=== PATIENT | male | born 1980 | race Caucasian/White ===

== ENCOUNTER 2018-10-01 20:41 | Emergency (ER) | payer MEDICAID, SELFPAY ==
[2018-10-01 20:42] VITALS: BP 143/98; PULSE 95; RESP 16; TEMP 36.1; O2SAT 99; BMI 32.1
--- NOTE | 2018-10-01 21:15 | RAD_ITS ---
STUDY: X-RAY - LEFT HAND REASON FOR EXAM: Male, 38 years old. Injured third and fourth digit findings CABG object. TECHNIQUE: 3 view(s) of the hand. COMPARISON: None. FINDINGS: Normal radiocarpal articulation. Normal distal radioulnar joint. Normal visualized carpal bones. Normal carpal articulations Normal carpometacarpal articulation of the thumb. Normal second through fifth carpometacarpal joints. Normal metacarpi. Normal metacarpophalangeal joint of the thumb. Normal interphalangeal joint of the thumb. Normal proximal and distal phalanges of the thumb. Normal metacarpophalangeal joints of the second through fifth fingers. Normal proximal and distal interphalangeal joints of the second through fifth fingers. Normal phalanges of the second through fifth fingers. The soft tissue structures are unremarkable. RAD/Hand Min 3 Views IMPRESSION: No acute osseous injury. Electronically Signed: Perla Alfaro MD at 21:37 EDT Tel , Service support ,
--- NOTE | 2018-10-01 21:41 | ED.DCSUM_ITS ---
- ER Visit Summary Date of Service: 10/01/18 Chief Complaint: left finger injuries History of Present Illness: The patient is a 38 M who presents for injuries to the left third and fourth fingers. Patient yesterday tried to catch an object that was shifting and jammed his fingers at the distal tips into the objects. Since then he has had swelling and discomfort of the fingers. He is fully able to extend and flex them. He has not taken anything for pain. He has tried ice. No other injuries. Physical Examination: Well-nourished and well-developed in no distress. Examination of the left hand shows a 2+ radial pulse. Third finger has mild edema but full flexion and extension is intact. No laxity to varus or valgus stress. No deformity. Mild contusion noted. Similar examination of the fourth finger with much less swelling. Remainder of exam unremarkable. Test Results: Clinical Impression(s) from Imaging Studies Hand X-Ray 10/01/18 21:15 IMPRESSION: No acute osseous injury. Electronically Signed: Perla Alfaro MD at 21:37 EDT Tel , Service support , Emergency Department Course and Treatment: Patient had no findings on physical exam concerning for tendon or ligament injury. X-ray showed no fractures or dislocations. Patient has good sensation and motor function of all fingers. He will use ice and joqg-ile-xujxmoy pain medication as needed. Discharged home. Treatment Plan: [] Disposition: Discharge home Impression: Left third and fourth finger sprains and contusions This note was generated with [employer] dictation software. It may contain incorrect words, spelling, and punctuation that were not noted in review of the chart prior to signing ED Disposition - Plan for ED Patient: Disposition: Home or Assisted Living Instructions: Sprain Finger Referrals: Care Physician,No Primary [Primary Care Provider] - Doctor,Your [STAFF PHYSICIAN] - Additional Instructions: You did not break your fingers. They are just bruised and sprained. Please continue using ice for swelling and jkma-cvb-gvqqelu pain medication as needed for pain. If you have any worsening of your condition or any new concerning symptoms, please return immediately to the emergency department for another evaluation.
== END 2018-10-01 21:58 | disposition home or self-care (01) ==
PROVIDERS: Emergency Provider Emergency Medicine
DX: S60.042A Contusion of left ring finger without damage to nail, initial encounter (principal); S60.052A Contusion of left little finger without damage to nail, initial encounter; S63.617A Unspecified sprain of left little finger, initial encounter; S63.615A Unspecified sprain of left ring finger, initial encounter; W20.8XXA Other cause of strike by thrown, projected or falling object, initial encounter; Y93.9 Activity, unspecified; Y92.89 Other specified places as the place of occurrence of the external cause; Y99.9 Unspecified external cause status
CPT/HCPCS: 73130; 99282

== ENCOUNTER 2019-05-05 19:16 | Emergency (ER) | payer MEDICAID, SELFPAY ==
[2019-05-05 14:34] VITALS: BMI 32.1
[2019-05-05 19:17] VITALS: BP 170/104; PULSE 90; RESP 16; TEMP 36.7; O2SAT 98; BMI 26.5
--- NOTE | 2019-05-05 19:38 | ED.DCSUM_ITS ---
- ER Visit Summary Date of Service: 05/05/19 Chief Complaint: [Dental pain] History of Present Illness: The patient is a 39 M [presents the emergency department complaint of dental pain that started 3 days ago. Patient states he has had chronic dental issues for 6 or 7 years. Patient was seen at the [facility] earlier today and started on Keflex. Patient has allergy to clindamycin. Patient complains of severe pain to his right upper teeth. He denies any fevers. He denies any trauma to his teeth. Patient states he is trying to save money to get into see a dentist.] Physical Examination: [HEENT-PERRLA, EOMI. Cranial nerves II through XII grossly intact. TMs clear. Mucous membranes moist. No adenopathy. Patient- patient has several broken and carried right upper premolars that are tender to palpation. There is some faint gingival erythema. No abscess noted. No facial cellulitis. Cardiovascular-regular rate and rhythm without murmur or ectopy Lungs-clear to auscultation, chest wall stable without crepitus or subcu emphysema Abdomen-normoactive bowel sounds, soft, nontender, no rebound or rigidity, no peritoneal signs. Extremities-intact ?4, normal range of motion, normal pulses, atraumatic] Test Results: [None indicated] Emergency Department Course and Treatment: [I did perform an oars report and he has had no narcotics in the last year. She was given 1 Percocet in the emergency department] Treatment Plan: [To continue with his antibiotic and will be given a prescription for Percocet for his pain. Patient also will be given a list of dentists in the area.] Disposition: [Discharged home in stable condition] Impression: [Dental pain secondary to dental caries] This note was generated with [employer] dictation software. It may contain incorrect words, spelling, and punctuation that were not noted in review of the chart prior to signing ED Disposition - Plan for ED Patient: Referrals: Care Physician,No Primary [Primary Care Provider] -
--- NOTE | 2019-05-05 19:40 | ED.DEP ---
ED Disposition - Plan for ED Patient: Instructions: Dental Pain Prescriptions: Oxycodone HCl/Acetaminophen [Percocet 5/325] 1 tablet PO Q6H PRN PRN 3 Days #12 tablet PRN Reason: Pain Transmission Status: Sent to [email or web address][id number] Referrals: Care Physician,No Primary [Primary Care Provider] - Additional Instructions: see a dentist
[2019-05-05] MEDS: oxyCODONE 5 MG Tablet PO (19:43)
== END 2019-05-05 19:53 | disposition home or self-care (01) ==
LOC: ED 19:48
PROVIDERS: Emergency Provider Emergency Medicine
DX: K02.9 Dental caries, unspecified (principal); Z72.0 Tobacco use
CPT/HCPCS: 99283

== ENCOUNTER 2019-09-02 16:28 | Emergency (ER) | payer MEDICAID, SELFPAY ==
[2019-08-03 13:16] VITALS: BMI 26.5
[2019-09-02 16:30] VITALS: BP 158/87; PULSE 114; RESP 16; TEMP 36.4; O2SAT 97; BMI 32.8
--- NOTE | 2019-09-02 17:06 | ED.VISSUMM ---
- ER Visit Summary Date of Service: 09/02/19 Chief Complaint: [Back pain History of present illness: The patient is a 39-year-old male who presents to the emergency department chief complaint of back pain that started 1 week ago. Patient woke up with pain one morning and has had it for about a week and a half. Initially the pain radiated down his left leg but that seems to have improved and now is rating down his right leg. Patient states that about a year ago he had x-rays that show degenerative disc disease. Patient denies any loss of bowel or bladder function. He denies weakness in extremities. He denies saddle anesthesia.] Patient denies any trauma to his back. He said no fever. Patient also states that he had a sore throat since April. He has been on antibiotics to treat thrush such as fluconazole and has not had much in the way of relief. Patient had been on antibiotics prior to the sore throat starting and he states he had a pill that kind got stuck in his throat that he thought irritated the throat at that time. Physical Examination: [HEENT-PERRLA, EOMI. Cranial nerves II through XII grossly intact. TMs clear. Mucous membranes moist. No adenopathy. Thinks nonerythematous. No exudates. No abnormalities noted. Cardiovascular-regular rate and rhythm without murmur or ectopy Lungs-clear to auscultation, chest wall stable without crepitus or subcu emphysema Abdomen-normoactive bowel sounds, soft, nontender, no rebound or rigidity, no peritoneal signs Back exam-patient has mild diffuse tenderness over the thoracic and lumbar paraspinal musculature bilaterally. No bony step-offs noted. No erythema or warmth noted. Negative straight leg raises. Deep tendon reflexes are plus 2 out of 4 bilaterally at the patella and Achilles. Patient has normal 5 extension.. Extremities-intact ?4, normal range of motion, normal pulses, atraumatic] Test Results: [None indicated] Emergency Department Course and Treatment: [Patient was given a prescription for Flexeril, Percocet, and Naprosyn. Patient also will be given a Medrol Dosepak.] Treatment Plan: [She will be given referral to primary care physician configuration management consultant for no doc as well as orthopedics for follow-up patient also will be given referral to ENT if his sore throat continues.] Disposition: [Discharged home in stable condition] Impression: [Atraumatic back pain Lumbar radiculopathy Pharyngitis] This note was generated with [employer] dictation software. It may contain incorrect words, spelling, and punctuation that were not noted in review of the chart prior to signing ED Disposition - Plan for ED Patient: Referrals: NOT,DEFINED [Primary Care Provider] -
--- NOTE | 2019-09-02 17:09 | ED.DEP ---
ED Disposition - Plan for ED Patient: Instructions: ED Back Pain Acute or Chronic, ED LUMBAR RADICULOPATHY Prescriptions: cycloBENZAPRine HCl [Flexeril] 10 mg PO TID PRN #20 tab PRN Reason: Muscle Spasm Prescription Printed MethylPREDNISolone DosePak [Medrol DosePak] 4 mg PO UD #1 box Prescription Printed Naproxen [Naprosyn] 500 mg PO BID PRN #20 tab Prescription Printed Oxycodone HCl/Acetaminophen [Percocet 5/325] 1 tab PO Q6H PRN PRN 3 Days #12 tab PRN Reason: Pain Prescription Printed Referrals: NOT,DEFINED [Primary Care Provider] - Everardo Son MD [STAFF PHYSICIAN] - Jose Angel Ibarra DO [STAFF PHYSICIAN] - 3-5 Days Jonatan Sagastume MD [STAFF PHYSICIAN] - 3-5 Days
== END 2019-09-02 17:20 | disposition home or self-care (01) ==
LOC: ED 17:16
PROVIDERS: Emergency Provider Emergency Medicine
DX: M54.9 Dorsalgia, unspecified (principal); M54.16 Radiculopathy, lumbar region; J02.9 Acute pharyngitis, unspecified; Z72.0 Tobacco use
CPT/HCPCS: 99282

== ENCOUNTER → 2019-09-08 14:41 | Outpatient (CLI) | payer MEDICAID, SELFPAY ==
[2019-09-02 16:30] VITALS: BMI 32.8
== END ==
PROVIDERS: Referring Provider Otolaryngology; Visit Provider Otolaryngology
DX: J02.9 Acute pharyngitis, unspecified (principal)
CPT/HCPCS: 87070

== ENCOUNTER → 2019-09-23 11:12 | Outpatient (CLI) | payer MEDICAID, SELFPAY ==
[2019-09-23 11:08] VITALS: BMI 30.2
--- NOTE | 2019-09-23 11:13 | RAD_ITS ---
STUDY: X-RAY - LUMBAR SPINE REASON FOR EXAM: Male, 39 years old. CHRONIC PAIN, RADIATES DOWN BILAT LEGS- WORSE ON THE RIGHT TECHNIQUE: 5 view(s) of the lumbar spine were obtained including oblique views. COMPARISON: None FINDINGS: Normal lumbar lordosis. There is no substantial scoliosis. There is a normal alignment of the vertebrae. There is multilevel endplate spondylosis of the lumbar vertebrae. Mild degree of disc space narrowing at the L4-L5 and L5-S1 levels. 20% loss of height of the superior endplate of the L1 vertebrae. The soft tissue structures are unremarkable. RAD/L/S Spine Min 4 Views IMPRESSION: Degenerative changes of the spine, as detailed above. 20% loss of height of the superior endplate of the L1 vertebrae. Electronically Signed: Manjinder Costa, at 15:09 EDT , Service support ,
--- NOTE | 2019-09-23 11:15 | RAD_ITS ---
STUDY: X-RAY - THORACIC SPINE REASON FOR EXAM: Male, 39 years old. CHRONIC PAIN TECHNIQUE: 3 view(s) of the thoracic spine were obtained. COMPARISON: None. FINDINGS: There is an increase in the normal thoracic kyphosis. There is no substantial scoliosis. There is multilevel endplate spondylosis of the thoracic vertebrae. There is multilevel disc space narrowing of the thoracic spine. The soft tissue structures are unremarkable. RAD/Thoracic Spine 3 Views IMPRESSION: Multilevel spondylosis with disc space narrowing and increased kyphosis. Electronically Signed: Manjinder Costa, at 15:12 EDT , Service support ,
== END ==
PROVIDERS: Referring Provider Orthopaedic Surgery; Visit Provider Orthopaedic Surgery
DX: M54.6 Pain in thoracic spine (principal); M54.5 Low back pain
CPT/HCPCS: 72072; 72110

== ENCOUNTER 2020-04-09 17:59 | Emergency (ER) | payer MEDICAID, SELFPAY ==
[2020-04-09 18:01] VITALS: BP 160/112; PULSE 98; RESP 17; TEMP 36.8; O2SAT 97; BMI 32.1
--- NOTE | 2020-04-09 18:18 | ED.VIS.GEN ---
History of Present Illness Chief Complaint: Dental Informant: Patient Narrative: 39-year-old male tells me that he has swelling of the roof of his mouth. He tells me that he knows he needs to see a dentist but that all the dentist that he was seen in the past have been a joke. He tells me they have done more damage to him than good. He tells me he did a online appointment and was prescribed clindamycin today but he allergic to it. States they did not give him anything for pain. Tells me he is to see primary care at [facility] but does not go there anymore because one time he had the swelling on the roof of his mouth and they wanted to put their finger in and feel it and he told them that if they would damage anything that he would be very upset. I tried to redirect him and tell him there is nothing I can do about those prior visits but that he keeps bringing up other things from the past such as one time when he took [address] [place] and do anything for him and he really just needs Percocet and a prescription for an antibiotic. No fevers. Past Medical History - Allergies and Home Meds Allergies/Adverse Reactions: Allergies clindamycin Allergy (Verified 04/09/20 18:00) Unknown poison max extract Allergy (Verified 04/09/20 18:00) Rash poison oak extract Allergy (Verified 04/09/20 18:00) Rash poison sumac extract Allergy (Verified 04/09/20 18:00) Rash red dye Allergy (Verified 04/09/20 18:00) Rash Primary Care Physician: Care Physician,No Primary [Primary Care Provider] - Past Medical History: - - Chronic back issues Surgical History: - - [place] tooth extraction multiple dental procedures Smoking Status: Current every day smoker Drugs: None Review of Systems General: Denies: Chills, Fever, Sweats Eyes: Denies: Visual changes - bilaterally, Diplopia ENT: Reports: - - Swelling right roof of mouth. Denies: Rhinorrhea, Sore throat Cardiovascular: Denies: Chest pain, Palpitations Respiratory: Denies: Dyspnea, Cough, Dyspnea on exertion Gastrointestinal: Denies: Abdominal pain, Nausea, Vomiting, Diarrhea, Melena, Hematochezia Genitourinary: Denies: Dysuria, Hematuria, Frequency Musculoskeletal: Denies: Back pain, Extremity Pain Skin: Denies: Rash, Wounds Neurological: Denies: Headache, Weakness, Numbness Physical Exam Vital Signs/Narrative: Vital Signs Temp Pulse Resp BP Pulse Ox 04/09/20 18:01 98.2 F 98 17 160/112 H 97 Inital Vital Signs reviewed: Yes General: Well nourished, Well developed, No Acute Distress Head: Normocephalic, Atraumatic Eyes: Perrl, EOMI ENT: Moist mucous membranes, No rhinorrhea, - - There is a dental abscess located just on the medial aspect of the premolars. As I am not allowed to put my fingers and I cannot tell if it is fluctuant or able to be drained. Neck: Supple, Nontender Cardiovascular: Regular rate, Regular rhythm, No murmurs Respiratory: No distress, CTA bilaterally, Chest nontender Abdomen: Soft, Nontender, Nondistended, Normal bowel sounds Back: Nontender, Normal Inspection Extremities: Nontender, No edema Skin: Normal color, No rash Neurological: Alert, Oriented x3, Cranial nerves II-XII grossly intact, Normal Strength, Normal Sensation Psychological: Normal affect, Normal Mood Diagnostic/Tx/Re-eval - Medical Decision Making Patient does not want I&D. I am happy to write an antibiotic that is not on his allergy list. Patient knows he should see dentistry. ED Disposition - Plan for ED Patient: Disposition: Home or Assisted Living Diagnosis: Dental abscess Instructions: Dental Abscess Prescriptions: Penicillin V Potassium 500 mg PO 4X/DAY #40 tab Prescription Printed Oxycodone HCl/Acetaminophen [Percocet 5/325] 1 tab PO Q6H PRN PRN 2 Days #8 tab PRN Reason: Pain Prescription Printed Additional Instructions: Follow-up with dentistry when able
== END 2020-04-09 18:34 | disposition home or self-care (01) ==
PROVIDERS: Emergency Provider Emergency Medicine
DX: K04.7 Periapical abscess without sinus (principal); F17.200 Nicotine dependence, unspecified, uncomplicated
CPT/HCPCS: 99282

== ENCOUNTER 2020-08-08 16:55 | Emergency (ER) | payer MEDICAID, SELFPAY ==
[2020-08-08 16:56] VITALS: BP 153/103; PULSE 109; RESP 16; TEMP 35.8; O2SAT 95; BMI 25.7
--- NOTE | 2020-08-08 17:16 | EDS_ITS ---
HPI History of Present Illness Chief Complaint: Other, Pain/Inj Informant: patient Onset/Context/Timing Onset: Days (Reoccurred Thursday afternoon) Mechanism/Context: Blunt Injury Location of pain/injuries: - (Nose) Quality of Pain: Dull and Aching Current Severity: Mild Maximum Severity: Moderate Worsened by: Palpation Relieved by: Nothing Associated Symptoms Associated Symptoms: Negative for Parasthesias, Weakness, Loss of function, Inability to ambulate and Loss of consciousness Narrative Narrative: Patient is a 40-year-old male who presents because of nasal pain and swelling. He contacted his insurance company. They recommend he come to the emergency department. He states he was walking with blocks. He thought the door was open. He ran into the door which then struck his nose. He had bleeding initially. There is been no bleeding since the incident. He denies difficulty breathing out of the right or left side. He denies trouble with his vision. He denies numbness of his upper teeth. He denies prior injury. He denies ringing in his ears or decreased hearing. He denies blurred vision, change in vision or double vision. Tetanus Immunization: 5-10 years Prior similar symptoms: No Recent Illness/Hospitalization: No PFSH PFSH Medical History (Updated 08/08/20 @ 17:[address] Aubrey Robert MD) Facet arthritis of lumbar region neck surgery Thoracic degenerative disc disease Home Medications miscellaneous medical supply 1 ea MISCELLANEOUS .PRN #1 ea 09/23/19 [Rx Last Taken Unknown] penicillin V potassium 500 mg PO 4X/DAY #40 tab 04/09/20 [Rx Last Taken Unknown] Allergy/AdvReac Type Severity Reaction Status Date / Time clindamycin Allergy Unknown Verified 08/08/20 16:58 poison max extract Allergy Rash Verified 08/08/20 16:58 poison oak extract Allergy Rash Verified 08/08/20 16:58 poison sumac extract Allergy Rash Verified 08/08/20 16:58 red dye Allergy Rash Verified 08/08/20 16:58 Family History Mother Diabetes Grandmother Diabetes Hypertension Cancer Surgical History (Updated 08/08/20 @ 17:25 by Marge Duval) H/O hand surgery [place] teeth extracted Social History (Updated 10/19/20 @ 11:[address] Jose Angel Ibarra, DO) Smoking Status: Current every day smoker alcohol intake: current substance use type: former substance user and marijuana what type of physical activity do you participate in: none ROS ROS ED Constitutional Constitutional ED: Denies chills or fever(s) Eyes Eyes: Denies blurry vision or change in vision ENT ENT ED: Denies ear pain, rhinorrhea or sore throat Cardiovascular Cardiovascular: Denies chest pain or palpitations Respiratory/Chest Respiratory/Chest: Denies cough, dyspnea or dyspnea on exertion Gastrointestinal Gastrointestinal: Denies abdominal pain, nausea or vomiting Allergic/Immunologic Allergic/Immunologic ED: Denies mouth swelling, tongue swelling or urticaria EXAM Physical Exam Const Vital Signs: 08/08/20 16:56 Temperature 96.4 F L Temperature Source Temporal Pulse Rate 109 H Respiratory Rate 16 Blood Pressure 153/103 H Blood Pressure Mean 119 Pulse Ox 95 Oxygen Delivery Method Room Air Positive well nourished, well developed and obese General Appearance ED: well developed and NAD Nutritional Appearance: obese HEENT Reports TM's clear trauma and tenderness Nose: Negative for septum abnormal Tympanic Membrane ED: Yes TM's clear Throat: other Other Details: There is no septal deviation or hematoma. There is swelling of the nose. Eyes PERRL and EOMs intact bilaterally General Eye ED: Yes other Other Details: There is no hyperesthesia of the right or left intraorbital nerve. There is no step-off with palpation. There is no evidence of entrapment and patient denies diplopia with upward gaze. Neck full ROM General: Negative for tenderness Resp normal respiratory effort Cardio regular rhythm Rate: regular rate Neuro oriented x3 and CN's II-XII intact bilaterally Barry Coma Scale: document GCS findings Spontaneous Obeys Commands Oriented 15 Sensorium / Orientation: alert Psych mental status grossly normal and thought process normal Skin no rashes or lesions noted, skin turgor normal and no jaundice MDM MDM MDM Narrative Medical decision making narrative: X-ray of the nose was obtained to evaluate for fracture versus contusion. Radiography Chest X-Ray - ED: Read by ED Physician and - (There is no evidence of fracture to the nose or nasal spine. There appears to be injury to the cartilage. There is no septal deviation noted. A total of 3 views were obtained.) Discharge Plan Triage Chief Complaint: Other, Pain/Inj ED Provider: JakobAubrey Dx/Rx/DC Orders Clinical Impression: Contusion of nose, initial encounter Instructions: ED Nasal Contusion Prescriptions: No Action miscellaneous medical supply Misc 1 ea miscellaneous .PRN Qty: 1 RF: 0 penicillin V potassium 500 MG tablet 500 mg PO 4X/DAY Qty: 40 RF: 0 Primary Care Provider: Care Physician,No Primary Referrals: Darrius Colbert MD [NON-STAFF] - As Needed Care Physician,No Primary [Primary Care Provider] - Disposition Disposition: Home, self care
--- NOTE | 2020-08-08 17:30 | RAD_ITS ---
STUDY: X-RAY - NASAL BONES REASON FOR EXAM: Male, 40 years old. Swelling, deformity, TECHNIQUE: 3 view(s) of the nasal bones. COMPARISON: None. FINDINGS: Normal nasal bones. Normal anterior nasal spine. There is no demonstrated soft tissue swelling. The remaining visualized osseous structures are normal. There is no demonstrated acute fracture of the otherwise visualized osseous structures. Normal visualized paranasal sinuses. RAD/Nasal Bones min 3 Views IMPRESSION: Normal x-ray examination of the nasal bones. Electronically Signed: Los Gray MD at 17:59 EDT , Service support ,
== END 2020-08-08 18:44 | disposition home or self-care (01) ==
LOC: ED 17:48
PROVIDERS: Emergency Provider Emergency Medicine
DX: S00.33XA Contusion of nose, initial encounter (principal); W22.09XA Striking against other stationary object, initial encounter; Y93.01 Activity, walking, marching and hiking; F17.200 Nicotine dependence, unspecified, uncomplicated
CPT/HCPCS: 70160; 99282

== ENCOUNTER 2020-09-09 14:01 | Emergency (ER) | payer MEDICAID, SELFPAY ==
[2020-09-09 14:02] VITALS: BP 140/78; PULSE 105; RESP 20; TEMP 36.1; BMI 38.5
--- NOTE | 2020-09-09 15:15 | EDS_ITS ---
HPI History of Present Illness Chief Complaint: Dental Informant: patient Onset/Context/Timing Onset: Days (2) Context: Gradual Onset Timing: Continuous and Waxes and wanes Quality: Sharp Location: Right upper molars Worsened by: Nothing Relieved by: - (Nothing) Associated Symptoms Assocated Symptom - Dental: jaw swelling, cold sensitivity and hot sensitivity; Negative for fever or face swelling Narrative Narrative: Patient presents with right upper dental pain that has been getting worse over the past 2 days. Patient states it has been waxing and waning. Patient states he has a history of dental infections and multiple dental caries. Patient states that he normally needs antibiotics for this. Patient also states he has been prescribed Percocet in the past for this. Patient denies any difficulty breathing or difficulty swallowing. Patient admits to some mild swelling around the teeth. Patient admits to hot and cold sensitivity. PFSH PFSH Medical History Facet arthritis of lumbar region Failing root canal neck surgery Thoracic degenerative disc disease Home Medications oxycodone-acetaminophen 1 tab PO Q6H PRN PRN 2 Days #6 tablet 09/09/20 [Rx Last Taken Unknown] penicillin V potassium 500 mg PO 4X/DAY #40 tab 09/09/20 [Rx Last Taken Unknown] Allergy/AdvReac Type Severity Reaction Status Date / Time clindamycin Allergy Unknown Verified 09/09/20 14:11 poison max extract Allergy Rash Verified 09/09/20 14:11 poison oak extract Allergy Rash Verified 09/09/20 14:11 poison sumac extract Allergy Rash Verified 09/09/20 14:11 red dye Allergy Rash Verified 09/09/20 14:11 Family History Mother Diabetes Grandmother Diabetes Hypertension Cancer Surgical History H/O hand surgery [place] teeth extracted Social History Smoking Status: Current every day smoker tobacco type: cigarettes alcohol intake: current substance use type: former substance user and marijuana what type of physical activity do you participate in: none ROS ROS ED Constitutional Constitutional ED: Denies chills or fever(s) Eyes Eyes: Reports blurry vision right; Denies change in vision ENT ENT ED: Denies ear pain or rhinorrhea Cardiovascular Cardiovascular: Denies chest pain or palpitations Respiratory/Chest Respiratory/Chest: Denies cough or dyspnea Gastrointestinal Gastrointestinal: Denies nausea or vomiting Genitourinary Genitourinary ED: Denies dysuria or hematuria Musculoskeletal Musculoskeletal: Reports back pain and neck pain Integumentary Denies abscess or rash Neurologic Neurologic: Denies headache(s) or weakness Allergic/Immunologic Allergic/Immunologic ED: Denies mouth swelling or urticaria EXAM Physical Exam Const Vital Signs: 09/09/20 14:02 Temperature 97.0 F L Temperature Source Temporal Pulse Rate 105 H Respiratory Rate 20 H Blood Pressure 140/78 H Blood Pressure Mean 98 Positive well nourished, well developed and obese General Appearance ED: well developed Nutritional Appearance: obese HEENT Mouth ED: Yes oral and palatal mucosa normal Mouth: oral and palatal mucosa normal Teeth and Gingiva: abnormal tooth and associated gingiva Positive for tenderness, associated gingival edema, enamel fractured and dentin fractured; Negative for associated gingival fluctuance, caries and poor dentition Neck supple and no JVD Lymph Lymphatic: no lymphadenopathy noted Neuro oriented x3, CN's II-XII intact bilaterally, moves all extremities, no focal motor deficits and no sensory deficits noted Sensorium / Orientation: alert Psych mental status grossly normal MDM MDM MDM Narrative Medical decision making narrative: Patient was given a dose of Pen-Vee K and Percocet here. Patient was given a prescription for Pen-Vee K and a short course of Percocet. Patient was instructed to follow-up with his dentist in 3 to 5 days. Patient understood and was agreeable with the plan. All questions were answered. Discharge Plan Triage Chief Complaint: Dental ED Provider: Javi Bridges Dx/Rx/DC Orders Clinical Impression: Infected dental caries Instructions: ED Dental Pain, ED Dental Cavity Prescriptions: New penicillin V potassium 500 MG tablet 500 mg PO 4X/DAY Qty: 40 RF: 0 oxycodone-acetaminophen [oxycodone-acetaminophen] 1 TABLET tablet 1 tab PO Q6H PRN PRN (Reason: Pain) 2 Days Qty: 6 RF: 0 Primary Care Provider: Care Physician,No Primary Referrals: Care Physician,No Primary [Primary Care Provider] - Dentist,Your [STAFF PHYSICIAN] - 3-5 Days Disposition Disposition: Home, self care
[2020-09-09 15:36] VITALS: BP 138/93; PULSE 71; RESP 16; O2SAT 95
[2020-09-09] MEDS: Penicillin Vk 250 MG Tablet 500 MG PO (15:39)
[2020-09-09] MEDS: oxyCODONE 5 MG Tablet PO (15:40)
== END 2020-09-09 15:42 | disposition home or self-care (01) ==
PROVIDERS: Emergency Provider Emergency Medicine
DX: K02.9 Dental caries, unspecified (principal); K04.7 Periapical abscess without sinus; E66.9 Obesity, unspecified; F17.210 Nicotine dependence, cigarettes, uncomplicated
CPT/HCPCS: 99283

== ENCOUNTER 2020-10-06 22:17 | Emergency (ER) | payer MEDICAID, SELFPAY ==
[2020-10-06 12:09] VITALS: BMI 40.6
[2020-10-06 22:18] VITALS: BP 162/80; PULSE 127; RESP 20; TEMP 36.3; O2SAT 97; BMI 32.2
--- NOTE | 2020-10-06 22:39 | EDS_ITS ---
HPI History of Present Illness Chief Complaint: Dental Informant: patient Onset/Context/Timing Onset: Month(s) Context: Gradual Onset Timing: Continuous Quality: Aching Current Severity: Moderate Maximum Severity: Severe Narrative Narrative: Patient has been having chronic dental pain and problems for over a year. He recurrently gets abscesses that oftentimes he drains himself but this time he was not able. Seen here recently for dental pain and prescribed oxycodone, the next time he was prescribed Naprosyn he states that does not help. This is all been in the past 4 weeks, this is his third visit. [facility] Medical History Facet arthritis of lumbar region Failing root canal neck surgery Thoracic degenerative disc disease Home Medications oxycodone-acetaminophen 1 tab PO Q6H PRN PRN 2 Days #6 tablet 09/09/20 [Rx Last Taken Unknown] penicillin V potassium 500 mg PO 4X/DAY #40 tab 09/09/20 [Rx Last Taken Unknown] naproxen 500 mg PO BID #14 tab 10/06/20 [Rx Last Taken Unknown] penicillin V potassium 500 mg PO 4X/DAY #40 tab 10/06/20 [Rx Last Taken Unknown] prednisone 10 mg PO DAILY #63 tab 10/06/20 [Rx Last Taken Unknown] Allergy/AdvReac Type Severity Reaction Status Date / Time clindamycin Allergy Unknown Verified 10/06/20 12:09 poison max extract Allergy Rash Verified 10/06/20 12:09 poison oak extract Allergy Rash Verified 10/06/20 12:09 poison sumac extract Allergy Rash Verified 10/06/20 12:09 red dye Allergy Rash Verified 10/06/20 12:09 Family History Mother Diabetes Grandmother Diabetes Hypertension Cancer Surgical History H/O hand surgery [place] teeth extracted Social History Smoking Status: Current every day smoker tobacco type: cigarettes alcohol intake: current substance use type: former substance user and marijuana what type of physical activity do you participate in: none ROS ROS ED Constitutional Constitutional ED: Denies chills or fever(s) Eyes Eyes: Denies change in vision or double vision ENT ENT ED: Reports dental pain; Denies sinus pain or throat swelling Cardiovascular Cardiovascular: Denies chest pain or palpitations Respiratory/Chest Respiratory/Chest: Denies cough or dyspnea Integumentary Denies abscess or rash Neurologic Neurologic: Denies headache(s), paresthesias or weakness EXAM Physical Exam Const Vital Signs: 10/06/20 22:18 Temperature 97.3 F L Temperature Source Temporal Pulse Rate 127 H Respiratory Rate 20 H Blood Pressure 162/80 H Blood Pressure Mean 107 Pulse Ox 97 Oxygen Delivery Method Room Air Positive well nourished and well developed General Appearance ED: well developed and NAD HEENT HEENT Narrative: Patient well-appearing in no distress. No trismus. Normal voice. There is a dental abscess on the hard palate anteriorly associated with approximately tooth #6-7. There is also swollen tender gingiva externally along the right maxillary row. There is multifocal poor dentition. No purulent discharge spontaneously or bleeding. No evidence of necrosis anywhere. Face and Sinus: sinuses nontender Throat: posterior oropharynx normal Eyes PERRL and EOMs intact bilaterally Neck no lymphadenopathy and supple Resp normal respiratory effort Neuro oriented x3 and CN's II-XII intact bilaterally Sensorium / Orientation: alert Gait (Neuro): normal gait Psych mental status grossly normal and thought process normal Skin no rashes or lesions noted and no wounds MDM MDM Radiography Diagnostic Testing: Patient was amenable to draining his abscess which we did successfully see the procedure note. He has a filled bottle of the penicillin he was just prescribed, that he has not started yet because he was taking leftover medication before. Advised to take the entire prescription until gone and follow-up with a dentist he was given did resource list. Procedures Other Procedures Procedure(s): Dental abscess aspiration --after topical treatment with Cetacaine spray, I used a number 18-gauge needle close to the tooth into the abscess on the hard palate, aspirated about 1-1.5 cc of bloody pus, deflating the abscess. Patient tolerated well no complications, rinsed with ice water. Discharge Plan Triage Chief Complaint: Dental ED Provider: Simone oTro Dx/Rx/DC Orders Clinical Impression: Dental abscess, Infected dental caries Instructions: ED Dental Abscess Prescriptions: No Action penicillin V potassium 500 MG tablet 500 mg PO 4X/DAY Qty: 40 RF: 0 oxycodone-acetaminophen [oxycodone-acetaminophen] 1 TABLET tablet 1 tab PO Q6H PRN PRN (Reason: Pain) 2 Days Qty: 6 RF: 0 naproxen 500 mg tablet 500 mg PO BID Qty: 14 RF: 0 penicillin V potassium 500 mg tablet 500 mg PO 4X/DAY Qty: 40 RF: 0 prednisone 10 mg tablet 10 mg PO DAILY Qty: 63 RF: 0 Primary Care Provider: Care Physician,No Primary Referrals: Care Physician,No Primary [Primary Care Provider] - Dentist,Your [STAFF PHYSICIAN] - As soon as possible (See attached resource list) Activity Restrictions/Additional Instructions: Take your penicillin prescription as prescribed until completely gone Disposition Disposition: Home, Self Care
[2020-10-06] MEDS: oxyCODONE 5 MG Tablet 10 MG PO (23:00)
[2020-10-06] MEDS: Tetracaine/Benzocaine/Butamben 1 APPLIC TOPICAL (23:01)
[2020-10-06 23:37] VITALS: RESP 16
== END 2020-10-06 23:37 | disposition home or self-care (01) ==
PROVIDERS: Emergency Provider Emergency Medicine
DX: K02.9 Dental caries, unspecified (principal); K04.7 Periapical abscess without sinus; F17.210 Nicotine dependence, cigarettes, uncomplicated
CPT/HCPCS: 41800; 64999; 99282; 99283

== ENCOUNTER 2020-11-28 21:00 | Emergency (ER) | payer MEDICAID, SELFPAY ==
[2020-11-28 21:21] VITALS: BP 84/14; PULSE 140
[2020-11-28 21:23] VITALS: BP 153/114; PULSE 110; PULSE 138; RESP 16; RESP 18; RESP 32; O2SAT 90; O2SAT 94
--- NOTE | 2020-11-28 21:27 | EKG12_ITS ---
Test Reason : STEMI Blood Pressure : / mmHG Vent. Rate : 101 BPM Atrial Rate : 066 BPM P-R Int : 000 ms QRS Dur : 104 ms QT Int : 300 ms P-R-T Axes : 000 022 007 degrees QTc Int : 389 ms Undetermined rhythm : Consider Atrial Fibrillation ST elevation consider lateral injury or acute infarct ACUTE [place] / STEMI Abnormal ECG Confirmed by YOGESH VEGA, NATANAEL ([id number]), fan mail editor VIOLETTE PLAZA ([id number]) on 12/05/2020 8:57:50 AM Referred By: VENUS Confirmed By:NATANAEL ZUÑIGA MD
--- NOTE | 2020-11-28 21:30 | RAD_ITS ---
STUDY: X-RAY CHEST REASON FOR EXAM: Male, 40 years old. ETT #1 TECHNIQUE: Portable, December, AP chest radiograph COMPARISON: Less than 1 minute later FINDINGS: The lungs are clear and expanded. There is no demonstrated pleural abnormality. Normal size heart. Normal mediastinum and srinath. Normal visualized pulmonary arteries. Normal visualized aortic arch and descending thoracic aorta. Normal visualized thoracic spine. Normal visualized ribs, clavicles, and shoulders. There is no demonstrated abnormality of the visualized soft tissue structures of the upper abdomen. RAD/CXR for Line Placement IMPRESSION: Endotracheal tube terminates 9.5 cm above the tello, and above the level of clavicles. This is corrected on subsequent chest radiograph. Enteric tube terminates in the gastric fundus with sidehole above the diaphragm. This is corrected on subsequent chest radiograph. No acute abnormal cardiopulmonary findings. Electronically Signed: Everardo Barber MD at 22:12 EDT Tel , Service support ,
--- NOTE | 2020-11-28 21:32 | EKG12_ITS ---
Test Reason : STEMI Blood Pressure : / mmHG Vent. Rate : 118 BPM Atrial Rate : 127 BPM P-R Int : 000 ms QRS Dur : 114 ms QT Int : 440 ms P-R-T Axes : 000 -06 015 degrees QTc Int : 616 ms Atrial fibrillation Incomplete left bundle branch block ST elevation consider anterolateral injury or acute infarct Abnormal ECG Confirmed by ERIK VEGA, ABRIL ([id number]), television news video editor VIOLETTE PLAZA ([id number]) on 12/03/2020 9:09:55 AM Referred By: BB Confirmed By:ABRIL VALENCIA MD
--- NOTE | 2020-11-28 21:32 | RAD_ITS ---
STUDY: X-RAY CHEST REASON FOR EXAM: Male, 40 years old. Chest pain- ETT PLACEMENT #2 TECHNIQUE: Portable, similar AP chest radiograph COMPARISON: Less than 1 minute earlier FINDINGS: The lungs are clear and expanded. There is no demonstrated pleural abnormality. Normal size heart. Normal mediastinum and srinath. Normal visualized pulmonary arteries. Normal visualized aortic arch and descending thoracic aorta. Normal visualized thoracic spine. Normal visualized ribs, clavicles, and shoulders. There is no demonstrated abnormality of the visualized soft tissue structures of the upper abdomen. RAD/CXR for Line Placement IMPRESSION: Endotracheal tube terminates 4.6 cm above the tello. Enteric tube terminates within the gastric fundus with sidehole diaphragm. No acute abnormal cardiopulmonary findings. Electronically Signed: Everardo Barber MD at 22:11 EDT Tel , Service support ,
--- NOTE | 2020-11-28 21:35 | EX.ED.CRITCA ---
HPI History of Present Illness Chief Complaint: CPR Informant: family and EMS Narrative Narrative: Patient has been having chest pain off and on with some arm discomfort for a week or so. Tonight he was experiencing upper back discomfort along with bilateral arm and bilateral leg discomfort, and called EMS. He was feeling worse as they were unloading him here in the emergency department, they were conversing with him in the ambulance bay outside, and as the EMS personnel brought him into room #4, the patient became apneic, diaphoretic, and ashen in color. [facility] Medical History Facet arthritis of lumbar region Failing root canal neck surgery Thoracic degenerative disc disease Home Medications oxycodone-acetaminophen 1 tab PO Q6H PRN PRN 2 Days #6 tablet 09/09/20 [Rx Last Taken Unknown] penicillin V potassium 500 mg PO 4X/DAY #40 tab 09/09/20 [Rx Last Taken Unknown] naproxen 500 mg PO BID #14 tab 10/06/20 [Rx Last Taken Unknown] penicillin V potassium 500 mg PO 4X/DAY #40 tab 10/06/20 [Rx Last Taken Unknown] prednisone 10 mg PO DAILY #63 tab 10/06/20 [Rx Last Taken Unknown] Allergy/AdvReac Type Severity Reaction Status Date / Time clindamycin Allergy Unknown Verified 10/06/20 12:09 poison max extract Allergy Rash Verified 10/06/20 12:09 poison oak extract Allergy Rash Verified 10/06/20 12:09 poison sumac extract Allergy Rash Verified 10/06/20 12:09 red dye Allergy Rash Verified 10/06/20 12:09 Family History Mother Diabetes Grandmother Diabetes Hypertension Cancer Surgical History H/O hand surgery [place] teeth extracted Social History Smoking Status: Current every day smoker tobacco type: cigarettes alcohol intake: current substance use type: former substance user and marijuana what type of physical activity do you participate in: none ROS ROS ED Review of Systems ROS Unobtainable: other Details: Obtunded EXAM Physical Exam Const Vital Signs: 11/28/20 21:01 Oxygen Delivery Method Room Air Positive obese Constitutional Narrative: obtunded, GCS 3; ashen Nutritional Appearance: obese HEENT normocephalic and atraumatic Eyes PERRL Eyes Narrative: pupils 3mm, sluggishly responsive Neck supple Resp Resp Narrative: Patient initially with agonal breathing, then apneic Cardio Cardio Narrative: absent HSs. No central pulse. GI non-tender and non-distended Palpation: soft Back/Spine Back/Spine Narrative: atraumatic Neuro Neuro Narrative: obtunded, cyanotic Skin Skin Narrative: ashen, pale, cyanotic MDM MDM MDM Narrative Medical decision making narrative: EMS sent to prehospital EKGs. The initial 1 had a lot of artifact and was difficult to interpret, so they did another 1. It was suspicious for possible posterior STEMI but was complicated by artifact, however I was interpreting the EKG, handed to me just after it was transmitted, as EMS was putting the patient in a room and nurses were asking for a physician which I responded to immediately. I watched the patient become apneic, as nurses were gathering equipment since the patient was placed in the psychiatric room which was the only available room for EMS to go to at the time. We started bagging the patient as then I felt the patient loses pulse and we began ACLS. Respiratory arrived and we performed endotracheal intubation. See the procedure notes for details. Nursing was able to place several peripheral IVs. The patient was in ventricular fibrillation the vast majority of the time, so several rounds of epinephrine were given, one point he was bradycardic so he was given a milligram of atropine as well, and amiodarone 300 mg bolus. Even with a round of 3 stacked shocks, he continued to be in ventricular fibrillation. At one point he converted to PEA, so he was additionally given calcium and bicarb boluses in addition to an additional bolus of IV fluid. He decompensated back to ventricular fibrillation. I then gave him amiodarone 150 mg bolus, and another dose of epinephrine, his fourth milligram, and then the plan was to perform a round of 3 stacked shocks after we circulated this for a minute or so, and after the second one he seemed to convert to a perfusing rhythm with a thready pulse and a blood pressure of 82 systolic. His blood pressure continued to improve, we obtained an EKG was consistent with a lateral STEMI. Immediately a STEMI was called, however the appliance tester was taking another patient to the Monitoring Engineer simultaneously, he did review the EKG and agree the patient should be going to the Monitoring Engineer emergently, he talked with another shipping/receiving manager but we do not have any other appliance tester available, nor another Monitoring Engineer team, so they recommended transfer. I discussed with the patient's mother, we decided to choose [facility], excepted to the emergency department by Dr. Hale. Patient was given aspirin via NG, heparin bolus and drip started, and helicopter EMS is in route. I confirmed ETT placement by chest x-ray myself. The patient continues to have frothy secretions from the ETT, consistent with cardiogenic pulmonary edema. I stopped extra IV fluid, we increased PEEP to 10 FiO2 is maintained 1.0, tidal volumes 550, his pulse ox is 91% and respiratory is suctioning and performing an ABG. Radiography Chest X-Ray - ED: 1 View, Read by ED Physician, CHF (Mild) and - (Good ETT placement) Procedures Intubations Intubation Method: orotracheal Intubation Verification: Positive color change and Bilateral breath sounds confirmed (Using direct laryngoscopy, I was unable to visualize the entire cords beyond his epiglottis, but I did see the retinoids, respiratory was applying very mild cricoid pressure and felt the tube passed, it was confirmed using the methods above and chest x-ray. Secured at 21 cm at the teeth. Chest x-r) Intubation Complications: no complications Critical Care Time Critical Care Time: Yes Critical care time (excluding procedures): 30-74 minutes (65 min), Including time spent:, Discussing w/Patient &/or Family/Piano Bench Assembler, Discussing w/Consultants, Arranging Admission or Transfer and Performing Direct Patient Care at Bedside Discharge Plan Triage Chief Complaint: CPR ED Provider: Simone Toro Dx/Rx/DC Orders Clinical Impression: Cardiopulmonary arrest with successful resuscitation, ST elevation (STEMI) myocardial infarction Prescriptions: No Action penicillin V potassium 500 MG tablet 500 mg PO 4X/DAY Qty: 40 RF: 0 oxycodone-acetaminophen [oxycodone-acetaminophen] 1 TABLET tablet 1 tab PO Q6H PRN PRN (Reason: Pain) 2 Days Qty: 6 RF: 0 naproxen 500 mg tablet 500 mg PO BID Qty: 14 RF: 0 penicillin V potassium 500 mg tablet 500 mg PO 4X/DAY Qty: 40 RF: 0 prednisone 10 mg tablet 10 mg PO DAILY Qty: 63 RF: 0 Primary Care Provider: Care Physician,No Primary Referrals: Care Physician,No Primary [Primary Care Provider] - Disposition Disposition: Acute Care Hospital Discharge Location: [facility]
[2020-11-28 21:47] LABS: Absolute Lymphocyte Count 3.91 X10^3/uL (0.83-4.51); Absolute Neutrophil Count 2.8 X10^3/uL (2.0-7.7); Basophil# 0.03 X10^3/uL; Basophil% 0.4 % (0-1); Eosinophil# 0.12 X10^3/uL; Eosinophils% 1.6 % (0-5); Hematocrit 53.3 % (40-54); Hemoglobin 17.9 g/dL (13.0-16.5); Lymphocyte # 3.91 X10^3/ul (0.83-4.51); Lymphocyte % 53.3 % (19-41); Mean Corp Hgb Conc 33.6 g/dL (32-36); Mean Corpuscular Hgb 30.5 pg (27.0-32.0); Mean Corpuscular Volume 90.8 fL (80-94); Mean Platelet Vol. 10.7 fl (6.2-12.0); Monocyte# 0.42 X10^3/uL; Monocyte% 5.7 % (0-10); NRBC Flagged by Analyzer 0 % (0-5); Neutrophil # 2.84 X10^3/uL (2.7-7.7); Neutrophil % 38.7 % (47-70); Platelet Count 142 K/mm3 (150-450); RBC Distribution Width CV 12.4 % (11.6-14.6); RBC Distribution Width SD 41.3 fl (35.1-43.9); Red Blood Count 5.87 M/mm3 (4.6-6.2); White Blood Count 7.3 K/mm3 (4.4-11.0)
[2020-11-28] MEDS: Heparin Injection (Vial) 5,000 UNIT/ML VIAL 4000 UNIT IV (21:53)
[2020-11-28] MEDS: Aspirin 81 MG TAB.CHEW 324 MG NG (21:53)
[2020-11-28 22:00] VITALS: BP 125/86; PULSE 125; RESP 20; O2SAT 97
--- NOTE | 2020-11-28 22:07 | CM.ED ---
SOCIAL WORK Code Blue/STEMI Responded to code. Mother present. Emotional support and education provided. Patient to be transferred to [facility]. Mother provided with contact information for [facility]. Mother escorted to patient's room to await transport. Lori Kamara, CLINICAL DOCUMENTATION CONSULTANT, BOW STAPLER
[2020-11-28 22:11] LABS: Allen Test Positive; Base Excess -19 mmol/L (-2 to +2); Bicarbonate 12.1 mmol/L (22-26); Blood Gas Specimen Type ART; FI02 100; Mode AC; O2 Delivery Device Adult Vent; PEEP 10; PO2 79 mmHG (75-100); RR 16; SITE L Radial; SO2 88 % (95-99); Total Carbon Dioxide 14 mmol/L; Vt 500; pCO2 44.6 mmHg (35-45); pH 7.04 (7.35-7.45)
[2020-11-28] MEDS: HEPARIN/D5w 25,000 UNITS 25,000 UNITS/250 ML IV.SOLN. 16 UNITS IV (22:11)
[2020-11-28] MEDS: LORazepam 2 MG/ML Syringe IV (22:11)
[2020-11-28] MEDS: Heparin Injection (Vial) 5,000 UNIT/ML VIAL 9500 UNIT IV (22:11)
[2020-11-28 22:26] LABS: Anion Gap 13 (5-15); BUN 11 mg/dL (7-18); BUN/Creat Ratio 9.6 RATIO (10-20); Calcium,Total 9.3 mg/dL (8.5-10.1); Chloride 109 mmol/L (98-107); Creatinine, Serum 1.14 mg/dL (0.70-1.30); EST Glomerular Filtration Rate 75 mL/min (>60); Est Glom Filt Rate - Afr Amer 90 mL/min (>60); Estimated Creatinine Clearance 98.14 ml/min; Glucose 112 mg/dL (74-106); Potassium 3.9 mmol/L (3.5-5.1); Sodium Level 140 mmol/L (136-145)
[2020-11-28 22:27] LABS: Troponin-I HS 184 pg/mL (3.0-78.0)
[2020-11-28 22:35] LABS: International Normalized Ratio 1.3; Prothrombin Time (Protime)PT. 15.4 SECONDS (11.7-14.9)
[2020-11-28 22:47] VITALS: BP 130/78; PULSE 118; O2SAT 94
[2020-11-28 22:48] VITALS: TEMP 36.4; BMI 34.7
[2020-11-28 22:51] LABS: Partial Thromboplast Time > 250.0 Seconds (24.1-36.2)
--- NOTE | 2020-11-29 00:16 | CPS ---
Critical values noted and Dr. Simone Toro was notified by COLLECTION SYSTEMS MODELER JUSTIN
== END 2020-11-28 22:55 | disposition short-term general hospital (02) ==
PROVIDERS: Emergency Provider Emergency Medicine
DX: I21.9 Acute myocardial infarction, unspecified (principal); I46.9 Cardiac arrest, cause unspecified; I44.7 Left bundle-branch block, unspecified; F17.210 Nicotine dependence, cigarettes, uncomplicated; I48.91 Unspecified atrial fibrillation; Z79.1 Long term (current) use of non-steroidal anti-inflammatories (NSAID); Z79.52 Long term (current) use of systemic steroids
CPT/HCPCS: 31500; 31720; 36600; 51702; 71045; 80048; 82803; 84484; 85025; 85610; 85730; 92950; 93005; 94002; 99285; J7030; A4216

== ENCOUNTER 2020-12-12 05:35 | Emergency (ER) | payer MEDICAID, SELFPAY ==
[2020-12-12 05:38] VITALS: BP 137/95; PULSE 107; RESP 17; TEMP 36.9; O2SAT 95
--- NOTE | 2020-12-12 05:53 | EX.ED.DYSGE1 ---
HPI <Dr. Severo Bullock MD - Last Filed: 12/12/20 07:11> History of Present Illness Chief Complaint: General Illness Narrative Narrative: Patient is presenting from [place] for [place] for medical clearance. Patient had a recent history of presenting to the emergency department on 28 November with chest pain. He suffered a in-hospital V. fib cardiac arrest, was resuscitated was transferred to [facility] where he received stenting and further treatment. History from the patient as well as from police were that the patient was set to be discharged today to a neurologic rehab center in [place]. Patient reports that he was being sent there to rehab from the left sided stroke that he suffered due to his cardiac arrest and to help him regain strength in his left arm as well as to improve on his swallowing. Patient tells me that he signed out AGAINST MEDICAL ADVICE from [facility] secondary to the fact that they wanted to send him to a rehab unit in [place], but he wanted to go somewhere more local. Apparently after the patient signed out AGAINST MEDICAL ADVICE he was trying to get back into his mother's house which is actually where he lives, he apparently was locked out she called the police, the patient became angry and he was arrested under domestic violence charges. Police brought the patient to the emergency department for medical clearance as they did not want to take him to the correction to book him given the fact that he did sign out of a medical facility AGAINST MEDICAL ADVICE. Patient currently does not have any new somatic complaints. PFSH <Dr. Severo Bullock MD - Last Filed: 12/12/20 07:11> [facility] Medical History Facet arthritis of lumbar region Failing root canal neck surgery STEMI (ST elevation myocardial infarction) Thoracic degenerative disc disease Home Medications aspirin 81 mg DAILY 12/12/20 [History Last Taken Unknown] atorvastatin [Lipitor] 40 mg PO QHS 12/12/20 [History Last Taken Unknown] clopidogrel [Plavix] 75 mg PO DAILY 12/12/20 [History Last Taken Unknown] divalproex 750 mg PO DAILY 12/12/20 [History Last Taken Unknown] lisinopril 5 mg PO DAILY 12/12/20 [History Last Taken Unknown] metoprolol tartrate 25 mg PO BID 12/12/20 [History Last Taken Unknown] potassium chloride 20 meq PO DAILY 12/12/20 [History Last Taken Unknown] Allergy/AdvReac Type Severity Reaction Status Date / Time clindamycin Allergy Unknown Verified 10/06/20 12:09 poison max extract Allergy Rash Verified 10/06/20 12:09 poison oak extract Allergy Rash Verified 10/06/20 12:09 poison sumac extract Allergy Rash Verified 10/06/20 12:09 red dye Allergy Rash Verified 10/06/20 12:09 Family History Mother Diabetes Grandmother Diabetes Hypertension Cancer Surgical History H/O hand surgery [place] teeth extracted Social History Smoking Status: Current every day smoker tobacco type: cigarettes alcohol intake: current substance use type: former substance user and marijuana what type of physical activity do you participate in: none ROS <Dr. Severo Bullock MD - Last Filed: 12/12/20 07:11> ROS ED Constitutional Constitutional ED: Denies chills or fever(s) ENT ENT ED: Reports other Details: Dry mouth with some difficulty swallowing Cardiovascular Cardiovascular: Denies chest pain Respiratory/Chest Respiratory/Chest: Denies cough or dyspnea Gastrointestinal Gastrointestinal: Denies abdominal pain, diarrhea, nausea or vomiting Genitourinary Genitourinary ED: Denies dysuria or hematuria Musculoskeletal Musculoskeletal: Denies back pain Integumentary Denies rash Neurologic Neurologic: Reports weakness Psychiatric Psychiatric: Denies depression Endocrine Endocrinology: Denies fatigue Allergic/Immunologic Allergic/Immunologic ED: Denies urticaria EXAM <Dr. Severo Bullock MD - Last Filed: 12/12/20 07:11> Physical Exam Const Vital Signs: 12/12/20 05:38 Temperature 98.4 F Temperature Source Temporal Pulse Rate 107 H Respiratory Rate 17 Blood Pressure 137/95 H Blood Pressure Mean 109 Pulse Ox 95 Oxygen Delivery Method Room Air Positive well nourished and well developed General Appearance ED: well developed and NAD HEENT HEENT Narrative: Patient has dry mucous membranes with oral thrush noted. He does have somewhat of an excoriated oropharynx. Negative for trauma Eyes PERRL and EOMs intact bilaterally Neck supple Chest Wall inspection of chest normal Resp normal respiratory effort and clear to auscultation bilaterally Cardio regular rate, regular rhythm and no murmurs Rate: other Other Details: 2+ radial pulses bilaterally symmetric GI normal to inspection, nondistended, normoactive bowel sounds and non-tender Palpation: soft Extremity normal to inspection Neuro Neuro Narrative: Patient is alert and oriented x3. He has weakness of his left hand as well as somewhat of his left leg. He has some slurred speech with reasonably good cognition. Psych mental status grossly normal Skin no rashes or lesions noted <Dr. Everardo Mora MD - Last Filed: 12/12/20 07:29> Physical Exam Const Vital Signs: 12/12/20 05:38 Temperature 98.4 F Temperature Source Temporal Pulse Rate 107 H Respiratory Rate 17 Blood Pressure 137/95 H Blood Pressure Mean 109 Pulse Ox 95 Oxygen Delivery Method Room Air MDM <Dr. Severo Bullock MD - Last Filed: 12/12/20 07:11> [facility] MDM Narrative Medical decision making narrative: Patient presented secondary to medical clearance. Patient has some left-sided weakness which she states is secondary to his cardiac arrest. He does not have evidence of an acute stroke. He does have somewhat dry mucous membranes. Historical data reports that to the patient signed out to only prior to being discharged to rehab, which would mean that he was stable enough to be discharged the hospital but they thought that he needed some further rehabilitation from a neurologic standpoint. I attempted to get records from [facility] to confirm this. I did receive a fax from [facility] with a discharge summary dated 12/11/2020 at [id number]. Per the reports in this discharge summary the patient was cleared for discharge from the hospital to a rehab facility. He was to go there for rehab due to his stroke, as well as due to aspiration issues from his stroke for continued speech therapy. Patient does require further work-up in the emergency department at this point. The patient is willing to be admitted to a detention for rehab if it is more local, and not in [place]. Patient will be assessed by case management upon their arrival to the emergency department today. Patient will be followed up on by the oncoming physician who will assist in disposition following case management. Discharge Plan Triage Chief Complaint: General Illness ED Provider: Severo Bullock Dx/Rx/DC Orders Clinical Impression: Dysphagia as late effect of cerebrovascular accident (CVA), Left-sided weakness Prescriptions: No Action atorvastatin [Lipitor] 40 mg Tablet 40 mg PO QHS RF: 0 clopidogrel [Plavix] 75 mg Tablet 75 mg PO DAILY RF: 0 lisinopril 5 mg Tablet 5 mg PO DAILY RF: 0 divalproex 250 mg Tablet Extended Release 24 Hr 750 mg PO DAILY RF: 0 metoprolol tartrate 25 mg Tablet 25 mg PO BID RF: 0 potassium chloride 20 mEq Tablet Extended Release 20 meq PO DAILY RF: 0 aspirin 81 mg Capsule 81 mg DAILY RF: 0 Primary Care Provider: Care Physician,No Primary Referrals: Care Physician,No Primary [Primary Care Provider] -
[2020-12-12 09:41] VITALS: BP 118/78; PULSE 81; RESP 16; O2SAT 96
--- NOTE | 2020-12-12 12:15 | CM.ED ---
SOCIAL WORK Referral Source: Dr. Mora Reason for Consult: Discharge Planning Met with patient in room. Introduced role and reason for referral. Patient states I don't have a home, my mom is a cunt and called the guide foreign tour on me. Patient was to discharge from [facility] to [place]. Patient signed out AMA. Patient refusing rehab. Patient states, that is my home, she wouldn't let me in my fucking home. Discussed with HRO, Kimmy London and Dr. Mora. Patient has been medically cleared. Patient to return to shelter. Plan: Christy Kamara, HORSE BREAKER, READING INSTRUCTOR
--- NOTE | 2020-12-12 12:19 | ED.RN ---
per dr gutierres pt cleared and ready for [facility]
== END 2020-12-12 12:50 ==
LOC: ED 05:56
PROVIDERS: Emergency Provider Emergency Medicine
DX: I69.391 Dysphagia following cerebral infarction (principal); F17.210 Nicotine dependence, cigarettes, uncomplicated; Z65.3 Problems related to other legal circumstances; Z79.899 Other long term (current) drug therapy; I25.2 Old myocardial infarction; Z86.74 Personal history of sudden cardiac arrest
CPT/HCPCS: 99282

== ENCOUNTER 2021-01-15 18:51 | Emergency (ER) | payer MEDICAID, SELFPAY ==
[2021-01-15 18:52] VITALS: BP 122/94; PULSE 86; RESP 15; TEMP 36.4; O2SAT 100; BMI 29.7
--- NOTE | 2021-01-15 20:30 | CM.ED ---
SOCIAL WORK Referral Source: Dr. Bridges Reason for Consult: Resources Met with patient and patient's mother in room. Introduced role and reason for referral. Patient discussed frustration with attempting to find PCP. Active listening and support provided. Patient provided with list of local primary care physician's and education provided on Gabriela Grey. Patient to follow up tomorrow. Patient with history of stroke and STEMI-full arrest. Discussed counseling and provided list of agencies. Plan: Home with mother as before Lori Kamara, METAL REFINER, CARTON FORMING MACHINE OPERATOR
--- NOTE | 2021-01-15 20:35 | EDS_ITS ---
HPI History of Present Illness Chief Complaint: Med Refill Informant: patient Onset/Context/Timing Onset: Today Context: Gradual Onset Timing: Continuous Narrative Narrative: Patient presents for medication refill. Patient states he does not have a primary care physician and needs refills of all of his medications. Patient is also requesting a referral to a primary care physician. Patient denies any symptoms. Patient states he had a recent heart attack and stroke. Patient states he has not followed up with anybody for this. Patient states he was given a referral for a primary care physician but states they would not give him an appointment. Patient states he took the last dose of most of his medications today. [facility] Medical History CVA (cerebral vascular accident) Facet arthritis of lumbar region Failing root canal neck surgery STEMI (ST elevation myocardial infarction) Thoracic degenerative disc disease Home Medications aspirin 81 mg PO DAILY #30 cap 01/15/21 [Rx Last Taken Unknown] atorvastatin [Lipitor] 40 mg PO QHS 30 Days #30 tab 01/15/21 [Rx Last Taken Unknown] clopidogrel [Plavix] 75 mg PO DAILY 30 Days #30 tab 01/15/21 [Rx Last Taken Unknown] divalproex 750 mg PO BID 30 Days #180 tab 01/15/21 [Rx Last Taken Unknown] furosemide 40 mg PO BID 30 Days #60 tab 01/15/21 [Rx Last Taken Unknown] lisinopril 5 mg PO QHS 30 Days #30 tab 01/15/21 [Rx Last Taken Unknown] metoprolol tartrate 25 mg PO BID 30 Days #60 tab 01/15/21 [Rx Last Taken Unknown] potassium chloride 20 meq PO DAILY 30 Days #30 tab 01/15/21 [Rx Last Taken Unknown] Allergy/AdvReac Type Severity Reaction Status Date / Time clindamycin Allergy Unknown Verified 10/06/20 12:09 poison max extract Allergy Rash Verified 10/06/20 12:09 poison oak extract Allergy Rash Verified 10/06/20 12:09 poison sumac extract Allergy Rash Verified 10/06/20 12:09 red dye Allergy Rash Verified 10/06/20 12:09 Family History Mother Diabetes Grandmother Diabetes Hypertension Cancer Surgical History H/O hand surgery [place] teeth extracted Social History Smoking Status: Current every day smoker tobacco type: cigarettes alcohol intake: current substance use type: former substance user and marijuana what type of physical activity do you participate in: none ROS ROS ED Constitutional Constitutional ED: Denies chills or fever(s) Eyes Eyes: Denies blurry vision or change in vision ENT ENT ED: Denies rhinorrhea or sore throat Cardiovascular Cardiovascular: Denies chest pain or palpitations Respiratory/Chest Respiratory/Chest: Denies cough or dyspnea Gastrointestinal Gastrointestinal: Denies nausea or vomiting Genitourinary Genitourinary ED: Denies dysuria or hematuria Musculoskeletal Musculoskeletal: Denies back pain or neck pain Integumentary Denies abscess or rash Neurologic Neurologic: Denies headache(s) or weakness Allergic/Immunologic Allergic/Immunologic ED: Denies mouth swelling or urticaria EXAM Physical Exam Const Vital Signs: 01/15/21 18:52 01/15/21 19:16 Temperature 97.6 F L Temperature Source Temporal Pulse Rate 86 Respiratory Rate 15 Respiratory Pattern Normal Blood Pressure 122/94 H Blood Pressure Mean 103 Pulse Ox 100 Oxygen Delivery Method Room Air Positive well nourished and well developed General Appearance ED: well developed HEENT Reports moist mucous membranes Neck supple and no JVD Resp normal respiratory effort and clear to auscultation bilaterally Cardio regular rate, regular rhythm and no murmurs GI normal to inspection, nondistended, normoactive bowel sounds and non-tender Palpation: soft Extremity normal to inspection General Extremety ED: Negative for edema or tenderness General Extremity: Negative for edema Neuro oriented x3, CN's II-XII intact bilaterally and no sensory deficits noted Sensorium / Orientation: alert Motor Exam: strength 5/5 throughout Psych mental status grossly normal Skin no rashes or lesions noted MDM MDM MDM Narrative Medical decision making narrative: Patient was given prescriptions for a month supply of his medications. Patient was given referrals for primary care physicians. Patient was instructed to follow-up in 7 to 10 days. Patient understood and was agreeable with the plan. All questions were answered. Discharge Plan Triage Chief Complaint: Med Refill ED Provider: Javi Bridges Dx/Rx/DC Orders Clinical Impression: Encounter for medication refill Instructions: Med Refill Prescriptions: Continued furosemide 40 mg Tablet 40 mg PO BID 30 Days Qty: 60 RF: 0 atorvastatin [Lipitor] 40 mg Tablet 40 mg PO QHS 30 Days Qty: 30 RF: 0 clopidogrel [Plavix] 75 mg Tablet 75 mg PO DAILY 30 Days Qty: 30 RF: 0 lisinopril 5 mg Tablet 5 mg PO QHS 30 Days Qty: 30 RF: 0 divalproex 250 mg Tablet Extended Release 24 Hr 750 mg PO BID 30 Days Qty: 180 RF: 0 metoprolol tartrate 25 mg Tablet 25 mg PO BID 30 Days Qty: 60 RF: 0 potassium chloride 20 mEq Tablet Extended Release 20 meq PO DAILY 30 Days Qty: 30 RF: 0 Changed aspirin 81 mg Capsule 81 mg PO DAILY Qty: 30 RF: 0 Primary Care Provider: Care Physician,No Primary Referrals: Javi Banks MD [STAFF PHYSICIAN] - 1-2 Weeks Gabriela Grey [NON-STAFF] - 1-2 Weeks Care Physician,No Primary [Primary Care Provider] - Disposition Disposition: Home, Self Care
[2021-01-15 22:29] VITALS: RESP 16
== END 2021-01-15 22:29 | disposition home or self-care (01) ==
PROVIDERS: Emergency Provider Emergency Medicine
DX: Z76.0 Encounter for issue of repeat prescription (principal); M47.819 Spondylosis without myelopathy or radiculopathy, site unspecified; F17.210 Nicotine dependence, cigarettes, uncomplicated; I25.2 Old myocardial infarction; Z79.82 Long term (current) use of aspirin; Z79.899 Other long term (current) drug therapy
CPT/HCPCS: 99282

== ENCOUNTER 2021-03-27 15:00 | Outpatient (RCR) | payer MEDICAID, SELFPAY ==
--- NOTE | 2021-01-28 15:41 | HP.SP.AD_ITS ---
History - History Date of Eval: 01/28/21 Medical Diagnosis (from RX): Dysarthria- mild. Date of Onset of Diagnosis: 11/28/20 Previous speech therapy: No Other Relevant Medical History/Diagnoses/Surgery: Patient reported that he had a seizure, heart attack and CVA all on 11/28/20. He had chest pains for about a week. His mother called EMS and he went to [facility]. He then reported being shocked and was not alive for 24 minutes then had a CVA. He was transferred to [facility] where he spent approximately one month. He declined going to [place] as he thought it was part of [facility] and refused to stay at that facility. anxiety and depression ( patient reported not diagnosed by professional), back injury, knee issues, ADHD, ear infections as a child. Smoking Status: Current every day smoker Hx Smoking: Yes Hx Tobacco Use: Yes - Pain Is pain an issue with your current prescribed condition?: No - Personal Education History: 9th grade Occupation: unemployment Right Hearing Abillity: Hard of Hearing Left Hearing Abillity: Hard of Hearing Visual Assistive Devices: Glasses Patients Living Arrangements: Parent Patient Allergies - Allergies Allergies clindamycin Allergy (Verified 10/06/20 12:09) Unknown poison max extract Allergy (Verified 10/06/20 12:09) Rash poison oak extract Allergy (Verified 10/06/20 12:09) Rash poison sumac extract Allergy (Verified 10/06/20 12:09) Rash red dye Allergy (Verified 10/06/20 12:09) Rash Subjective Oral Motor - Subjective Numbness: Tongue, Lips, Cheek - Comments Comments: Drooling has lessened significantly but still occurs at times mildly. Noted during the evaluation that he wipes his mouth x1. Objective Oral Motor - Oral Status Dentition: Missing Teeth - Labial Impairment: Mild Observation at Rest: Left Droop Pucker: WFL Retraction: Mild Alternating Pucker/Retraction: Mild Involuntary Movement noted: No - Labial Comments Comments: Weakness noted for pressure. - Lingual Impairment: Mild Protrusion: WFL Lateralization: Mild - Respiratory Status Respiratory Status: Room Air CLQT - CLQT CLQT Administered: Yes CLQT: Cognitive Linguistic Quick Test (CLQT) is a criterion - referenced assessment designed for adults between the ages of 18 and 89 with known or suspected neurological dysfuntions. The CLQT is to assess strength and weaknesses in five cognitive domains. Severity ratings are within normal limits, mild, moderate, severe deficits. The subtests are as follows: Date: 01/28/21 - Attention Attention: Mild - Memory Memory: Moderate - Executive Functions Executive Functions: Moderate - Language Language: Mild - Visuospatial Skills Visuospatial Skills: Mild - CLQT Comments Comments Patient stated several times during the evaluation that he did not like this type of thing ( testing) nor did he care about it. He stated that he has no difficulty in handling his bills, medication or ability to drive. The subtest of mazes was a 0 which decreased his overall scores significantly. He also had poor story retelling but prior to testing he stated I don't' give a ___ about this stuff so I won't remember it However was able to answer 3 yes/no questions appropriately. Half of the subtests did not meet the cut criterion for his age b racket. It is unable to be determined if this is due to compliance/participation or lack of ability. Subjective Dysarthria/Motor - Subjective Subjective: Patient reports that his speech is not as clear. Objective Dysarthira/Motor - Speech Intelligibility Single Words: Mild Phrases: WFL Conversation: WFL - Volume Volume: WFL - Sounds Sounds in Error: Noted that as complexity increased ( example multisyllabic words ) then intelligibility decreased mildly. He stated that he had to be very aware of his speech today or else it would be slurred. - Consistency w/Multiple Repetitions Words: WFL Phrases: WFL - Observation Observation of Apraxia of Speech: No Oral Groping for Placement: No Inconsistent Errors: No - Awareness/Strategy Use Uses strategies intermittently to improve intelligibility or listener's understanding of message: Yes Uses strategies effectively and consistently to improve intelligibility or listener's understanding of message: Yes Plan - Plan Plan: Patient declined to address cognitive abilities. He requested to work on dysarthria and speech intelligibility which is warranted on a short term therapy basis. - Recommendations Treatment Warranted: Yes - Frequency Frequency: 1-2x /Week Duration: 4 Weeks - Prognosis Prognosis: Good - Goals that are Established: Determination:: Goals will be added/modified as deemed necessary and appropriate. Therapy will be discontinued when results of re-evaluation indicate therapy is no longer needed or lack of progress has been documented. - Goal #1-5 Goal #1: Patient will participate in oral motor exercises to increase muscle tone and decrease labial droop/drooling. Goal #2: Patient will have correct articulation for multisyllabic words at a normal rate of speech with 80% accuracy. Education - Patient has Indicated that the Following Identified Educational Needs: None The Patient has indicated that they have no educational or learning abilities that may effect their care.: Yes - Patient Instruction Patient Education: Diagnosis, Treatment Plan Person Taught: Patient Teaching Method: Discussion Response to teaching: Return demonstration
--- NOTE | 2021-01-30 08:07 | HP.OTEVAL ---
Patient's Visit Information GINNY BARFIELD is a 40 year old M, referred to Occupational Therapy by Dr. Javi Banks MD, with a diagnosis of Left arm paresthesia, left side weakness, cervical DD brain injury. Date of Evaluation: 01/28/21 Occupational Therapist: Annabel Floyd, KASSIDY/Sebastián, CHT - Subjective This 40 year old male was seen for OT eval with dx of left side weakness, paresthesia. pt states . pt had a seizure, heart attack and for 24 min. and had a stroke all within this day. Pt states he can not use his hand or arm properly, has numbness, tingling of his left side. pt did drive ind. 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 Pt states limitations are with fine motor ability and strength. - ADLs Fasteners: Tie shoes, Buttons, Zippers, Snaps, Belt Eating: Use silverware, Cut food Bathing: Handle washcloth & soap, Squeeze shampoo bottle Kitchen: Chop with knife, Peel fruits & vegetables, Open jars, Lift saucepan Yard: Mow lawn, [place], Use shovel Comments: push mower Comments: pt lives with family in a one story home. Pt states he is doing his bathing/dressing 90% of the time. pt states he has no difficulty standing in the shower. pt states he has not returned to his PLOF as meal prep. pt states limitations with manipulation of fasteners. - ROM Shoulder: right WNL left WNL Elbow: right WNL left WNL Forearm: right WNL left WNL - Strength Shoulder: right 5/5 left 4/5 Elbow: right 5/5 left 4/5 Forearm: right 5/5 left 4/5 Channel Machine Operator: right 65# left 15# Lateral Pinch: right 12# left 6# Tripod Pinch: right 16# left 4# Strength Comments: pt demo with limited left UE and component assembler strength - Sensation Sensation Comments: pt has left side sensation - Movement Ataxia: left side UE - Quick DASH-Disab of Arm,Shoulder& Hand Quick DASH Score: 88.6350 - Goals Goal:: pt will demo a increase in MMT to 4+/ 5 to increase pts ind. with ADLs and IADls by d/c. pt will demo a increase in left component assembler strength to 50# or greater to return pt to PLOF by d/c. pt will demo a increase in left lateral and tripod pinch by 4# or greater to increase pts ind. with meal prep by d.c Goal:: pt will demo the ability to zip coat ind. by d/c. pt will demo increase ind. with bilateral hand skills to increase ind. with folding laundry, simulation of daily bilateral hand skills as washing veg. by d/c. pt will simulate the ability to perform electronic repairs with use of bilateral hands IND. buy dc. - Rehabilitation General Assessment: pt demo with limited left UE strength and decrease fine motor skills that limit pts ind, with ADls and IADls. Pt would benefit from skilled OT services 2 x week for 4weeks to assist pt to return to his PLOF. Rehabilitation Potential: Good - Anticipated Interventions A/AAROM/PROM, Strengthening, Fine Motor Coord/Roderick, Neuro Reeducation, ADL Training, Education re assistive Equipment, Education re Diagnosis, Home Program - Visit Plan Frequency: 2x /Week Duration: 4 Weeks General Plan: initiate T-band HEP. wt. bearing. Gym eq. and BTE TEXT: Thank you for the opportunity to evaluate your patient. For Medicare and Medicare HMO plans, please review the plan of care and approve it. It will need to be FAXED BACK to us at [phone] for Medicare purposes. Please let me know if there are questions or concerns regarding this plan of care. Physician Signature: Date:
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
--- NOTE | 2021-03-27 14:55 | HP.OTREVAL ---
Dr. Javi Banks MD, It has been my pleasure to treat GINNY BARFIELD over the last 7 visits for Left arm paresthesia, left side weakness, cervical DD brain injury. Please see the progress note below for an update on the occupational therapy plan of care! Subjective: pt arrives to OT states he will initiate cardiac rehab- possible next week-. states left shoulder has been bothersome - states he does not use heat/ice for shoulder- states he feels like it locks up- states he has shooting pain down back of his arm (triceps region ) Objective/Function: pt demo with a increase in left director foundation and pinch strength-. left director foundation strength 65# increased from 15#. left lateral pinch 18# increase from 6#. left tripod pinch 16# increase from 4#. therapist ed pt on safety due to sensory issues in left hand-. pt continues to feel he is not back to his PLOF- pt to initiate cardiac rehab next week - will hold OT for two weeks to ensure pt compliance with HEP. Plan Visits in this POC: units ,[address] [place] [id number], [place] [id number], [place] [id number] Plan: pt to perform HEP with PROM until left shoulder feels better than return for further strengthening Goals - Goals Patient Goals: Regain Strength, Improve Fine Motor Skills, Use Hand/Wrist/Arm Normally Again Goal:: pt will demo a increase in MMT to 4+/ 5 to increase pts ind. with ADLs and IADls by d/c. pt will demo a increase in left director foundation strength to 50# or greater to return pt to PLOF by d/c pt HAS MET THIS GOAL. pt will demo a increase in left lateral and tripod pinch by 4# or greater to increase pts ind. with meal prep by d.c Goal:: pt will demo the ability to zip coat ind. by d/c. pt will demo increase ind. with bilateral hand skills to increase ind. with folding laundry, simulation of daily bilateral hand skills as washing veg. by d/c. pt will simulate the ability to perform electronic repairs with use of bilateral hands IND. buy dc. Anticipated Interventions Anticipated Interventions: A/AAROM/PROM, Strengthening, Fine Motor Coord/Roderick, Neuro Reeducation, ADL Training, Education re assistive Equipment, Education re Diagnosis, Home Program Please do not hesitate to contact me at [phone] by phone or if you have questions or concerns regarding this new plan of care! Sincerely, Annabel Floyd OTR/L, CHT
--- NOTE | 2021-03-27 15:30 | HP.SP.DC_ITS ---
ST Discharge Summary - Discharged: Discharge: Agapito Nichols is discharged from [facility] as of March 27, 2021. He was evaluated on 01/28/21 due to dysarthria from CVA. He was treated for 6 sessions for oral motor weakness/dysarthria. He reported that he completes his home program of oral motor exercises most days independently. The focus of therapy has been on speech intelligibility as he stated that he doesn?t talk right now. Overall his intelligibility is 95-100%. He states that this is due to the fact he has to reduce his rate. Patient is aware that neurology and ENT may be needed if PCP will refer due to pain and numbness continuing around left side of face/ ear. Often he gave statements of pain, lingual swelling ( in posterior) and his tongue not ?feeling right? and that is why he feels he can not say sounds. He was given a home program and educated on continuing to use his strategies (mainly slightly reducing rate). No further therapy warranted at this time. Thank you for allowing me to participate in the care of this patient.
--- NOTE | 2021-06-10 16:08 | HP.PTDCSUM ---
It has been my pleasure to treat GINNY BARFIELD referred by Dr. Javi Banks MD, with the diagnosis of CERVICAL/LUMBAR DDD. L UE PARESTHESIA/WEAKNESS. LUMBAR FACET ARTHRITIS. for a total of 8 visit(s). Discharge Date: Please see the following information for a summary of their discharge status. Subjective: I CAN DEFINATELY TELL I HAVE IMPROVED. PATIENT REPORTS HE IS GOING TO SCHEDULE A FOLLOW UP CAROLINA'T WITH DR. DANNA ARROYO DUE TO MEDICAL ISSUES UNRELATED TO PT. STATES PHYSICAL THERPAY HAS HELPED. THINGS HAVE GOTTEN BETTER. REPORTS HIS FINGERS STILL GO NUMB INTERMITTENTLY. PLANNING TO START CARDIAC REHAB NEXT WEEK. PATIENT REPORTS HE HAS TOO MANY CAROLINA'TS GOING ON RIGHT NOW AND HE DOESN'T HAVE TIME TO GET THE THINGS DONE THAT HE NEEDS TOO. PATIENT REPORTS INCREASED LEFT SHLD DYSFUNCTION FOR A FEW WEEKS FOR NO APPARENT REASON. WILL DISCUSS WITH PCP. Left arm Pain Intensity (Out of 10): 6 MID BACK Pain Intensity (Out of 10): 4 LEGS Pain Intensity (Out of 10): 2 % Improvement: 30 Objective/Function: PATIENT WAS SEEN TODAY FOR RE-ASSESSMENT OF PROGRESS TOWARD THE SET PT GOALS AND THE NEED FOR FURTHER PHYSICAL THERAPY VS READINESS FOR DISCHARGE. PATIENT IS MAKING GOOD PROGRESS TOWARD ALL PT GOALS EXCEPT REHAB IS LIMITED DUE TO C/O LEFT SHLD PAIN. THIS PT AND PATIENT AGREE WITH HOLDING FURTHER PT RIGHT NOW SINCE STARTING CARDIAC REHAB. PATIENT WILL DISCUSS WITH PCP AND GET AN ORDER TO CONTINUE PT IN THE FUTURE IF NEEDED. UPON EXAM TODAY: INDEP GAIT INTO PT WITHOUT ANY ASSISTIVE DEVICES OR LOB X > 300 FEET. INDEP TRANSFER SIT TO STAND WITHOUT UE ASSIST. Motor deficit: Hips: right 5/5, left 5/5. Knees: right 5/5, left 5/5. Ankles: right 5/5, left 5/5. Sensory deficit: DECREASED LIGHT TOUCH SENSATION OF LEFT LE COMPARED TO RIGHT ESPECIALLY IN THE LEFT LATERAL THIGH REGION TO THE KNEE. ROM deficit: TIGHT NESTOR HS'S AND GASTROC SOLEUS COMPLEX'S. Reflexes: NESTOR LE'S 2/3. Dural Signs: NEGATIVE NESTOR LE'S BUT VERY TIGHT NESTOR LE'S. Cervical Mvmt Loss: Flex: NIL. Pro: NIL. Ext: MOD TO LEIDY. Ret: LEIDY. RSB: MIN. LSB: MIN. R Rot: MIN. L Rot: MIN. PATIENT C/O CENTRAL NECK PAIN WITH CERVICAL ROM TESTING. THORACIC MVMT LOSS: NESTOR ROT - MOD. PATIENT C/O MID BACK PAIN WITH NESTOR THORACIC ROTATION. LUMBAR MVMT LOSS: FLEX - MOD. EXT - MOD. RSG - MOD. LSG - MOD. PATIENT C/O A LITTLE BIT OF PAIN WITH LUMBAR ROM TESTING ALL PLANES. Postural strength: POOR. Palpation: PATIENT DENIES ACUTE PAIN WITH PALPATION OF CERVICAL, THORACIC AND LUMBAR SPINE TODAY. HE HAS BEEN TOLERATING PROGRESSIVE RESISTIVE EX WELL FOR LOWER BODY. UE DEFERRED TO OT. Goal 1:: DECREASE C/O NECK AND BACK PAIN. Goal 2:: IMPROVE PERSONAL CARE, LIFITNG, WALKING, STANDING, SLEEP, WORK/HOMEMAKING, AND RECREATIONAL FUNCTION Goal 3:: INSTRUCT IN PROPHYLAXIS Plan: WILL COORDINATE WITH OT TO AVOID DUPLICATION OF SERVICES. PT FOCUS WILL BE ON CORE STRENGTH AND STABILITY. ALSO: CERVICAL ROM AND STRENGTHENING. POSTURE CORRECTION/STRENGTHENING, INSTRUCTION IN APPROPRIATE BODY MECHANICS AND ACTIVITY MODIFICATIONS. TRUNK AND NESTOR LE ROM, STRETCHING AND STRENGTHENING. HEP INSTRUCTION. If there are questions or concerns regarding this patient's physical therapy, please feel free to call me at [phone]. Thank you for the referral of this patient. Sincerely, Geno Culp, PT, Cert MDT Balance/Gait/Functional tests - Balance/Special Test Scores Oswestry Low Back Score: 18 Oswestry Neck Score: 19
== END 2021-03-27 19:00 | disposition home or self-care (01) ==
LOC: SP 15:00
PROVIDERS: PCP Family Medicine; Referring Provider Family Medicine; Visit Provider Family Medicine
DX: M51.34 Other intervertebral disc degeneration, thoracic region (principal); M47.816 Spondylosis without myelopathy or radiculopathy, lumbar region
CPT/HCPCS: 92507; 92523; 97035; 97110; 97112; 97162; 97164; 97166; 97530

== ENCOUNTER 2021-04-22 15:44 | Emergency (ER) | payer MEDICAID, SELFPAY ==
[2021-04-22 15:44] VITALS: BP 163/102; PULSE 60; RESP 16; TEMP 35.9; O2SAT 100; BMI 27.6
--- NOTE | 2021-04-22 15:47 | EKG12_ITS ---
Test Reason : CP Blood Pressure : / mmHG Vent. Rate : 059 BPM Atrial Rate : 059 BPM P-R Int : 136 ms QRS Dur : 098 ms QT Int : 450 ms P-R-T Axes : 038 -41 079 degrees QTc Int : 445 ms Sinus bradycardia Left axis deviation Low voltage QRS Nonspecific T wave abnormality Abnormal ECG Confirmed by YOGESH VEGA, NATANAEL ([id number]), sound editor LISA CRUZ ([id number]) on 04/23/2021 2:13:31 PM Referred By: NORA/MAGDALENA Confirmed By:NATANAEL ZUÑIGA MD
[2021-04-22 16:27] LABS: Absolute Lymphocyte Count 3.31 X10^3/uL (0.83-4.51); Absolute Neutrophil Count 3.5 X10^3/uL (2.0-7.7); Basophil# 0.03 X10^3/uL; Basophil% 0.4 % (0-1); Eosinophil# 0.27 X10^3/uL; Eosinophils% 3.5 % (0-5); Hematocrit 48.9 % (40-54); Hemoglobin 17.1 g/dL (13.0-16.5); Lymphocyte # 3.31 X10^3/ul (0.83-4.51); Lymphocyte % 43.3 % (19-41); Mean Corpuscular Hgb 30.7 pg (27.0-32.0); Mean Corpuscular Volume 87.8 fL (80-94); Mean Platelet Vol. 10.6 fl (6.2-12.0); Monocyte# 0.57 X10^3/uL; Monocyte% 7.5 % (0-10); NRBC Flagged by Analyzer 0 % (0-5); Neutrophil # 3.45 X10^3/uL (2.7-7.7); Platelet Count 225 K/mm3 (150-450); RBC Distribution Width CV 12.6 % (11.6-14.6); RBC Distribution Width SD 40.7 fl (35.1-43.9); Red Blood Count 5.57 M/mm3 (4.6-6.2); White Blood Count 7.7 K/mm3 (4.4-11.0)
[2021-04-22 16:47] LABS: Anion Gap 8 (5-15); BUN 12 mg/dL (7-18); BUN/Creat Ratio 11.9 RATIO (10-20); Chloride 102 mmol/L (98-107); Creatinine, Serum 1.01 mg/dL (0.70-1.30); EST Glomerular Filtration Rate 86 mL/min (>60); Est Glom Filt Rate - Afr Amer 104 mL/min (>60); Estimated Creatinine Clearance 110.78 ml/min; Glucose 113 mg/dL (74-106); Potassium 3.6 mmol/L (3.5-5.1); Sodium Level 140 mmol/L (136-145); Troponin-I HS 20 pg/mL (3.0-78.0)
--- NOTE | 2021-04-22 17:18 | ED.VIS.CHEST ---
HPI History of Present Illness Chief Complaint: Chest Pain Narrative Narrative: 40-year-old male with past medical history of coronary artery disease with stenting, stroke, and seizures, presents with left-sided chest pain and burning that has been ongoing for at least a week. He states initially was intermittent and would come a few times a day and last 5 minutes or so. However, today he has had increased burning sensation from his xiphoid process radiating towards the left side and then stops at the mid axillary line. He denies any fevers or chills. No nausea or vomiting. No diaphoresis or shortness of breath. No exacerbating or alleviating factors. It does not radiate upward. He is concerned that there might be something wrong with his stent. [facility] Medical History Atherosclerotic heart disease of [place] coronary artery without angina pectoris Cardiac arrest with ventricular fibrillation (11/28/20) Cardiopulmonary arrest with successful resuscitation (11/28/20) Dysphagia as late effect of cerebrovascular accident (CVA) Facet arthritis of lumbar region Failing root canal History of CVA (cerebrovascular accident) History of ST elevation myocardial infarction (STEMI) (11/28/20) Ischemic cardiomyopathy Left-sided weakness Obesity Old inferolateral myocardial infarction Thoracic degenerative disc disease Home Medications amoxicillin 500 mg tablet 500 mg PO Q8H #30 tab 02/13/21 [Rx Last Taken Unknown] aspirin 81 mg capsule 81 mg PO DAILY #30 cap 02/15/21 [Rx Last Taken Unknown] atorvastatin 40 mg tablet 40 mg PO QHS #30 tab 02/15/21 [Rx Last Taken Unknown] clopidogrel 75 mg tablet 75 mg PO DAILY #30 tab 02/15/21 [Rx Last Taken Unknown] lisinopril 5 mg tablet 5 mg PO QHS #30 tab 02/15/21 [Rx Last Taken Unknown] metoprolol tartrate 25 mg tablet 25 mg PO BID #60 tab 02/15/21 [Rx Last Taken Unknown] divalproex 250 mg tablet,extended release 24 hr 750 mg PO BID 30 Days #180 tab 02/18/21 [Rx Last Taken Unknown] Allergy/AdvReac Type Severity Reaction Status Date / Time clindamycin Allergy Unknown Verified 04/22/21 15:46 poison max extract Allergy Rash Verified 04/22/21 15:46 poison oak extract Allergy Rash Verified 04/22/21 15:46 poison sumac extract Allergy Rash Verified 04/22/21 15:46 red dye Allergy Rash Verified 04/22/21 15:46 Family History Mother Diabetes Grandmother Diabetes Hypertension Cancer Surgical History H/O hand surgery History of coronary artery stent placement (11/29/20) [place] teeth extracted Social History Smoking Status: Current every day smoker tobacco type: cigarettes alcohol intake: current substance use type: former substance user and marijuana what type of physical activity do you participate in: none ROS ROS ED ROS Narrative Constitutional: No fever, no chills. HEENT: No sore throat. No neck pain. No loss of vision. No rhinorrhea. Cardiovascular: Positive chest burning. No palpitations. No pedal edema. Respiratory: No cough, no shortness of breath. Abdominal: No abdominal pain. No nausea. No vomiting. Genitourinary: No dysuria. No hematuria. Musculoskeletal: No myalgias. No arthralgias. Neurologic: No headaches. No dizziness. No lightheadedness. Skin: No rash. No change in color. Psychiatric: No depression. No anxiety. EXAM Physical Exam Narrative Exam Narrative: Afebrile. Vital signs noted. HEENT: Normocephalic. Atraumatic. PERRL, EOMI. Neck soft and supple. No point tenderness or step off. Cardiovascular: Regular rate and rhythm. No murmurs, rubs, or gallops appreciated. Respiratory: No tachypnea. Lungs clear to auscultation bilaterally. Gastrointestinal: Abdomen soft, nontender, with normoactive bowel sounds. No rebound or guarding. Neurological: Awake. Alert. Nonfocal, nonlateralizing. Skin: No rash. Normal color. No pallor. Musculoskeletal: No pedal edema. Full range of motion extremities. Const Vital Signs: 04/22/21 15:44 04/22/21 17:25 04/22/21 17:27 Temperature 96.7 F L Temperature Source Temporal Pulse Rate 60 Respiratory Rate 16 Respiratory Effort Normal Blood Pressure 163/102 H Blood Pressure Mean 122 Pulse Ox 100 Oxygen Delivery Method Room Air Room Air 04/22/21 18:00 04/22/21 19:13 Temperature Temperature Source Pulse Rate 65 72 Respiratory Rate 16 14 Respiratory Effort Blood Pressure 117/73 134/86 H Blood Pressure Mean 87 102 Pulse Ox 97 97 Oxygen Delivery Method Room Air Room Air MDM MDM MDM Narrative Medical decision making narrative: Comprehensive work-up was pursued. His EKG demonstrates normal sinus rhythm/bradycardia at 59 bpm without ectopy or acute ST changes. Hemoglobin slightly elevated at 17.1. Potassium normal at 3.6. Initial high-sensitivity troponin is negative at 20. I discussed janis with him the chance of prodromal symptoms of shingles on the left side, but he states he never had chickenpox and never was vaccinated. He was told to continue to look for rash that may develop on his left side. I will perform a 1 view chest x-ray, and repeat his troponin in 2 hours. His repeat troponin is normal at 20. At this point in time, he is resting comfortably using his cellular telephone on the cot. I feel he can be discharged safely home with follow-up to his primary care provider. He has an appointment in 3 days. He states he is to get nerve conduction studies and figure out why he has hypersensitivity on his left side. Disposition is discharged home in stable condition. Lab Data Attestation: I reviewed the patient's lab results. Labs: Laboratory Results - last 24 hr 04/22/21 04/22/21 04/22/21 15:55 15:55 17:35 WBC 7.7 RBC 5.57 Hgb 17.1 H Hct 48.9 MCV 87.8 MCH 30.7 MCHC 35.0 RDW Std Deviation 40.7 RDW Coeff of Eda 12.6 Plt Count 225 MPV 10.6 Immature Gran % (Auto) 0.300 Neut % (Auto) 45.0 L Lymph % (Auto) 43.3 H Coal % (Auto) 7.5 Eos % (Auto) 3.5 Baso % (Auto) 0.4 Absolute Neuts (auto) 3.5 Absolute Lymphs (auto) 3.31 Nucleated RBC % 0 Sodium 140 Potassium 3.6 Chloride 102 Carbon Dioxide 30.0 Anion Gap 8 BUN 12 Creatinine 1.01 Estim Creat Clear Calc 110.78 Est GFR (MDRD) Af Amer 104 Est GFR (MDRD) Non-Af 86 BUN/Creatinine Ratio 11.9 Glucose 113 H Calcium 9.0 Troponin I High Sens 20 20 Radiography Diagnostic Testing: Clinical Impression(s) from Imaging Studies Chest X-Ray 04/22/21 17:44 IMPRESSION: Degenerative changes, as described above. No demonstrated acute cardiopulmonary process. Electronically Signed: Jeramy HoangDO at 17:57 EST Tel [phone], Service support , Discharge Plan Triage Chief Complaint: Chest Pain ED Provider: Frank Painter Dx/Rx/DC Orders Clinical Impression: Chest pain Instructions: ED Chest Pain, Uncertain Cause Prescriptions: No Action amoxicillin 500 mg tablet 500 mg PO Q8H Qty: 30 RF: 0 aspirin 81 mg capsule 81 mg PO DAILY Qty: 30 RF: 11 atorvastatin [Lipitor] 40 mg tablet 40 mg PO QHS Qty: 30 RF: 11 clopidogrel [Plavix] 75 mg tablet 75 mg PO DAILY Qty: 30 RF: 11 lisinopril 5 mg tablet 5 mg PO QHS Qty: 30 RF: 12 metoprolol tartrate 25 mg tablet 25 mg PO BID Qty: 60 RF: 12 divalproex 250 mg tablet extended release 24 hr 750 mg PO BID 30 Days Qty: 180 RF: 5 Primary Care Provider: Gayle Camacho Referrals: Gayle Camacho MD [Primary Care Provider] - 04/25/21 Disposition Disposition: Home, Self Care
[2021-04-22] MEDS: Aspirin 81 MG TAB.CHEW 324 MG PO (17:26)
--- NOTE | 2021-04-22 17:44 | RAD_ITS ---
STUDY: X-RAY CHEST REASON FOR EXAM: Male, 40 years old. Chest pain. TECHNIQUE: Single AP portable view of the chest. COMPARISON: 11/28/2020. FINDINGS: Absence of the endotracheal tube and enteric tube seen on the previous study. The lungs are clear and expanded. There is no demonstrated pleural abnormality. Normal size heart. Normal mediastinum and srinath. Normal visualized pulmonary arteries. Normal visualized aortic arch and descending thoracic aorta. There are diffuse degenerative changes of the visualized thoracic spine. Normal visualized ribs, clavicles, and shoulders. There is no demonstrated abnormality of the visualized soft tissue structures of the upper abdomen. RAD/Chest 1 View (Portable) IMPRESSION: Degenerative changes, as described above. No demonstrated acute cardiopulmonary process. Electronically Signed: Jeramy Hoang DO at 17:57 EST Tel [phone], Service support ,
[2021-04-22 18:00] VITALS: BP 117/73; PULSE 65; RESP 16; O2SAT 97
[2021-04-22 18:21] LABS: Troponin-I HS 20 pg/mL (3.0-78.0)
[2021-04-22 19:13] VITALS: BP 134/86; PULSE 72; RESP 14; O2SAT 97
[2021-04-22 19:43] VITALS: BP 134/86; PULSE 72; RESP 14; TEMP 36.3; O2SAT 97
== END 2021-04-22 19:44 | disposition home or self-care (01) ==
PROVIDERS: Emergency Provider Emergency Medicine; PCP Internal Medicine; Visit Provider Emergency Medicine
DX: R07.9 Chest pain, unspecified (principal); G40.909 Epilepsy, unspecified, not intractable, without status epilepticus; I25.5 Ischemic cardiomyopathy; I25.10 Atherosclerotic heart disease of native coronary artery without angina pectoris; F17.210 Nicotine dependence, cigarettes, uncomplicated; I25.2 Old myocardial infarction; E66.9 Obesity, unspecified; Z86.73 Personal history of transient ischemic attack (TIA), and cerebral infarction without residual deficits; Z79.82 Long term (current) use of aspirin; Z79.02 Long term (current) use of antithrombotics/antiplatelets; Z79.899 Other long term (current) drug therapy; Z95.5 Presence of coronary angioplasty implant and graft; Z86.74 Personal history of sudden cardiac arrest
CPT/HCPCS: 71045; 80048; 84484; 85025; 93005; 99284; A4216

== ENCOUNTER 2021-05-29 12:49 | Outpatient (CLI) | payer MEDICAID, SELFPAY ==
--- NOTE | 2021-05-29 13:06 | CDU_ITS ---
Reason For Study: CVA Rt. Velocities/BP Lt. Velocities/BP Prox CCA 125.6/23.9 cm/sec. Prox CCA 152.7/43.0 cm/sec. Mid CCA 102.1/23.9 cm/sec. Mid CCA 139.6/43.0 cm/sec. Dist CCA 128.2/33.0 cm/sec. Dist CCA 124.2/38.6 cm/sec. Prox ICA 61.7/21.3 cm/sec. Prox ICA 89.1/23.3 cm/sec. Mid ICA 63.0/22.6 cm/sec. Mid ICA 84.7/38.6 cm/sec. Dist ICA 76.0/33.0 cm/sec. Dist ICA 122.0/34.2 cm/sec. Rt. ICA/CCA = .7. Lt. ICA/CCA = .9. Prox ECA 93.0/14.7 cm/sec. Prox ECA 128.6/21.1 cm/sec. Rt. Vert. 36.9/11.6 cm/sec. Lt. Vert. 35.1/13.0 cm/sec. Right Extracranial There is homogeneous, smooth atherosclerotic plaque noted in the right common carotid artery. There is heterogeneous, smooth atherosclerotic plaque noted in the right internal carotid artery. There is no significant atherosclerotic plaque noted in the right external carotid artery. Antegrade flow is noted in the right vertebral artery. Left Extracranial There is homogeneous, smooth atherosclerotic plaque noted in the left common carotid artery. There is homogeneous, smooth atherosclerotic plaque noted in the left internal carotid artery. There is no significant atherosclerotic plaque noted in the left external carotid artery. Antegrade flow is noted in the left vertebral artery. Procedure Carotid Duplex [id number]. Exam performed in department. VL/Carotid Duplex Ultrasound Interpretation Summary Smooth plaque to the proximal right internal carotid artery with less than 50% stenosis Less than 50% stenosis right external carotid artery Smooth plaque of the proximal left internal carotid artery with less than 50% s tenosis Less than 50% stenosis left external carotid artery Patent and antegrade vertebral arteries bilaterally Ordering Physician: Ceasar Matthews Referring Physician: DANNA WILSON Performed By: Rose Marie, VIVIANE, RVT
== END 2021-05-29 23:59 | disposition home or self-care (01) ==
LOC: CVS 12:51
PROVIDERS: PCP Internal Medicine; Visit Provider Ophthalmology
DX: I63.9 Cerebral infarction, unspecified (principal)
CPT/HCPCS: 93880

== ENCOUNTER 2021-07-02 16:51 | Outpatient (CLI) | payer MEDICAID, SELFPAY ==
--- NOTE | 2021-07-02 17:00 | RAD_ITS ---
STUDY: X-RAY - ORBITS REASON FOR EXAM: Male, 41 years old. PRE MRI CLEARANCE TECHNIQUE: 2 view(s) of the orbits were obtained. COMPARISON: None. FINDINGS: Normal bilateral orbits without a metallic orbital foreign body. Normal visualized facial bones. Normal paranasal sinuses. The soft tissue structures are unremarkable. RAD/Orbits for Foreign Body IMPRESSION: No demonstrated metallic orbital foreign body. The patient is cleared for an MRI examination. Electronically Signed: Mike Mcintosh MD at 17:44 EDT ,
--- NOTE | 2021-07-02 17:25 | MRI_ITS ---
STUDY: MRI CERVICAL SPINE WITHOUT CONTRAST REASON FOR EXAM: Male, 41 years old. Cervical nerve root impingement TECHNIQUE: Standardized fat and water weighted pulse sequences were obtained in the sagittal and axial planes. COMPARISON: None FINDINGS: Normal foramen magnum and brainstem-cervical cord junction. Normal craniovertebral junction. Normal anterior atlantoaxial articulation. Normal odontoid process. Normal cervical lordosis. Normal vertebral bodies and posterior osseous elements. C2-3: Normal endplates. Normal disc height, signal and morphology. Normal central canal and intervertebral neural foramina. C3-4: Moderate broad disc osteophyte complex produces moderate spinal stenosis with abutment of the central spinal cord and mild bilateral neural foraminal stenosis. C4-5: Moderate broad disc osteophyte complex produces moderate spinal stenosis with effacement of the central spinal cord and mild bilateral neural foraminal stenosis. C5-6: Mild broad disc osteophyte complex produces mild spinal stenosis but no neural foraminal stenosis. C6-7: Moderate broad disc osteophyte complex produces moderate spinal stenosis with abutment of the central spinal cord and no neural foraminal stenosis. C7-T1: Normal endplates. Normal disc height, signal and morphology. Normal central canal and intervertebral neural foramina. Normal cervical cord. Normal visualized soft tissue structures. MRI/Spine Cervical (Routine) IMPRESSION: Multilevel degenerative changes, as described above. Electronically Signed: Enrico Shah MD at 8:47 EDT ,
== END 2021-07-02 23:59 | disposition home or self-care (01) ==
LOC: MRI 16:52
PROVIDERS: PCP Internal Medicine; Visit Provider Internal Medicine
DX: Z01.818 Encounter for other preprocedural examination (principal); G54.2 Cervical root disorders, not elsewhere classified
CPT/HCPCS: 70030; 72141

== ENCOUNTER → 2021-08-21 | Outpatient (CLI) | payer MEDICAID, SELFPAY ==
[2021-08-21 15:19] LABS: Absolute Lymphocyte Count 2.08 X10^3/uL (0.83-4.51); Absolute Neutrophil Count 3.4 X10^3/uL (2.0-7.7); Basophil# 0.02 X10^3/uL; Basophil% 0.3 % (0-1); Eosinophil# 0.18 X10^3/uL; Eosinophils% 2.9 % (0-5); Hematocrit 49.6 % (40-54); Hemoglobin 16.8 g/dL (13.0-16.5); Lymphocyte # 2.08 X10^3/ul (0.83-4.51); Lymphocyte % 33.9 % (19-41); Mean Corp Hgb Conc 33.9 g/dL (32-36); Mean Corpuscular Hgb 30.8 pg (27.0-32.0); Mean Corpuscular Volume 90.8 fL (80-94); Mean Platelet Vol. 10.9 fl (6.2-12.0); Monocyte% 6.5 % (0-10); NRBC Flagged by Analyzer 0 % (0-5); Neutrophil # 3.44 X10^3/uL (2.7-7.7); Neutrophil % 56.1 % (47-70); Platelet Count 230 K/mm3 (150-450); RBC Distribution Width CV 12.8 % (11.6-14.6); RBC Distribution Width SD 42.7 fl (35.1-43.9); Red Blood Count 5.46 M/mm3 (4.6-6.2); White Blood Count 6.1 K/mm3 (4.4-11.0)
[2021-08-21 15:47] LABS: ALB/GLOB Ratio 1.2 RATIO (0.9-2.4); AST(SGOT) 26 U/L (15-37); Alanine Aminotransfer ALT/SGPT 56 U/L (16-61); Albumin, Serum 3.7 g/dL (3.2-5.0); Alkaline Phosphatase 65 U/L (45-117); Anion Gap 7 (5-15); BUN 9 mg/dL (7-18); BUN/Creat Ratio 8.3 RATIO (10-20); Calcium,Total 8.7 mg/dL (8.5-10.1); Chloride 107 mmol/L (98-107); Cholesterol 148 mg/dL (200); Creatinine, Serum 1.09 mg/dL (0.70-1.30); EST Glomerular Filtration Rate 78 mL/min (>60); Est Glom Filt Rate - Afr Amer 95 mL/min (>60); Globulin 3.2 g/dL (2.2-4.2); Glucose 143 mg/dL (74-106); High Density Lipoprotein 55 mg/dL; PSA,Total - Annual Screen 0.96 ng/mL (0.00-4.00); Potassium 3.8 mmol/L (3.5-5.1); Protein, Total 6.9 g/dL (6.4-8.2); Sodium Level 139 mmol/L (136-145); T4 Free Direct 1.12 ng/dL (0.76-1.46); Thyroid Stim Hormone (TSH) 2.03 uIU/mL (0.358-3.74); Triglycerides 82 mg/dL; Very Low Density Lipoprotein 16 mg/dL (5-40)
[2021-08-21 15:57] LABS: Vitamin D,25 Hydroxy 11.8 ng/mL
[2021-08-21 16:29] LABS: Hemoglobin A1c 5.5 % (3.8-5.6)
== END | disposition home or self-care (01) ==
LOC: BIMLAB 13:53
PROVIDERS: PCP Internal Medicine; Referring Provider Internal Medicine; Visit Provider Internal Medicine
DX: M54.12 Radiculopathy, cervical region (principal); I10 Essential (primary) hypertension; G54.2 Cervical root disorders, not elsewhere classified; I25.10 Atherosclerotic heart disease of native coronary artery without angina pectoris; Z86.73 Personal history of transient ischemic attack (TIA), and cerebral infarction without residual deficits; Z72.0 Tobacco use; E66.9 Obesity, unspecified
CPT/HCPCS: 84153; 36415; 80053; 80061; 82306; 83036; 84439; 84443; 84481; 85025; G0103

== ENCOUNTER 2023-04-03 04:56 | Emergency (ER) | payer MEDICAID, SELFPAY ==
[2023-04-03 04:57] VITALS: BP 160/102; PULSE 70; RESP 16; TEMP 35.6; O2SAT 97; BMI 31.6
--- NOTE | 2023-04-03 05:21 | EDS_ITS ---
HPI History of Present Illness Chief Complaint: Dental Informant: patient Onset/Context/Timing Onset: Today Context: Sudden Onset Timing: Continuous Quality: Sharp, aching, throbbing Location: Right lower molars Worsened by: Salt water rinses Relieved by: - (Baking soda rinse) Associated Symptoms Assocated Symptom - Dental: jaw swelling, cold sensitivity and hot sensitivity; Negative for fever or face swelling Narrative Narrative: Patient presents with right lower dental pain that began today. Patient states he was eating and a piece of his tooth broke off. Patient states his nerve is exposed. Patient states he rinsed with salt water which made it worse. Patient states he used baking soda which seemed to help. Patient states he also tried Orajel which did not help. Patient states he also put aspirin on it which did not help. Patient denies any fevers or chills. Patient admits to some swelling of his jaw. Patient also admits to some hot and cold sensitivity. Patient states that normally when he gets a tooth infection, amoxicillin works well for it. Patient states that he also is usually prescribed Percocet for this. Patient states she is immune to Vicodin and Darvocet. [facility] Medical History Atherosclerotic heart disease of [place] coronary artery without angina pectoris Cardiac arrest with ventricular fibrillation (11/28/20) Cardiopulmonary arrest with successful resuscitation (11/28/20) Dysphagia as late effect of cerebrovascular accident (CVA) Facet arthritis of lumbar region Failing root canal History of CVA (cerebrovascular accident) History of ST elevation myocardial infarction (STEMI) (11/28/20) Ischemic cardiomyopathy Left-sided weakness Obesity Old inferolateral myocardial infarction Thoracic degenerative disc disease Home Medications handicap placard #1 ea 09/11/21 [Rx Last Taken Unknown] aspirin 81 mg capsule 81 mg PO DAILY #30 caps 02/10/23 [Rx Last Taken Unknown] atorvastatin 40 mg tablet (Lipitor) 40 mg PO QHS #30 tabs 02/17/23 [Rx Last Taken Unknown] clopidogrel 75 mg tablet See Rx Instructions .Route .COMPLEX #30 tabs 02/17/23 [Rx Last Taken Unknown] lisinopril 5 mg tablet See Rx Instructions .Route .COMPLEX #30 tabs 02/17/23 [Rx Last Taken Unknown] metoprolol tartrate 25 mg tablet See Rx Instructions .Route .COMPLEX #60 tabs 02/17/23 [Rx Last Taken Unknown] amoxicillin 500 mg tablet 500 mg PO TID #30 tabs 04/03/23 [Rx Last Taken Unknown] naproxen 500 mg tablet 500 mg PO BID PRN #20 tabs 04/03/23 [Rx Last Taken Unknown] Allergy/AdvReac Type Severity Reaction Status Date / Time clindamycin Allergy Unknown Verified 04/03/23 04:57 poison max extract Allergy Rash Verified 04/03/23 04:57 poison oak extract Allergy Rash Verified 04/03/23 04:57 poison sumac extract Allergy Rash Verified 04/03/23 04:57 red dye Allergy Rash Verified 04/03/23 04:57 Family History Mother Diabetes Grandmother Diabetes Hypertension Cancer Surgical History H/O hand surgery History of coronary artery stent placement (11/29/20) [place] teeth extracted Social History Smoking Status: Current every day smoker tobacco type: cigarettes alcohol intake: current substance use type: former substance user and marijuana what type of physical activity do you participate in: none ROS ROS ED Constitutional Constitutional ED: Denies chills or fever(s) Eyes Eyes: Denies blurry vision or change in vision ENT ENT ED: Denies rhinorrhea or sore throat Cardiovascular Cardiovascular: Denies chest pain or palpitations Respiratory/Chest Respiratory/Chest: Denies cough or dyspnea Gastrointestinal Gastrointestinal: Denies nausea or vomiting Genitourinary Genitourinary ED: Denies dysuria or hematuria Musculoskeletal Musculoskeletal: Denies back pain or neck pain Integumentary Denies abscess or rash Neurologic Neurologic: Reports headache(s); Denies weakness Allergic/Immunologic Allergic/Immunologic ED: Denies mouth swelling or urticaria EXAM Physical Exam Const Vital Signs: 04/03/23 04:57 Temperature 96.0 F L Temperature Source Temporal Pulse Rate 70 Respiratory Rate 16 Blood Pressure 160/102 H Blood Pressure Mean 121 Pulse Ox 97 Oxygen Delivery Method Room Air Positive well nourished and well developed General Appearance ED: well developed and NAD HEENT HEENT Narrative: There are multiple dental caries noted. There is some gingival edema around the right lower first molar. There is no fluctuance. There is no evidence of any abscess. There is no discharge or drainage noted. There is no sublingual edema. There is no anterior neck swelling. There is no evidence of Jarrod's angina. Mouth ED: Yes oral and palatal mucosa normal, Yes lips normal and Yes tongue normal Mouth: oral and palatal mucosa normal, lips normal and tongue normal Teeth and Gingiva: caries, gingiva abnormal Positive for gingival edema and poor dentition Throat: posterior oropharynx normal Neck supple and no JVD General: Negative for anterior neck swelling, tenderness or submandibular swelling Lymph Lymphatic: no lymphadenopathy noted Neuro oriented x3, CN's II-XII intact bilaterally, moves all extremities, no focal motor deficits and no sensory deficits noted Sensorium / Orientation: alert Motor Exam: strength 5/5 throughout Psych mental status grossly normal MDM MDM MDM Narrative Medical decision making narrative: Patient was advised that this most likely is infected dental caries. Patient was given a dose of amoxicillin here. Patient was given a prescription for amoxicillin. Patient states he drove himself to the emergency department. Therefore, patient was given a dose of naproxen here. Patient was given a prescription for naproxen. Patient was advised that opiates are not indicated for dental pain. Patient was given a dental referral list. Patient was instructed to follow-up in 3 to 5 days. Patient was instructed to return if worse in any way. Patient understood and was agreeable with the plan. All questions were answered. Discharge Plan Triage Chief Complaint: Dental ED Provider: Javi Bridges Dx/Rx/DC Orders Clinical Impression: Infected dental caries, Tobacco abuse Instructions: ED Dental Pain, ED Dental Cavity Prescriptions: New amoxicillin 500 mg tablet 500 mg PO TID Qty: 30 0RF naproxen 500 mg tablet 500 mg PO BID PRN Qty: 20 0RF No Action (DME) handicap placard See Rx Instructions .Route .MEDSUPPLY Qty: 1 0RF Rx Instructions: length of time: 5 years aspirin 81 mg capsule 81 mg PO DAILY Qty: 30 11RF lisinopril 5 mg tablet See Rx Instructions .ROUTE .COMPLEX Qty: 30 0RF Dose Instruction: TAKE 1 TABLET BY MOUTH DAILY AT BEDTIME Rx Instructions: TAKE 1 TABLET BY MOUTH DAILY AT BEDTIME metoprolol tartrate 25 mg tablet See Rx Instructions .ROUTE .COMPLEX Qty: 60 0RF Dose Instruction: TAKE 1 TABLET TWICE DAILY Rx Instructions: TAKE 1 TABLET TWICE DAILY clopidogrel 75 mg tablet See Rx Instructions .ROUTE .COMPLEX Qty: 30 0RF Dose Instruction: TAKE 1 TABLET BY MOUTH DAILY Rx Instructions: TAKE 1 TABLET BY MOUTH DAILY atorvastatin [Lipitor] 40 mg tablet 40 mg PO QHS Qty: 30 11RF Primary Care Provider: Care Physician,No Primary Referrals: Gayle Camacho MD [Med Staff - Management Supervisor] - 5-7 Days DentistGeorge [STAFF PHYSICIAN] - 3-5 Days Disposition Disposition: Home, Self Care
[2023-04-03] MEDS: AMOXICILLIN 500 MG CAPSULE PO (05:47)
[2023-04-03 05:48] VITALS: BP 152/60; PULSE 82; RESP 16
[2023-04-03 05:49] VITALS: O2SAT 96
== END 2023-04-03 05:52 | disposition home or self-care (01) ==
PROVIDERS: Emergency Provider Emergency Medicine; Visit Provider Emergency Medicine
DX: K02.9 Dental caries, unspecified (principal); Z72.0 Tobacco use; I25.10 Atherosclerotic heart disease of native coronary artery without angina pectoris; I25.5 Ischemic cardiomyopathy
CPT/HCPCS: 99282; J7030

== ENCOUNTER 2024-01-05 22:52 | Emergency (ER) | payer MEDICAID, SELFPAY ==
[2024-01-05 22:54] VITALS: BP 162/112; PULSE 88; RESP 17; TEMP 36.6; O2SAT 95
--- NOTE | 2024-01-05 23:23 | EX.ED.DYSGE1 ---
HPI History of Present Illness Chief Complaint: Other, Pain/Inj Informant: patient Narrative Narrative: Patient is a 43-year-old male with history of hypertension as well as CAD and ischemic cardiomyopathy. He states this evening he had boiled eggs and began eating 1 when he noticed the yolk did not look right and that they smelled different. He states that he finished the egg and afterwards began to feel nausea/upset stomach. He states he was concerned that this could be related to the bird flu and therefore decided to come in for evaluation. He also reports he noticed a small black spot to the palm of his left hand and was unsure if this was a splinter or metal shaving and decided to dig at it the other day. He reports that is also sore and therefore he figured he would have that evaluated why he is here as well [facility] Medical History Atherosclerotic heart disease of [place] coronary artery without angina pectoris Cardiac arrest with ventricular fibrillation (11/28/20) Cardiopulmonary arrest with successful resuscitation (11/28/20) Dysphagia as late effect of cerebrovascular accident (CVA) Facet arthritis of lumbar region Failing root canal History of CVA (cerebrovascular accident) History of ST elevation myocardial infarction (STEMI) (11/28/20) Ischemic cardiomyopathy Left-sided weakness Obesity Old inferolateral myocardial infarction Thoracic degenerative disc disease Home Medications ?Medication ?Instructions ?Recorded ?Last Taken ?Type handicap placard #1 ea 09/11/21 Unknown Rx atorvastatin 40 mg tablet (Lipitor) 40 mg PO QHS #30 tabs 02/17/23 Unknown Rx amoxicillin 500 mg tablet 500 mg PO TID #30 tabs 04/03/23 Unknown Rx lisinopril 5 mg tablet See Rx Instructions .Route 04/27/23 Unknown Rx .COMPLEX #30 tabs metoprolol tartrate 25 mg tablet See Rx Instructions .Route 04/27/23 Unknown Rx .COMPLEX #60 tabs clopidogrel 75 mg tablet See Rx Instructions .Route 11/27/23 Unknown Rx .COMPLEX #90 tabs amoxicillin 875 mg-potassium 1 tab PO BID 7 days #14 tabs 01/05/24 Unknown Rx clavulanate 125 mg tablet aspirin 81 mg tablet,delayed 81 mg PO DAILY 01/05/24 Unknown History release ondansetron 4 mg disintegrating 4 mg PO TID PRN nausea and 01/05/24 Unknown Rx tablet vomiting #21 tabs Allergy/AdvReac Type Severity Reaction Status Date / Time clindamycin Allergy Unknown Verified 01/05/24 22:53 poison max extract Allergy Rash Verified 01/05/24 22:53 poison oak extract Allergy Rash Verified 01/05/24 22:53 poison sumac extract Allergy Rash Verified 01/05/24 22:53 red dye Allergy Rash Verified 01/05/24 22:53 Family History Mother Diabetes Grandmother Diabetes Hypertension Cancer Surgical History H/O hand surgery History of coronary artery stent placement (11/29/20) [place] teeth extracted Social History Smoking Status: Current every day smoker tobacco type: cigarettes alcohol intake: current substance use type: former substance user and marijuana what type of physical activity do you participate in: none ROS ROS ED Constitutional Constitutional ED: Denies chills or fever(s) ENT ENT ED: Denies rhinorrhea or sore throat Cardiovascular Cardiovascular: Denies chest pain Respiratory/Chest Respiratory/Chest: Denies cough or dyspnea Gastrointestinal Gastrointestinal: Reports nausea; Denies abdominal pain, constipation, diarrhea or vomiting Genitourinary Genitourinary ED: Denies dysuria Musculoskeletal Musculoskeletal: Reports other Details: Positive left hand pain ; Denies myalgias Integumentary Reports other Details: Positive left hand wound Neurologic Neurologic: Denies headache(s), paresthesias or weakness Psychiatric Psychiatric: Reports anxiety Hematologic/Lymphatic Hematologic/Lymphatic: Denies easy bleeding or easy bruising Allergic/Immunologic Allergic/Immunologic ED: Denies mouth swelling, tongue swelling or urticaria EXAM Physical Exam Const Vital Signs: 01/05/24 22:54 01/05/24 23:12 Temperature 97.9 F Temperature Source Temporal Pulse Rate 88 Respiratory Rate 17 Respiratory Effort Normal Non-Labored Respiratory Pattern Normal Blood Pressure 162/112 H Blood Pressure Mean 128 Pulse Ox 95 Oxygen Delivery Method Room Air Positive well nourished and well developed General Appearance ED: well developed; Negative for pallor HEENT HEENT Narrative: Normocephalic atraumatic Eyes PERRL and EOMs intact bilaterally Neck supple Neck Narrative: No nuchal rigidity or meningeal signs Resp normal respiratory effort and clear to auscultation bilaterally Cardio regular rate and regular rhythm GI non-tender, non-distended and no masses GI Narrative: Abdomen is soft nontender and nondistended with hyperactive bowel sounds. No voluntary guarding or rigidity or pulsatile mass. Auscultation: hyperactive bowel sounds Palpation: soft Back/Spine no CVA tenderness Extremity Extremity Narrative: Left upper extremity is neurovascularly intact; AIN/PIN are intact and normal. There is a 0.5cm superficial/dermal layer abrasion to the middle aspect of the left palm and correlates with the patient's report of digging at it. There is no active bleeding there is no obvious retained foreign body or neuro secondary findings of infection. Neuro oriented x3, CN's II-XII intact bilaterally and no sensory deficits noted Sensorium / Orientation: alert Motor Exam: strength 5/5 throughout Psych Psych Narrative: Nervous/anxious affect Skin Skin Narrative: Wound to the palm of the left hand as documented above General Skin Exam: Negative for jaundice or pallor MDM MDM MDM Narrative Medical decision making narrative: Patient arrived to the ER hypertensive but has a past medical history of this and otherwise vitals are stable. He reported nausea after eating a potentially bad egg. He had concern for bird flu but he cannot contract bird flu from this type of exposure. He has no symptoms of the [place] influenza virus as he does not have a fever nasal congestion sore throat cough or shortness of breath and as he has no exposures I do not feel there is need to test for this. He is unsure if there was even a foreign object in his left hand and we discussed an x-ray to potentially look for this but as there is nothing that can be palpated in the initial black dot that made him question of potential foreign body is no longer there I do not feel there is need for imaging study. He also does not have any signs of systemic infection or superficial infection such as cellulitis. Therefore at this time I do not feel there is need for further workup and he is otherwise safe for discharge. History & Record Review Discussion w/independent historian: Patient Discharge Plan Triage Chief Complaint: Other, Pain/Inj ED Provider: Valdemar Estrada Dx/Rx/DC Orders Clinical Impression: Nausea, Ischemic cardiomyopathy, Essential hypertension, Anxiety Instructions: ED Vomiting (Adult) Prescriptions: New ondansetron 4 mg tablet,disintegrating 4 mg PO TID PRN (Reason: nausea and vomiting) Qty: 21 0RF amoxicillin-pot clavulanate 875-125 mg tablet 1 tab PO BID 7 Days Qty: 14 0RF No Action amoxicillin 500 mg tablet 500 mg PO TID Qty: 30 0RF aspirin 81 mg tablet,delayed release (DR/EC) 81 mg PO DAILY (DME) handicap placard See Rx Instructions .Route .MEDSUPPLY Qty: 1 0RF Rx Instructions: length of time: 5 years atorvastatin [Lipitor] 40 mg tablet 40 mg PO QHS Qty: 30 11RF metoprolol tartrate 25 mg tablet See Rx Instructions .ROUTE .COMPLEX Qty: 60 11RF Dose Instruction: TAKE 1 TABLET TWICE DAILY Rx Instructions: TAKE 1 TABLET TWICE DAILY lisinopril 5 mg tablet See Rx Instructions .ROUTE .COMPLEX Qty: 30 11RF Dose Instruction: TAKE 1 TABLET BY MOUTH DAILY AT BEDTIME Rx Instructions: TAKE 1 TABLET BY MOUTH DAILY AT BEDTIME clopidogrel 75 mg tablet See Rx Instructions .ROUTE .COMPLEX Qty: 90 0RF Dose Instruction: TAKE 1 TABLET BY MOUTH DAILY Rx Instructions: TAKE 1 TABLET BY MOUTH DAILY Primary Care Provider: Gayle Camacho Referrals: Gayle Camacho MD [Primary Care Provider] - Activity Restrictions/Additional Instructions: Please use the Zofran to help control any sensation of nausea and/or vomiting. Only fill the Augmentin/antibiotic if he noticed signs of infection to your left hand. Return to the ER should you have any further concerns or worsening symptoms Print Language: Portuguese Disposition Disposition: Home, Self Care Discharge Date/Time: 01/05/24 23:43
[2024-01-05] MEDS: Ondansetron ODT 4 MG Tablet PO (23:41)
== END 2024-01-05 23:43 | disposition home or self-care (01) ==
LOC: ED 23:35
PROVIDERS: Emergency Provider Emergency Medicine; PCP Internal Medicine; Visit Provider Emergency Medicine
DX: R11.0 Nausea (principal); F41.9 Anxiety disorder, unspecified; I25.10 Atherosclerotic heart disease of native coronary artery without angina pectoris; I25.5 Ischemic cardiomyopathy; F17.200 Nicotine dependence, unspecified, uncomplicated; I10 Essential (primary) hypertension; Z86.73 Personal history of transient ischemic attack (TIA), and cerebral infarction without residual deficits; I25.2 Old myocardial infarction; Z86.74 Personal history of sudden cardiac arrest
CPT/HCPCS: 99282

== ENCOUNTER 2024-03-04 19:43 | Emergency (ER) | payer MEDICAID, SELFPAY ==
[2024-03-04 19:44] VITALS: BP 161/99; PULSE 80; RESP 16; TEMP 36.8; O2SAT 100; BMI 30.4
[2024-03-04 19:46] VITALS: BP 161/99; PULSE 80; RESP 16; TEMP 36.8; O2SAT 97
--- NOTE | 2024-03-04 20:29 | EDS_ITS ---
HPI History of Present Illness Chief Complaint: Bite Informant: patient Narrative Narrative: Patient is a 43-year-old male with history of stroke as well as cardiovascular disease presenting for concern of tick bite. Patient found a tick on his left shoulder/torso earlier today. States has been on that for a month. He did remove it. He is concerned about potential for Lyme disease. As he has been feeling of fatigued more and that has been more drowsy but also states he has not a health issue so is not sure if that is related to it. Denies any fever. He would like tested for Lyme disease. He states that there is an area of redness where the tick bite was and is concerned that there could be a sign of Lyme disease. No other complaints or concerns reported at this time. [facility] Medical History Old inferolateral myocardial infarction Obesity Ischemic cardiomyopathy Atherosclerotic heart disease of [place] coronary artery without angina pectoris Cardiac arrest with ventricular fibrillation (11/28/20) History of ST elevation myocardial infarction (STEMI) (11/28/20) History of CVA (cerebrovascular accident) Left-sided weakness Dysphagia as late effect of cerebrovascular accident (CVA) Cardiopulmonary arrest with successful resuscitation (11/28/20) Failing root canal Facet arthritis of lumbar region Thoracic degenerative disc disease Home Medications ?Medication ?Instructions ?Recorded ?Last Taken ?Type handicap placard #1 ea 09/11/21 Unknown Rx atorvastatin 40 mg tablet (Lipitor) 40 mg PO QHS #30 tabs 02/17/23 Unknown Rx lisinopril 5 mg tablet See Rx Instructions .Route 04/27/23 Unknown Rx .COMPLEX #30 tabs metoprolol tartrate 25 mg tablet See Rx Instructions .Route 04/27/23 Unknown Rx .COMPLEX #60 tabs clopidogrel 75 mg tablet See Rx Instructions .Route 11/27/23 Unknown Rx .COMPLEX #90 tabs aspirin 81 mg tablet,delayed 81 mg PO DAILY 01/05/24 Unknown History release ondansetron 4 mg disintegrating 4 mg PO TID PRN nausea and 01/05/24 Unknown Rx tablet vomiting #21 tabs Allergy/AdvReac Type Severity Reaction Status Date / Time clindamycin Allergy Unknown Verified 03/04/24 19:44 poison max extract Allergy Rash Verified 03/04/24 19:44 poison oak extract Allergy Rash Verified 03/04/24 19:44 poison sumac extract Allergy Rash Verified 03/04/24 19:44 red dye Allergy Rash Verified 03/04/24 19:44 Family History Mother Diabetes Grandmother Diabetes Hypertension Cancer Surgical History History of coronary artery stent placement (11/29/20) [place] teeth extracted H/O hand surgery Social History Smoking Status: Current every day smoker tobacco type: cigarettes alcohol intake: current substance use type: former substance user and marijuana what type of physical activity do you participate in: none ROS ROS ED Constitutional Constitutional ED: Reports other Details: Generalized malaise ; Denies chills or fever(s) Cardiovascular Cardiovascular: Denies chest pain Respiratory/Chest Respiratory/Chest: Denies cough or dyspnea Gastrointestinal Gastrointestinal: Denies vomiting Integumentary Reports rash Neurologic Neurologic: Reports other Details: Residual left-sided deficits from prior stroke Psychiatric Psychiatric: Reports anxiety Hematologic/Lymphatic Hematologic/Lymphatic: Denies easy bleeding EXAM Physical Exam Const Vital Signs: 03/04/24 19:44 03/04/24 19:46 03/04/24 20:42 Temperature 98.3 F 98.3 F 97.6 F L Temperature Source Oral Oral Pulse Rate 80 80 84 Respiratory Rate 16 16 17 Blood Pressure 161/99 H 161/99 H 142/77 H Blood Pressure Mean 119 119 98 Pulse Ox 100 97 99 Oxygen Delivery Method Room Air Room Air Positive well nourished and well developed General Appearance ED: well developed and NAD HEENT Reports moist mucous membranes Eyes PERRL and EOMs intact bilaterally Neck supple and no JVD Chest Wall inspection of chest normal Resp normal respiratory effort and clear to auscultation bilaterally Cardio regular rate and regular rhythm Extremity normal to inspection General Extremety ED: Negative for edema General Extremity: Negative for edema Neuro oriented x3 Sensorium / Orientation: alert Motor Exam: Negative for general weakness Psych mental status grossly normal Mood & Affect: anxious Skin Skin Narrative: Patient has a bug at the bedside that he states was pulled off of his right back. It appears to be a tick that is not engorged. Of his right upper lateral back just behind his shoulder there is approximately 1 cm circumferential area of erythema and induration with a central pore. Patient states this where the tick came off from. This redness looks more consistent with irritation and not cellulitis or erythema migrans. No other rash appreciated. MDM MDM MDM Narrative Medical decision making narrative: Patient is evaluated for concern of tick bite. Tick was removed prior to coming in. Patient thinks the tick was there for a month but I think this is unlikely given that the tick is not even engorged. However will obtain a Lyme titer. Will give prophylactic dose of doxycycline emergency room. Given localized wound care for the tick was. This time I do not think requires further antibiotics for localized cellulitis as I think the skin changes are more reactive from the tick bite itself. Patient verbalized agreement understand this plan. Is given discharge instructions. Discharge Plan Triage Chief Complaint: Bite ED Provider: Deena Sarkar Dx/Rx/DC Orders Clinical Impression: Tick bite of back Instructions: ED Tick Bite, Antibiotic Treatment Prescriptions: No Action ondansetron 4 mg tablet,disintegrating 4 mg PO TID PRN (Reason: nausea and vomiting) Qty: 21 0RF aspirin 81 mg tablet,delayed release (DR/EC) 81 mg PO DAILY (DME) handicap placard See Rx Instructions .Route .MEDSUPPLY Qty: 1 0RF Rx Instructions: length of time: 5 years atorvastatin [Lipitor] 40 mg tablet 40 mg PO QHS Qty: 30 11RF metoprolol tartrate 25 mg tablet See Rx Instructions .ROUTE .COMPLEX Qty: 60 11RF Dose Instruction: TAKE 1 TABLET TWICE DAILY Rx Instructions: TAKE 1 TABLET TWICE DAILY lisinopril 5 mg tablet See Rx Instructions .ROUTE .COMPLEX Qty: 30 11RF Dose Instruction: TAKE 1 TABLET BY MOUTH DAILY AT BEDTIME Rx Instructions: TAKE 1 TABLET BY MOUTH DAILY AT BEDTIME clopidogrel 75 mg tablet See Rx Instructions .ROUTE .COMPLEX Qty: 90 0RF Dose Instruction: TAKE 1 TABLET BY MOUTH DAILY Rx Instructions: TAKE 1 TABLET BY MOUTH DAILY Primary Care Provider: Gayle Camacho Referrals: Gayle Camacho MD [Primary Care Provider] - Activity Restrictions/Additional Instructions: We will contact you if your Lyme disease test is positive and you need further treatment. Otherwise you have been given a prophylactic treatment dose for Lyme disease. Keep the area clean with gentle Dial soap. You may apply [id number] bacitracin ointment, petroleum jelly or coconut oil to the area. If you develop new rash, develop fevers or have other concerns please return the emergency room for Print Language: Hebrew Disposition Disposition: Home, Self Care Discharge Date/Time: 03/04/24 20:42
[2024-03-04] MEDS: Doxycycline 100 MG CAPSULE 200 MG PO (20:40)
[2024-03-04 20:42] VITALS: BP 142/77; PULSE 84; RESP 17; TEMP 36.4; O2SAT 99
[2024-03-06 10:07] LABS: Lyme Scn Total Ab w/Rflx Negative (Negative)
== END 2024-03-04 20:42 | disposition home or self-care (01) ==
PROVIDERS: Emergency Provider Emergency Medicine; PCP Internal Medicine; Visit Provider Emergency Medicine
DX: S20.461A Insect bite (nonvenomous) of right back wall of thorax, initial encounter (principal); I69.352 Hemiplegia and hemiparesis following cerebral infarction affecting left dominant side; I25.10 Atherosclerotic heart disease of native coronary artery without angina pectoris; I25.5 Ischemic cardiomyopathy; I25.2 Old myocardial infarction; Z86.74 Personal history of sudden cardiac arrest; Z95.5 Presence of coronary angioplasty implant and graft; F17.210 Nicotine dependence, cigarettes, uncomplicated; W57.XXXA Bitten or stung by nonvenomous insect and other nonvenomous arthropods, initial encounter
CPT/HCPCS: 86618; 99282

== ENCOUNTER 2024-07-04 19:14 | Emergency (ER) | payer MEDICAID, SELFPAY ==
[2024-07-04 19:15] VITALS: BP 148/90; PULSE 82; RESP 16; TEMP 36.6; O2SAT 99; BMI 31.1
--- NOTE | 2024-07-04 21:06 | ED.RN ---
Pt requesting to go out to his car to get another bottle of water. Pt verbalizes frustration with waiting 2 hours already and not being seen. This RN offered to bring pt some filtered ice water from the nursing station as it's not recommended for pt to leave and come back. Pt declines offer and states he's just going to leave. I'm not waiting 2 hours to get a splinter out of my thumb. This RN educated pt on the process of prioritizing pt's based on severity of needs. Pt acknowledges understanding and decides to leave.
== END 2024-07-04 21:02 | disposition left against medical advice (07) ==
LOC: ED 21:08
PROVIDERS: PCP Internal Medicine
DX: T18.9XXA Foreign body of alimentary tract, part unspecified, initial encounter (principal)
CPT/HCPCS: 99281

== ENCOUNTER 2024-10-03 22:42 | Emergency (ER) | payer MEDICAID, SELFPAY ==
[2024-10-03 22:42] VITALS: BP 131/85; PULSE 77; RESP 16; TEMP 35.5; O2SAT 99; BMI 30.4
--- NOTE | 2024-10-03 23:45 | EX.ED.DYSGE1 ---
HPI History of Present Illness Chief Complaint: Rash Informant: patient Onset/Context/Timing Onset: Yesterday Context: Gradual Onset Timing: Continuous Quality: Pruritic Location: Arms, face, chest, and abdomen Worsened by: Heat and sweating Relieved by: Nothing Narrative Narrative: Patient presents with a rash that began yesterday. Patient states it feels similar to poison ogla or poison oak. Patient states the rash is pruritic. Patient states it is mainly over the arms, chest, and abdomen. Patient states it does go up into his face. Patient states it is worse with heat and sweating. Patient states nothing makes it better. Patient denies any fevers or chills. Patient denies difficulty breathing or difficulty swallowing. [facility] Medical History Old inferolateral myocardial infarction Obesity Ischemic cardiomyopathy Atherosclerotic heart disease of [place] coronary artery without angina pectoris Cardiac arrest with ventricular fibrillation (11/28/20) History of ST elevation myocardial infarction (STEMI) (11/28/20) History of CVA (cerebrovascular accident) Left-sided weakness Dysphagia as late effect of cerebrovascular accident (CVA) Cardiopulmonary arrest with successful resuscitation (11/28/20) Failing root canal Facet arthritis of lumbar region Thoracic degenerative disc disease Home Medications ?Medication ?Instructions ?Recorded ?Last Taken ?Type prednisone 20 mg tablet 40 mg (2 x 20 mg) PO DAILY #8 10/03/24 Unknown Rx TABLETS Allergy/AdvReac Type Severity Reaction Status Date / Time clindamycin Allergy Unknown Verified 10/03/24 22:42 poison olga extract Allergy Rash Verified 10/03/24 22:42 poison oak extract Allergy Rash Verified 10/03/24 22:42 poison sumac extract Allergy Rash Verified 10/03/24 22:42 red dye Allergy Rash Verified 10/03/24 22:42 Family History Mother Diabetes Grandmother Diabetes Hypertension Cancer Surgical History History of coronary artery stent placement (11/29/20) [place] teeth extracted H/O hand surgery Social History Smoking Status: Current every day smoker tobacco type: cigarettes alcohol intake: current substance use type: former substance user and marijuana what type of physical activity do you participate in: none ROS ROS ED Constitutional Constitutional ED: Denies chills or fever(s) Eyes Eyes: Denies blurry vision or change in vision ENT ENT ED: Denies rhinorrhea or sore throat Cardiovascular Cardiovascular: Denies chest pain or palpitations Respiratory/Chest Respiratory/Chest: Denies cough or dyspnea Gastrointestinal Gastrointestinal: Denies nausea or vomiting Genitourinary Genitourinary ED: Denies dysuria or hematuria Musculoskeletal Musculoskeletal: Denies back pain or neck pain Integumentary Reports rash; Denies abscess Neurologic Neurologic: Denies headache(s) or weakness Allergic/Immunologic Allergic/Immunologic ED: Denies mouth swelling or urticaria EXAM Physical Exam Const Vital Signs: 10/03/24 22:42 Temperature 95.9 F L Temperature Source Temporal Pulse Rate 77 Respiratory Rate 16 Blood Pressure 131/85 H Blood Pressure Mean 100 Pulse Ox 99 Positive well nourished and well developed General Appearance ED: well developed and NAD HEENT Reports moist mucous membranes Neck supple and no JVD Neuro oriented x3, CN's II-XII intact bilaterally and no sensory deficits noted Sensorium / Orientation: alert Motor Exam: strength 5/5 throughout Psych mental status grossly normal Skin Skin Narrative: There is a patchy erythematous rash with areas of linear vesicles over the chest, abdomen, upper extremities, and face. There is no discharge or drainage noted. There are no pustules noted. There are no petechia noted. There is no involvement of the mucous membranes. There is no involvement of the palms or soles. MDM MDM MDM Narrative Medical decision making narrative: Patient was advised that this is most likely poison olga or poison oak. Patient was given a dose of prednisone here. Patient was given a prescription for a short course of prednisone. Patient was instructed to take Claritin or Zyrtec as needed for itching. Patient was instructed to follow-up with his primary care physician in 5 to 7 days. Patient was instructed to return if worse in any way. Patient understood and was agreeable with the plan. All questions were answered. Discharge Plan Triage Chief Complaint: Rash ED Provider: Provider,Ed Physician Dx/Rx/DC Orders Clinical Impression: Rhus dermatitis, Tobacco abuse Instructions: ED Poison Olga or Poison [place] Rash Prescriptions: New prednisone 20 mg tablet 40 mg PO DAILY Qty: 8 0RF Primary Care Provider: Gayle Camacho Referrals: Gayle Camacho MD [Primary Care Provider] - 5-7 Days Print Language: Mexican
[2024-10-03 23:57] VITALS: BP 132/89; PULSE 69; RESP 18; TEMP 36.6; O2SAT 98
[2024-10-03] MEDS: predniSONE 20 MG Tablet 40 MG PO (23:57)
--- OUTSIDE RECORDS SUMMARY | 2024-10-04 00:07 | XMS RPT_ITS | CCD ---
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) Attending Unavailable LYNDON LEDESMA ([facility]) Attending Unavailable LYNDON LEDESMA ([facility]) Referring Unavailable LYNDON LEDESMA ([facility]) Referring Unavailable LYNDON LEDESMA ([facility]) Attending Unavailable LYNDON LEDESMA ([facility]) Referring Unavailable LYNDON LEDESMA ([facility]) Referring Unavailable PETER MANZO Attending Unavailable PROVIDER, UNKNOWN Admitting Unavailable PROVIDER, UNKNOWN Attending Unavailable PROVIDER, UNKNOWN Admitting Unavailable PROVIDER, UNKNOWN Attending Unavailable PHYSICIAN, NONE Primary Care Physician Unavailab christine MURILLO MD, KATRINA Morales Attending Unavailable PHYSICIAN, NONE Primary Care Unavailable NELL THOMPSON MD Attending Unavail able PHYSICIAN, NONE Primary Care Unavailable Provider, Ed Physician Attending Unavailab Gayle Elizondo Primary Care Unavailable Gayle Camacho Primary Care Unavailable Deena Sarkar Attending Unavailable Valdemar Estrada Attending Unavailable Gayle Camacho Primary Care Unavailable Janice VEGA, Dr. Araujo Primary Care Provider Provider, Ed Physician Emergency Provider Unavai lable Allergies Allergy Classification Reported Allergen(s) Allergy Type Date of Onset Reaction(s) Facility (6 sources) Clindamycin; Translations: [CLINDAMYCIN] Drug Allergy 9 Unknown [facility] Repository (1 source) POISON OLGA; Translations: [POISON OLGA] Propensity to adverse reactions (disorder) 7 [facility] Repository (1 source) POISON OAK; Translations: [POISON OAK] Propensity to adverse reactions (disorder) 7 [facility] Repository (5 sources) Contrast media; Translations: [red dye] Allergy to substance 3 [facility] (2 sources) POISON OLGA EXTRACT Drug Allergy 3 [facility] (3 sources) poison oak extract; Translations: [poison oak extract] Allergy to substance 3 [facility] (2 sources) poison sumac extract Allergy to substance 3 [facility] (1 source) poison olga extract Drug allergy (disorder) 5 [facility] Repository (1 source) poison sumac extract Drug allergy (disorder) 5 [facility] Repository Medications Current Medications Medication Drug Class(es) Dates Sig (Normalized) Sig (Original) [place] (Nk) (1 source) Start: 07-04-2024 [place] (Nk) A ctive July 04, 2024 12:00am Completed/Discontinued Medications Medication Drug Class(es) Dates Sig (Normalized) Sig (Original) acetaminophen 325 mg / oxyCODONE hydrochloride 5 mg oral tablet (8 sources) Opioid Agonist Start: 04-09-2020 End: 04-11-2020 Oxycodone-Acetamino phen 1 TABLET tablet Discontinued 1 {tbl} PO EVERY 6 HOURS NEEDED as needed for Pain 8 2 April 09, 2020 April 10, 2020 1:00am April 11, 2020 1:02am Start: 04-09-2020 End: 04-11-2020 take 1 tablet by mouth every six hours as needed Oxycodone-Acetaminophen Discontinued 1 TABLET PO EVERY 6 HOURS NEEDED 8 2 April 09, 2020 April 11, 2020 12:02am Start: 09-23-2019 End: 01-30-2020 Oxycodone-Acetaminophen 5-32 5 mg tablet Discontinued {tbl} PO September 23, 2019 12:00am January 30, 2020 10:46am Start: 09-23-2019 End: 01-30-2020 Oxycodone-Acetaminophen Disc ontinued TABLET PO September 22, 2019 11:00pm January 30, 2020 9:46am Start: 09-02-2019 End: 09-05-2019 Oxycodone-Acetaminophen 1 TA BLET tablet Discontinued 1 {tbl} PO EVERY 6 HOURS NEEDED as needed for Pain 12 September 02, 2019 September 04, 2019 12:00am September 05, 2019 12:02am Start: 09-02-2019 End: 09-05-2019 take 1 tablet by mouth every six hours as needed Oxycodone-Acetaminophen Discontinued 1 TABLET PO EVERY 6 HOURS NEEDED 12 September 02, 2019 September 04, 2019 11:02pm Start: 05-05-2019 End: 05-08-2019 Oxycodone-Acetaminophen 1 TA BLET tablet Discontinued 1 {tbl} PO EVERY 6 HOURS NEEDED as needed for Pain 12 May 05, 2019 May 07, 2019 1:00am May 08, 2019 1:08am Start: 05-05-2019 End: 05-08-2019 take 1 tablet by mouth every six hours as needed Oxycodone-Acetaminophen Discontinued 1 TABLET PO EVERY 6 HOURS NEEDED 12 May 05, 2019 May 08, 2019 12:08am amoxicillin 500 mg oral tablet (4 sources) Penicillin-class Antibacterial Start: 04-03-2023 End: 03-04-2024 take 1 tablet by mouth three times daily Amoxicillin 500 mg tablet Discontinued 500 mg PO THREE TIMES A DAY April 03, 2023 1:00am March 04, 2024 9:07pm Start: 02-13-2021 End: 04-25-2021 take 1 tablet by mouth every eight hours Amoxicillin 500 mg tablet Discontinued 500 mg PO Q8H February 13, 2021 12:00am April 25, 2021 11:51am amoxicillin 875 mg / clavulanate 125 mg oral tablet (1 source) Penicillin-class Antibacterial Start: 01-05-2024 End: 03-04-2024 Amoxicillin-Pot Clavulanate 875-125 mg tablet Discontinued 1 {tbl} PO TWICE A DAY 14 January 05, 2024 12:00am March 04, 2024 9:08pm aspirin 81 mg delayed release oral tablet (13 sources) Platelet Aggregation Inhibitor, Nonsteroidal Anti-inflammatory Drug Start: 01-05-2024 End: 07-04-2024 take 1 tablet by mouth once daily Aspirin 81 mg tablet,delayed release (DR/EC) Discontinued 81 mg PO DAILY January 05, 2024 12:00am July 04, 2024 7:18pm Start: 01-15-2021 End: 01-05-2024 take 1 capsule by mouth once daily Aspirin 81 mg capsule Discontinued 81 mg PO DAILY February 10, 2023 4:50pm January 05, 2024 11:36pm Start: 12-12-2020 End: 01-15-2021 Aspirin 81 mg Capsule Discon tinued 81 mg DAILY December 12, 2020 12:00am January 15, 2021 9:55pm Start: 12-12-2020 End: 01-15-2021 Aspirin Discontinued 81 MG D AILY December 11, 2020 11:00pm January 15, 2021 8:55pm atorvastatin 40 mg oral tablet (14 sources) HMG-CoA Reductase Inhibitor Start: 12-12-2020 End: 07-04-2024 take 1 tablet by mouth at bedtime Atorvastatin (Lipitor) 40 mg tablet Discontinued 40 mg PO AT BEDTIME February 17, 2023 5:08pm July 04, 2024 7:18pm celecoxib 200 mg oral capsule (2 sources) Nonsteroidal Anti-inflammatory Drug Start: 04-25-2021 End: 08-06-2021 take 1 capsule by mouth once daily Celecoxib (Celebrex) 200 mg capsule Discontinued 200 mg PO DAILY April 25, 2021 1:00am August 06, 2021 1:06pm cephalexin 500 mg oral capsule (2 sources) Cephalosporin Antibacterial Start: 05-05-2019 End: 09-23-2019 take 1 capsule by mouth three times daily Cephalexin 500 mg capsule Discontinued 500 mg PO THREE TIMES A DAY May 05, 2019 1:00am September 23, 2019 11:05am clopidogrel 75 mg oral tablet (17 sources) P2Y12 Platelet Inhibitor Start: 12-12-2020 End: 07-04-2024 take 1 tablet by mouth once daily Clopidogrel 75 mg tablet Discontinued 0 .ROUTE .COMPLEX 90 November 27, 2023 4:14pm July 04, 2024 7:18pm TAKE 1 TABLET BY MOUTH DAILY cyclobenzaprine hydrochloride 10 mg oral tablet (2 sources) Muscle Relaxant Start: 09-02-2019 End: 09-23-2019 take 1 tablet by mouth three times daily as needed for muscle spasms Cyclobenzaprine 10 MG tablet Discontinued 10 mg PO THREE TIMES A DAY as needed for Muscle Spasm September 02, 2019 12:00am September 23, 2019 11:05am furosemide 40 mg oral tablet (6 sources) Loop Diuretic Start: 01-15-2021 End: 01-31-2021 take 1 tablet by mouth twice daily Furosemide 40 mg Tablet Discontinued 40 mg PO TWICE A DAY 60 January 15, 2021 10:14pm January 31, 2021 5:52pm handicap placard (2 sources) Start: 09-11-2021 End: 07-04-2024 handicap placard Discontinued 0 .Route .MEDSUPPLY September 11, 2021 12:00am July 04, 2024 7:19pm length of time: 5 years Start: 09-11-[address] Active 0 .Route .MEDSUPPLY September 10, 2021 11:00pm length of time: 5 years lisinopril 5 mg oral tablet (17 sources) Angiotensin Converting Enzyme Inhibitor Start: 12-12-2020 End: 07-04-2024 take 1 tablet by mouth once daily at bedtime Lisinopril 5 mg tablet Discontinued 0 .ROUTE .COMPLEX April 27, 2023 9:59am July 04, 2024 7:18pm TAKE 1 TABLET BY MOUTH DAILY AT BEDTIME meloxicam 15 mg oral tablet (2 sources) Nonsteroidal Anti-inflammatory Drug Start: 09-23-2019 End: 01-30-2020 take 1 tablet by mouth once daily Meloxicam (Mobic) 15 mg tablet Discontinued 15 mg PO DAILY September 23, 2019 12:00am January 30, 2020 10:46am Do not take with other NSAIDs. Tylenol is okay methylPREDNISolone 4 mg oral tablet (2 sources) Corticosteroid Start: 09-02-2019 End: 09-23-2019 Methylprednisolone 4 MG tablets,dose pack Discontinued 4 mg PO DIRECTED September 02, 2019 12:00am September 23, 2019 11:05am metoprolol tartrate 25 mg oral tablet (17 sources) beta-Adrenergic Kash Start: 12-12-2020 End: 07-04-2024 Metoprolol Tartrate 25 mg tablet Discontinued 0 .ROUTE .COMPLEX April 27, 2023 9:59am July 04, 2024 7:19pm TAKE 1 TABLET TWICE DAILY Miscellaneous Medical Supply (1 source) Start: 09-23-2019 End: 09-23-2019 Miscellaneous Medical Supply Discontinued 1 EACH MC .PRN September 22, 2019 11:00pm September 23, 2019 10:59am Valid for 3 months from today. Miscellaneous Medical Supply misc (1 source) Start: 09-23-2019 End: 09-23-2019 Miscellaneous Medical Supply [facility] [place], [place] Discontinued 1 NMA MC .PRN 1 September 23, 2019 12:00am September 23, 2019 11:59am Valid for 3 months from today. naproxen 500 mg oral tablet (4 sources) Nonsteroidal Anti-inflammatory Drug Start: 04-03-2023 End: 01-05-2024 take 1 tablet by mouth twice daily as needed Naproxen 500 mg tablet Discontinued 500 mg PO TWICE DAILY NEEDED April 03, 2023 1:00am January 05, 2024 11:36pm Start: 09-02-2019 End: 09-23-2019 take 1 tablet by mouth twice daily as needed Naproxen 500 MG tablet Discontinued 500 mg PO TWICE DAILY NEEDED September 02, 2019 12:00am September 23, 2019 11:04am nystatin 704884 unt/ml oral suspension (2 sources) Polyene Antifungal Start: 08-03-2019 End: 09-23-2019 Nystatin 100,000 unit/mL suspension Discontinued [id number] U PO DAILY 60 August 03, 2019 12:00am September 23, 2019 11:05am administer 1/2 of dose in each side of the mouth omeprazole 40 mg delayed release oral capsule (2 sources) Proton Pump Inhibitor Start: 08-03-2019 End: 09-23-2019 take 1 capsule by mouth once daily 30 minutes before breakfast Omeprazole 40 mg capsule,delayed release(DR/EC) Discontinued 40 mg PO DAILY 60 August 03, 2019 12:00am September 23, 2019 11:05am Take on an empty stomach, 30 minutes before breakfast ondansetron 4 mg disintegrating oral tablet (1 source) Serotonin-3 Receptor Antagonist Start: 01-05-2024 End: 07-04-2024 take 1 tablet by mouth three times daily as needed for nausea and vomiting Ondansetron 4 mg tablet,disintegrat ing Discontinued 4 mg PO THREE TIMES A DAY as needed for nausea and vomiting January 05, 2024 11:24pm July 04, 2024 7:19pm potassium chloride 20 meq extended release oral tablet (8 sources) Start: 02-13-2021 End: 02-15-2021 take 1 tablet by mouth twice daily Potassium Chloride 20 mEq tablet extended release Discontinued 20 meq PO TWICE A DAY February 13, 2021 12:00am February 15, 2021 2:03pm Start: 12-12-2020 End: 01-31-2021 take 1 tablet by mouth once daily Potassium Chloride 20 mEq Tablet Extended Release Discontinued 20 meq PO DAILY January 15, 2021 10:15pm January 31, 2021 5:52pm predniSONE 20 mg oral tablet (2 sources) Start: 11-10-2018 End: 05-05-2019 take 3 tablets by mouth once daily, then take 2 tablets by mouth once daily, then take 1 tablet by mouth once daily Prednisone 20 mg tablet Discontinued 20 mg PO DAILY November 10, 2018 12:00am May 05, 2019 3:34pm 3 tablets daily for 3 days, then 2 tablets daily for 3 days, then 1 tablet daily for 3 days sulfamethoxazole 800 mg / trimethoprim 160 mg oral tablet (2 sources) Dihydrofolate Reductase Inhibitor Antibacterial, Sulfonamide Antimicrobial Start: 05-11-2019 End: 09-23-2019 Sulfamethoxazole- Trimethoprim 800-160 mg tablet Discontinued 1 {tbl} PO TWICE A DAY May 11, 2019 1:00am September 23, 2019 11:06am Start: 05-11-2019 End: 09-23-2019 take 1 tablet by mouth twice daily Sulfamethoxazole-Trimethoprim Discontinu ed 1 TABLET PO TWICE A DAY May 11, 2019 12:00am September 23, 2019 10:06am 24 hr divalproex sodium 250 mg extended release oral tablet (8 sources) Mood Stabilizer, Anti-epileptic Agent Start: 12-12-2020 End: 08-06-2021 Divalproex 250 mg tablet extended release 24 hr Discontinued 750 mg PO TWICE A DAY 180 February 18, 2021 1:32pm August 06, 2021 1:06pm Start: 12-12-2020 End: 08-06-2021 take 750 mg by mouth twice daily Divalproex Discontinued 750 MG PO TWICE A DAY 180 February 18, 2021 12:32pm August 06, 2021 12:06pm Problems Active Problems Problem Classification Problem Date Documented Date Episodic/Chronic Administrative/social admission (2 sources) Repeated prescription; Translations: [Encounter for issue of repeat prescription] 01-23-2021 Episodic Allergic reactions (4 sources) Contact dermatitis due to poison olga; Translations: [Allergic contact dermatitis due to plants, except food] 01-30-2021 Episodic Anal and rectal conditions (2 sources) Anal fistula; Translations: [Anal fistula] 07-29-2015 Episodic Anxiety disorders (1 source) Anxiety; Translations: [Anxiety disorder, unspecified] 01-13-2024 Chronic Blindness and vision defects (2 sources) Eye / vision finding; Translations: [Unspecified visual disturbance] 05-14-2021 Episodic Cardiac arrest and ventricular fibrillation (4 sources) Ventricular fibrillation; Translations: [Cardiac arrest, cause unspecified] Onset: 11-28-2020 01-30-2021 Chronic Coronary atherosclerosis and other heart disease (8 sources) History of acute ST segment elevation myocardial infarction; Translations: [Old myocardial infarction] Onset: 11-28-2020 01-30-2021 Chronic Disorders of teeth and jaw (16 sources) Dental caries; Translations: [Dental caries, unspecified] Onset: 04-03-2023 02-13-2021 Episodic Essential hypertension (2 sources) Essential hypertension; Translations: [Essential (primary) hypertension] 05-14-2021 Chronic Late effects of cerebrovascular disease (2 sources) Dysphagia as a late effect of cerebrovascular accident; Translations: [Dysphagia following cerebral infarction] 01-30-2021 Chronic Malaise and fatigue (2 sources) Left hemiparesis; Translations: [Weakness] 01-30-2021 Episodic Nonspecific chest pain (2 sources) Chest pain; Translations: [Chest pain, unspecified] 04-30-2021 Episodic Other circulatory disease (2 sources) History of cerebrovascular accident; Translations: [Personal history of transient ischemic attack (TIA), and cerebral infarction without residual deficits] 01-30-2021 Episodic Comment on above: RIGHT MIDDLE CEREBRA L ARTERY STROKE Other connective tissue disease (2 sources) Foot pain; Translations: [Pain in right foot] 02-13-2021 Episodic Other injuries and conditions due to external causes (1 source) Foreign body of alimentary tract, part unspecified, initial encounter; Translations: [Foreign body of alimentary tract, part unspecified, initial encounter] Onset: 07-09-2024 Episodic Other male genital disorders (1 source) Painful ejaculation; Translations: [Painful ejaculation] Onset: 07-06-2018 Episodic Other nervous system disorders (1 source) Other chronic pain; Translations: [Other chronic pain] Onset: 07-06-2018 Chronic Other nervous system disorders (2 sources) Cervical nerve root compression; Translations: [Cervical root disorders, not elsewhere classified] 04-25-2021 Chronic Other nutritional; endocrine; and metabolic disorders (2 sources) Obesity; Translations: [Obesity, unspecified] 01-30-2021 Chronic Other skin disorders (1 source) Eccrine sweat disorder, unspecified; Translations: [Eccrine sweat disorder, unspecified] Onset: 07-01-2018 Episodic Residual codes; unclassified (1 source) High risk heterosexual behavior; Translations: [High risk heterosexual behavior] Onset: 07-06-2018 Episodic Residual codes; unclassified (2 sources) Tobacco user; Translations: [Tobacco use] 04-03-2023 Episodic Spondylosis; intervertebral disc disorders; other back problems (4 sources) Arthritis of facet joint of lumbar spine; Translations: [Spondylosis without myelopathy or radiculopathy, lumbar region] 01-30-2021 Chronic Spondylosis; intervertebral disc disorders; other back problems (3 sources) Dorsalgia, unspecified; Translations: [Left cervical root neuropathy] Onset: 07-06-2018 06-25-2021 Episodic Past or Other Problems Problem Classification Problem Date Documented Da te Episodic/Chronic Nausea and vomiting (2 sources) Nausea; Translations: [Nausea] Onset: 01-27-2024 01-13-2024 Episodic Superficial injury; contusion (4 sources) Contusion of nose; Translations: [Contusion of nose, initial encounter] Onset: 04-02-2024 08-09-2020 Episodic Results Test Name Value Interpretation Reference Range Facility Lyme Screen W/Reflex WBon LYME SCREEN Ab Negative Normal Negative [facility] Comment on above: Result Comment: Lyme antibodies not detected. Reflex testing is not indicated. No laboratory evidence of infection with B. burgdorferi (Lyme disease). Negative results may occur in patients recently infected (less than or equal to 14 days) with B. burgdorferi. If recent infection is suspected, repeat testing on a new sample collected in 7 to 14 days is recommended. Performed at: [facility] [address] [id number] Shoe Repairman: Manan Rendon PhD, Phone: [phone] Performed By: #### L [id number] #### [facility] [place], [address] Emergency Department Summary on 03-04-2024 Emergency Department Summary [facility] Medical Records Department [address] [place] [address] Emergency Department Summary 03/04/24 MR#: [id number] Acct: [id number] Name: GINNY BARFIELD Rep #: [id number] : 1980 43 From: Deena Sarkar DO PCP: Dr. Gayle Camacho MD Status:DEP ER Location: ED HPI History of Present Illness Chief Complaint: Bite Informant: patient Narrative Narrative: Patient is a 43-year-old male with history of stroke as well as cardiovascular disease presenting for concern of tick bite. Patient found a tick on his left shoulder/torso earlier today. States has been on that for a month. He did remove it. He is concerned about potential for Lyme disease. As he has been feeling of fatigued more and that has been more drowsy but also states he has not a health issue so is not sure if that is related to it. Denies any fever. He would like tested for Lyme disease. He states that there is an area of redness where the tick bite was and is concerned that there could be a sign of Lyme disease. No other complaints or concerns reported at this time. [facility] Medical History Old inferolateral myocardial infarction Obesity Ischemic cardiomyopathy Atherosclerotic heart disease of [place] coronary artery without angina pectoris Cardiac arrest with ventricular fibrillation (11/28/20) History of ST elevation myocardial infarction (STEMI) (11/28/20) History of CVA (cerebrovascular accident) Left-sided weakness Dysphagia as late effect of cerebrovascular accident (CVA) Cardiopulmonary arrest with successful resuscitation (11/28/20) Failing root canal Facet arthritis of lumbar region Thoracic degenerative disc disease Home Medications ???Medication ???Instructions ???Recorded ???Last Taken ???Type handicap placard #1 ea 09/11/21 Unknown Rx atorvastatin 40 mg tablet (Lipitor) 40 mg PO QHS #30 tabs 02/17/23 Unknown Rx lisinopril 5 mg tablet See Rx Instructions .Route 04/27/23 Unknown Rx .COMPLEX #30 tabs metoprolol tartrate 25 mg tablet See Rx Instructions .Route 04/27/23 Unknown Rx .COMPLEX #60 tabs clopidogrel 75 mg tablet See Rx Instructions .Route 11/27/23 Unknown Rx .COMPLEX #90 tabs aspirin 81 mg tablet,delayed 81 mg PO DAILY 01/05/24 Unknown History release ondansetron 4 mg disintegrating 4 mg PO TID PRN nausea and 01/05/24 Unknown Rx tablet vomiting #21 tabs Allergy/AdvReac Type Severity Reaction Status Date / Time clindamycin Allergy Unknown Verified 03/04/24 19:44 poison olga extract Allergy Rash Verified 03/04/24 19:44 poison oak extract Allergy Rash Verified 03/04/24 19:44 poison sumac extract Allergy Rash Verified 03/04/24 19:44 red dye Allergy Rash Verified 03/04/24 19:44 Family History Mother Diabetes Grandmother Diabetes Hypertension Cancer Surgical History History of coronary artery stent placement (11/29/20) [place] teeth extracted H/O hand surgery Social History Smoking Status: Current every day smoker tobacco type: cigarettes alcohol intake: current substance use type: former substance user and marijuana what type of physical activity do you participate in: none ROS ROS ED Constitutional Constitutional ED: Reports other Details: Generalized malaise ; Denies chills or fever(s) Cardiovascular Cardiovascular: Denies chest pain Respiratory/Chest Respiratory/Chest: Denies cough or dyspnea Gastrointestinal Gastrointestinal: Denies vomiting Integumentary Reports rash Neurologic Neurologic: Reports other Details: Residual left-sided deficits from prior stroke Psychiatric Psychiatric: Reports anxiety Hematologic/Lymphatic Hematologic/Lymphatic: Denies easy bleeding EXAM Physical Exam Const Vital Signs: 03/04/24 19:44 03/04/24 19:46 03/04/24 20:42 Temperature 98.3 F 98.3 F 97.6 F L Temperature Source Oral Oral Pulse Rate 80 80 84 Respiratory Rate 16 16 17 Blood Pressure 161/99 H 161/99 H 142/77 H Blood Pressure Mean 119 119 98 Pulse Ox 100 97 99 Oxygen Delivery Method Room Air Room Air Positive well nourished and well developed General Appearance ED: well developed and NAD HEENT Reports moist mucous membranes Eyes PERRL and EOMs intact bilaterally Neck supple and no JVD Chest Wall inspection of chest normal Resp normal respiratory effort and clear to auscultation bilaterally Cardio regular rate and regular rhythm Extremity normal to inspection General Extremety ED: Negative for edema General Extremity: Negative for edema Neuro oriented x3 Sensorium / Orientation: alert Motor Exam: Negative for g (more content not included)... Normal [facility] Emergency Department Summary on 01-05-2024 Emergency Department Summary [facility] Medical Records Department [address] [place] [address] Emergency Department Summary 01/05/24 MR#: [id number] Acct: [id number] Name: GINNY BARFIELD Rep #: [id number] : 1980 43 From: Valdemar Estrada DO PCP: Dr. Gayle Camacho MD Status:DEP ER Location: ED HPI History of Present Illness Chief Complaint: Other, Pain/Inj Informant: patient Narrative Narrative: Patient is a 43-year-old male with history of hypertension as well as CAD and ischemic cardiomyopathy. He states this evening he had boiled eggs and began eating 1 when he noticed the yolk did not look right and that they smelled different. He states that he finished the egg and afterwards began to feel nausea/upset stomach. He states he was concerned that this could be related to the bird flu and therefore decided to come in for evaluation. He also reports he noticed a small black spot to the palm of his left hand and was unsure if this was a splinter or metal shaving and decided to dig at it the other day. He reports that is also sore and therefore he figured he would have that evaluated why he is here as well [facility] Medical History Atherosclerotic heart disease of [place] coronary artery without angina pectoris Cardiac arrest with ventricular fibrillation (11/28/20) Cardiopulmonary arrest with successful resuscitation (11/28/20) Dysphagia as late effect of cerebrovascular accident (CVA) Facet arthritis of lumbar region Failing root canal History of CVA (cerebrovascular accident) History of ST elevation myocardial infarction (STEMI) (11/28/20) Ischemic cardiomyopathy Left-sided weakness Obesity Old inferolateral myocardial infarction Thoracic degenerative disc disease Home Medications ???Medication ???Instructions ???Recorded ???Last Taken ???Type handicap placard #1 ea 09/11/21 Unknown Rx atorvastatin 40 mg tablet (Lipitor) 40 mg PO QHS #30 tabs 02/17/23 Unknown Rx amoxicillin 500 mg tablet 500 mg PO TID #30 tabs 04/03/23 Unknown Rx lisinopril 5 mg tablet See Rx Instructions .Route 04/27/23 Unknown Rx .COMPLEX #30 tabs metoprolol tartrate 25 mg tablet See Rx Instructions .Route 04/27/23 Unknown Rx .COMPLEX #60 tabs clopidogrel 75 mg tablet See Rx Instructions .Route 11/27/23 Unknown Rx .COMPLEX #90 tabs amoxicillin 875 mg-potassium 1 tab PO BID 7 days #14 tabs 01/05/24 Unknown Rx clavulanate 125 mg tablet aspirin 81 mg tablet,delayed 81 mg PO DAILY 01/05/24 Unknown History release ondansetron 4 mg disintegrating 4 mg PO TID PRN nausea and 01/05/24 Unknown Rx tablet vomiting #21 tabs Allergy/AdvReac Type Severity Reaction Status Date / Time clindamycin Allergy Unknown Verified 01/05/24 22:53 poison olga extract Allergy Rash Verified 01/05/24 22:53 poison oak extract Allergy Rash Verified 01/05/24 22:53 poison sumac extract Allergy Rash Verified 01/05/24 22:53 red dye Allergy Rash Verified 01/05/24 22:53 Family History Mother Diabetes Grandmother Diabetes Hypertension Cancer Surgical History H/O hand surgery History of coronary artery stent placement (11/29/20) [place] teeth extracted Social History Smoking Status: Current every day smoker tobacco type: cigarettes alcohol intake: current substance use type: former substance user and marijuana what type of physical activity do you participate in: none ROS ROS ED Constitutional Constitutional ED: Denies chills or fever(s) ENT ENT ED: Denies rhinorrhea or sore throat Cardiovascular Cardiovascular: Denies chest pain Respiratory/Chest Respiratory/Chest: Denies cough or dyspnea Gastrointestinal Gastrointestinal: Reports nausea; Denies abdominal pain, constipation, diarrhea or vomiting Genitourinary Genitourinary ED: Denies dysuria Musculoskeletal Musculoskeletal: Reports other Details: Positive left hand pain ; Denies myalgias Integumentary Reports other Details: Positive left hand wound Neurologic Neurologic: Denies headache(s), paresthesias or weakness Psychiatric Psychiatric: Reports anxiety Hematologic/Lymphatic Hematologic/Lymphatic: Denies easy bleeding or easy bruising Allergic/Immunologic Allergic/Immunologic ED: Denies mouth swelling, tongue swelling or urticaria EXAM Physical Exam Const Vital Signs: 01/05/24 22:54 01/05/24 23:12 Temperature 97.9 F Temperature Source Temporal Pulse Rate 88 Respiratory Rate 17 Respiratory Effort Normal Non-Labored Respiratory Pattern Normal Blood Pressure 162/112 H Blood Pressure Mean 128 Pulse Ox 95 Oxygen Delivery Method Room Air (more content not included)... Normal [facility] 12-11-2020 Anion gap [Moles/Vol] 6 mmol/L Normal 5-16 [facility] Comment on above: Order Comment: Campu s: MCBN Label Performed By: #### L 500.21884, L500.74296 ####[facility] [id number] [place], [place] [address]Zo# [phone] Calcium [Mass/Vol] 9.6 mg/dL Normal 8.5-10.5 [facility] Comment on above: Order Comment: Campu s: MCBN Label Result Comment: NOTE NEW NORMAL RANGE DUE TO REAGENT CHANGE Performed By: #### L 500.89724, L500.60582 ####[facility] [id number] [place], [place] [address]Mn# [phone] Chloride [Moles/Vol] 100 mmol/L Normal 98-107 [facility] Comment on above: Order Comment: Campu s: MCBN Label Performed By: #### L 500.89567, L500.45288 ####[facility] [id number] [place], [place] [address]Hw# [phone] CO2 [Moles/Vol] 32.0 mmol/L Normal 21-32 [facility] Comment on above: Order Comment: Campu s: MCBN Label Performed By: #### L 500.87539, L500.94480 ####[facility] JWCUNFVAQK7805 [place], [place] [address]Yp# [phone] Creatinine [Mass/Vol] 0.84 mg/dL Normal 0.5-1.4 [facility] [place] Comment on above: Order Comment: Campu s: MCBN Label Result Comment: NOTE NEW NORMAL RANGE DUE TO REAGENT CHANGEPatients receiving either N-Acetylcysteine (NAC) orMetamizole prior to venipuncture, may have falsely depressedresults. Performed By: #### L 500.99426, L500.34676 ####[facility] VWLQBTRPQF8669 [place], [place] [address]Ec# [phone] Glucose [Mass/Vol] 147 mg/dL High 70-100 [facility] [place] Comment on above: Order Comment: Campu s: MCBN Label Result Comment: 70-1 00- Normal Fasting; 100-125 Impaired Fasting; greaterthan 126 on more than one result- Diabetes. ADA guidelines.Results may be falsely elevated after the administration ofSulfapyridine.Results may be falsely depressed after the administration ofSulfasalazine. Performed By: #### L 500.16839, L500.28610 ####[facility] [id number] [place], [place] [address]Fl# [phone] Potassium [Moles/Vol] 3.5 mmol/L Normal 3.5-5.1 [facility] [place] Comment on above: Order Comment: Campu s: MCBN Label Result Comment: Slig ht Hemolysis, Result may be affected. Performed By: #### L 500.72141, L500.78183 ####[facility] [id number] [place], [place] [address]Hw# [phone] Sodium [Moles/Vol] 138 mmol/L Normal 136-145 [facility] [place] Comment on above: Order Comment: Campu s: MCBN Label Performed By: #### L 500.12379, L500.88799 ####[facility] [id number] [place], [place] [address]Pu# [phone] Urea nitrogen [Mass/Vol] 28 mg/dL High 7-26 [facility] Comment on above: Order Comment: Campu s: MCBN Label Performed By: #### L 500.98074, L500.78475 ####[facility] ROYMOVWXKY2259 [place], [place] [address]Tf# [phone] Urea nitrogen/Creatinine [Mass ratio] 33 mg/mg High 15-24 [facility] Comment on above: Order Comment: Campu s: MCBN Label Performed By: #### L 500.88152, L500.58394 ####[facility] [id number] [place], [place] [address]Pj# [phone] DISCH.SUMon 12-11-2020 DISCH.SUM [facility] GFR ESTon 12-11-2020 IF AMER Greater than 60 [facility] Comment on above: Order Comment: Aaronu s: MCBN Label Performed By: #### L 500.51969, L500.14955 ####[facility] [id number] [place] [address]Fj# [phone] IF non-AFR AMER Greater than 60 [facility] Comment on above: Order Comment: Campu s: MCBN Label Performed By: #### L 500.08947, L500.96724 ####[facility] [id number] [place], [place] [address]Dz# [phone] OTPNon 12-11-2020 OT Progress Note Normal [facility] OTPN Normal [facility] PROG IMSon 12-11-2020 PROG [facility] Normal [facility] Progress Note-Hospitalist Normal [facility] STPNon 12-11-2020 HYDRAULIC SPECIALIST Progress Note Normal [facility] STPN Normal [facility] OTARon 12-10-2020 OT Assessment Report Normal [facility] OTAR [facility] [place] PROG IMSon 12-10-2020 PROG IMS Normal [facility] Progress Note-Hospitalist Normal [facility] PROG IMS Normal [facility] Progress Note-Hospitalist Normal [facility] PROG.Meche 12-10-2020 PROG.CARD Normal [facility] Progress Note-Cardiology Normal [facility] PTPNon 12-10-2020 PT Progress Note Normal [facility] PTPN Normal [facility] CMP 12-09-2020 Albumin [Mass/Vol] 3.5 g/dL Normal 3.2-5.0 [facility] Comment on above: Order Comment: Campu s: MMinimal Draw: YCBN Label Performed By: #### L 500.09511, L500.34256 ####[facility] [id number] [place], [place] [address]Ep# [phone] Albumin/Globulin [Mass ratio] 0.8 {ratio} Normal 0.8-2.0 [facility] Comment on above: Order Comment: Campu s: MMinimal Draw: YCBN Label Performed By: #### L 500.18836, L500.97074 ####[facility] YIYCZBXQUA7584 [place], [place] [address]Zt# [phone] ALK PHOS 102 U/L Normal 45-117 [facility] Comment on above: Order Comment: Campu s: MMinimal Draw: YCBN Label Performed By: #### L 500.96213, L500.90374 ####[facility] [id number] [place], [place] [address]Xw# [phone] ALT [Catalytic activity/Vol] 90 U/L High 13-61 [facility] Comment on above: Order Comment: Campu s: MMinimal Draw: YCBN Label Result Comment: RESU LTS MAY BE FALSELY DEPRESSED AFTER THE ADMINISTRATION OFSULFASALAZINE AND/OR SULFAPYRIDINE. Performed By: #### L 500.27602, L500.24647 ####[facility] [id number] [place], [place] [address]Ky# [phone] Anion gap [Moles/Vol] 9 mmol/L Normal 5-16 [facility] Comment on above: Order Comment: Campu s: MMinimal Draw: YCBN Label Performed By: #### L 500.60540, L500.12189 ####[facility] [id number] [place], [place] [address]Px# [phone] AST [Catalytic activity/Vol] 50 U/L High 8-34 [facility] Comment on above: Order Comment: Campu s: MMinimal Draw: YCBN Label Result Comment: RESU LTS MAY BE FALSELY DEPRESSED AFTER THE ADMINISTRATION OFSULFASALAZINE AND/OR SULFAPYRIDINE. Performed By: #### L 500.42031, L500.77837 ####[facility] [id number] [place], [place] [address]Jk# [phone] BILI TOTAL 0.70 MG/DL Normal 0.2-1.0 [facility] Comment on above: Order Comment: Campu s: MMinimal Draw: YCBN Label Performed By: #### L 500.98618, L500.37571 ####[facility] [id number] [place], [place] [address]Fn# [phone] Calcium [Mass/Vol] 9.8 mg/dL Normal 8.5-10.5 [facility] Comment on above: Order Comment: Campu s: MMinimal Draw: YCBN Label Result Comment: NOTE NEW NORMAL RANGE DUE TO REAGENT CHANGE Performed By: #### L 500.43160, L500.03356 ####[facility] XSJXJQZSSP7103 [place], [place] [address]Qs# [phone] Chloride [Moles/Vol] 104 mmol/L Normal 98-107 [facility] Comment on above: Order Comment: Campu s: MMinimal Draw: YCBN Label Performed By: #### L 500.22790, L500.46332 ####[facility] JDAKQMKQRR5449 [place], [place] [address]Jz# [phone] CO2 [Moles/Vol] 31.0 mmol/L Normal 21-32 [facility] [place] Comment on above: Order Comment: Campu s: MMinimal Draw: YCBN Label Performed By: #### L 500.31615, L500.79747 ####[facility] [id number] [place], [place] [address]Zj# [phone] Creatinine [Mass/Vol] 0.85 mg/dL Normal 0.5-1.4 [facility] [place] Comment on above: Order Comment: Campu s: MMinimal Draw: YCBN Label Result Comment: NOTE NEW NORMAL RANGE DUE TO REAGENT CHANGEPatients receiving either N-Acetylcysteine (NAC) orMetamizole prior to venipuncture, may have falsely depressedresults. Performed By: #### L 500.52596, L500.16029 ####[facility] [id number] [place], [place] [address]Ey# [phone] Globulin (S) [Mass/Vol] 4.2 g/dL Normal 2.2-4.2 [facility] [place] Comment on above: Order Comment: Campu s: MMinimal Draw: YCBN Label Performed By: #### L 500.45606, L500.74528 ####[facility] LGEAFHOOIW0234 [place], [place] [address]Cy# [phone] Glucose [Mass/Vol] 108 mg/dL High 70-100 [facility] [place] Comment on above: Order Comment: Campu s: MMinimal Draw: YCBN Label Result Comment: 70-1 00- Normal Fasting; 100-125 Impaired Fasting; greaterthan 126 on more than one result- Diabetes. ADA guidelines.Results may be falsely elevated after the administration ofSulfapyridine.Results may be falsely depressed after the administration ofSulfasalazine. Performed By: #### L 500.57207, L500.87388 ####[facility] HTTZYAZZXK4751 [place], [place] [address]Wk# [phone] Potassium [Moles/Vol] 3.6 mmol/L Normal 3.5-5.1 [facility] [place] Comment on above: Order Comment: Campu s: MMinimal Draw: YCBN Label Result Comment: Slig ht Hemolysis, Result may be affected. Performed By: #### L 500.62459, L500.77015 ####[facility] [id number] [place], [place] [address]Yp# [phone] Protein [Mass/Vol] 7.7 g/dL Normal 6.0-8.5 [facility] [place] Comment on above: Order Comment: Campu s: MMinimal Draw: YCBN Label Performed By: #### L 500.07028, L500.28080 ####[facility] [id number] [place], [place] [address]Cq# [phone] Sodium [Moles/Vol] 144 mmol/L Normal 136-145 [facility] [place] Comment on above: Order Comment: Campu s: MMinimal Draw: YCBN Label Performed By: #### L 500.68646, L500.15289 ####[facility] [id number] [place] [address]Qe# [phone] Urea nitrogen [Mass/Vol] 36 mg/dL High 7-26 [facility] [place] Comment on above: Order Comment: Campu s: MMinimal Draw: YCBN Label Performed By: #### L 500.58236, L500.06063 ####[facility] [id number] [place] [address]Wu# [phone] Urea nitrogen/Creatinine [Mass ratio] 42 mg/mg High 15-24 [facility] Comment [facility]: Order Comment: Campu s: MMinimal Draw: YCBN Label Performed By: #### L 500.54175, L500.60483 ####[facility] [id number] [place] [address]Tl# [phone] GFR ESTon 12-09-2020 IF AMER Greater than 60 Normal [facility] [place] Comment on above: Order Comment: Campu s: MMinimal Draw: YCBN Label Performed By: #### L 500.15251, L500.21508 ####[facility] [id number] [place], [place] [address]Yr# [phone] IF non-AFR AMER Greater than 60 Normal [facility] [place] Comment on above: Order Comment: Campu s: MMinimal Draw: YCBN Label Performed By: #### L 500.99390, L500.99457 ####[facility] [id number] [place], [place] [address]Rp# [phone] PROG IMSon 12-09-2020 PROG IMS Normal [facility] Progress Note-Hospitalist Normal [facility] PTTon 12-09-2020 aPTT Coag (Bld) [Time] 55.9 s High 22.0-31.5 [facility] Comment on above: Order Comment: Gabriela s: M Result Comment: Ther apeutic Heparin Reference Range: High Dose: 46-75 seconds (DVT/PE) Low Dose: 39-60 seconds (Acute Coronary Syndrome)For low molecular weight heparin or danaparoid, monitoringis often NOT necessary, but the heparin assay, Xa inhibitionassay (send-out) may be used in certain circumstances, asthe PTT is generally insensitive to the effect of theseagents. Direct thrombin inhibitors are becoming more widelyutilized and these drugs are often monitored using the PTT. Performed By: #### L 300.17334 ####[facility] [id number] [place], [place] [address]Dn# [phone] aPTT Coag (Bld) [Time] 49.0 s High 22.0-31.5 [facility] Comment on above: Order Comment: Gabriela qiu: M: HEPARIN GTTCBN Label Result Comment: Ther apeutic Heparin Reference Range: High Dose: 46-75 seconds (DVT/PE) Low Dose: 39-60 seconds (Acute Coronary Syndrome)For low molecular weight heparin or danaparoid, monitoringis often NOT necessary, but the heparin assay, Xa inhibitionassay (send-out) may be used in certain circumstances, asthe PTT is generally insensitive to the effect of theseagents. Direct thrombin inhibitors are becoming more widelyutilized and these drugs are often monitored using the PTT. Performed By: #### L 300.92338 ####[facility] GZLGOLWHSM2075 [place], [place] [address]Xn# [phone] STARon 12-09-2020 HYDRAULIC SPECIALIST Assessment Report Normal [facility] STAR Normal [facility] CBCon 12-08-2020 Erythrocyte distribution width (RBC) [Ratio] 12.6 % Normal 11-14.5 [facility] Comment on above: Order Comment: Campu s: M Performed By: #### L 200.58671 ####[facility] [id number] [place] [address]Vv# [phone] Hematocrit (Bld) [Volume fraction] 44.8 % Normal 41.0-53.0 [facility] Comment on above: Order Comment: Campu s: M Performed By: #### L 200.87336 ####[facility] [id number] [place] [address]Is# [phone] Hemoglobin (Bld) [Mass/Vol] 15.1 g/dL Normal 13.5-17.5 [facility] Comment on above: Order Comment: Campu s: M Performed By: #### L 200.26752 ####[facility] [address]PT[address] [place] [address]Jy# [phone] MCHC (RBC) [Mass/Vol] 33.7 g/dL Normal 32.0-36.0 [facility] Comment on above: Order Comment: Campu s: M Performed By: #### L 200.28989 ####[facility] [id number] [place] [address]Xb# [phone] MCV (RBC) [Entitic vol] 91.1 fL Normal 80.0-99.0 [facility] Comment on above: Order Comment: Campu s: M Performed By: #### L 200.37907 ####[facility] [id number] [place] [address]Vd# [phone] Nucleated RBC/100 WBC (Bld) [Ratio] 0.0 % Normal Less than 1 [facility] Comment on above: Order Comment: Campu s: M Performed By: #### L 200.60763 ####[facility] [id number] [place] [address]Li# [phone] Platelet mean volume (Bld) [Entitic vol] 9.8 fL Normal 9.4-12.4 [facility] Comment on above: Order Comment: Campu s: M Performed By: #### L 200.00840 ####[facility] [id number] [place], [place] [address]Od# [phone] PLT 361 K/CU MM Normal 150-450 [facility] Comment on above: Order Comment: Campu s: M Performed By: #### L 200.20308 ####[facility] OYHEIBYKWC0230 [place], [place] [address]Kd# [phone] RBC 4.92 M/CU MM Normal 4.50-6.00 [facility] Comment on above: Order Comment: Campu s: M Performed By: #### L 200.12761 ####[facility] QOOLVMUIVJ1296 [place], [place] [address]Gp# [phone] WBC 10.7 K/CUMM Normal 4.5-11.0 [facility] Comment on above: Order Comment: Campu s: M Performed By: #### L 200.93771 ####[facility] QKEUMPXHGG7160 [place], [place] [address]Mc# [phone] CMPon 12-08-2020 Albumin [Mass/Vol] 3.4 g/dL Normal 3.2-5.0 [facility] Comment on above: Order Comment: Campu s: M Performed By: #### L 520.47801, L500.61116, L500.59268, L500.67246 ####[facility] QCSIEUCGWQ7020 [place], [place] [address]Wx# [phone] Albumin/Globulin [Mass ratio] 0.8 {ratio} Normal 0.8-2.0 [facility] Comment on above: Order Comment: Campu s: M Performed By: #### L 520.76099, L500.42896, L500.28850, L500.74495 ####[facility] VLGKAGGJSU9112 [place], [place] [address]Rl# [phone] ALK PHOS 106 U/L Normal 45-117 [facility] Comment on above: Order Comment: Campu s: M Performed By: #### L 520.76878, L500.26952, L500.11798, L500.35409 ####[facility] OLYSKDPWEI2749 [place], [place] [address]Su# [phone] ALT [Catalytic activity/Vol] 100 U/L High 13-61 [facility] Comment on above: Order Comment: Campu s: M Result Comment: RESU LTS MAY BE FALSELY DEPRESSED AFTER THE ADMINISTRATION OFSULFASALAZINE AND/OR SULFAPYRIDINE. Performed By: #### L 520.61979, L500.56330, L500.57226, L500.32059 ####[facility] OYVTVWKDDP3722 [place], [place] [address]Lb# [phone] Anion gap [Moles/Vol] 10 mmol/L Normal 5-16 [facility] Comment on above: Order Comment: Campu s: M Performed By: #### L 520.30022, L500.08028, L500.58684, L500.17093 ####[facility] [id number] [place], [place] [address]Jp# [phone] AST [Catalytic activity/Vol] 58 U/L High 8-34 [facility] Comment on above: Order Comment: Campu s: M Result Comment: RESU LTS MAY BE FALSELY DEPRESSED AFTER THE ADMINISTRATION OFSULFASALAZINE AND/OR SULFAPYRIDINE. Performed By: #### L 520.16121, L500.37602, L500.07959, L500.85572 ####[facility] YQBCKMSGTO8868 [place], [place] [address]Vu# [phone] BILI TOTAL 0.80 MG/DL Normal 0.2-1.0 [facility] Comment on above: Order Comment: Campu s: M Performed By: #### L 520.02433, L500.25011, L500.89692, L500.01819 ####[facility] ANLBIYXTNG9286 [place], [place] [address]Fp# [phone] Calcium [Mass/Vol] 9.5 mg/dL Normal 8.5-10.5 [facility] [place] Comment on above: Order Comment: Campu s: M Result Comment: NOTE NEW NORMAL RANGE DUE TO REAGENT CHANGE Performed By: #### L 520.45863, L500.67198, L500.38133, L500.84892 ####[facility] [id number] [place], [place] [address]Gm# [phone] Chloride [Moles/Vol] 108 mmol/L High 98-107 [facility] [place] Comment on above: Order Comment: Campu s: M Performed By: #### L 520.00295, L500.23967, L500.80047, L500.87567 ####[facility] [id number] [place], [place] [address]Bp# [phone] CO2 [Moles/Vol] 29.0 mmol/L Normal 21-32 [facility] [place] Comment on above: Order Comment: Campu s: M Performed By: #### L 520.96734, L500.78659, L500.02649, L500.66676 ####[facility] IEAOYRQVXL1224 [place], [place] [address]Vn# [phone] Creatinine [Mass/Vol] 0.78 mg/dL Normal 0.5-1.4 [facility] Comment on above: Order Comment: Campu s: M Result Comment: NOTE NEW NORMAL RANGE DUE TO REAGENT CHANGEPatients receiving either N-Acetylcysteine (NAC) orMetamizole prior to venipuncture, may have falsely depressedresults. Performed By: #### L 520.44453, L500.56437, L500.51887, L500.29278 ####[facility] [id number] [place], [place] [address]Rd# [phone] Globulin (S) [Mass/Vol] 4.1 g/dL Normal 2.2-4.2 [facility] Comment on above: Order Comment: Campu s: M Performed By: #### L 520.20963, L500.45895, L500.75674, L500.47503 ####[facility] OMOJBMROAS9150 [place], [place] [address]Pg# [phone] Glucose [Mass/Vol] 115 mg/dL High 70-100 [facility] Comment on above: Order Comment: Campu s: M Result Comment: 70-1 00- Normal Fasting; 100-125 Impaired Fasting; greaterthan 126 on more than one result- Diabetes. ADA guidelines.Results may be falsely elevated after the administration ofSulfapyridine.Results may be falsely depressed after the administration ofSulfasalazine. Performed By: #### L 520.73682, L500.80688, L500.25149, L500.88800 ####[facility] TUNJILLOQY3468 [place], [place] [address]He# [phone] Potassium [Moles/Vol] 3.6 mmol/L Normal 3.5-5.1 [facility] Comment on above: Order Comment: Campu s: M Result Comment: Slig ht Hemolysis, Result may be affected. Performed By: #### L 520.27616, L500.06458, L500.83005, L500.88835 ####[facility] YQUHEHIWZA2820 [place], [place] [address]Hz# [phone] Protein [Mass/Vol] 7.5 g/dL Normal 6.0-8.5 [facility] Comment on above: Order Comment: Campu s: M Performed By: #### L 520.29964, L500.66700, L500.85594, L500.97690 ####[facility] FDMRGIPBEV5189 [place], [place] [address]Vu# [phone] Sodium [Moles/Vol] 147 mmol/L High 136-145 [facility] Comment on above: Order Comment: Campu s: M Performed By: #### L 520.62830, L500.63978, L500.48499, L500.44618 ####[facility] UUUYXUWMPG8124 [place], [place] [address]Cn# [phone] Urea nitrogen [Mass/Vol] 34 mg/dL High 7-26 [facility] Comment on above: Order Comment: Campu s: M Performed By: #### L 520.95233, L500.08361, L500.68386, L500.34013 ####[facility] XUIYGYTNLK4220 [place], [place] [address]Zs# [phone] Urea nitrogen/Creatinine [Mass ratio] 43 mg/mg High 15-24 [facility] Comment on above: Order Comment: Campu s: M Performed By: #### L 520.00263, L500.21888, L500.30712, L500.82804 ####[facility] OSINMJZFRU1789 [place], [place] [address]Ea# [phone] GFR ESTon 12-08-2020 IF AMER Greater than 60 Normal [facility] Comment on above: Order Comment: Campu s: M Performed By: #### L 520.15461, L500.41417, L500.58776, L500.95490 ####[facility] [address]VM[address]KVR[address] [place] [address]Ke# [phone] IF non-AFR AMER Greater than 60 Normal [facility] Comment on above: Order Comment: Campu s: M Performed By: #### L 520.48859, L500.06681, L500.57576, L500.04855 ####[facility] [id number] [place], [place] [address]Rv# [phone] MAGNESIUMon 12-08-2020 Magnesium [Mass/Vol] 2.6 mg/dL Normal 1.6-2.6 [facility] Comment on above: Order Comment: Campu s: M Performed By: #### L 520.07556, L500.90597, L500.49407, L500.04960 ####[facility] [id number] [place], [place] [address]Vd# [phone] PROG IMSon 12-08-2020 PROG IMS Normal [facility] Progress Note-Hospitalist Normal [facility] PROG.NOTEon 12-08-2020 PROG.NOTE Normal [facility] Progress Note-Physician Normal [facility] PROG.PSYCHon 12-08-2020 PROG.PSYCH Normal [facility] Progress Note-Psych Normal [facility] PTTon 12-08-2020 aPTT Coag (Bld) [Time] 35.6 s High 22.0-31.5 [facility] Comment on above: Order Comment: Gabriela qiu: M: HEPARIN GTT Result Comment: Ther apeutic Heparin Reference Range: High Dose: 46-75 seconds (DVT/PE) Low Dose: 39-60 seconds (Acute Coronary Syndrome)For low molecular weight heparin or danaparoid, monitoringis often NOT necessary, but the heparin assay, Xa inhibitionassay (send-out) may be used in certain circumstances, asthe PTT is generally insensitive to the effect of theseagents. Direct thrombin inhibitors are becoming more widelyutilized and these drugs are often monitored using the PTT. Performed By: #### L 300.59793 ####[facility] [id number] [place], [place] [address]Ll# [phone] aPTT Coag (Bld) [Time] 43.2 s High 22.0-31.5 [facility] Comment on above: Order Comment: Gabriela qiu: Carmen Result Comment: Ther apeutic Heparin Reference Range: High Dose: 46-75 seconds (DVT/PE) Low Dose: 39-60 seconds (Acute Coronary Syndrome)For low molecular weight heparin or danaparoid, monitoringis often NOT necessary, but the heparin assay, Xa inhibitionassay (send-out) may be used in certain circumstances, asthe PTT is generally insensitive to the effect of theseagents. Direct thrombin inhibitors are becoming more widelyutilized and these drugs are often monitored using the PTT. Performed By: #### L 300.99437 ####[facility] [id number] [place], [place] [address]Xu# [phone] STPNon 12-08-2020 HYDRAULIC SPECIALIST Progress Note Normal [facility] STPN Normal [facility] VALPROIC ACIDon 12-08-2020 VALPROIC ACID 64.1 MCG/ML Normal 50-100 [facility] [place] Comment on above: Order Comment: Aaronu s: M Performed By: #### L 520.28050, L500.11480, L500.22722, L500.89221 ####[facility] [id number] [place], [place] [address]Eu# [phone] CBCon 12-07-2020 Erythrocyte distribution width (RBC) [Ratio] 12.6 % Normal 11-14.5 [facility] Comment on above: Order Comment: Campu s: MMinimal Draw: YCBN Label Performed By: #### L 200.55793 ####[address] [address]Ic# [phone] Hematocrit (Bld) [Volume fraction] 44.5 % Normal 41.0-53.0 [facility] Comment on above: Order Comment: Campu s: MMinimal Draw: YCBN Label Performed By: #### L 200.68495 ####[address] [address]Xh# [phone] Hemoglobin (Bld) [Mass/Vol] 14.9 g/dL Normal 13.5-17.5 [facility] Comment on above: Order Comment: Campu s: MMinimal Draw: YCBN Label Performed By: #### L 200.91332 ####[address] [address]Id# [phone] MCHC (RBC) [Mass/Vol] 33.5 g/dL Normal 32.0-36.0 [facility] Comment on above: Order Comment: Campu s: MMinimal Draw: YCBN Label Performed By: #### L 200.82957 ####[facility] [id number] [place] [address]Lf# [phone] MCV (RBC) [Entitic vol] 91.9 fL Normal 80.0-99.0 [facility] Comment on above: Order Comment: Campu s: MMinimal Draw: YCBN Label Performed By: #### L 200.34760 ####[facility] [id number] [place], [place] [address]Vw# [phone] Nucleated RBC/100 WBC (Bld) [Ratio] 0.0 % Normal Less than 1 [facility] Comment on above: Order Comment: Campu s: MMinimal Draw: YCBN Label Performed By: #### L 200.14378 ####[facility] [id number] [place] [address]Me# [phone] Platelet mean volume (Bld) [Entitic vol] 9.8 fL Normal 9.4-12.4 [facility] Comment on above: Order Comment: Campu s: MMinimal Draw: YCBN Label Performed By: #### L 200.41247 ####[facility] [id number] [place] [address]Yp# [phone] PLT 367 K/CU MM Normal 150-450 [facility] Comment on above: Order Comment: Campu s: MMinimal Draw: YCBN Label Performed By: #### L 200.21673 ####[facility] [id number] [place] [address]Bx# [phone] RBC 4.84 M/CU MM Normal 4.50-6.00 [facility] Comment on above: Order Comment: Campu s: MMinimal Draw: YCBN Label Performed By: #### L 200.66835 ####[facility] [id number] [place] [address]Gs# [phone] WBC 13.0 K/CUMM High 4.5-11.0 [facility] Comment on above: Order Comment: Campu s: MMinimal Draw: YCBN Label Performed By: #### L 200.94166 ####[facility] [id number] [place] [address]Sc# [phone] DIET.ASSMTon 12-07-2020 DIET.ASSMT Normal [facility] Nutrition Assessments Normal [facility] DIET.MALNon 12-07-2020 DIET.MALN Normal [facility] Malnutrition Assessments Normal [facility] LIVERon 12-07-2020 Albumin [Mass/Vol] 3.3 g/dL Normal 3.2-5.0 [facility] Comment on above: Order Comment: Campu s: M Performed By: #### L 500.18484 ####[facility] PGMCEREPLQ9217 [place], [place] [address]Bg# [phone] Albumin/Globulin [Mass ratio] 0.7 {ratio} Low 0.8-2.0 [facility] Comment on above: Order Comment: Campu s: M Performed By: #### L 500.03881 ####[facility] DQEVWPGYZX7285 [place], [place] [address]En# [phone] ALK PHOS 106 U/L Normal 45-117 [facility] Comment on above: Order Comment: Campu s: M Performed By: #### L 500.83652 ####[facility] GVDTMMATKO8243 [place], [place] [address]Ay# [phone] ALT [Catalytic activity/Vol] 106 U/L High 13-61 [facility] Comment on above: Order Comment: Campu s: M Result Comment: RESU LTS MAY BE FALSELY DEPRESSED AFTER THE ADMINISTRATION OFSULFASALAZINE AND/OR SULFAPYRIDINE. Performed By: #### L 500.48819 ####[facility] YXFAIPGDNU9511 [place], [place] [address]Bm# [phone] AST [Catalytic activity/Vol] 68 U/L High 8-34 [facility] Comment on above: Order Comment: Campu s: M Result Comment: RESU LTS MAY BE FALSELY DEPRESSED AFTER THE ADMINISTRATION OFSULFASALAZINE AND/OR SULFAPYRIDINE. Performed By: #### L 500.33920 ####[facility] IRTSSUZVHZ1608 [place], [place] [address]Oi# [phone] BILI DIRECT 0.4 MG/DL High 0.00-0.36 [facility] Comment on above: Order Comment: Campu s: M Result Comment: NOTE NEW NORMAL RANGE DUE TO REAGENT CHANGE Performed By: #### L 500.75024 ####[facility] [id number] [place], [place] [address]Xl# [phone] BILI TOTAL 0.80 MG/DL Normal 0.2-1.0 [facility] Comment on above: Order Comment: Campu s: M Performed By: #### L 500.70557 ####[facility] WFXRJFHTAB6978 [place], [place] [address]Xf# [phone] Globulin (S) [Mass/Vol] 4.7 g/dL High 2.2-4.2 [facility] Comment on above: Order Comment: Campu s: M Performed By: #### L 500.49791 ####[facility] IAZNEEJNJQ5862 [place], [place] [address]Lr# [phone] Protein [Mass/Vol] 8.0 g/dL Normal 6.0-8.5 [facility] Comment on above: Order Comment: Campu s: M Performed By: #### L 500.38745 ####[facility] ZEGPKYOWLY9006 [place], [place] [address]Ps# [phone] NEURO.EEGon 12-07-2020 NEURO.EEG Normal [facility] Neurology - EEG Normal [facility] PROG IMSon 12-07-2020 PROG IMS Normal [facility] Progress Note-Hospitalist Normal [facility] PROG.Meche 12-07-2020 PROG.CARD Normal [facility] Progress Note-Cardiology Normal [facility] PROG.NEUROon 12-07-2020 PROG.NEURO Normal [facility] Progress Note-Neuro Normal [facility] PROG.PSYCHon 12-07-2020 PROG.PSYCH Normal [facility] Progress Note-Psych Normal [facility] PTPNon 12-07-2020 PT Progress Note Normal [facility] dical [facility] PTPN Normal [facility] STPNon 12-07-2020 HYDRAULIC SPECIALIST Progress Note Normal [facility] Normal [facility] BMPon 12-06-2020 Anion gap [Moles/Vol] 11 mmol/L Normal 5-16 [facility] Comment on above: Order Comment: Campu s: M Performed By: #### L 500.93021, L500.55875, L500.45976, L500.17674 ####[facility] [id number] [place], [place] [address]Rx# [phone] Calcium [Mass/Vol] 8.8 mg/dL Normal 8.5-10.5 [facility] Comment on above: Order Comment: Campu s: M Result Comment: NOTE NEW NORMAL RANGE DUE TO REAGENT CHANGE Performed By: #### L 500.47471, L500.60839, L500.16129, L500.83849 ####[facility] NWJTBWBWYW3252 [place], [place] [address]Zz# [phone] Chloride [Moles/Vol] 108 mmol/L High 98-107 [facility] Comment on above: Order Comment: Campu s: M Performed By: #### L 500.65931, L500.57622, L500.43729, L500.44448 ####[facility] JPEPQJAUKP9831 [place], [place] [address]Px# [phone] CO2 [Moles/Vol] 26.0 mmol/L Normal 21-32 [facility] Comment on above: Order Comment: Campu s: M Performed By: #### L 500.75904, L500.84403, L500.03743, L500.82815 ####[facility] WKALMODIRD1885 [place], [place] [address]Zi# [phone] Creatinine [Mass/Vol] 0.74 mg/dL Normal 0.5-1.4 [facility] Comment on above: Order Comment: Campu s: M Result Comment: NOTE NEW NORMAL RANGE DUE TO REAGENT CHANGEPatients receiving either N-Acetylcysteine (NAC) orMetamizole prior to venipuncture, may have falsely depressedresults. Performed By: #### L 500.58606, L500.43844, L500.19823, L500.55815 ####[facility] YRQNTBICKT6316 [place], [place] [address]Gb# [phone] Glucose [Mass/Vol] 103 mg/dL High 70-100 [facility] Comment on above: Order Comment: Campu s: M Result Comment: 70-1 00- Normal Fasting; 100-125 Impaired Fasting; greaterthan 126 on more than one result- Diabetes. ADA guidelines.Results may be falsely elevated after the administration ofSulfapyridine.Results may be falsely depressed after the administration ofSulfasalazine. Performed By: #### L 500.67717, L500.74945, L500.12340, L500.51461 ####[facility] [id number] [place] [address]Al# [phone] Potassium [Moles/Vol] 3.6 mmol/L Normal 3.5-5.1 [facility] Comment on above: Order Comment: Campu s: M Result Comment: Slig ht Hemolysis, Result may be affected. Performed By: #### L 500.22289, L500.11116, L500.88553, L500.95774 ####[facility] TPCWSXYWZO5721 [place], [place] [address]Sv# [phone] Sodium [Moles/Vol] 145 mmol/L Normal 136-145 [facility] Comment on above: Order Comment: Campu s: M Performed By: #### L 500.22321, L500.46729, L500.29193, L500.81244 ####[facility] JNUQEDZBUJ8002 [place], [place] [address]Sa# [phone] Urea nitrogen [Mass/Vol] 27 mg/dL High 7-26 [facility] Comment on above: Order Comment: Campu s: M Performed By: #### L 500.59702, L500.60051, L500.51500, L500.86476 ####[facility] WXZPFHPFGB7911 [place], [place] [address]Nf# [phone] Urea nitrogen/Creatinine [Mass ratio] 36 mg/mg High 15-24 [facility] Comment on above: Order Comment: Campu s: M Performed By: #### L 500.34806, L500.29291, L500.23760, L500.54483 ####[facility] OIPLRLNSWA3293 [place], [place] [address]At# [phone] CBC W/DIFFon 12-06-2020 BASO ABS 0.10 K/CU MM Normal 0-0.2 [facility] [place] Comment on above: Order Comment: Campu s: MMinimal Draw: Y Performed By: #### L 200.85459 ####[address] [address]Im# [phone] Basophils/100 WBC (Bld) 0.4 % [facility] 0-2 [facility]: Order Comment: Campu s: MMinimal Draw: Y Performed By: #### L 200.30223 ####[address] [address]Rx# [phone] EOS ABS 0.10 K/CU MM Normal 0-0.5 [facility] Comment on above: Order Comment: Campu s: MMinimal Draw: Y Performed By: #### L 200.98436 ####[address] [address]Ds# [phone] Eosinophils/100 WBC (Bld) 1.0 % Normal 0-5 [facility] Comment [facility] above: Order Comment: Campu s: MMinimal Draw: Y Performed By: #### L 200.72263 ####[address] [address]Wz# [phone] Erythrocyte distribution width (RBC) [Ratio] 12.1 % Normal 11-14.5 [facility] Comment [facility] above: Order Comment: Campu s: MMinimal Draw: Y Performed By: #### L 200.55253 ####[address] [address]Fl# [phone] Hematocrit (Bld) [Volume fraction] 41.1 % Normal 41.0-53.0 [facility] Comment on above: Order Comment: Campu s: MMinimal Draw: Y Performed By: #### L 200.46826 ####[facility] [id number] [place], [place] [address]Il# [phone] Hemoglobin (Bld) [Mass/Vol] 13.7 g/dL Normal 13.5-17.5 [facility] Comment on above: Order Comment: Campu s: MMinimal Draw: Y Performed By: #### L 200.15795 ####[facility] [id number] [place], [place] [address]Ph# [phone] IMMATR GRAN ABS 0.20 K/CU MM Normal Less than 2 [facility] Comment on above: Order Comment: Campu s: MMinimal Draw: Y Performed By: #### L 200.30114 ####[facility] [id number] [place] [address]Fx# [phone] IMMATURE GRAN % 1.1 % Normal Less than 2 [facility] [place] Comment on above: Order Comment: Campu s: MMinimal Draw: Y Performed By: #### L 200.57013 ####[facility] KVZASFSYZI[address] [place] [address]Lt# [phone] LYMPH ABS 1.40 K/CU MM Normal 0.9-4.4 [facility] Comment on above: Order Comment: Campu s: MMinimal Draw: Y Performed By: #### L 200.11160 ####[facility] [id number] [place] [address]Qf# [phone] Lymphocytes/100 WBC (Bld) 10.6 % Low 20-40 [facility] Comment on above: Order Comment: Campu s: MMinimal Draw: Y Performed By: #### L 200.95069 ####[facility] VJDFTEJOIM[address] [place] [address]Xt# [phone] MCHC (RBC) [Mass/Vol] 33.3 g/dL Normal 32.0-36.0 [facility] [place] Comment on above: Order Comment: Campu s: MMinimal Draw: Y Performed By: #### L 200.33837 ####[facility] LYZIDVKBCO4239 [place], [place] [address]Wk# [phone] MCV (RBC) [Entitic vol] 91.5 fL Normal 80.0-99.0 [facility] Comment on above: Order Comment: Campu s: MMinimal Draw: Y Performed By: #### L 200.25076 ####[facility] [id number] [place] [address]Qu# [phone] MONO ABS 1.20 K/CU MM High 0.1-1.1 [facility] [place] Comment on above: Order Comment: Campu s: MMinimal Draw: Y Performed By: #### L 200.75429 ####[address] [address]Zy# [phone] Monocytes/100 WBC (Bld) 9.0 % Normal 2-10 [facility] Comment on above: Order Comment: Campu s: MMinimal Draw: Y Performed By: #### L 200.03881 ####[facility] [id number] [place] [address]Bw# [phone] NEUTROPHIL ABS 10.60 K/CU MM High 2.0-8.3 [facility] Comment on above: Order Comment: Campu s: MMinimal Draw: Y Performed By: #### L 200.41462 ####[facility] [id number] [place] [address]Hm# [phone] Neutrophils/100 WBC (Bld) 77.9 % High 45-75 [facility] Comment on above: Order Comment: Campu s: MMinimal Draw: Y Performed By: #### L 200.96256 ####[facility] [id number] [place], [place] [address]Vv# [phone] Nucleated RBC/100 WBC (Bld) [Ratio] 0.0 % Normal Less than 1 [facility] Comment on above: Order Comment: Campu s: MMinimal Draw: Y Performed By: #### L 200.23942 ####[facility] UNURMJSTDL1583 [place], [place] [address]Wz# [phone] Platelet mean volume (Bld) [Entitic vol] 10.2 fL Normal 9.4-12.4 [facility] Comment on above: Order Comment: Campu s: MMinimal Draw: Y Performed By: #### L 200.62120 ####[facility] [id number] [place] [address]Jg# [phone] PLT 311 K/CU MM Normal 150-450 [facility] [place] Comment on above: Order Comment: Campu s: MMinimal Draw: Y Result Comment: Conf irmed by slide estimate. Performed By: #### L 200.75619 ####[facility] NVQYENXJQQ[address] [place] [address]Oj# [phone] PLT EST ADEQUATE Normal [facility] Comment on above: Order Comment: Campu s: MMinimal Draw: Y Performed By: #### L 200.45485 ####[facility] [id number] [place] [address]Zl# [phone] POIK 1+ Normal [facility] Comment on above: Order Comment: Campu s: MMinimal Draw: Y Performed By: #### L 200.10961 ####[facility] [id number] [place] [address]Tb# [phone] POLY 1+ Normal [facility] Comment on above: Order Comment: Campu s: MMinimal Draw: Y Performed By: #### L 200.34379 ####[facility] PMHVMPNGHH[address] [place] [address]Nh# [phone] RBC 4.49 M/CU MM Low 4.50-6.00 [facility] Comment on above: Order Comment: Campu s: MMinimal Draw: Y Performed By: #### L 200.57325 ####[facility] ILEHBHFHLV[address] [place] [address]Zv# [phone] WBC 13.6 K/CUMM High 4.5-11.0 [facility] [place] Comment on above: Order Comment: Aaronu s: MMinimal Draw: Y Performed By: #### L 200.96515 ####[facility] [id number] [place], [place] [address]Ho# [phone] GFR ESTon 12-06-2020 IF AMER Greater than 60 Normal [facility] [place] Comment on above: Order Comment: Campu s: M Performed By: #### L 500.56776, L500.59815, L500.53488, L500.23855 ####[facility] [address]JMTNVM[address] [place] [address]Wg# [phone] IF non-AFR AMER Greater than 60 Normal [facility] [place] Comment on above: Order Comment: Campu s: M Performed By: #### L 500.91478, L500.84961, L500.98017, L500.12833 ####[facility] QKTKXWQTQZ7855 [place], [place] [address]Fm# [phone] IONIZED CAon 12-06-2020 IONIZED CA 1.08 MMOL/L Low 1.16-1.32 [facility] Comment on above: Order Comment: Campu s: M Performed By: #### L 550.07230 ####[facility] [id number] [place] [address]Ci# [phone] MAGNESIUMon 12-06-2020 Magnesium [Mass/Vol] 2.0 mg/dL Normal 1.6-2.6 [facility] Comment on above: Order Comment: Campu s: M Performed By: #### L 500.32458, L500.47757, L500.41348, L500.59561 ####[facility] [id number] [place], [place] [address]Bu# [phone] PHOSon 12-06-2020 Phosphate [Mass/Vol] 3.90 mg/dL Normal 2.5-4.9 [facility] [place] Comment on above: Order Comment: Campu s: M Result Comment: Elev ated m-protein (paraprotein) levels in the serum may beexhibited in patients with monoclonal gammopathies, causingfalsely elevated inorganic phosphorus results. Performed By: #### L 500.64831, L500.88235, L500.46497, L500.06153 ####[facility] ACMTBYIMEA7455 [place], [place] [address]Gi# [phone] PROG IMSon 12-06-2020 PROG IMS Normal [facility] Progress Note-Hospitalist Normal [facility] PROG.Meche 12-06-2020 PROG.CARD Normal [facility] Progress Note-Cardiology Normal [facility] PROG.INTENon 12-06-2020 PROG.INTEN Normal [facility] Progress Note-Trans Router Normal [facility] PROG.PSYCHon 12-06-2020 PROG.PSYCH Normal [facility] Progress Note-Psych Normal [facility] PTARon 12-06-2020 PT Assessment Report Normal [facility] PTAR Normal [facility] PTTon 12-06-2020 aPTT Coag (Bld) [Time] 39.3 s High 22.0-31.5 [facility] Comment on above: Order Comment: Gabriela Morales Result Comment: Ther apeutic Heparin Reference Range: High Dose: 46-75 seconds (DVT/PE) Low Dose: 39-60 seconds (Acute Coronary Syndrome)For low molecular weight heparin or danaparoid, monitoringis often NOT necessary, but the heparin assay, Xa inhibitionassay (send-out) may be used in certain circumstances, asthe PTT is generally insensitive to the effect of theseagents. Direct thrombin inhibitors are becoming more widelyutilized and these drugs are often monitored using the PTT. Performed By: #### L 300.69869 ####[facility] HUVWZEDGTW5903 [place], [place] [address]Jm# [phone] aPTT Coag (Bld) [Time] 42.6 s High 22.0-31.5 [facility] Comment on above: Order Comment: Campu s: M Result Comment: Ther apeutic Heparin Reference Range: High Dose: 46-75 seconds (DVT/PE) Low Dose: 39-60 seconds (Acute Coronary Syndrome)For low molecular weight heparin or danaparoid, monitoringis often NOT necessary, but the heparin assay, Xa inhibitionassay (send-out) may be used in certain circumstances, asthe PTT is generally insensitive to the effect of theseagents. Direct thrombin inhibitors are becoming more widelyutilized and these drugs are often monitored using the PTT. Performed By: #### L 300.20392 ####[facility] PIEBBEFZGP1904 [place], [place] [address]Kr# [phone] aPTT Coag (Bld) [Time] 31.9 s High 22.0-31.5 [facility] Comment on above: Order Comment: Gabriela qiu: Carmen Result Comment: Ther apeutic Heparin Reference Range: High Dose: 46-75 seconds (DVT/PE) Low Dose: 39-60 seconds (Acute Coronary Syndrome)For low molecular weight heparin or danaparoid, monitoringis often NOT necessary, but the heparin assay, Xa inhibitionassay (send-out) may be used in certain circumstances, asthe PTT is generally insensitive to the effect of theseagents. Direct thrombin inhibitors are becoming more widelyutilized and these drugs are often monitored using the PTT. Performed By: #### L 300.27657 ####[facility] [id number] [place], [place] [address]Hv# [phone] STPNon 12-06-2020 HYDRAULIC SPECIALIST Progress Note Normal [facility] STPN Normal [facility] STROKE.NOT 12-06-2020 Stroke Prog Coordinater Note Normal [facility] STROKE.NOT Normal [facility] BMPon 12-05-2020 Anion gap [Moles/Vol] 7 mmol/L Normal 5-16 [facility] Comment on above: Order Comment: Gabriela qiu: Carmen Performed By: #### L 500.77915, L500.70867, L500.43493, L500.28570 ####[facility] [id number] [place], [place] [address]Wi# [phone] Calcium [Mass/Vol] 8.4 mg/dL Low 8.5-10.5 [facility] Comment on above: Order Comment: Campu s: M Result Comment: NOTE NEW NORMAL RANGE DUE TO REAGENT CHANGE Performed By: #### L 500.81991, L500.51408, L500.65722, L500.02938 ####[facility] [id number] [place], [place] [address]Us# [phone] Chloride [Moles/Vol] 111 mmol/L High 98-107 [facility] Comment on above: Order Comment: Campu s: M Performed By: #### L 500.88486, L500.63813, L500.41518, L500.33100 ####[facility] [id number] [place], [place] [address]Eq# [phone] CO2 [Moles/Vol] 26.0 mmol/L Normal 21-32 [facility] Comment on above: Order Comment: Campu s: M Performed By: #### L 500.00259, L500.48493, L500.66369, L500.32973 ####[facility] [id number] [place], [place] [address]Fz# [phone] Creatinine [Mass/Vol] 0.72 mg/dL Normal 0.5-1.4 [facility] Comment on above: Order Comment: Campu s: M Result Comment: NOTE NEW NORMAL RANGE DUE TO REAGENT CHANGEPatients receiving either N-Acetylcysteine (NAC) orMetamizole prior to venipuncture, may have falsely depressedresults. Performed By: #### L 500.41871, L500.32784, L500.93378, L500.13039 ####[facility] OZVTANNMSF4856 [place], [place] [address]Vt# [phone] Glucose [Mass/Vol] 124 mg/dL High 70-100 [facility] Comment on above: Order Comment: Campu s: M Result Comment: 70-1 00- Normal Fasting; 100-125 Impaired Fasting; greaterthan 126 on more than one result- Diabetes. ADA guidelines.Results may be falsely elevated after the administration ofSulfapyridine.Results may be falsely depressed after the administration ofSulfasalazine. Performed By: #### L 500.49648, L500.11747, L500.06158, L500.54252 ####[facility] ATQMFRSQRH5468 [place], [place] [address]Lo# [phone] Potassium [Moles/Vol] 4.0 mmol/L Normal 3.5-5.1 [facility] Comment on above: Order Comment: Campu s: M Performed By: #### L 500.80320, L500.56464, L500.23225, L500.30509 ####[facility] YMNJMKWJVY0111 [place], [place] [address]Kq# [phone] Sodium [Moles/Vol] 144 mmol/L Normal 136-145 [facility] Comment on above: Order Comment: Campu s: M Performed By: #### L 500.05342, L500.80095, L500.50789, L500.86337 ####[facility] IQURJJCHFG1259 [place], [place] [address]Pg# [phone] Urea nitrogen [Mass/Vol] 30 mg/dL High 7- [facility] Comment on above: Order Comment: Campu s: M Performed By: #### L 500.00419, L500.03637, L500.60456, L500.83131 ####[facility] [id number] [place], [place] [address]Em# [phone] Urea nitrogen/Creatinine [Mass ratio] 41 mg/mg High 15-24 [facility] Comment on above: Order Comment: Campu s: M Performed By: #### L 500.95678, L500.71969, L500.61310, L500.55141 ####[facility] NJHUGOUZHW3374 [place], [place] [address]Op# [phone] CBC W/DIFFon 12-05-2020 BASO ABS 0.00 K/CU MM Normal 0-0.2 [facility] Comment on above: Order Comment: Campu s: MMinimal Draw: Y Performed By: #### L 200.66427 ####[facility] [id number] [place], [place] [address]Wo# [phone] Basophils/100 WBC (Bld) 0.3 % Normal 0-2 [facility] [place] Comment on above: Order Comment: Campu s: MMinimal Draw: Y Performed By: #### L 200.99172 ####[facility] [id number] [place] [address]Nf# [phone] EOS ABS 0.30 K/CU MM Normal 0-0.5 [facility] [place] Comment on above: Order Comment: Campu s: MMinimal Draw: Y Performed By: #### L 200.54453 ####[facility] KVWTYDGVCQ7513 [place], [place] [address]Oz# [phone] Eosinophils/100 WBC (Bld) 3.2 % Normal 0-5 [facility] [place] Comment on above: Order Comment: Campu s: MMinimal Draw: Y Performed By: #### L 200.70547 ####[address] [address]Po# [phone] Erythrocyte distribution width (RBC) [Ratio] 12.4 % Normal 11-14.5 [facility] Comment on above: Order Comment: Campu s: MMinimal Draw: Y Performed By: #### L 200.57013 ####[facility] [id number] [place] [address]Ps# [phone] Hematocrit (Bld) [Volume fraction] 36.6 % Low 41.0-53.0 [facility] Comment on above: Order Comment: Campu s: MMinimal Draw: Y Performed By: #### L 200.01625 ####[facility] [id number] [place] [address]Gh# [phone] Hemoglobin (Bld) [Mass/Vol] 12.5 g/dL Low 13.5-17.5 [facility] Comment on above: Order Comment: Campu s: MMinimal Draw: Y Performed By: #### L 200.88240 ####[facility] IANFXVSREC0944 [place] [address]Ph# [phone] IMMATR GRAN ABS 0.10 K/CU MM Normal Less than 2 [facility] Comment on above: Order Comment: Campu s: MMinimal Draw: Y Performed By: #### L 200.12316 ####[facility] [id number] [place], [place] [address]Ph# [phone] IMMATURE GRAN % 0.9 % Normal Less than 2 [facility] [place] Comment on above: Order Comment: Campu s: MMinimal Draw: Y Performed By: #### L 200.33274 ####[place] [address]Ph# [phone] LYMPH ABS 1.50 K/CU MM Normal 0.9-4.4 [facility] [place] Comment on above: Order Comment: Campu s: MMinimal Draw: Y Performed By: #### L 200.38061 ####[place] [address]Ph# [phone] Lymphocytes/100 WBC (Bld) 15.1 % Low 20-40 [facility] Comment on above: Order Comment: Campu s: MMinimal Draw: Y Performed By: #### L 200.59396 ####[facility] [id number] [place], [place] [address]Ph# [phone] MCHC (RBC) [Mass/Vol] 34.2 g/dL Normal 32.0-36.0 [facility] Comment on above: Order Comment: Campu s: MMinimal Draw: Y Performed By: #### L 200.31118 ####[facility] [id number] [place] [address]Ou# [phone] MCV (RBC) [Entitic vol] 90.4 fL Normal 80.0-99.0 [facility] Comment on above: Order Comment: Campu s: MMinimal Draw: Y Performed By: #### L 200.07467 ####[facility] MAUJOATCKD5720 [place], [place] [address]Qo# [phone] MONO ABS 1.10 K/CU MM Normal 0.1-1.1 [facility] Comment on above: Order Comment: Campu s: MMinimal Draw: Y Performed By: #### L 200.12751 ####[facility] [id number] [place], [place] [address]Am# [phone] Monocytes/100 WBC (Bld) 11.0 % High 2-10 [facility] Comment on above: Order Comment: Campu s: MMinimal Draw: Y Performed By: #### L 200.62341 ####[place] [address] [place], [place] [address]Sr# [phone] NEUTROPHIL ABS 7.10 K/CU MM Normal 2.0-8.3 [facility] Comment on above: Order Comment: Campu s: MMinimal Draw: Y Performed By: #### L 200.16213 ####[facility] [id number] [place] [address]Hk# [phone] Neutrophils/100 WBC (Bld) 69.5 % Normal 45-75 [facility] Comment on above: Order Comment: Campu s: MMinimal Draw: Y Performed By: #### L 200.86940 ####[facility] KWLVJLQYCT5329 [place], [place] [address]Zq# [phone] Nucleated RBC/100 WBC (Bld) [Ratio] 0.0 % Normal Less than 1 [facility] Comment on above: Order Comment: Campu s: MMinimal Draw: Y Performed By: #### L 200.07484 ####[facility] BNVJNCIENT3042 [place], [place] [address]Sz# [phone] Platelet mean volume (Bld) [Entitic vol] 10.3 fL Normal 9.4-12.4 [facility] Comment on above: Order Comment: Campu s: MMinimal Draw: Y Performed By: #### L 200.19140 ####[facility] GVNEUCBKZM7103 [place], [place] [address]Yw# [phone] PLT 201 K/CU MM Normal 150-450 [facility] [place] Comment on above: Order Comment: Campu s: MMinimal Draw: Y Performed By: #### L 200.52657 ####[facility] FMCYVRFTYO[address] [place] [address]Bw# [phone] RBC 4.05 M/CU MM Low 4.50-6.00 [facility] [place] Comment on above: Order Comment: Campu s: MMinimal Draw: Y Performed By: #### L 200.83989 ####[address] [address]Lv# [phone] WBC 10.1 K/CUMM Normal 4.5-11.0 [facility] Comment on above: Order Comment: Campu s: MMinimal Draw: Y Performed By: #### L 200.19433 ####[facility] [id number] [place] [address]Fy# [phone] GFR ESTon 12-05-2020 IF AMER Greater than 60 Normal [facility] [place] Comment on above: Order Comment: Campu s: M Performed By: #### L 500.82807, L500.73294, L500.99007, L500.00624 ####[facility] UFCZJPVSAD[address] [place] [address]Ra# [phone] IF non-AFR AMER Greater than 60 Normal [facility] [place] Comment on above: Order Comment: Campu s: M Performed By: #### L 500.15053, L500.37694, L500.05271, L500.80048 ####[facility] [id number] [place] [address]Oc# [phone] IONIZED CAon 12-05-2020 IONIZED CA 1.09 MMOL/L Low 1.16-1.32 [facility] Comment on above: Order Comment: Campu s: M Performed By: #### L 550.43483 ####[facility] [id number] [place], [place] [address]Ag# [phone] MAGNESIUMon 12-05-2020 Magnesium [Mass/Vol] 2.0 mg/dL Normal 1.6-2.6 [facility] Comment on above: Order Comment: Gabriela s: M Performed By: #### L 500.31154, L500.18919, L500.26144, L500.85246 ####[facility] ODBSHARZJX2163 [place], [place] [address]Fc# [phone] PHOSon 12-05-2020 Phosphate [Mass/Vol] 3.30 mg/dL Normal 2.5-4.9 [facility] Comment on above: Order Comment: Gabriela s: M Result Comment: Elev ated m-protein (paraprotein) levels in the serum may beexhibited in patients with monoclonal gammopathies, causingfalsely elevated inorganic phosphorus results. Performed By: #### L 500.91474, L500.34671, L500.27226, L500.11344 ####[facility] OPPFNNVJPH4591 [place], [place] [address]Zs# [phone] PROG IMSon 12-05-2020 PROG IMS Normal [facility] Progress Note-Hospitalist Normal [facility] PROG.Meche 12-05-2020 PROG.CARD Normal [facility] Progress Note-Cardiology Normal [facility] PROG.INTENon 12-05-2020 PROG.INTEN Normal [facility] Progress Note-Trans Router Normal [facility] PROG.PSYCHon 12-05-2020 PROG.PSYCH Normal [facility] Progress Note-Psych Normal [facility] PTTon 12-05-2020 aPTT Coag (Bld) [Time] 38.9 s High 22.0-31.5 [facility] Comment on above: Order Comment: Gabriela s: M Result Comment: Ther apeutic Heparin Reference Range: High Dose: 46-75 seconds (DVT/PE) Low Dose: 39-60 seconds (Acute Coronary Syndrome)For low molecular weight heparin or danaparoid, monitoringis often NOT necessary, but the heparin assay, Xa inhibitionassay (send-out) may be used in certain circumstances, asthe PTT is generally insensitive to the effect of theseagents. Direct thrombin inhibitors are becoming more widelyutilized and these drugs are often monitored using the PTT. Performed By: #### L 300.47849 ####[facility] UBECKSFMGY9014 [place], [place] [address]Fx# [phone] aPTT Coag (Bld) [Time] 38.3 s High 22.0-31.5 [facility] Comment on above: Order Comment: Gabriela qiu: Carmen Result Comment: Ther apeutic Heparin Reference Range: High Dose: 46-75 seconds (DVT/PE) Low Dose: 39-60 seconds (Acute Coronary Syndrome)For low molecular weight heparin or danaparoid, monitoringis often NOT necessary, but the heparin assay, Xa inhibitionassay (send-out) may be used in certain circumstances, asthe PTT is generally insensitive to the effect of theseagents. Direct thrombin inhibitors are becoming more widelyutilized and these drugs are often monitored using the PTT. Performed By: #### L 300.39317 ####[facility] [id number] [place], [place] [address]Xn# [phone] aPTT Coag (Bld) [Time] 32.3 s High 22.0-31.5 [facility] Comment on above: Order Comment: aGbriela qiu: Carmen Result Comment: Ther apeutic Heparin Reference Range: High Dose: 46-75 seconds (DVT/PE) Low Dose: 39-60 seconds (Acute Coronary Syndrome)For low molecular weight heparin or danaparoid, monitoringis often NOT necessary, but the heparin assay, Xa inhibitionassay (send-out) may be used in certain circumstances, asthe PTT is generally insensitive to the effect of theseagents. Direct thrombin inhibitors are becoming more widelyutilized and these drugs are often monitored using the PTT. Performed By: #### L 300.64832 ####[facility] [id number] [place], [place] [address]Ah# [phone] STPNon 12-05-2020 HYDRAULIC SPECIALIST Progress Note Normal [facility] STPN Normal [facility] CBCon 12-04-2020 Erythrocyte distribution width (RBC) [Ratio] 12.6 % Normal 11-14.5 [facility] Comment on above: Order Comment: Campu s: MMinimal Draw: Y Performed By: #### L 200.17220 ####[facility] UYXUGGSQYU9077 [place], [place] [address]Fk# [phone] Hematocrit (Bld) [Volume fraction] 38.5 % Low 41.0-53.0 [facility] Comment on above: Order Comment: Campu s: MMinimal Draw: Y Performed By: #### L 200.94298 ####[facility] DBMDPWAPYF6123 [place], [place] [address]Et# [phone] Hemoglobin (Bld) [Mass/Vol] 13.5 g/dL Normal 13.5-17.5 [facility] Comment on above: Order Comment: Campu s: MMinimal Draw: Y Performed By: #### L 200.24227 ####[facility] PMYQMRRVNQ[address] [place] [address]Gd# [phone] MCHC (RBC) [Mass/Vol] 35.1 g/dL Normal 32.0-36.0 [facility] Comment on above: Order Comment: Campu s: MMinimal Draw: Y Performed By: #### L 200.92374 ####[facility] [id number] [place] [address]Ue# [phone] MCV (RBC) [Entitic vol] 89.7 fL Normal 80.0-99.0 [facility] Comment on above: Order Comment: Campu s: MMinimal Draw: Y Performed By: #### L 200.95144 ####[facility] [id number] [place] [address]Uh# [phone] Nucleated RBC/100 WBC (Bld) [Ratio] 0.0 % Normal Less than 1 [facility] Comment on above: Order Comment: Campu s: MMinimal Draw: Y Performed By: #### L 200.80835 ####[facility] [id number] [place], [place] [address]Mi# [phone] Platelet mean volume (Bld) [Entitic vol] 10.5 fL Normal 9.4-12.4 [facility] Comment on above: Order Comment: Campu s: MMinimal Draw: Y Performed By: #### L 200.01689 ####[facility] [id number] [place] [address]Qi# [phone] PLT 181 K/CU MM Normal 150-450 [facility] Comment on above: Order Comment: Campu s: MMinimal Draw: Y Performed By: #### L 200.03005 ####[address] [address]Tu# [phone] RBC 4.29 M/CU MM Low 4.50-6.00 [facility] Comment on above: Order Comment: Campu s: MMinimal Draw: Y Performed By: #### L 200.51342 ####[address] [address]Po# [phone] WBC 11.6 K/CUMM High 4.5-11.0 [facility] Comment on above: Order Comment: Campu s: MMinimal Draw: Y Performed By: #### L 200.72976 ####[facility] [id number] [place] [address]Il# [phone] CBC W/DIFFon 12-04-2020 BASO ABS 0.00 K/CU MM Normal 0-0.2 [facility] Comment on above: Order Comment: Campu s: M Performed By: #### L 200.29734 ####[address] [address]Up# [phone] Basophils/100 WBC (Bld) 0.3 % Normal 0-2 [facility] Comment on above: Order Comment: Campu s: M Performed By: #### L 200.26523 ####[facility] BDSCHKAAYZ6336 [place], [place] [address]Is# [phone] EOS ABS 0.20 K/CU MM Normal 0-0.5 [facility] [place] Comment on above: Order Comment: Campu s: M Performed By: #### L 200.02943 ####[facility] EDUCTHENTJ6007 [place], [place] [address]Vi# [phone] Eosinophils/100 WBC (Bld) 1.9 % Normal 0-5 [facility] [place] Comment on above: Order Comment: Campu s: M Performed By: #### L 200.02603 ####[address] [address]Pb# [phone] Erythrocyte distribution width (RBC) [Ratio] 12.7 % Normal 11-14.5 [facility] Comment on above: Order Comment: Campu s: M Performed By: #### L 200.70479 ####[facility] [id number] [place], [place] [address]Ph# [phone] Hematocrit (Bld) [Volume fraction] 39.0 % Low 41.0-53.0 [facility] Comment on above: Order Comment: Campu s: M Performed By: #### L 200.47847 ####[facility] [id number] [place] [address]Jf# [phone] Hemoglobin (Bld) [Mass/Vol] 13.0 g/dL Low 13.5-17.5 [facility] Comment on above: Order Comment: Campu s: M Performed By: #### L 200.48223 ####[facility] VMQGTXQOGE22[address] [place] [address]Sv# [phone] IMMATR GRAN ABS 0.10 K/CU MM Normal Less than 2 [facility] Comment on above: Order Comment: Campu s: M Performed By: #### L 200.12023 ####[facility] BIUSQJKOVP3[address] [place] [address]La# [phone] IMMATURE GRAN % 0.7 % Normal Less than 2 [facility] [place] Comment on above: Order Comment: Campu s: M Performed By: #### L 200.67015 ####[facility] OOGTPXZZFC7875[address] [place] [address]Nw# [phone] LYMPH ABS 1.40 K/CU MM Normal 0.9-4.4 [facility] [place] Comment on above: Order Comment: Campu s: M Performed By: #### L 200.82903 ####[place] [address]Ph# [phone] Lymphocytes/100 WBC (Bld) 14.3 % Low 20-40 [facility] Comment on above: Order Comment: Campu s: M Performed By: #### L 200.93378 ####[address] [address]Ay# [phone] MCHC (RBC) [Mass/Vol] 33.3 g/dL Normal 32.0-36.0 [facility] Comment on above: Order Comment: Campu s: M Performed By: #### L 200.79913 ####[address] [address]Mx# [phone] MCV (RBC) [Entitic vol] 91.8 fL Normal 80.0-99.0 [facility] Comment on above: Order Comment: Campu s: M Performed By: #### L 200.95461 ####[place] [address]Ph# [phone] MONO ABS 1.00 K/CU MM Normal 0.1-1.1 [facility] [place] Comment on above: Order Comment: Campu s: M Performed By: #### L 200.37025 ####[facility] [id number] [place] [address]Dt# [phone] Monocytes/100 WBC (Bld) 10.1 % High 2-10 [facility] Comment on above: Order Comment: Campu s: M Performed By: #### L 200.76438 ####[facility] SBLRZSSDSM8091 [place], [place] [address]Ul# [phone] NEUTROPHIL ABS 7.10 K/CU MM Normal 2.0-8.3 [facility] Comment on above: Order Comment: Campu s: M Performed By: #### L 200.87271 ####[facility] QOLIIBRFAL[address] [place] [address]Uf# [phone] Neutrophils/100 WBC (Bld) 72.7 % Normal 45-75 [facility] Comment on above: Order Comment: Campu s: M Performed By: #### L 200.88914 ####[address] [address]Hr# [phone] Nucleated RBC/100 WBC (Bld) [Ratio] 0.0 % Normal Less than 1 [facility] Comment on above: Order Comment: Campu s: M Performed By: #### L .62671 ####[facility] HFCBYNCCUW[address] [place] [address]Qt# [phone] Platelet mean volume (Bld) [Entitic vol] 10.7 fL Normal 9.4-12.4 [facility] Comment on above: Order Comment: Campu s: M Performed By: #### L .83361 ####[facility] AVDKWXCHXK2983 [place], [place] [address]Wf# [phone] PLT 192 K/CU MM Normal 150-450 [facility] Comment on above: Order Comment: Campu s: M Performed By: #### L 200.32010 ####[facility] NVDFCDSAXB5379 [place], [place] [address]Dg# [phone] RBC 4.25 M/CU MM Low 4.50-6.00 [facility] Comment on above: Order Comment: Campu s: M Performed By: #### L 200.46592 ####[facility] [id number] [place] [address]Hy# [phone] WBC 9.8 K/CUMM Normal 4.5-11.0 [facility] Comment on above: Order Comment: Campu s: M Performed By: #### L 200.38149 ####[facility] XDEAFGILMA5027 [place], [place] [address]Jc# [phone] CMPon 12-04-2020 Albumin [Mass/Vol] 2.5 g/dL Low 3.2-5.0 [facility] Comment on above: Order Comment: Campu s: M Performed By: #### L 500.09713, L500.27137, L500.32188, L500.86727 ####[facility] XFFUXOGQVU5136 [place], [place] [address]Hj# [phone] Albumin/Globulin [Mass ratio] 0.8 {ratio} Normal 0.8-2.0 [facility] Comment on above: Order Comment: Campu s: M Performed By: #### L 500.93208, L500.18706, L500.68392, L500.42537 ####[facility] [id number] [place], [place] [address]Jg# [phone] ALK PHOS 86 U/L Normal 45-117 [facility] Comment on above: Order Comment: Campu s: M Performed By: #### L 500.46323, L500.54612, L500.67520, L500.53097 ####[facility] NOJKACNEDB4803 [place], [place] [address]Tr# [phone] ALT [Catalytic activity/Vol] 62 U/L High 13-61 [facility] Comment on above: Order Comment: Campu s: M Result Comment: RESU LTS MAY BE FALSELY DEPRESSED AFTER THE ADMINISTRATION OFSULFASALAZINE AND/OR SULFAPYRIDINE. Performed By: #### L 500.21443, L500.50011, L500.87355, L500.29416 ####[facility] HVVGSBRCTH6326 [place], [place] [address]Pc# [phone] Anion gap [Moles/Vol] 7 mmol/L Normal 5-16 [facility] Comment on above: Order Comment: Campu s: M Performed By: #### L 500.15943, L500.67939, L500.10099, L500.26879 ####[facility] YKBZWUNHUG9023 [place], [place] [address]Fd# [phone] AST [Catalytic activity/Vol] 55 U/L High 8-34 [facility] Comment on above: Order Comment: Campu s: M Result Comment: RESU LTS MAY BE FALSELY DEPRESSED AFTER THE ADMINISTRATION OFSULFASALAZINE AND/OR SULFAPYRIDINE. Performed By: #### L 500.99384, L500.28740, L500.37955, L500.70083 ####[facility] VWVAXDKFPD3876 [place], [place] [address]Yc# [phone] BILI TOTAL 0.80 MG/DL Normal 0.2-1.0 [facility] Comment on above: Order Comment: Campu s: M Performed By: #### L 500.64694, L500.57193, L500.10519, L500.16357 ####[facility] QNXYRWJLVE7888 [place], [place] [address]Fo# [phone] Calcium [Mass/Vol] 8.2 mg/dL Low 8.5-10.5 [facility] Comment on above: Order Comment: Campu s: M Result Comment: NOTE NEW NORMAL RANGE DUE TO REAGENT CHANGE Performed By: #### L 500.34652, L500.09212, L500.45798, L500.31427 ####[facility] [id number] [place], [place] [address]Gw# [phone] Chloride [Moles/Vol] 114 mmol/L High 98-107 [facility] Comment on above: Order Comment: Campu s: M Performed By: #### L 500.56050, L500.19816, L500.32745, L500.89319 ####[facility] [id number] [place], [place] [address]Pk# [phone] CO2 [Moles/Vol] 23.0 mmol/L Normal 21-32 [facility] Comment on above: Order Comment: Campu s: M Performed By: #### L 500.63068, L500.22534, L500.26057, L500.80203 ####[facility] [id number] [place], [place] [address]Qn# [phone] Creatinine [Mass/Vol] 0.72 mg/dL Normal 0.5-1.4 [facility] [place] Comment on above: Order Comment: Campu s: M Result Comment: NOTE NEW NORMAL RANGE DUE TO REAGENT CHANGEPatients receiving either N-Acetylcysteine (NAC) orMetamizole prior to venipuncture, may have falsely depressedresults. Performed By: #### L 500.91257, L500.41820, L500.23442, L500.06550 ####[facility] QFTRKBYLIU7267 [place], [place] [address]Zn# [phone] Globulin (S) [Mass/Vol] 3.2 g/dL Normal 2.2-4.2 [facility] Comment on above: Order Comment: Campu s: M Performed By: #### L 500.89505, L500.31634, L500.53652, L500.51894 ####[facility] QQHNLJFOPA2368 [place], [place] [address]Sq# [phone] Glucose [Mass/Vol] 109 mg/dL High 70-100 [facility] Comment on above: Order Comment: Campu s: M Result Comment: 70-1 00- Normal Fasting; 100-125 Impaired Fasting; greaterthan 126 on more than one result- Diabetes. ADA guidelines.Results may be falsely elevated after the administration ofSulfapyridine.Results may be falsely depressed after the administration ofSulfasalazine. Performed By: #### L 500.51233, L500.29278, L500.63217, L500.28825 ####[facility] DPDHPWNIKR0730 [place], [place] [address]Jp# [phone] Potassium [Moles/Vol] 4.5 mmol/L Normal 3.5-5.1 [facility] Comment on above: Order Comment: Campu s: M Performed By: #### L 500.35453, L500.69657, L500.58842, L500.66404 ####[facility] WIBHRIUJNV1025 [place], [place] [address]Hs# [phone] Protein [Mass/Vol] 5.7 g/dL Low 6.0-8.5 [facility] Comment on above: Order Comment: Campu s: M Performed By: #### L 500.98257, L500.66136, L500.35759, L500.09724 ####[facility] XGAIXSXGXY1699 [place], [place] [address]Nf# [phone] Sodium [Moles/Vol] 144 mmol/L Normal 136-145 [facility] Comment on above: Order Comment: Campu s: M Performed By: #### L 500.59254, L500.06831, L500.72204, L500.29417 ####[facility] OEGYLVBIIH[address] [place] [address]Vz# [phone] Urea nitrogen [Mass/Vol] 27 mg/dL High 7-26 [facility] Comment on above: Order Comment: Campu s: M Performed By: #### L 500.24668, L500.23140, L500.69384, L500.68849 ####[facility] QLDGEXBTYB1993 [place], [place] [address]Ga# [phone] Urea nitrogen/Creatinine [Mass ratio] 38 mg/mg High 15-24 [facility] Comment on above: Order Comment: Campu s: M Performed By: #### L 500.55275, L500.18129, L500.77089, L500.01105 ####[facility] UZBSBIJCML1891 [place], [place] [address]Ip# [phone] CONS.PSYCHon 12-04-2020 CONS.PSYCH Normal [facility] CONSULTATION-PSYCH Normal [facility] GFR ESTon 12-04-2020 IF AMER Greater than 60 Normal [facility] Comment on above: Order Comment: Campu s: M Performed By: #### L 500.73721, L500.14884, L500.24871, L500.43491 ####[facility] PIHMBANABE3597 [place], [place] [address]Iq# [phone] IF non-AFR AMER Greater than 60 Normal [facility] Comment on above: Order Comment: Campu s: M Performed By: #### L 500.27304, L500.46039, L500.36735, L500.13508 ####[facility] BTPJQUERNK5540 [place], [place] [address]Ak# [phone] IONIZED CAon 12-04-2020 IONIZED CA 1.07 MMOL/L Low 1.16-1.32 [facility] Comment on above: Order Comment: Campu s: M Performed By: #### L 550.59554 ####[facility] IOBULYMZGR[address] [place] [address]Ij# [phone] MAGNESIUMon 12-04-2020 Magnesium [Mass/Vol] 1.8 mg/dL Normal 1.6-2.6 [facility] Comment on above: Order Comment: Campu s: M Performed By: #### L 500.40456, L500.52180, L500.60713, L500.70768 ####[facility] EGCOGWFFYR0356 [place], [place] [address]Ov# [phone] PHOSon 12-04-2020 Phosphate [Mass/Vol] 3.50 mg/dL Normal 2.5-4.9 [facility] Comment on above: Order Comment: Campu s: M Result Comment: Elev ated m-protein (paraprotein) levels in the serum may beexhibited in patients with monoclonal gammopathies, causingfalsely elevated inorganic phosphorus results. Performed By: #### L 500.39625, L500.54189, L500.92719, L500.52855 ####[facility] SPZETDHEQN1987 [place], [place] [address]Rp# [phone] PROG IMSon 12-04-2020 PROG IMS Normal [facility] Progress Note-Hospitalist Normal [facility] PROG.Meche 12-04-2020 PROG.CARD Normal [facility] Progress Note-Cardiology Normal [facility] PROG.INTENon 12-04-2020 PROG.INTEN Normal [facility] Progress Note-Trans Router Normal [facility] PTon 12-04-2020 INR Coag (PPP) [Relative time] 1.02 {INR} Normal 0.9-1.1 [facility] Comment on above: Order Comment: Gabriela s: MMinimal Draw: Y Result Comment: Jesse mmended PT INR therapeutic range for marketing secretary andprophylactic therapy is 2.0 - 3.0. For heart valve andshunt patients the range is 2.5 - 3.5. Performed By: #### L 300.61569, L300.65521 ####[facility] TIRNACLXCA2191 [place], [place] [address]Ck# [phone] PTS 10.9 SECONDS Normal 9.5-12.0 [facility] Comment on above: Order Comment: Gabriela s: MMinimal Draw: Y Performed By: #### L 300.72360, L300.05018 ####[facility] FWJNTOUFOS8501 [place], [place] [address]Tp# [phone] PTTon 12-04-2020 aPTT Coag (Bld) [Time] 28.8 s Normal 22.0-31.5 [facility] Comment on above: Order Comment: Gabriela s: M Result Comment: Ther apeutic Heparin Reference Range: High Dose: 46-75 seconds (DVT/PE) Low Dose: 39-60 seconds (Acute Coronary Syndrome)For low molecular weight heparin or danaparoid, monitoringis often NOT necessary, but the heparin assay, Xa inhibitionassay (send-out) may be used in certain circumstances, asthe PTT is generally insensitive to the effect of theseagents. Direct thrombin inhibitors are becoming more widelyutilized and these drugs are often monitored using the PTT. Performed By: #### L 300.40815 ####[facility] [id number] [place], [place] [address]Ve# [phone] aPTT Coag (Bld) [Time] 21.9 s Low 22.0-31.5 [facility] Comment on above: Order Comment: Campu s: MMinimal Draw: Y Result Comment: Ther apeutic Heparin Reference Range: High Dose: 46-75 seconds (DVT/PE) Low Dose: 39-60 seconds (Acute Coronary Syndrome)For low molecular weight heparin or danaparoid, monitoringis often NOT necessary, but the heparin assay, Xa inhibitionassay (send-out) may be used in certain circumstances, asthe PTT is generally insensitive to the effect of theseagents. Direct thrombin inhibitors are becoming more widelyutilized and these drugs are often monitored using the PTT. Performed By: #### L 300.97033, L300.11574 ####[facility] UQDRWZTXNA7411 [place], [place] [address]Hz# [phone] STARon 12-04-2020 HYDRAULIC SPECIALIST Assessment Report Normal [facility] STAR Normal [facility] ABGPEGLAon 12-03-2020 ABG BE -1.7 MML/L Normal -2.0-2.0 [facility] Comment on above: Order Comment: Campu s: CORTNEY BLOOD GAS? YPatient's Anticoagulant? UNKNOWN Performed By: #### L 100.68680 ####[facility] AXDQEEYGJY8346 [place], [place] [address]Bw# [phone] ABG COHBA 0.3 % Normal 0-10 [facility] Comment on above: Order Comment: Campu s: CORTNEY BLOOD GAS? YPatient's Anticoagulant? UNKNOWN Performed By: #### L 100.41780 ####[facility] QXFSQEZELI6097 [place], [place] [address]Ir# [phone] ABG GLU 160.0 MG/DL High 60-80 [facility] Comment on above: Order Comment: Campu s: CORTNEY BLOOD GAS? YPatient's Anticoagulant? UNKNOWN Performed By: #### L 100.22655 ####[facility] KORKSBLHYZ4152 [place], [place] [address]Vt# [phone] ABG MET 0.1 % Low 0.4-1.5 [facility] Comment on above: Order Comment: Campu s: CORTNEY BLOOD GAS? YPatient's Anticoagulant? UNKNOWN Performed By: #### L 100.77571 ####[facility] EYMVBNWHZF4519 [place], [place] [address]Ln# [phone] ABG O2 CAPACITY 17.7 mL/dL Normal [facility] Comment on above: Order Comment: Campu s: CORTNEY BLOOD GAS? YPatient's Anticoagulant? UNKNOWN Performed By: #### L 100.24276 ####[facility] AVMNZMVQGD5889 [place], [place] [address]Ub# [phone] ABG O2 CONTENT 17.3 mL/dL Normal 15.7-21.6 [facility] Comment on above: Order Comment: Campu s: CORTNEY BLOOD GAS? YPatient's Anticoagulant? UNKNOWN Performed By: #### L 100.53964 ####[facility] QOQKGNDSBV8374 [place], [place] [address]Pm# [phone] ABG O2HB SAT 95.9 % Normal 90-100 [facility] Comment on above: Order Comment: Campu s: CORTNEY BLOOD GAS? YPatient's Anticoagulant? UNKNOWN Performed By: #### L 100.29312 ####[facility] GFIFBZFSCC0189 [place], [place] [address]Ds# [phone] ABG PCO2 33.8 MMHG Low 35-45 [facility] Comment on above: Order Comment: Campu s: CORTNEY BLOOD GAS? YPatient's Anticoagulant? UNKNOWN Performed By: #### L 100.13857 ####[facility] LHHXXWASOC7651 [place], [place] [address]Vq# [phone] ABG PH 7.43 Normal 7.35-7.45 [facility] Comment on above: Order Comment: Campu s: CORTNEY BLOOD GAS? YPatient's Anticoagulant? UNKNOWN Performed By: #### L 100.79448 ####[facility] QRJEWHTXZT1273 [place], [place] [address]Ey# [phone] ABG PO2 95.2 MMHG Normal 80-100 [facility] Comment on above: Order Comment: Campu s: CORTNEY BLOOD GAS? YPatient's Anticoagulant? UNKNOWN Performed By: #### L 100.78391 ####[facility] XNSNRINSYF8515 [place], [place] [address]Bj# [phone] ABG REDUCED HGB 3.7 % Normal 0-5 [facility] Comment on above: Order Comment: Campu s: CORTNEY BLOOD GAS? YPatient's Anticoagulant? UNKNOWN Performed By: #### L 100.39900 ####[facility] [id number] [place], [place] [address]Da# [phone] MARKELL TEST Positive Normal [facility] Comment on above: Order Comment: Campu s: CORTNEY BLOOD GAS? YPatient's Anticoagulant? UNKNOWN Performed By: #### L 100.01733 ####[facility] EFNTZWIHGV8016 [place], [place] [address]Ns# [phone] Body temperature 99.86 [degF] Normal [facility] Comment on above: Order Comment: Campu s: CORTNEY BLOOD GAS? YPatient's Anticoagulant? UNKNOWN Performed By: #### L 100.25760 ####[facility] NXQACESICG9676 [place], [place] [address]Um# [phone] EQUIPMENT VENTILATOR Normal [facility] Comment on above: Order Comment: Campu s: CORTNEY BLOOD GAS? YPatient's Anticoagulant? UNKNOWN Performed By: #### L 100.52199 ####[facility] NTVRVROFAD4003 [place], [place] [address]Al# [phone] FIO2 40 % Normal [facility] Comment on above: Order Comment: Campu s: CORTNEY BLOOD GAS? YPatient's Anticoagulant? UNKNOWN Performed By: #### L 100.53145 ####[facility] UXYYUCSQZQ7428 [place], [place] [address]Gw# [phone] HCO3 (Bld) [Moles/Vol] 21.7 mmol/L Low 22-26 [facility] Comment on above: Order Comment: Campu s: CORTNEY BLOOD GAS? YPatient's Anticoagulant? UNKNOWN Performed By: #### L 100.24629 ####[facility] UAMRRLTQYA1449 [place], [place] [address]Hz# [phone] Hemoglobin (Bld) [Mass/Vol] 12.8 g/dL Normal 10-16 [facility] Comment on above: Order Comment: Campu s: CORTNEY BLOOD GAS? YPatient's Anticoagulant? UNKNOWN Performed By: #### L 100.94393 ####[facility] TMEQHSNQOA7947 [place], [place] [address]Pd# [phone] IONIZED CA 1.10 MMOL/L Low 1.13-1.32 [facility] Comment on above: Order Comment: Campu s: CORTNEY BLOOD GAS? YPatient's Anticoagulant? UNKNOWN Performed By: #### L 100.57142 ####[facility] KAUUPAEWWH3228 [place] [address]Ph# [phone] LACTATE BLOOD 1.02 MMOL/L Normal 0.40-2.00 [facility] Comment on above: Order Comment: Campu s: CORTNEY BLOOD GAS? YPatient's Anticoagulant? UNKNOWN Performed By: #### L 100.56101 ####[facility] TBKOAEPQOJ7120 [place], [place] [address]Ph# [phone] PEEP 8.0 CMH2O Normal [facility] Comment on above: Order Comment: Campu s: CORTNEY BLOOD GAS? YPatient's Anticoagulant? UNKNOWN Performed By: #### L 100.22152 ####[facility] SCHBXSBIMF9234 [place], [place] [address]Nl# [phone] Potassium [Moles/Vol] 4.1 mmol/L Normal 3.5-5.0 [facility] Comment on above: Order Comment: Campu s: CORTNEY BLOOD GAS? YPatient's Anticoagulant? UNKNOWN Performed By: #### L 100.38231 ####[facility] EVFADEGQDE7920 [place] [address]Ph# [phone] RESP. RATE 14 Normal [facility] Comment on above: Order Comment: Campu s: CORTNEY BLOOD GAS? YPatient's Anticoagulant? UNKNOWN Performed By: #### L 100.01270 ####[facility] YEXZSTLRDB5598 [place], [place] [address]Mg# [phone] SAMPLE SITE R RADIAL Normal [facility] Comment on above: Order Comment: Campu s: CORTNEY BLOOD GAS? YPatient's Anticoagulant? UNKNOWN Performed By: #### L 100.42917 ####[facility] DMXOOKXIHF[address] [place], [place] [address]Ph# [phone] SAMPLE TYPE ARTERIAL Normal [facility] Comment on above: Order Comment: Campu s: CORTNEY BLOOD GAS? YPatient's Anticoagulant? UNKNOWN Performed By: #### L 100.29545 ####[facility] QNFOAUCZPK6989[address] [place] [address]Yu# [phone] Sodium [Moles/Vol] 138 mmol/L Normal 136-148 [facility] Comment on above: Order Comment: Campu s: CORTNEY BLOOD GAS? YPatient's Anticoagulant? UNKNOWN Performed By: #### L 100.51501 ####[facility] [id number] [place] [address]Ez# [phone] TIDAL VOLUME 650 LITERS Normal [facility] Comment on above: Order Comment: Campu s: CORTNEY BLOOD GAS? YPatient's Anticoagulant? UNKNOWN Performed By: #### L 100.04011 ####[facility] WRWQDYPUKQ7118 [place], [place] [address]Yy# [phone] VENT MODE VOLUME VENT PLUS Normal [facility] Comment on above: Order Comment: Campu s: CORTNEY BLOOD GAS? YPatient's Anticoagulant? UNKNOWN Performed By: #### L 100.71866 ####[facility] ZEZMTXSTDF1194 [place], [place] [address]Xn# [phone] BMPon 12-03-2020 Anion gap [Moles/Vol] 7 mmol/L Normal 5-16 [facility] Comment on above: Order Comment: Campu s: M Performed By: #### L 500.28221, L500.97508, L500.99858 ####[facility] CECZMQHUWN9508 [place], [place] [address]Zc# [phone] Calcium [Mass/Vol] 8.1 mg/dL Low 8.5-10.5 [facility]: Order Comment: Campu s: M Result Comment: NOTE NEW NORMAL RANGE DUE TO REAGENT CHANGE Performed By: #### L 500.19997, L500.54415, L500.92352 ####[facility] RHHBTHFWHK9584 [place], [place] [address]Tv# [phone] Chloride [Moles/Vol] 113 mmol/L High 98-107 [facility] Comment [facility] above: Order Comment: Campu s: M Performed By: #### L 500.63318, L500.70569, L500.34271 ####[facility] UYQXCWEMUY2420 [place], [place] [address]Hm# [phone] CO2 [Moles/Vol] 22.0 mmol/L Normal 21-32 [facility] Comment on above: Order Comment: Campu s: M Performed By: #### L 500.38476, L500.82360, L500.79062 ####[facility] FPJXPFRWYG8935 [place], [place] [address]Uf# [phone] Creatinine [Mass/Vol] 0.76 mg/dL Normal 0.5-1.4 [facility] Comment on above: Order Comment: Campu s: M Result Comment: NOTE NEW NORMAL RANGE DUE TO REAGENT CHANGEPatients receiving either N-Acetylcysteine (NAC) orMetamizole prior to venipuncture, may have falsely depressedresults. Performed By: #### L 500.03390, L500.85111, L500.35347 ####[facility] AUXOJNTMSL9528 [place], [place] [address]Dd# [phone] Glucose [Mass/Vol] 174 mg/dL High 70-100 [facility] Comment on above: Order Comment: Campu s: M Result Comment: 70-1 00- Normal Fasting; 100-125 Impaired Fasting; greaterthan 126 on more than one result- Diabetes. ADA guidelines.Results may be falsely elevated after the administration ofSulfapyridine.Results may be falsely depressed after the administration ofSulfasalazine. Performed By: #### L 500.16694, L500.27111, L500.71656 ####[facility] OIHWVZHBHN4270 [place], [place] [address]Vk# [phone] Potassium [Moles/Vol] 4.2 mmol/L Normal 3.5-5.1 [facility] Comment on above: Order Comment: Campu s: M Performed By: #### L 500.62249, L500.53782, L500.56169 ####[facility] JQHOITIIWK2515 [place], [place] [address]Lg# [phone] Sodium [Moles/Vol] 142 mmol/L Normal 136-145 [facility] Comment on above: Order Comment: Campu s: M Performed By: #### L 500.58898, L500.73283, L500.46521 ####[facility] ZBXIJDFGUR2710 [place], [place] [address]Sa# [phone] Urea nitrogen [Mass/Vol] 24 mg/dL Normal 7-26 [facility] Comment on above: Order Comment: Campu s: M Performed By: #### L 500.22298, L500.63041, L500.82256 ####[facility] MZVMOUVUCQ6333 [place], [place] [address]Hg# [phone] Urea nitrogen/Creatinine [Mass ratio] 32 mg/mg High 15-24 [facility] Comment on above: Order Comment: Campu s: M Performed By: #### L 500.43691, L500.79837, L500.81353 ####[facility] ATOENXXEFF7004 [place], [place] [address]Cr# [phone] CBC W/DIFFon 12-03-2020 BASO ABS 0.00 K/CU MM Normal 0-0.2 [facility] Comment on above: Order Comment: Campu s: M Performed By: #### L 200.67055 ####[facility] KLPFOLDBNY3240 [place], [place] [address]Qt# [phone] Basophils/100 WBC (Bld) 0.2 % Normal 0-2 [facility] Comment on above: Order Comment: Campu s: M Performed By: #### L 200.84640 ####[address] [address]Hb# [phone] EOS ABS 0.10 K/CU MM Normal 0-0.5 [facility] Comment on above: Order Comment: Campu s: M Performed By: #### L 200.92624 ####[address] [address]Or# [phone] Eosinophils/100 WBC (Bld) 1.3 % Normal 0-5 [facility] Comment on above: Order Comment: Campu s: M Performed By: #### L 200.13121 ####[address] [address]Bp# [phone] Erythrocyte distribution width (RBC) [Ratio] 12.8 % Normal 11-14.5 [facility] Comment on above: Order Comment: Campu s: M Performed By: #### L 200.18046 ####[address] [address]Ao# [phone] Hematocrit (Bld) [Volume fraction] 38.0 % Low 41.0-53.0 [facility] Comment on above: Order Comment: Campu s: M Performed By: #### L 200.92721 ####[facility] MYXXKMMWAL[address] [place] [address]Qp# [phone] Hemoglobin (Bld) [Mass/Vol] 12.8 g/dL Low 13.5-17.5 [facility] Comment on above: Order Comment: Campu s: M Performed By: #### L 200.99069 ####[facility] CXXUOVMOOB1125 [place] [address]Ph# [phone] IMMATR GRAN ABS 0.10 K/CU MM Normal Less than 2 [facility] Comment on above: Order Comment: Campu s: M Performed By: #### L 200.42596 ####[facility] VVRGKOHOZY[address] [place], [place] [address]Ph# [phone] IMMATURE GRAN % 0.7 % Normal Less than 2 [facility] Comment on above: Order Comment: Campu s: M Performed By: #### L 200.73180 ####[place] [address]Ph# [phone] LYMPH ABS 1.50 K/CU MM Normal 0.9-4.4 [facility] Comment on above: Order Comment: Campu s: M Performed By: #### L 200.08927 ####[place] [address]Ph# [phone] Lymphocytes/100 WBC (Bld) 13.6 % Low 20-40 [facility] Comment on above: Order Comment: Campu s: M Performed By: #### L 200.40854 ####[place] [address]Ph# [phone] MCHC (RBC) [Mass/Vol] 33.7 g/dL Normal 32.0-36.0 [facility] Comment on above: Order Comment: Campu s: M Performed By: #### L 200.12485 ####[facility] OBZCKMYCJO[address] [place], [place] [address]Ph# [phone] MCV (RBC) [Entitic vol] 92.5 fL Normal 80.0-99.0 [facility] Comment on above: Order Comment: Campu s: M Performed By: #### L 200.40219 ####[facility] QRKCPZXMYH[address] [place], [place] [address]Ph# [phone] MONO ABS 0.60 K/CU MM Normal 0.1-1.1 [facility] Comment on above: Order Comment: Campu s: M Performed By: #### L 200.22006 ####[facility] YKBYRQVVOE7123 [place], [place] [address]Ht# [phone] Monocytes/100 WBC (Bld) 5.7 % Normal 2-10 [facility] Comment on above: Order Comment: Campu s: M Performed By: #### L 200.54772 ####[facility] YYSPCURMIC[address] [place] [address]Wq# [phone] NEUTROPHIL ABS 8.40 K/CU MM High 2.0-8.3 [facility] Comment on above: Order Comment: Campu s: M Performed By: #### L 200.50455 ####[address] [address]Rs# [phone] Neutrophils/100 WBC (Bld) 78.5 % High 45-75 [facility] Comment on above: Order Comment: Campu s: M Performed By: #### L 200.41926 ####[facility] FLRGJBFLTR[address] [place] [address]If# [phone] Nucleated RBC/100 WBC (Bld) [Ratio] 0.0 % Normal Less than 1 [facility] Comment on above: Order Comment: Campu s: M Performed By: #### L 200.00103 ####[facility] PKWBWZSSLZ8749 [place], [place] [address]Jy# [phone] Platelet mean volume (Bld) [Entitic vol] 10.8 fL Normal 9.4-12.4 [facility] Comment on above: Order Comment: Campu s: M Performed By: #### L 200.95181 ####[facility] DBMAPYSWZB5113 [place], [place] [address]Me# [phone] PLT 152 K/CU MM Normal 150-450 [facility] Comment on above: Order Comment: Campu s: M Performed By: #### L 200.35418 ####[facility] [address]TZOH[address]OO[address] [place] [address], [place] [address]Rq# [phone] RBC 4.11 M/CU MM Low 4.50-6.00 [facility] Comment on above: Order Comment: Campu s: M Performed By: #### L 200.68641 ####[facility] LOKPRLHVTM3734 [place], [place] [address]Lu# [phone] WBC 10.7 K/CUMM Normal 4.5-11.0 [facility] Comment on above: Order Comment: Campu s: M Performed By: #### L 200.84812 ####[address] [address]Ia# [phone] DIET.ASSMTon 12-03-2020 DIET.ASSMT Normal [facility] Nutrition Assessments Normal [facility] GFR ESTon 12-03-2020 IF AMER Greater than 60 Normal [facility] Comment on above: Order Comment: Campu s: M Performed By: #### L 500.71721, L500.74820, L500.86494 ####[facility] WABFAXMOLS[address] [place] [address]Et# [phone] IF non-AFR AMER Greater than 60 Normal [facility] Comment on above: Order Comment: Campu s: M Performed By: #### L 500.45347, L500.12384, L500.42582 ####[facility] QEPQKTZYRA[address] [place] [address]Vw# [phone] IONIZED CAon 12-03-2020 IONIZED CA 1.09 MMOL/L Low 1.16-1.32 [facility] Comment on above: Order Comment: Campu s: M Performed By: #### L 550.72036 ####[facility] [id number] [place], [place] [address]Nh# [phone] PHOSon 12-03-2020 Phosphate [Mass/Vol] 3.10 mg/dL Normal 2.5-4.9 [facility] Comment on above: Order Comment: Campu s: M Result Comment: Elev ated m-protein (paraprotein) levels in the serum may beexhibited in patients with monoclonal gammopathies, causingfalsely elevated inorganic phosphorus results. Performed By: #### L 500.69732, L500.32512, L500.67114 ####[facility] [id number] [place], [place] [address]Bq# [phone] PROG IMSon 12-03-2020 PROG IMS Normal [facility] Progress Note-Hospitalist Normal [facility] PROG.Meche 12-03-2020 PROG.CARD Normal [facility] Progress Note-Cardiology Normal [facility] PROG.INTENon 12-03-2020 PROG.INTEN Normal [facility] Progress Note-Trans Router Normal [facility] PROG.NEUROon 12-03-2020 PROG.NEURO Normal [facility] Progress Note-Neuro Normal [facility] BMPon 12-02-2020 Anion gap [Moles/Vol] 7 mmol/L Normal 5-16 [facility] Comment on above: Order Comment: Campu s: M Performed By: #### L 500.14624, L500.60499, L500.17312 ####[facility] [id number] [place], [place] [address]As# [phone] Calcium [Mass/Vol] 8.0 mg/dL Low 8.5-10.5 [facility] Comment on above: Order Comment: Campu s: M Result Comment: NOTE NEW NORMAL RANGE DUE TO REAGENT CHANGE Performed By: #### L 500.89280, L500.15400, L500.78070 ####[facility] [id number] [place], [place] [address]Jb# [phone] Chloride [Moles/Vol] 114 mmol/L High 98-107 [facility] Comment on above: Order Comment: Campu s: M Performed By: #### L 500.37208, L500.23639, L500.26020 ####[facility] [id number] [place], [place] [address]Yf# [phone] CO2 [Moles/Vol] 22.0 mmol/L Normal 21-32 [facility] [place] Comment on above: Order Comment: Gabriela qiu: M Performed By: #### L 500.50555, L500.58043, L500.58686 ####[facility] [id number] [place], [place] [address]Ci# [phone] Creatinine [Mass/Vol] 0.76 mg/dL Normal 0.5-1.4 [facility] [place] Comment on above: Order Comment: Gabriela s: M Result Comment: NOTE NEW NORMAL RANGE DUE TO REAGENT CHANGEPatients receiving either N-Acetylcysteine (NAC) orMetamizole prior to venipuncture, may have falsely depressedresults. Performed By: #### L 500.97594, L500.28765, L500.58339 ####[facility] [id number] [place], [place] [address]Lx# [phone] Glucose [Mass/Vol] 133 mg/dL High 70-100 [facility] Comment on above: Order Comment: Gabriela s: M Result Comment: 70-1 00- Normal Fasting; 100-125 Impaired Fasting; greaterthan 126 on more than one result- Diabetes. ADA guidelines.Results may be falsely elevated after the administration ofSulfapyridine.Results may be falsely depressed after the administration ofSulfasalazine. Performed By: #### L 500.11317, L500.63039, L500.96022 ####[facility] VKRVAOCOGS2120 [place], [place] [address]Fn# [phone] Potassium [Moles/Vol] 4.3 mmol/L Normal 3.5-5.1 [facility] [place] Comment on above: Order Comment: Gabriela s: M Result Comment: Slig ht Hemolysis, Result may be affected. Performed By: #### L 500.56255, L500.29745, L500.14139 ####[facility] GEAMSRGKQQ4009 [place], [place] [address]Ni# [phone] Sodium [Moles/Vol] 143 mmol/L Normal 136-145 [facility] Comment on above: Order Comment: Campu s: M Performed By: #### L 500.82688, L500.45693, L500.40120 ####[facility] LZDGDCLMXK2422 [place], [place] [address]We# [phone] Urea nitrogen [Mass/Vol] 22 mg/dL Normal 7-26 [facility] Comment [facility]: Order Comment: Campu s: M Performed By: #### L 500.95298, L500.02266, L500.52667 ####[facility] PCRJELHXVZ4726 [place], [place] [address]Kf# [phone] Urea nitrogen/Creatinine [Mass ratio] 29 mg/mg High 15-24 [facility] Comment on above: Order Comment: Campu s: M Performed By: #### L 500.28967, L500.84184, L500.76800 ####[facility] [id number] [place] [address]He# [phone] CBCon 12-02-2020 Erythrocyte distribution width (RBC) [Ratio] 12.9 % Normal 11-14.5 [facility] Comment on above: Order Comment: Campu s: M Performed By: #### L 200.19369 ####[facility] FQQCWUCREB0624 [place], [place] [address]Tu# [phone] Hematocrit (Bld) [Volume fraction] 38.7 % Low 41.0-53.0 [facility] Comment on above: Order Comment: Campu s: M Performed By: #### L 200.49723 ####[facility] LCKYSTWZQC6225 [place], [place] [address]Uq# [phone] Hemoglobin (Bld) [Mass/Vol] 13.1 g/dL Low 13.5-17.5 [facility] Comment on above: Order Comment: Campu s: M Performed By: #### L 200.21121 ####[facility] FPPYDXUUIM[address] [place] [address]Jh# [phone] MCHC (RBC) [Mass/Vol] 33.9 g/dL Normal 32.0-36.0 [facility] [place] Comment on above: Order Comment: Campu s: M Performed By: #### L 200.47634 ####[facility] SOQWCMROSE2058 [place], [place] [address]Mx# [phone] MCV (RBC) [Entitic vol] 91.1 fL Normal 80.0-99.0 [facility] Comment on above: Order Comment: Campu s: M Performed By: #### L 200.73072 ####[facility] XIEPADVZVP[address] [place] [address]Rn# [phone] Nucleated RBC/100 WBC (Bld) [Ratio] 0.0 % Normal Less than 1 [facility] Comment on above: Order Comment: Campu s: M Performed By: #### L 200.80176 ####[address] [address]Dp# [phone] Platelet mean volume (Bld) [Entitic vol] 10.6 fL Normal 9.4-12.4 [facility] Comment on above: Order Comment: Campu s: M Performed By: #### L 200.09770 ####[facility] [id number] [place] [address]Hy# [phone] PLT 155 K/CU MM Normal 150-450 [facility] Comment on above: Order Comment: Campu s: M Performed By: #### L 200.01111 ####[facility] [id number] [place] [address]Iq# [phone] RBC 4.25 M/CU MM Low 4.50-6.00 [facility] [place] Comment on above: Order Comment: Campu s: M Performed By: #### L 200.82587 ####[facility] AEEHDERDIP[address] [place] [address]Hc# [phone] WBC 11.8 K/CUMM High 4.5-11.0 [facility] Comment on above: Order Comment: Campu s: M Performed By: #### L 200.19525 ####[facility] DQXHYAOUBD6945 [place], [place] [address]Qs# [phone] GFR ESTon 12-02-2020 IF AMER Greater than 60 Normal [facility] Comment on above: Order Comment: Campu s: M Performed By: #### L 500.13087, L500.24613, L500.83168 ####[facility] EGAYIAJHKD5130 [place], [place] [address]Es# [phone] IF non-AFR AMER Greater than 60 Normal [facility] Comment on above: Order Comment: Campu s: M Performed By: #### L 500.91779, L500.88343, L500.42114 ####[facility] HDQEAHIEXC8610 [place], [place] [address]Uw# [phone] MAGNESIUMon 12-02-2020 Magnesium [Mass/Vol] 2.1 mg/dL Normal 1.6-2.6 [facility] Comment on above: Order Comment: Campu s: M Performed By: #### L 500.81359, L500.65109, L500.39898 ####[facility] PTCZDZWIEI8981 [place], [place] [address]Hd# [phone] PBNP TESTon 12-02-2020 Natriuretic peptide B (Bld) [Mass/Vol] 1168 pg/mL High 0-125 [facility] Comment on above: Order Comment: Aaronu s: M Result Comment: NT-p roBNP results of less than 300 pg/ml likely rules outacute congestive heart failure with 99% predictive value.NOTE: These cuttoff points are suggested for ACUTE CHFDIAGNOSIS onlyLess than 50 years Greater than 450 pg/ml50-75 years Greater than 900 pg/mlGreater than 75 years Greater than 1800 pg/mlNOTE NEW NORMAL RANGE Performed By: #### L 500.73993 ####[facility] QFPKKHRWIV1221 [place], [place] [address]Nc# [phone] PROG IMSon 12-02-2020 PROG IMS Normal [facility] Progress Note-Hospitalist [facility] PR[facility].Meche 12-02-2020 PROG.CARD Normal [facility] [place] PROG.INTENon 12-02-2020 PROG.INTEN Normal [facility] PROG.NEUROon 12-02-2020 PROG.NEURO [facility] BMPon 12-01-2020 Anion gap [Moles/Vol] 7 mmol/L Normal 5-16 [facility] Comment on above: Order Comment: Campu s: M Performed By: #### L 500.13559, L500.55370, L500.11823 ####[facility] AMLVEMGALP2862 [place], [place] [address]Qt# [phone] Calcium [Mass/Vol] 8.3 mg/dL Low 8.5-10.5 [facility] Comment on above: Order Comment: Campu s: M Result Comment: NOTE NEW NORMAL RANGE DUE TO REAGENT CHANGE Performed By: #### L 500.09021, L500.28353, L500.24087 ####[facility] TWLFFFCJPE0641 [place], [place] [address]Mz# [phone] Chloride [Moles/Vol] 112 mmol/L High 98-107 [facility] Comment on above: Order Comment: Campu s: M Performed By: #### L 500.39159, L500.24178, L500.26990 ####[facility] YLSQUUPVAP6448 [place], [place] [address]Pr# [phone] CO2 [Moles/Vol] 25.0 mmol/L Normal 21-32 [facility] Comment on above: Order Comment: Campu s: M Performed By: #### L 500.49887, L500.64953, L500.08356 ####[facility] TFLVWPQOSH6503 [place], [place] [address]Hl# [phone] Creatinine [Mass/Vol] 0.78 mg/dL Normal 0.5-1.4 [facility] Comment on above: Order Comment: Campu s: M Result Comment: NOTE NEW NORMAL RANGE DUE TO REAGENT CHANGEPatients receiving either N-Acetylcysteine (NAC) orMetamizole prior to venipuncture, may have falsely depressedresults. Performed By: #### L 500.85091, L500.00149, L500.26675 ####[facility] JEQJHFJEIF9051 [place], [place] [address]Qo# [phone] Glucose [Mass/Vol] 117 mg/dL High 70-100 [facility] Comment on above: Order Comment: Campu s: M Result Comment: 70-1 00- Normal Fasting; 100-125 Impaired Fasting; greaterthan 126 on more than one result- Diabetes. ADA guidelines.Results may be falsely elevated after the administration ofSulfapyridine.Results may be falsely depressed after the administration ofSulfasalazine. Performed By: #### L 500.96268, L500.59654, L500.89973 ####[facility] SDWCLAZDHP5708 [place], [place] [address]Oc# [phone] Potassium [Moles/Vol] 3.6 mmol/L Normal 3.5-5.1 [facility] Comment on above: Order Comment: Campu s: M Performed By: #### L 500.26082, L500.15383, L500.24328 ####[facility] NYHRXQQEYW9175 [place], [place] [address]Vq# [phone] Sodium [Moles/Vol] 144 mmol/L Normal 136-145 [facility] Comment on above: Order Comment: Campu s: M Performed By: #### L 500.29489, L500.12556, L500.19159 ####[facility] WHXQCVHRYU8284 [place], [place] [address]Iv# [phone] Urea nitrogen [Mass/Vol] 18 mg/dL Normal 7-26 [facility] Comment on above: Order Comment: Campu s: M Performed By: #### L 500.97114, L500.90503, L500.92341 ####[facility] FKVFTMFQVT0414 [place], [place] [address]Kw# [phone] Urea nitrogen/Creatinine [Mass ratio] 23 mg/mg Normal 15-24 [facility] Comment on above: Order Comment: Campu s: M Performed By: #### L 500.60055, L500.48859, L500.54878 ####[facility] IGDNSUFTGF9786 [place], [place] [address]Qx# [phone] CBCon 12-01-2020 Erythrocyte distribution width (RBC) [Ratio] 13.2 % Normal 11-14.5 [facility] Comment on above: Order Comment: Campu s: M Performed By: #### L 200.16803 ####[facility] [address]ZHRY[address] [place] [address]Zn# [phone] Hematocrit (Bld) [Volume fraction] 38.7 % Low 41.0-53.0 [facility] Comment on above: Order Comment: Campu s: M Performed By: #### L 200.16734 ####[facility] UWHNSTNZWI[address] [place] [address]Er# [phone] Hemoglobin (Bld) [Mass/Vol] 13.0 g/dL Low 13.5-17.5 [facility] Comment on above: Order Comment: Campu s: M Performed By: #### L 200.00424 ####[facility] PRTNAPRZXF5811 [place], [place] [address]Ta# [phone] MCHC (RBC) [Mass/Vol] 33.6 g/dL Normal 32.0-36.0 [facility] Comment on above: Order Comment: Campu s: M Performed By: #### L 200.62441 ####[facility] NMQJGHAVMS[address] [place] [address]Mc# [phone] MCV (RBC) [Entitic vol] 91.5 fL Normal 80.0-99.0 [facility] Comment on above: Order Comment: Campu s: M Performed By: #### L 200.57849 ####[facility] OVCQLSFZHE1217 [place], [place] [address]Po# [phone] Nucleated RBC/100 WBC (Bld) [Ratio] 0.0 % Normal Less than 1 [facility] Comment on above: Order Comment: Campu s: M Performed By: #### L 200.73103 ####[facility] XUKGHLJUAT9699 [place], [place] [address]Os# [phone] Platelet mean volume (Bld) [Entitic vol] 10.4 fL Normal 9.4-12.4 [facility] Comment on above: Order Comment: Campu s: M Performed By: #### L 200.24100 ####[facility] IXYEUSDESI2110 [place], [place] [address]Ar# [phone] PLT 170 K/CU MM Normal 150-450 [facility] Comment on above: Order Comment: Campu s: M Performed By: #### L 200.82136 ####[facility] QVOAFIXKMY8592 [place], [place] [address]Xy# [phone] RBC 4.23 M/CU MM Low 4.50-6.00 [facility] Comment on above: Order Comment: Campu s: M Performed By: #### L 200.71250 ####[facility] AQKFPGUEKT5942 [place], [place] [address]Qr# [phone] WBC 12.4 K/CUMM High 4.5-11.0 [facility] Comment on above: Order Comment: Campu s: M Performed By: #### L 200.55356 ####[facility] [id number] [place] [address]Fp# [phone] CONS.NEUROon 12-01-2020 CONS.NEURO Normal [facility] CONSULTATION-NEURO [facility] GFR ESTon 12-01-2020 IF AMER Greater than 60 Normal [facility] Comment on above: Order Comment: Campu s: M Performed By: #### L 500.18748, L500.98357, L500.74602 ####[facility] LIQUDUXKKV4815 [place], [place] [address]Sy# [phone] IF non-AFR AMER Greater than 60 Normal [facility] Comment on above: Order Comment: Campu s: M Performed By: #### L 500.59364, L500.32424, L500.78591 ####[facility] ALGTUFRVYI6340 [place], [place] [address]Qb# [phone] GLUCOSE METERon 12-01-2020 Glucose [Mass/Vol] 113 mg/dL Normal 70-115 [facility] [place] Glucose [Mass/Vol] 92 mg/dL Normal 70-115 [facility] MAGNESIUMon 12-01-2020 Magnesium [Mass/Vol] 1.4 mg/dL Low 1.6-2.6 [facility] Comment on above: Order Comment: Campu s: M Performed By: #### L 500.80149, L500.03079, L500.23578 ####[facility] JBMQEMUTFW0892 [place], [place] [address]Dz# [phone] NEURO.EEGon 12-01-2020 NEURO.EEG Normal [facility] Neurology - EEG Normal [facility] PROG IMSon 12-01-2020 PROG IMS Normal [facility] Progress Note-Hospitalist Normal [facility] PROG.Meche 12-01-2020 PROG.CARD Normal [facility] Progress Note-Cardiology Normal [facility] PROG.INTENon 12-01-2020 PROG.INTEN Normal [facility] Progress Note-Trans Router Normal [facility] RESP/SPUT CULTon 12-01-2020 RESP/SPUT CULT GRAM STAIN MANY WBC'S RARE GRAM POSITIVE COCCI RARE GRAM NEGATIVE BACILLUS RESPIRATORY RESULT FEW NORMAL HELGA Normal [facility] Comment on above: Order Comment: Campu s: M Performed By: #### M 100.13300 ####[facility] IHOSMEXSKU3541 [place], [place] [address]Fn# [phone] ABGPEGLAon 11-30-2020 ABG BE -2.4 MML/L Low -2.0-2.0 [facility] Comment on above: Order Comment: Campu s: CORTNEY BLOOD GAS? YPatient's Anticoagulant? UNKNOWN Performed By: #### L 100.08503 ####[facility] [id number] [place], [place] [address]Kc# [phone] ABG COHBA 0.6 % Normal 0-10 [facility] Comment on above: Order Comment: Campu s: CORTNEY BLOOD GAS? YPatient's Anticoagulant? UNKNOWN Performed By: #### L 100.21666 ####[facility] MXOWMSCSER7792 [place], [place] [address]Ky# [phone] ABG GLU 116.0 MG/DL High 60-80 [facility] [place] Comment on above: Order Comment: Campu s: CORTNEY BLOOD GAS? YPatient's Anticoagulant? UNKNOWN Performed By: #### L 100.56009 ####[facility] GDGISOQZRY1950 [place], [place] [address]Uc# [phone] ABG MET 0.5 % Normal 0.4-1.5 [facility] Comment on above: Order Comment: Campu s: CORTNEY BLOOD GAS? YPatient's Anticoagulant? UNKNOWN Performed By: #### L 100.54675 ####[facility] HBUBHPRLNW3516 [place], [place] [address]Ar# [phone] ABG O2 CAPACITY 22.7 mL/dL Normal [facility] [place] Comment on above: Order Comment: Campu s: CORTNEY BLOOD GAS? YPatient's Anticoagulant? UNKNOWN Performed By: #### L 100.78361 ####[facility] WTUAMVSBDL2855 [place], [place] [address]Fm# [phone] ABG O2 CONTENT 22.8 mL/dL High 15.7-21.6 [facility] [place] Comment on above: Order Comment: Campu s: CORTNEY BLOOD GAS? YPatient's Anticoagulant? UNKNOWN Performed By: #### L 100.23513 ####[facility] OXQOMEOWPK2335 [place], [place] [address]Jf# [phone] ABG O2HB SAT 97.5 % Normal 90-100 [facility] [place] Comment on above: Order Comment: Campu s: CORTNEY BLOOD GAS? YPatient's Anticoagulant? UNKNOWN Performed By: #### L 100.03118 ####[facility] YVRGNGBVMW3352 [place], [place] [address]Rw# [phone] ABG PCO2 25.2 MMHG Low 35-45 [facility] Comment on above: Order Comment: Campu s: CORTNEY BLOOD GAS? YPatient's Anticoagulant? UNKNOWN Performed By: #### L 100.56033 ####[facility] KCUIREICAE[address] [place], [place] [address]Ph# [phone] ABG PH 7.50 High 7.35-7.45 [facility] Comment on above: Order Comment: Campu s: CORTNEY BLOOD GAS? YPatient's Anticoagulant? UNKNOWN Performed By: #### L 100.00914 ####[facility] PBZUTQXLOL[address] [place] [address]Yh# [phone] ABG PO2 141.9 MMHG High 80-100 [facility] Comment on above: Order Comment: Campu s: CORTNEY BLOOD GAS? YPatient's Anticoagulant? UNKNOWN Performed By: #### L 100.20922 ####[facility] [id number] [place] [address]Ki# [phone] ABG REDUCED HGB 1.4 % Normal 0-5 [facility] Comment on above: Order Comment: Campu s: CORTNEY BLOOD GAS? YPatient's Anticoagulant? UNKNOWN Performed By: #### L 100.22063 ####[facility] BCJPLPOZFF7286 [place], [place] [address]Fx# [phone] MARKELL TEST Positive Normal [facility] Comment on above: Order Comment: Campu s: CORTNEY BLOOD GAS? YPatient's Anticoagulant? UNKNOWN Performed By: #### L 100.47758 ####[facility] [address]UMGEIPQ[address] [place] [address]Ac# [phone] Body temperature 96.26 [degF] Normal [facility] Comment on above: Order Comment: Campu s: CORTNEY BLOOD GAS? YPatient's Anticoagulant? UNKNOWN Performed By: #### L 100.64644 ####[facility] HQIWZFHMXX0481 [place], [place] [address]Yb# [phone] EQUIPMENT 840 VENTILATOR Normal [facility] Comment on above: Order Comment: Campu s: CORTNEY BLOOD GAS? YPatient's Anticoagulant? UNKNOWN Performed By: #### L 100.85553 ####[facility] UIPMFOYPFD1417 [place], [place] [address]Xk# [phone] FIO2 40 % Normal [facility] Comment on above: Order Comment: Campu s: CORTNEY BLOOD GAS? YPatient's Anticoagulant? UNKNOWN Performed By: #### L 100.51947 ####[facility] SECCSYQHUE6966 [place], [place] [address]Ct# [phone] HCO3 (Bld) [Moles/Vol] 19.3 mmol/L Low 22-26 [facility] Comment on above: Order Comment: Campu s: CORTNEY BLOOD GAS? YPatient's Anticoagulant? UNKNOWN Performed By: #### L 100.96001 ####[facility] [address]HZCXRUX[address] [place] [address]Ug# [phone] Hemoglobin (Bld) [Mass/Vol] 16.5 g/dL High 10-16 [facility] Comment on above: Order Comment: Campu s: CORTNEY BLOOD GAS? YPatient's Anticoagulant? UNKNOWN Performed By: #### L 100.80487 ####[facility] JRFNOOUSUR[address] [place] [address]Oc# [phone] IONIZED CA 1.15 MMOL/L Normal 1.13-1.32 [facility] Comment on above: Order Comment: Campu s: CORTNEY BLOOD GAS? YPatient's Anticoagulant? UNKNOWN Performed By: #### L 100.09821 ####[facility] SAIXMFOHNR1165 [place], [place] [address]Vi# [phone] LACTATE BLOOD 1.47 MMOL/L Normal 0.40-2.00 [facility] Comment on above: Order Comment: Campu s: CORTNEY BLOOD GAS? YPatient's Anticoagulant? UNKNOWN Performed By: #### L 100.60772 ####[facility] ABAEAFVYKS9633 [place], [place] [address]Za# [phone] PEEP 8.0 CMH2O Normal [facility] Comment on above: Order Comment: Campu s: CORTNEY BLOOD GAS? YPatient's Anticoagulant? UNKNOWN Performed By: #### L 100.38270 ####[facility] ELEVXNJJLE7217 [place] [address]Ph# [phone] Potassium [Moles/Vol] 3.4 mmol/L Low 3.5-5.0 [facility] Comment on above: Order Comment: Campu s: CORTNEY BLOOD GAS? YPatient's Anticoagulant? UNKNOWN Performed By: #### L 100.05040 ####[facility] HEAGFNCWUN4048 [place] [address]Ph# [phone] RESP. RATE 16 Normal [facility] Comment on above: Order Comment: Campu s: CORTNEY BLOOD GAS? YPatient's Anticoagulant? UNKNOWN Performed By: #### L 100.33024 ####[facility] FLIEUXOHLJ9278 [place] [address]Ph# [phone] SAMPLE SITE L RADIAL Normal [facility] Comment on above: Order Comment: Campu s: CORTNEY BLOOD GAS? YPatient's Anticoagulant? UNKNOWN Performed By: #### L 100.86102 ####[facility] HLSFQPLAXE1137 [place] [address]Ph# [phone] SAMPLE TYPE ARTERIAL Normal [facility] Comment on above: Order Comment: Campu s: CORTNEY BLOOD GAS? YPatient's Anticoagulant? UNKNOWN Performed By: #### L 100.80082 ####[facility] FGDXHLXVBA1110 [place], [place] [address]Lq# [phone] Sodium [Moles/Vol] 140 mmol/L Normal 136-148 [facility] Comment on above: Order Comment: Campu s: CORTNEY BLOOD GAS? YPatient's Anticoagulant? UNKNOWN Performed By: #### L 100.11861 ####[facility] ZXTZRUFTMV1386 [place], [place] [address]Li# [phone] TIDAL VOLUME 0.650 LITERS Normal [facility] [place] Comment on above: Order Comment: Campu s: CORTNEY BLOOD GAS? YPatient's Anticoagulant? UNKNOWN Performed By: #### L 100.55662 ####[facility] QGTSSMOLDW7644 [place], [place] [address]Ux# [phone] VENT MODE VOLUME VENT PLUS Normal [facility] [place] Comment on above: Order Comment: Campu s: CORTNEY BLOOD GAS? YPatient's Anticoagulant? UNKNOWN Performed By: #### L 100.41639 ####[facility] [id number] [place] [id number]# [phone] Lamar 11-30-2020 POC ACT 159 SECONDS High 100-150 [facility] CBC W/DIFFon 11-30-2020 BASO ABS 0.00 K/CU MM Normal 0-0.2 [facility] [place] Comment on above: Order Comment: Campu s: M Performed By: #### L 200.15397 ####[facility] [id number] [place] [address]Cf# [phone] Basophils/100 WBC (Bld) 0.2 % Normal 0-2 [facility] Comment on above: Order Comment: Campu s: M Performed By: #### L 200.51003 ####[facility] [id number] [place] [address] 16702Ex# [phone] EOS ABS 0.10 K/CU MM Normal 0-0.5 [facility] Comment on above: Order Comment: Campu s: M Performed By: #### L 200.37965 ####[facility] [id number] [place] [address] 10318At# [phone] Eosinophils/100 WBC (Bld) 1.0 % Normal 0-5 [facility] Comment on above: Order Comment: Campu s: M Performed By: #### L 200.34096 ####[facility] [id number] [place] [address] 43646Sh# [phone] Erythrocyte distribution width (RBC) [Ratio] 13.2 % Normal 11-14.5 [facility] Comment on above: Order Comment: Campu s: M Performed By: #### L 200.21636 ####[facility] XNZJIURNEU[address] [place] [address] 75833If# [phone] Hematocrit (Bld) [Volume fraction] 46.2 % Normal 41.0-53.0 [facility] Comment on above: Order Comment: Campu s: M Performed By: #### L 200.19880 ####[place] [address]38[address]Ph# [phone] Hemoglobin (Bld) [Mass/Vol] 15.9 g/dL Normal 13.5-17.5 [facility] Comment on above: Order Comment: Campu s: M Performed By: #### L 200.09566 ####[facility] IEGVHZQHJJ[address] [place], [place] [address]Ph# [phone] IMMATR GRAN ABS 0.10 K/CU MM Normal Less than 2 [facility] [place] Comment on above: Order Comment: Campu s: M Performed By: #### L 200.74859 ####[facility] ESTNDTVBBW[address] [place] [address] 53234Wz# [phone] IMMATURE GRAN % 0.4 % Normal Less than 2 [facility] [place] Comment on above: Order Comment: Campu s: M Performed By: #### L 200.42885 ####[facility] YZNAENVSQV[address] [place] [address] 28223Jq# [phone] LYMPH ABS 1.80 K/CU MM Normal 0.9-4.4 [facility] [place] Comment on above: Order Comment: Campu s: M Performed By: #### L 200.88830 ####[facility] ZUUGYPEDOS[address] [place], [place] [address]Ph# [phone] Lymphocytes/100 WBC (Bld) 14.7 % Low 20-40 [facility] Comment on above: Order Comment: Campu s: M Performed By: #### L 200.42385 ####[facility] KCKOCLQEHM1985 [place], [place] [address]Bf# [phone] MCHC (RBC) [Mass/Vol] 34.4 g/dL Normal 32.0-36.0 [facility] Comment on above: Order Comment: Campu s: M Performed By: #### L 200.85104 ####[facility] XISVOPCNYE[address] [place] [address] 52211Xy# [phone] MCV (RBC) [Entitic vol] 91.3 fL Normal 80.0-99.0 [facility] Comment on above: Order Comment: Campu s: M Performed By: #### L 200.42784 ####[address] [address]Jz# [phone] MONO ABS 0.80 K/CU MM Normal 0.1-1.1 [facility] Comment on above: Order Comment: Campu s: M Performed By: #### L 200.47171 ####[facility] [id number] [place] [address] 02437Qu# [phone] Monocytes/100 WBC (Bld) 6.4 % Normal 2-10 [facility] Comment on above: Order Comment: Campu s: M Performed By: #### L 200.21719 ####[facility] GGXPUAVVID279[address] [place], [place] [address]Ph# [phone] NEUTROPHIL ABS 9.60 K/CU MM High 2.0-8.3 [facility] Comment on above: Order Comment: Campu s: M Performed By: #### L 200.52964 ####[facility] IUZGOHFDGJ3019 [place], [place] [address]Sf# [phone] Neutrophils/100 WBC (Bld) 77.3 % High 45-75 [facility] Comment on above: Order Comment: Campu s: M Performed By: #### L 200.91037 ####[facility] HWGOZJRNTY6074 [place], [place] [address]Xn# [phone] Nucleated RBC/100 WBC (Bld) [Ratio] 0.0 % Normal Less than 1 [facility] Comment on above: Order Comment: Campu s: M Performed By: #### L 200.60194 ####[facility] IFTQGJGQTV84[address] [place] [address] 818[address]Bv# [phone] Platelet mean volume (Bld) [Entitic vol] 10.1 fL Normal 9.4-12.4 [facility] Comment on above: Order Comment: Campu s: M Performed By: #### L 200.44865 ####[place] [address]Ph# [phone] PLT 194 K/CU MM Normal 150-450 [facility] Comment on above: Order Comment: Campu s: M Performed By: #### L 200.71201 ####[facility] [id number] [place], [place] [address]Ph# [phone] RBC 5.06 M/CU MM Normal 4.50-6.00 [facility] Comment on above: Order Comment: Campu s: M Performed By: #### L 200.15753 ####[facility] LYZTIKXQCO[address] [place] [address] 385[address]Ff# [phone] WBC 12.4 K/CUMM High 4.5-11.0 [facility] Comment on above: Order Comment: Campu s: M Performed By: #### L 200.75104 ####[facility] BAREKXKFWR9[address] [place] [address] 528[address]Vy# [phone] BASO ABS 0.00 K/CU MM Normal 0-0.2 [facility] Comment on above: Order Comment: Campu s: M Performed By: #### L 200.12010 ####[facility] GYBUHXVUXB[address] [place], [place] [address]Ph# [phone] Basophils/100 WBC (Bld) 0.3 % Normal 0-2 [facility] [place] Comment on above: Order Comment: Campu s: M Performed By: #### L 200.97095 ####[facility] EIYZKXYORB2654 [place], [place] [address]On# [phone] EOS ABS 0.10 K/CU MM Normal 0-0.5 [facility] [place] Comment on above: Order Comment: Campu s: M Performed By: #### L 200.12637 ####[facility] FCHSGIXQHH895[address] [place], [place] [address]Ph# [phone] Eosinophils/100 WBC (Bld) 0.5 % Normal 0-5 [facility] Comment on above: Order Comment: Campu s: M Performed By: #### L 200.23988 ####[address] [address]Jg# [phone] Erythrocyte distribution width (RBC) [Ratio] 13.1 % Normal 11-14.5 [facility] Comment on above: Order Comment: Campu s: M Performed By: #### L 200.80637 ####[facility] SJHFYCWZHM[address] [place] [address] 15227Ul# [phone] Hematocrit (Bld) [Volume fraction] 47.1 % Normal 41.0-53.0 [facility] Comment on above: Order Comment: Campu s: M Performed By: #### L 200.10730 ####[facility] JJJMRJVGYD637[address] [place], [place] [address]Ph# [phone] Hemoglobin (Bld) [Mass/Vol] 16.5 g/dL Normal 13.5-17.5 [facility] Comment on above: Order Comment: Campu s: M Performed By: #### L 200.40945 ####[facility] TBTZDMOQJZ7295 [place], [place] [address]Oq# [phone] IMMATR GRAN ABS 0.10 K/CU MM Normal Less than 2 [facility] Comment on above: Order Comment: Campu s: M Performed By: #### L 200.70698 ####[place] [address] [place], [place] [address]Eg# [phone] IMMATURE GRAN % 0.5 % Normal Less than 2 [facility] Comment on above: Order Comment: Campu s: M Performed By: #### L 200.88265 ####[facility] [id number] [place] [address] 20[address]Ln# [phone] LYMPH ABS 1.30 K/CU MM Normal 0.9-4.4 [facility] [place] Comment on above: Order Comment: Campu s: M Performed By: #### L 200.17278 ####[place] [address]Ph# [phone] Lymphocytes/100 WBC (Bld) 8.9 % Low 20-40 [facility] Comment on above: Order Comment: Campu s: M Performed By: #### L 200.88198 ####[facility] AQGYCVWYRJ90[address] [place], [place] [address]Ph# [phone] MCHC (RBC) [Mass/Vol] 35.0 g/dL Normal 32.0-36.0 [facility] Comment on above: Order Comment: Campu s: M Performed By: #### L 200.69085 ####[facility] TYJFYLSZSI9475[address] [place] [address] 835[address]Ve# [phone] MCV (RBC) [Entitic vol] 89.5 fL Normal 80.0-99.0 [facility] Comment on above: Order Comment: Campu s: M Performed By: #### L 200.28827 ####[facility] DFFFIXZVZC604[address] [place] [address] 6[address]Pj# [phone] MONO ABS 1.10 K/CU MM Normal 0.1-1.1 [facility] Comment on above: Order Comment: Campu s: M Performed By: #### L 200.17431 ####[facility] QEZILGUOQV[address] [place] [address] 734[address]Xe# [phone] Monocytes/100 WBC (Bld) 7.3 % Normal 2-10 [facility] Comment on above: Order Comment: Campu s: M Performed By: #### L 200.20549 ####[facility] DNQUFZZUBT1746 [place], [place] [address]Zs# [phone] NEUTROPHIL ABS 12.00 K/CU MM High 2.0-8.3 [facility] [place] Comment on above: Order Comment: Campu s: M Performed By: #### L 200.26062 ####[facility] YXNDGHOSEK[address] [place], [place] [address]Ph# [phone] Neutrophils/100 WBC (Bld) 82.5 % High 45-75 [facility] Comment on above: Order Comment: Campu s: M Performed By: #### L 200.00715 ####[address] [address]Tu# [phone] Nucleated RBC/100 WBC (Bld) [Ratio] 0.0 % Normal Less than 1 [facility] Comment on above: Order Comment: Campu s: M Performed By: #### L 200.46215 ####[address] [address]Ow# [phone] Platelet mean volume (Bld) [Entitic vol] 10.0 fL Normal 9.4-12.4 [facility] Comment on above: Order Comment: Campu s: M Performed By: #### L 200.77689 ####[facility] SCKHOWPYTQ[address] [place] [address] 150[address]Fo# [phone] PLT 204 K/CU MM Normal 150-450 [facility] Comment on above: Order Comment: Campu s: M Performed By: #### L 200.04307 ####[facility] JEFKYGSGPV[address] [place] [address] 90[address]Dv# [phone] RBC 5.26 M/CU MM Normal 4.50-6.00 [facility] [place] Comment on above: Order Comment: Campu s: M Performed By: #### L 200.85970 ####[facility] ZAPCFJQPBR5574 [place], [place] [address]Ki# [phone] WBC 14.6 K/CUMM High 4.5-11.0 [facility] Comment on above: Order Comment: Campu s: M Performed By: #### L 200.50138 ####[facility] KYNLYCWWAX0128 [place], [place] [address]Bn# [phone] CKon 11-30-2020 CK [Catalytic activity/Vol] 5341 U/L Critically high 26-192 [facility] Comment on above: Order Comment: Campu s: M Result Comment: Slig ht Hemolysis, Result may be affected.[place] check reviewedPrevious Critical within one week. Critical Result(s)verified at: 23:42:29 on 11/29/2020 by: Belem Barroso NEW NORMAL RANGE DUE TO REAGENT CHANGE Performed By: #### L 500.44531, L500.34847, L500.14982, L500.00145 ####[facility] SABYRIKFNA9337 [place], [place] [address]Rj# [phone] CMPon 11-30-2020 Albumin [Mass/Vol] 3.2 g/dL Normal 3.2-5.0 [facility] Comment on above: Order Comment: Campu s: M Performed By: #### L 500.88056, L500.16686, L500.38192, L500.95053 ####[facility] PEZPDGJEYM3643 [place], [place] [address]Wj# [phone] Albumin/Globulin [Mass ratio] 1.2 {ratio} Normal 0.8-2.0 [facility] Comment on above: Order Comment: Campu s: M Performed By: #### L 500.27253, L500.48477, L500.37462, L500.12472 ####[facility] LXFJWZYWOB6040 [place], [place] [address]Ec# [phone] ALK PHOS 53 U/L Normal 45-117 [facility] Comment on above: Order Comment: Campu s: M Performed By: #### L 500.74084, L500.87965, L500.78740, L500.93204 ####[facility] AMSPBEQGKV9831 [place], [place] [address]Qj# [phone] ALT [Catalytic activity/Vol] 234 U/L High 13-61 [facility] Comment on above: Order Comment: Aaronu s: M Result Comment: RESU LTS MAY BE FALSELY DEPRESSED AFTER THE ADMINISTRATION OFSULFASALAZINE AND/OR SULFAPYRIDINE. Performed By: #### L 500.61197, L500.02114, L500.89674, L500.60159 ####[facility] DYHYOOFAYW5030 [place], [place] [address]Zk# [phone] Anion gap [Moles/Vol] 8 mmol/L Normal 5-16 [facility] Comment on above: Order Comment: Campu s: M Performed By: #### L 500.62429, L500.30141, L500.62807, L500.22481 ####[facility] MFBVCOAEDY0654 [place], [place] [address]Fo# [phone] AST [Catalytic activity/Vol] 271 U/L High 8-34 [facility] Comment on above: Order Comment: Aaronu s: M Result Comment: RESU LTS MAY BE FALSELY DEPRESSED AFTER THE ADMINISTRATION OFSULFASALAZINE AND/OR SULFAPYRIDINE. Performed By: #### L 500.42040, L500.10641, L500.92092, L500.28332 ####[facility] RVCETNAHBB6123 [place], [place] [address]Nf# [phone] BILI TOTAL 0.80 MG/DL Normal 0.2-1.0 [facility] Comment on above: Order Comment: Campu s: M Performed By: #### L 500.40050, L500.49386, L500.49758, L500.61494 ####[facility] GUNTQBPJDC7507 [place], [place] [address]Ll# [phone] Calcium [Mass/Vol] 9.1 mg/dL Normal 8.5-10.5 [facility] Comment on above: Order Comment: Campu s: M Result Comment: NOTE NEW NORMAL RANGE DUE TO REAGENT CHANGE Performed By: #### L 500.83365, L500.95800, L500.57389, L500.31103 ####[facility] HEYXGSAVVD8944 [place], [place] [address]Tu# [phone] Chloride [Moles/Vol] 110 mmol/L High 98-107 [facility] Comment on above: Order Comment: Campu s: M Performed By: #### L 500.74168, L500.09045, L500.98884, L500.54764 ####[facility] AVCQUINYPE3420 [place], [place] [address]No# [phone] CO2 [Moles/Vol] 27.0 mmol/L Normal 21-32 [facility] Comment on above: Order Comment: Campu s: M Performed By: #### L 500.77798, L500.88875, L500.60874, L500.09584 ####[facility] HPLTWNZYXM5728 [place], [place] [address]Zr# [phone] Creatinine [Mass/Vol] 0.63 mg/dL Normal 0.5-1.4 [facility] Comment on above: Order Comment: Campu s: M Result Comment: NOTE NEW NORMAL RANGE DUE TO REAGENT CHANGEPatients receiving either N-Acetylcysteine (NAC) orMetamizole prior to venipuncture, may have falsely depressedresults. Performed By: #### L 500.11822, L500.30202, L500.48104, L500.30676 ####[facility] JFUYMZWXDU5814 [place], [place] [address]Vz# [phone] Globulin (S) [Mass/Vol] 2.6 g/dL Normal 2.2-4.2 [facility] Comment on above: Order Comment: Campu s: M Performed By: #### L 500.29041, L500.81298, L500.58377, L500.54318 ####[facility] TPTCBOTWRC0616 [place], [place] [address]Bn# [phone] Glucose [Mass/Vol] 109 mg/dL High 70-100 [facility] [place] Comment on above: Order Comment: Campu s: M Result Comment: 70-1 00- Normal Fasting; 100-125 Impaired Fasting; greaterthan 126 on more than one result- Diabetes. ADA guidelines.Results may be falsely elevated after the administration ofSulfapyridine.Results may be falsely depressed after the administration ofSulfasalazine. Performed By: #### L 500.00921, L500.79059, L500.24264, L500.24184 ####[facility] HMMUKFMBWL4226 [place], [place] [address]Cn# [phone] Potassium [Moles/Vol] 3.8 mmol/L Normal 3.5-5.1 [facility] Comment on above: Order Comment: Campu s: M Result Comment: Slig ht Hemolysis, Result may be affected. Performed By: #### L 500.25077, L500.05544, L500.09189, L500.35039 ####[facility] LILFCQTLUX7230 [place], [place] [address]Hi# [phone] Protein [Mass/Vol] 5.8 g/dL Low 6.0-8.5 [facility] Comment on above: Order Comment: Campu s: M Performed By: #### L 500.01337, L500.24391, L500.46978, L500.46312 ####[facility] TKBYRADOTG8585 [place], [place] [address]Qf# [phone] Sodium [Moles/Vol] 145 mmol/L Normal 136-145 [facility] Comment on above: Order Comment: Campu s: M Performed By: #### L 500.62536, L500.91058, L500.81479, L500.89670 ####[facility] TCCYVXJDEN8213 [place], [place] [address]Sv# [phone] Urea nitrogen [Mass/Vol] 14 mg/dL Normal 7-26 [facility] Comment on above: Order Comment: Campu s: M Performed By: #### L 500.01457, L500.07244, L500.96902, L500.97436 ####[facility] EYSGUCHKHF9359 [place], [place] [address]Ha# [phone] Urea nitrogen/Creatinine [Mass ratio] 22 mg/mg Normal 15-24 [facility] Comment on above: Order Comment: Campu s: M Performed By: #### L 500.26562, L500.04986, L500.15481, L500.35553 ####[facility] LZRBPKOAHO9655 [place], [place] [address]Ks# [phone] Albumin [Mass/Vol] 3.3 g/dL Normal 3.2-5.0 [facility] Comment on above: Order Comment: Campu s: M Performed By: #### L 500.64325, L500.34054, L500.10537, L500.39651 ####[facility] NKRCSCIIDK[address] [place] [address]Vf# [phone] Albumin/Globulin [Mass ratio] 1.2 {ratio} Normal 0.8-2.0 [facility] Comment on above: Order Comment: Campu s: M Performed By: #### L 500.63963, L500.90467, L500.51940, L500.32487 ####[facility] VWMLHDRZWM3038 [place], [place] [address]Ck# [phone] ALK PHOS 54 U/L Normal 45-117 [facility] Comment on above: Order Comment: Campu s: M Performed By: #### L 500.55072, L500.62314, L500.93794, L500.37329 ####[facility] YSKJQCBNVQ1503 [place], [place] [address]Oa# [phone] ALT [Catalytic activity/Vol] 256 U/L High 13-61 [facility] Comment on above: Order Comment: Campu s: M Result Comment: RESU LTS MAY BE FALSELY DEPRESSED AFTER THE ADMINISTRATION OFSULFASALAZINE AND/OR SULFAPYRIDINE. Performed By: #### L 500.64354, L500.83483, L500.31357, L500.17167 ####[facility] RFFYTYODER8665 [place], [place] [address]Rf# [phone] Anion gap [Moles/Vol] 8 mmol/L Normal 5-16 [facility] Comment on above: Order Comment: Campu s: M Performed By: #### L 500.83279, L500.34549, L500.71556, L500.64113 ####[facility] DFYOBBFVJC1281 [place], [place] [address]Wi# [phone] AST [Catalytic activity/Vol] 351 U/L High 8-34 [facility] Comment on above: Order Comment: Campu s: M Result Comment: RESU LTS MAY BE FALSELY DEPRESSED AFTER THE ADMINISTRATION OFSULFASALAZINE AND/OR SULFAPYRIDINE. Performed By: #### L 500.51234, L500.29384, L500.57072, L500.66293 ####[facility] LSVYKYPRON0948 [place], [place] [address]Tl# [phone] BILI TOTAL 0.80 MG/DL Normal 0.2-1.0 [facility] Comment on above: Order Comment: Campu s: M Performed By: #### L 500.63822, L500.77451, L500.38737, L500.83941 ####[facility] SENMBCPFQJ0758 [place], [place] [address]Rf# [phone] Calcium [Mass/Vol] 9.0 mg/dL Normal 8.5-10.5 [facility] Comment on above: Order Comment: Campu s: M Result Comment: NOTE NEW NORMAL RANGE DUE TO REAGENT CHANGE Performed By: #### L 500.23070, L500.87851, L500.41263, L500.88703 ####[facility] WEEZZDQMCB6295 [place], [place] [address]Lr# [phone] Chloride [Moles/Vol] 110 mmol/L High 98-107 [facility] Comment on above: Order Comment: Campu s: M Performed By: #### L 500.40332, L500.39066, L500.08911, L500.15896 ####[facility] NWJIBGDMAD5677 [place], [place] [address]Cv# [phone] CO2 [Moles/Vol] 26.0 mmol/L Normal 21-32 [facility] Comment on above: Order Comment: Campu s: M Performed By: #### L 500.61785, L500.41258, L500.04185, L500.57018 ####[facility] JENHWZBCXA6946 [place], [place] [address]Pw# [phone] Creatinine [Mass/Vol] 0.65 mg/dL Normal 0.5-1.4 [facility] Comment on above: Order Comment: Campu s: M Result Comment: NOTE NEW NORMAL RANGE DUE TO REAGENT CHANGEPatients receiving either N-Acetylcysteine (NAC) orMetamizole prior to venipuncture, may have falsely depressedresults. Performed By: #### L 500.75284, L500.13267, L500.48455, L500.98817 ####[facility] INSZYTLBAJ6561 [place], [place] [address]Xk# [phone] Globulin (S) [Mass/Vol] 2.8 g/dL Normal 2.2-4.2 [facility] Comment on above: Order Comment: Campu s: M Performed By: #### L 500.44863, L500.17775, L500.90770, L500.97667 ####[facility] UELPYSKGLI4164 [place], [place] [address]Lq# [phone] Glucose [Mass/Vol] 120 mg/dL High 70-100 [facility] Comment on above: Order Comment: Campu s: M Result Comment: 70-1 00- Normal Fasting; 100-125 Impaired Fasting; greaterthan 126 on more than one result- Diabetes. ADA guidelines.Results may be falsely elevated after the administration ofSulfapyridine.Results may be falsely depressed after the administration ofSulfasalazine. Performed By: #### L 500.93447, L500.85290, L500.87115, L500.40455 ####[facility] IXBRJGJQBQ5584 [place], [place] [address]Np# [phone] Potassium [Moles/Vol] 3.9 mmol/L Normal 3.5-5.1 [facility] [place] Comment on above: Order Comment: Campu s: M Result Comment: Slig ht Hemolysis, Result may be affected. Performed By: #### L 500.15782, L500.12586, L500.73887, L500.52315 ####[facility] LIAMUVJITP4536 [place], [place] [address]Dz# [phone] Protein [Mass/Vol] 6.1 g/dL Normal 6.0-8.5 [facility] Comment on above: Order Comment: Campu s: M Performed By: #### L 500.80450, L500.55074, L500.54722, L500.62944 ####[facility] [address]VPHNE[address] [place] [address]Ko# [phone] Sodium [Moles/Vol] 144 mmol/L Normal 136-145 [facility] [place] Comment on above: Order Comment: Campu s: M Performed By: #### L 500.23835, L500.50475, L500.44102, L500.97902 ####[facility] JUFBEOQODP4831 [place], [place] [address]Uj# [phone] Urea nitrogen [Mass/Vol] 15 mg/dL Normal 7-26 [facility] [place] Comment on above: Order Comment: Campu s: M Performed By: #### L 500.74248, L500.71307, L500.53636, L500.10038 ####[facility] NQDZJEDNAI7024 [place], [place] [address]Bv# [phone] Urea nitrogen/Creatinine [Mass ratio] 23 mg/mg Normal 15-24 [facility] Comment on above: Order Comment: Campu s: M Performed By: #### L 500.19879, L500.86329, L500.37549, L500.75611 ####[facility] MEBJVUYURY2633 [place], [place] [address]Oz# [phone] CONS.GIon 11-30-2020 CONS.GI Normal [facility] Consultation-GI Normal [facility] GFR ESTon 11-30-2020 IF AMER Greater than 60 Normal [facility] Comment on above: Order Comment: Campu s: M Performed By: #### L 500.19737, L500.66514, L500.72059, L500.53217 ####[facility] [id number] [place], [place] [address]Og# [phone] IF non-AFR AMER Greater than 60 Normal [facility] Comment on above: Order Comment: Campu s: M Performed By: #### L 500.41652, L500.28333, L500.47258, L500.11417 ####[facility] [id number] [place], [place] [address]Tx# [phone] IF AMER Greater than 60 Normal [facility] Comment on above: Order Comment: Campu s: M Performed By: #### L 500.66018, L500.53629, L500.56498, L500.97373 ####[facility] [id number] [place], [place] [address]Fg# [phone] IF non-AFR AMER Greater than 60 Normal [facility] Comment on above: Order Comment: Campu s: M Performed By: #### L 500.40527, L500.95145, L500.30998, L500.87910 ####[facility] [id number] [place], [place] [address]Zl# [phone] GLUCOSE METERon 11-30-2020 Glucose [Mass/Vol] 124 mg/dL High 70-115 [facility] Glucose [Mass/Vol] 120 mg/dL High 70-115 [facility] Glucose [Mass/Vol] 132 mg/dL High 70-115 [facility] Glucose [Mass/Vol] 106 mg/dL Normal 70-115 [facility] IONIZED CAon 11-30-2020 IONIZED CA 1.13 MMOL/L Low 1.16-1.32 [facility] Comment on above: Order Comment: Aaronu s: M Performed By: #### L 550.66053 ####[facility] [id number] [place], [place] [address]Gp# [phone] IONIZED CA 1.12 MMOL/L Low 1.16-1.32 [facility] Comment on above: Order Comment: Aaronu s: M Performed By: #### L 550.45472 ####[facility] UYLQAHCVWV5647 [place], [place] [address]Dk# [phone] MAGNESIUMon 11-30-2020 Magnesium [Mass/Vol] 1.9 mg/dL Normal 1.6-2.6 [facility] Comment on above: Order Comment: Aaronu s: M Performed By: #### L 500.35054, L500.74052, L500.08980, L500.50940 ####[facility] [id number] [place], [place] [address]Ro# [phone] Magnesium [Mass/Vol] 1.8 mg/dL Normal 1.6-2.6 [facility] Comment on above: Order Comment: Gabriela s: M Result Comment: Slig ht Hemolysis, Result may be affected.[place] check reviewedPrevious Critical within one week. Critical Result(s)verified at: 23:42:29 on 11/29/2020 by: Belem Sorenson Performed By: #### L 500.51785, L500.28895, L500.30107, L500.20310 ####[facility] IDNTISKLZV6730 [place], [place] [address]Fl# [phone] NEURO.EEGon 11-30-2020 NEURO.EEG Normal [facility] Neurology - EEG Normal [facility] PHOSon 11-30-2020 Phosphate [Mass/Vol] 2.70 mg/dL Normal 2.5-4.9 [facility] Comment on above: Order Comment: Gabriela s: M Result Comment: Elev ated m-protein (paraprotein) levels in the serum may beexhibited in patients with monoclonal gammopathies, causingfalsely elevated inorganic phosphorus results. Performed By: #### L 500.72652, L500.68278, L500.67345, L500.88287 ####[facility] MQFMREXPWH8659 [place], [place] [address]Bl# [phone] PROG IMSon 11-30-2020 PROG IMS Normal [facility] Progress Note-Hospitalist Normal [facility] PROG.Meche 11-30-2020 PROG.CARD Normal [facility] Progress Note-Cardiology Normal [facility] PROG.INTENon 11-30-2020 PROG.INTEN Normal [facility] Progress Note-Trans Router Normal [facility] PROG.INTEN Normal [facility] Progress Note-Trans Router Normal [facility] PTon 11-30-2020 INR Coag (PPP) [Relative time] 1.02 {INR} Normal 0.9-1.1 [facility] Comment on above: Order Comment: Gabriela s: M Result Comment: Jesse mmended PT INR therapeutic range for correction andprophylactic therapy is 2.0 - 3.0. For heart valve andshunt patients the range is 2.5 - 3.5. Performed By: #### L 300.83580, L300.06630 ####[facility] ANWXZABIDY3649 [place], [place] [address]Tu# [phone] PTS 10.9 SECONDS Normal 9.5-12.0 [facility] Comment on above: Order Comment: Gabriela s: M Performed By: #### L 300.84008, L300.54486 ####[facility] WRSTYCPLVF0273 [place], [place] [address]Fv# [phone] INR Coag (PPP) [Relative time] 1.02 {INR} Normal 0.9-1.1 [facility] Comment on above: Order Comment: Gabriela s: M Result Comment: Jesse mmended PT INR therapeutic range for correction andprophylactic therapy is 2.0 - 3.0. For heart valve andshunt patients the range is 2.5 - 3.5. Performed By: #### L 300.89976, L300.57371 ####[facility] XSTVEZYITB1880 [place], [place] [address]Ao# [phone] PTS 10.9 SECONDS Normal 9.5-12.0 [facility] Comment on above: Order Comment: Gabriela qiu: Carmen Performed By: #### L 300.65811, L300.38346 ####[facility] VGXDBXMWNR4469 [place], [place] [address]Zp# [phone] PTTon 11-30-2020 aPTT Coag (Bld) [Time] 38.5 s High 22.0-31.5 [facility] Comment on above: Order Comment: Gabriela qiu: JODI/ Draw Result Comment: Ther apeutic Heparin Reference Range: High Dose: 46-75 seconds (DVT/PE) Low Dose: 39-60 seconds (Acute Coronary Syndrome)For low molecular weight heparin or danaparoid, monitoringis often NOT necessary, but the heparin assay, Xa inhibitionassay (send-out) may be used in certain circumstances, asthe PTT is generally insensitive to the effect of theseagents. Direct thrombin inhibitors are becoming more widelyutilized and these drugs are often monitored using the PTT. Performed By: #### L 300.37689 ####[facility] KUJOSFMFMD3659 [place], [place] [address]Fo# [phone] aPTT Coag (Bld) [Time] 50.6 s High 22.0-31.5 [facility] Comment on above: Order Comment: Gabriela qiu: M Result Comment: Ther apeutic Heparin Reference Range: High Dose: 46-75 seconds (DVT/PE) Low Dose: 39-60 seconds (Acute Coronary Syndrome)For low molecular weight heparin or danaparoid, monitoringis often NOT necessary, but the heparin assay, Xa inhibitionassay (send-out) may be used in certain circumstances, asthe PTT is generally insensitive to the effect of theseagents. Direct thrombin inhibitors are becoming more widelyutilized and these drugs are often monitored using the PTT. Performed By: #### L 300.19688 ####[facility] MOVXBIQIJD2803 [place], [place] [address]Ts# [phone] aPTT Coag (Bld) [Time] 41.2 s High 22.0-31.5 [facility] Comment on above: Order Comment: Gabriela qiu: Carmen Result Comment: Ther apeutic Heparin Reference Range: High Dose: 46-75 seconds (DVT/PE) Low Dose: 39-60 seconds (Acute Coronary Syndrome)For low molecular weight heparin or danaparoid, monitoringis often NOT necessary, but the heparin assay, Xa inhibitionassay (send-out) may be used in certain circumstances, asthe PTT is generally insensitive to the effect of theseagents. Direct thrombin inhibitors are becoming more widelyutilized and these drugs are often monitored using the PTT. Performed By: #### L 300.47186, L300.34944 ####[facility] BJGITOHXUQ3940 [place], [place] [address]Rq# [phone] aPTT Coag (Bld) [Time] 35.8 s High 22.0-31.5 [facility] Comment on above: Order Comment: Gabriela qiu: Carmen Result Comment: Ther apeutic Heparin Reference Range: High Dose: 46-75 seconds (DVT/PE) Low Dose: 39-60 seconds (Acute Coronary Syndrome)For low molecular weight heparin or danaparoid, monitoringis often NOT necessary, but the heparin assay, Xa inhibitionassay (send-out) may be used in certain circumstances, asthe PTT is generally insensitive to the effect of theseagents. Direct thrombin inhibitors are becoming more widelyutilized and these drugs are often monitored using the PTT. Performed By: #### L 300.51128 ####[facility] [id number] [place], [place] [address]Wt# [phone] aPTT Coag (Bld) [Time] 35.5 s High 22.0-31.5 [facility] Comment on above: Order Comment: Gabriela Morales Result Comment: Ther apeutic Heparin Reference Range: High Dose: 46-75 seconds (DVT/PE) Low Dose: 39-60 seconds (Acute Coronary Syndrome)For low molecular weight heparin or danaparoid, monitoringis often NOT necessary, but the heparin assay, Xa inhibitionassay (send-out) may be used in certain circumstances, asthe PTT is generally insensitive to the effect of theseagents. Direct thrombin inhibitors are becoming more widelyutilized and these drugs are often monitored using the PTT. Performed By: #### L 300.20158, L300.06431 ####[facility] AWEHUTHOVP7759 [place], [place] [address]Gn# [phone] ABDOMEN OR KUBon 11-29-2020 ABDOMEN OR KUB Normal [facility] ABGPEGLAon 11-29-2020 ABG BE -2.8 MML/L Low -2.0-2.0 [facility] Comment on above: Order Comment: Campu s: CORTNEY BLOOD GAS? YPatient's Anticoagulant? HEPARIN Performed By: #### L 100.42376 ####[facility] GXHDFJTRVM9460 [place], [place] [address]Zx# [phone] ABG COHBA 0.3 % Normal 0-10 [facility] Comment on above: Order Comment: Campu s: CORTNEY BLOOD GAS? YPatient's Anticoagulant? HEPARIN Performed By: #### L 100.86078 ####[facility] [id number] [place], [place] [address]Zr# [phone] ABG GLU 181.0 MG/DL High 60-80 [facility] Comment on above: Order Comment: Campu s: CORTNEY BLOOD GAS? YPatient's Anticoagulant? HEPARIN Performed By: #### L 100.92132 ####[facility] NKBICGTXUK7669 [place], [place] [address]Sg# [phone] ABG MET 0.1 % Low 0.4-1.5 [facility] Comment on above: Order Comment: Campu s: CORTNEY BLOOD GAS? YPatient's Anticoagulant? HEPARIN Performed By: #### L 100.25341 ####[facility] KAQPGYPSSC8040 [place], [place] [address]Oh# [phone] ABG O2 CAPACITY 24.5 mL/dL Normal [facility] Comment on above: Order Comment: Campu s: CORTNEY BLOOD GAS? YPatient's Anticoagulant? HEPARIN Performed By: #### L 100.08973 ####[facility] [id number] [place], [place] [address]Hk# [phone] ABG O2 CONTENT 25.3 mL/dL High 15.7-21.6 [facility] Comment on above: Order Comment: Campu s: CORTNEY BLOOD GAS? YPatient's Anticoagulant? HEPARIN Performed By: #### L 100.32979 ####[facility] CCQJJMVRYC4160 [place], [place] [address]Vg# [phone] ABG O2HB SAT 98.9 % Normal 90-100 [facility] Comment on above: Order Comment: Campu s: CORTNEY BLOOD GAS? YPatient's Anticoagulant? HEPARIN Performed By: #### L 100.21881 ####[facility] LYQQDZELZU2660 [place], [place] [address]Fv# [phone] ABG PCO2 30.7 MMHG Low 35-45 [facility] Comment on above: Order Comment: Campu s: CORTNEY BLOOD GAS? YPatient's Anticoagulant? HEPARIN Performed By: #### L 100.32550 ####[facility] QVTYLYPXYI4101 [place], [place] [address]Gg# [phone] ABG PH 7.43 Normal 7.35-7.45 [facility] Comment on above: Order Comment: Campu s: CORTNEY BLOOD GAS? YPatient's Anticoagulant? HEPARIN Performed By: #### L 100.56159 ####[facility] JPFXTEQNAZ9356 [place], [place] [address]Vv# [phone] ABG PO2 304.9 MMHG High 80-100 [facility] Comment on above: Order Comment: Campu s: CORTNEY BLOOD GAS? YPatient's Anticoagulant? HEPARIN Performed By: #### L 100.02783 ####[facility] GCTEOMBKLG7725 [place], [place] [address]Df# [phone] ABG REDUCED HGB 0.7 % Normal 0-5 [facility] Comment on above: Order Comment: Campu s: CORTNEY BLOOD GAS? YPatient's Anticoagulant? HEPARIN Performed By: #### L 100.77363 ####[facility] BONGQZJEPW7725 [place], [place] [address]Cc# [phone] MARKELL TEST Positive Normal [facility] Comment on above: Order Comment: Campu s: CORTNEY BLOOD GAS? YPatient's Anticoagulant? HEPARIN Performed By: #### L 100.96243 ####[facility] [address]LFXFLVTEQ[address] [place] [address]Hf# [phone] Body temperature 98.42 [degF] Normal [facility] Comment on above: Order Comment: Campu s: CORTNEY BLOOD GAS? YPatient's Anticoagulant? HEPARIN Performed By: #### L 100.15710 ####[facility] OXIGATMDOC[address] [place] [address]Kg# [phone] EQUIPMENT VENTILATOR Normal [facility] Comment on above: Order Comment: Campu s: CORTNEY BLOOD GAS? YPatient's Anticoagulant? HEPARIN Performed By: #### L 100.94386 ####[facility] CCBLYHXUDC[address] [place], [place] [address]Ph# [phone] FIO2 80 % Normal [facility] Comment on above: Order Comment: Campu s: CORTNEY BLOOD GAS? YPatient's Anticoagulant? HEPARIN Performed By: #### L 100.35969 ####[facility] MSAFZXYKMV229[address] [place], [place] [address]Ph# [phone] HCO3 (Bld) [Moles/Vol] 20.0 mmol/L Low 22-26 [facility] Comment on above: Order Comment: Campu s: CORTNEY BLOOD GAS? YPatient's Anticoagulant? HEPARIN Performed By: #### L 100.53042 ####[facility] EFMZKUKDNW[address] [place] [address]Rh# [phone] Hemoglobin (Bld) [Mass/Vol] 17.7 g/dL High 10-16 [facility] Comment on above: Order Comment: Campu s: CORTNEY BLOOD GAS? YPatient's Anticoagulant? HEPARIN Performed By: #### L 100.11517 ####[facility] BJKAXATOUU2000 [place] [address]Ph# [phone] IONIZED CA 1.17 MMOL/L Normal 1.13-1.32 [facility] Comment on above: Order Comment: Campu s: CORTNEY BLOOD GAS? YPatient's Anticoagulant? HEPARIN Performed By: #### L 100.95164 ####[facility] [address] [place] [address]# [phone] LACTATE BLOOD 2.83 MMOL/L High 0.40-2.00 [facility] Comment on above: Order Comment: Campu s: CORTNEY BLOOD GAS? YPatient's Anticoagulant? HEPARIN Performed By: #### L 100.01206 ####[facility] GOFOOSAATY[address] [place] [address]# [phone] PEEP 8.0 CMH2O Normal [facility] Comment on above: Order Comment: Campu s: CORTNEY BLOOD GAS? YPatient's Anticoagulant? HEPARIN Performed By: #### L 100.02288 ####[facility] [address]GLLIEYDJH[address] [place], [place] [address]Ph# [phone] Potassium [Moles/Vol] 4.3 mmol/L Normal 3.5-5.0 [facility] Comment on above: Order Comment: Campu s: CORTNEY BLOOD GAS? YPatient's Anticoagulant? HEPARIN Performed By: #### L 100.65758 ####[facility] [address]OQU[address]VCRTM[address] [place] [address]# [phone] RESP. RATE Normal [facility] Comment on above: Order Comment: Campu s: CORTNEY BLOOD GAS? YPatient's Anticoagulant? HEPARIN Performed By: #### L 100.60783 ####[facility] SNYTXKOCTE[address] [place] [address]# [phone] SAMPLE SITE L RADIAL Normal [facility] Comment on above: Order Comment: Campu s: CORTNEY BLOOD GAS? YPatient's Anticoagulant? HEPARIN Performed By: #### L 100.66589 ####[facility] NPVVJWOUSY9861 [place], [place] [address]Gf# [phone] SAMPLE TYPE ARTERIAL Normal [facility] Comment on above: Order Comment: Campu s: CORTNEY BLOOD GAS? YPatient's Anticoagulant? HEPARIN Performed By: #### L 100.89375 ####[facility] SYXRCNMXXF[address] [place], [place] [address]Ph# [phone] Sodium [Moles/Vol] 138 mmol/L Normal 136-148 [facility] Comment on above: Order Comment: Campu s: CORTNEY BLOOD GAS? YPatient's Anticoagulant? HEPARIN Performed By: #### L 100.77795 ####[facility] UXUXOIHRZZ[address] [place], [place] [address]Ph# [phone] TIDAL VOLUME 0.650 LITERS Normal [facility] Comment on above: Order Comment: Campu s: CORTNEY BLOOD GAS? YPatient's Anticoagulant? HEPARIN Performed By: #### L 100.55673 ####[facility] PWVZDRDPLW9425[address] [place], [place] [address]Ph# [phone] VENT MODE VOLUME VENT PLUS Normal [facility] Comment on above: Order Comment: Campu s: CORTNEY BLOOD GAS? YPatient's Anticoagulant? HEPARIN Performed By: #### L 100.07738 ####[facility] [address]ZBMAZWXAM[address] [place], [place] [address]Ph# [phone] ABG BE -9.3 MML/L Low -2.0-2.0 [facility] Comment on above: Performed By: #### L 100.47519 ####[facility] IQEKJFAWNV8428 [place], [place] [address]Se# [phone] ABG COHBA 0.9 % Normal 0-10 [facility] Comment on above: Performed By: #### L 100.56585 ####[facility] DRYVVPBEIR[address] [place], [place] [address]Ph# [phone] ABG GLU 220.0 MG/DL High 60-80 [facility] Comment on above: Performed By: #### L 100.59419 ####[facility] XUZMTYEJGF6867 [place], [place] [address]As# [phone] ABG MET 0.1 % Low 0.4-1.5 [facility] Comment on above: Performed By: #### L 100.54029 ####[facility] KMXHKUPIWL7123 [place], [place] [address]Yn# [phone] ABG O2 CAPACITY 22.7 mL/dL Normal [facility] Comment on above: Performed By: #### L 100.54229 ####[facility] KGBHWVOMBU2881 [place], [place] [address]Th# [phone] ABG O2 CONTENT 22.8 mL/dL High 15.7-21.6 [facility] Comment on above: Performed By: #### L 100.56265 ####[facility] IXKOFRPZOH3724 [place], [place] [address]Ry# [phone] ABG O2HB SAT 97.5 % Normal 90-100 [facility] [place] Comment on above: Performed By: #### L 100.47251 ####[facility] VTCMCPWZAZ6012 [place], [place] [address]Ea# [phone] ABG PCO2 40.1 MMHG Normal 35-45 [facility] Comment on above: Performed By: #### L 100.09378 ####[facility] BTKDPVBVMB6049 [place], [place] [address]Gy# [phone] ABG PH 7.25 Low 7.35-7.45 [facility] Comment on above: Performed By: #### L 100.56518 ####[facility] WURSBQHFDM9738 [place], [place] [address]Yw# [phone] ABG PO2 148.7 MMHG High 80-100 [facility] Comment on above: Performed By: #### L 100.60016 ####[facility] [address]NSRYNFO[address] [place] [address]Yw# [phone] ABG REDUCED HGB 1.5 % Normal 0-5 [facility] Comment on above: Performed By: #### L 100.66362 ####[facility] XAAHEFXLMZ0939 [place], [place] [address]Ak# [phone] MARKELL TEST N/A [facility] Comment on above: Performed By: #### L 100.95099 ####[facility] FDKJOOBDRR0887 [place], [place] [address]Bt# [phone] Body temperature 98.6 [degF] Normal [facility] [place] Comment on above: Performed By: #### L 100.51346 ####[facility] [place], [place] [address]Df# [phone] EQUIPMENT VENTILATOR Normal [facility] Comment on above: Performed By: #### L 100.84264 ####[facility] ZASABCEPFF[address] [place] [address]Ww# [phone] FIO2 100 % Normal [facility] Comment on above: Performed By: #### L 100.05950 ####[facility] WJTYIYFTPE99[address] [place] [address]Ch# [phone] HCO3 (Bld) [Moles/Vol] 17.3 mmol/L Low 22-26 [facility] Comment on above: Performed By: #### L 100.96464 ####[facility] FGMTNTXJUH7354[address] [place] [address]Xg# [phone] Hemoglobin (Bld) [Mass/Vol] 16.5 g/dL High 10-16 [facility] Comment on above: Performed By: #### L 100.30188 ####[facility] EIMSDYHUEM[address] [place] [address]Uz# [phone] IONIZED CA 1.15 MMOL/L Normal 1.13-1.32 [facility] Comment on above: Performed By: #### L 100.55783 ####[facility] XSMCTGSRVR3052 [place], [place] [address]Xj# [phone] LACTATE BLOOD 2.46 MMOL/L High 0.40-2.00 [facility] Comment on above: Performed By: #### L 100.22461 ####[facility] HDFBHXWNTL4069 [place], [place] [address]Lu# [phone] PEEP 12.0 CMH2O Normal [facility] Comment on above: Performed By: #### L 100.13052 ####[facility] PKXHYOTFNA2457 [place], [place] [address]Zh# [phone] Potassium [Moles/Vol] 4.6 mmol/L Normal 3.5-5.0 [facility] Comment on above: Performed By: #### L 100.37935 ####[facility] [address]EONZJLYNR[address] [place] [address]Vm# [phone] RESP. RATE 14 Normal [facility] Comment on above: Performed By: #### L 100.50830 ####[facility] XYPIXAWZVM[address] [place] [address]Kd# [phone] SAMPLE SITE ARTERIAL LINE Normal [facility] Comment on above: Performed By: #### L 100.00825 ####[facility] BOAWDDTPQV[address] [place] [address]Xc# [phone] SAMPLE TYPE ARTERIAL Normal [facility] Comment on above: Performed By: #### L 100.81826 ####[facility] [address]VFXOZCBQ4[address] [place] [address]Eq# [phone] Sodium [Moles/Vol] 130 mmol/L Low 136-148 [facility] Comment on above: Performed By: #### L 100.00600 ####[facility] DCJHIWEDAL[address] [place] [address]Lv# [phone] TIDAL VOLUME 0.650 LITERS Normal [facility] Comment on above: Performed By: #### L 100.29115 ####[facility] GVCE[address]UDFT[address] [place] [address]Ym# [phone] VENT MODE VOLUME VENT PLUS Normal [facility] Comment on above: Performed By: #### L 100.84529 ####[facility] OPKRYMJPQI5275 [place], [place] [address]Ie# [phone] Lamar 11-29-2020 POC ACT 259 SECONDS High 100-150 [facility] BMPon 11-29-2020 Anion gap [Moles/Vol] 8 mmol/L Normal 5-16 [facility] Comment on above: Order Comment: Campu s: M Performed By: #### L 500.06112, L500.54813 ####[facility] SUGNZBCYHZ5255 [place], [place] [address]Gy# [phone] Calcium [Mass/Vol] 8.4 mg/dL Low 8.5-10.5 [facility] Comment on above: Order Comment: Campu s: M Result Comment: NOTE NEW NORMAL RANGE DUE TO REAGENT CHANGE Performed By: #### L 500.94974, L500.55961 ####[facility] ASYVXRHFUY4000 [place], [place] [address]Hy# [phone] Chloride [Moles/Vol] 108 mmol/L High 98-107 [facility] Comment on above: Order Comment: Campu s: M Performed By: #### L 500.62899, L500.75584 ####[facility] ZAHKIPMWJT0371 [place], [place] [address]Rk# [phone] CO2 [Moles/Vol] 19.0 mmol/L Low 21-32 [facility] Comment on above: Order Comment: Campu s: M Performed By: #### L 500.50231, L500.47558 ####[facility] KEKCRZPZPE3668 [place], [place] [address]Tg# [phone] Creatinine [Mass/Vol] 1.03 mg/dL Normal 0.5-1.4 [facility] Comment on above: Order Comment: Campu s: M Result Comment: NOTE NEW NORMAL RANGE DUE TO REAGENT CHANGEPatients receiving either N-Acetylcysteine (NAC) orMetamizole prior to venipuncture, may have falsely depressedresults. Performed By: #### L 500.23968, L500.84781 ####[facility] NSAJRLQEXP8899 [place], [place] [address]Wt# [phone] Glucose [Mass/Vol] 245 mg/dL High 70-100 [facility] Comment on above: Order Comment: Campu s: M Result Comment: 70-1 00- Normal Fasting; 100-125 Impaired Fasting; greaterthan 126 on more than one result- Diabetes. ADA guidelines.Results may be falsely elevated after the administration ofSulfapyridine.Results may be falsely depressed after the administration ofSulfasalazine. Performed By: #### L 500.93529, L500.65549 ####[facility] LLNCIXFGLY7211 [place], [place] [address]Wy# [phone] Potassium [Moles/Vol] 4.8 mmol/L Normal 3.5-5.1 [facility] Comment on above: Order Comment: Campu s: M Result Comment: Slig ht Hemolysis, Result may be affected. Performed By: #### L 500.61898, L500.84439 ####[facility] JWFVPAKZNN5221 [place], [place] [address]Jy# [phone] Sodium [Moles/Vol] 135 mmol/L Low 136-145 [facility] Comment on above: Order Comment: Campu s: M Performed By: #### L 500.34707, L500.80953 ####[facility] [address]IBCUULCZ[address] [place] [address]Rd# [phone] Urea nitrogen [Mass/Vol] 15 mg/dL Normal 7-26 [facility] Comment on above: Order Comment: Campu s: M Performed By: #### L 500.93251, L500.46220 ####[facility] JBGCIWHSYV8538 [place], [place] [address]Ln# [phone] Urea nitrogen/Creatinine [Mass ratio] 15 mg/mg Normal 15-24 [facility] Comment on above: Order Comment: Campu s: M Performed By: #### L 500.40369, L500.06950 ####[facility] NFIKGLXVAM0288 [place], [place] [address]Zy# [phone] CADon 11-29-2020 CAD Normal [facility] CAROTID DUPLEX REPORT Normal [facility] CARD.CATHon 11-29-2020 CARD.CATH Normal [facility] CBC W/DIFFon 11-29-2020 BASO ABS 0.00 K/CU MM Normal 0-0.2 [facility] Comment on above: Order Comment: Campu s: M Performed By: #### L 200.21902 ####[facility] [id number] [place] [address] 84813Zr# [phone] Basophils/100 WBC (Bld) 0.2 % Normal 0-2 [facility] Comment on above: Order Comment: Campu s: M Performed By: #### L 200.96974 ####[facility] [id number] [place] [address] 29409Vt# [phone] EOS ABS 0.00 K/CU MM Normal 0-0.5 [facility] Comment on above: Order Comment: Campu s: M Performed By: #### L 200.30657 ####[facility] [id number] [place] [address] 94938Qx# [phone] Eosinophils/100 WBC (Bld) 0.1 % Normal 0-5 [facility] Comment on above: Order Comment: Campu s: M Performed By: #### L 200.98487 ####[facility] [id number] [place] [address] 33031Jh# [phone] Erythrocyte distribution width (RBC) [Ratio] 12.9 % Normal 11-14.5 [facility] Comment on above: Order Comment: Campu s: M Performed By: #### L 200.31122 ####[facility] [id number] [place] [address] 28966Qe# [phone] Hematocrit (Bld) [Volume fraction] 48.2 % Normal 41.0-53.0 [facility] Comment on above: Order Comment: Campu s: M Performed By: #### L 200.21262 ####[facility] PFDNUCRYRT8319 [place], [place] [address]Ak# [phone] Hemoglobin (Bld) [Mass/Vol] 16.5 g/dL Normal 13.5-17.5 [facility] Comment on above: Order Comment: Campu s: M Performed By: #### L 200.18467 ####[facility] [id number] [place] [address] 41664Pt# [phone] IMMATR GRAN ABS 0.10 K/CU MM Normal Less than 2 [facility] Comment on above: Order Comment: Campu s: M Performed By: #### L 200.84822 ####[address] [address]Dv# [phone] IMMATURE GRAN % 0.5 % Normal Less than 2 [facility] [place] Comment on above: Order Comment: Campu s: M Performed By: #### L 200.69026 ####[facility] [id number] [place] [address] 06211Fi# [phone] LYMPH ABS 1.70 K/CU MM Normal 0.9-4.4 [facility] Comment on above: Order Comment: Campu s: M Performed By: #### L 200.80932 ####[facility] [id number] [place], [place] [address]Ph# [phone] Lymphocytes/100 WBC (Bld) 10.5 % Low 20-40 [facility] Comment on above: Order Comment: Campu s: M Performed By: #### L 200.91522 ####[facility] [id number] [place] [address] 89758Pm# [phone] MCHC (RBC) [Mass/Vol] 34.2 g/dL Normal 32.0-36.0 [facility] Comment on above: Order Comment: Campu s: M Performed By: #### L 200.60035 ####[facility] LJQWMZQPZG3805 [place], [place] [address]Of# [phone] MCV (RBC) [Entitic vol] 90.3 fL Normal 80.0-99.0 [facility] Comment on above: Order Comment: Campu s: M Performed By: #### L 200.91678 ####[facility] NJMYUAZOUN9336[address] [place] [address] 73435Za# [phone] MONO ABS 1.20 K/CU MM High 0.1-1.1 [facility] Comment on above: Order Comment: Campu s: M Performed By: #### L 200.51541 ####[place] [address]Ph# [phone] Monocytes/100 WBC (Bld) 7.6 % Normal 2-10 [facility] Comment on above: Order Comment: Campu s: M Performed By: #### L 200.95400 ####[facility] [id number] [place] [address] 24065Uo# [phone] NEUTROPHIL ABS 13.20 K/CU MM High 2.0-8.3 [facility] Comment on above: Order Comment: Campu s: M Performed By: #### L 200.11655 ####[address] [address]Zm# [phone] Neutrophils/100 WBC (Bld) 81.1 % High 45-75 [facility] Comment on above: Order Comment: Campu s: M Performed By: #### L 200.21424 ####[facility] [id number] [place] [address] 19566Lw# [phone] Nucleated RBC/100 WBC (Bld) [Ratio] 0.0 % Normal Less than 1 [facility] Comment on above: Order Comment: Campu s: M Performed By: #### L 200.05822 ####[facility] QQSHXDTCEP476037 [place] [address] 13728Ie# [phone] Platelet mean volume (Bld) [Entitic vol] 10.0 fL Normal 9.4-12.4 [facility] [place] Comment on above: Order Comment: Campu s: M Performed By: #### L 200.26257 ####[facility] ZTEXJIOGTK7043 [place], [place] [address]Se# [phone] PLT 215 K/CU MM Normal 150-450 [facility] [place] Comment on above: Order Comment: Campu s: M Performed By: #### L 200.25887 ####[facility] GJGUUWXLNH9286[address] [place] [address] 68845We# [phone] RBC 5.34 M/CU MM Normal 4.50-6.00 [facility] [place] Comment on above: Order Comment: Campu s: M Performed By: #### L 200.93978 ####[address] [address]Ys# [phone] WBC 16.2 K/CUMM High 4.5-11.0 [facility] Comment [facility]: Order Comment: Campu s: M Performed By: #### L 200.01858 ####[facility] [id number] [place] [address] 32409Yd# [phone] ATYP LYMPH % 0.0 % Normal [facility] [place] Comment on above: Order Comment: Campu s: M Performed By: #### L 200.17943 ####[facility] [id number] [place] [address] 15237Oq# [phone] BAND ABS 2.02 K/CU MM Normal [facility] [place] Comment on above: Order Comment: Campu s: M Performed By: #### L 200.49322 ####[facility] HJTFOKXNJR8350[address] [place] [address] 06187Es# [phone] Band form neutrophils/100 WBC (Bld) 10.0 % High 0-7 [facility] Comment on above: Order Comment: Campu s: M Performed By: #### L 200.86827 ####[facility] QWLCDRDOCA2526[address] [place] [address] 00822Xr# [phone] Basophils/100 WBC (Bld) 0.0 % Normal 0-2 [facility] [place] Comment on above: Order Comment: Campu s: M Performed By: #### L 200.69297 ####[facility] VCJZRBXGEV0953 [place] [address]60[address]Ph# [phone] BLAST % 0.0 % Normal 0 [facility] Comment on above: Order Comment: Campu s: M Performed By: #### L 200.57165 ####[place] [address]Ph# [phone] Eosinophils/100 WBC (Bld) 0.0 % Normal 0-5 [facility] Comment on above: Order Comment: Campu s: M Performed By: #### L 200.13242 ####[place] [address]Ph# [phone] LYMPH ABS 0.20 K/CU MM Low 0.9-4.4 [facility] [place] Comment on above: Order Comment: Campu s: M Performed By: #### L 200.10946 ####[facility] JRLQXSZCXJ[address] [place], [place] [address]Ph# [phone] Lymphocytes/100 WBC (Bld) 1.0 % Low 20-40 [facility] [place] Comment on above: Order Comment: Campu s: M Performed By: #### L 200.79091 ####[facility] HXTPUTGYTP317[address] [place], [place] [address]Ph# [phone] META % 0.0 % Normal [facility] [place] Comment on above: Order Comment: Campu s: M Performed By: #### L 200.28413 ####[facility] BAGSNEEZMW8428[address] [place], [place] [address]Ph# [phone] MONO ABS 1.41 K/CU MM High 0.1-1.1 [facility] [place] Comment on above: Order Comment: Campu s: M Performed By: #### L 200.70451 ####[facility] AZGJCIQGOX6802 [place], [place] [address]Bj# [phone] Monocytes/100 WBC (Bld) 7.0 % Normal 2-10 [facility] [place] Comment on above: Order Comment: Campu s: M Performed By: #### L 200.95857 ####[facility] QEWDMJRUND9420 [place], [place] [address]Uc# [phone] MYELOCYTE % 0.0 % Normal [facility] [place] Comment on above: Order Comment: Campu s: M Performed By: #### L 200.23859 ####[facility] IVXUUDWUEO286[address] [place], [place] [address]Ph# [phone] NEUTROPHIL ABS 16.56 K/CU MM High 2.0-8.3 [facility] [place] Comment on above: Order Comment: Campu s: M Performed By: #### L 200.27155 ####[facility] QTWXBCMKAH1112[address] [place], [place] [address]Ph# [phone] Neutrophils/100 WBC (Bld) 82.0 % High 45-75 [facility] [place] Comment on above: Order Comment: Campu s: M Performed By: #### L 200.79138 ####[facility] FUWYVFPYLB9[address] [place] [address] 24564Jd# [phone] Nucleated RBC/100 WBC (Bld) [Ratio] 0.0 % Normal Less than 1 [facility] Comment on above: Order Comment: Campu s: M Performed By: #### L 200.07680 ####[facility] HLEUJOHLOR[address] [place] [address] 83363Wc# [phone] OTHER % 0 % Normal [facility] [place] Comment on above: Order Comment: Campu s: M Performed By: #### L 200.12202 ####[facility] NPZORMRUTH7175 [place], [place] [address]Cq# [phone] PLT EST ADEQUATE Normal [facility] Comment on above: Order Comment: Campu s: M Performed By: #### L 200.73793 ####[facility] KSLVSHJGMG7982 [place], [place] [address]Ll# [phone] POLY 1+ Normal [facility] [place] Comment on above: Order Comment: Campu s: M Performed By: #### L 200.78459 ####[facility] WDXPJHKCOA0985 [place], [place] [address]Ag# [phone] PROMYELOCYTE % 0.0 % Normal [facility] [place] Comment on above: Order Comment: Campu s: M Performed By: #### L 200.39452 ####[facility] [id number] [place] [address] 56032Nz# [phone] WBC 20.2 K/CUMM High 4.5-11.0 [facility] [place] Comment on above: Order Comment: Campu s: M Result Comment: Conf irmed by slide estimate. Performed By: #### L 200.83612 ####[facility] [id number] [place] [address] 37225Xj# [phone] Erythrocyte distribution width (RBC) [Ratio] 12.8 % Normal 11-14.5 [facility] Comment on above: Order Comment: Campu s: M Performed By: #### L 200.89553 ####[facility] TGGJROAJCZ3213[address] [place] [address] 85408Bj# [phone] Hematocrit (Bld) [Volume fraction] 49.2 % Normal 41.0-53.0 [facility] Comment on above: Order Comment: Campu s: M Performed By: #### L 200.12967 ####[facility] TYWIKLRTUN4[address] [place] [address] 94962Ax# [phone] Hemoglobin (Bld) [Mass/Vol] 17.1 g/dL Normal 13.5-17.5 [facility] Comment on above: Order Comment: Campu s: M Performed By: #### L 200.44091 ####[facility] ZSOZZPORHZ8488 [place], [place] [address]Jn# [phone] MCHC (RBC) [Mass/Vol] 34.8 g/dL Normal 32.0-36.0 [facility] Comment on above: Order Comment: Campu s: M Performed By: #### L 200.89098 ####[facility] SBLQLKMNCO2370[address] [place] [address] 30092Tp# [phone] MCV (RBC) [Entitic vol] 89.3 fL Normal 80.0-99.0 [facility] Comment on above: Order Comment: Campu s: M Performed By: #### L 200.74987 ####[place] [address]Ph# [phone] Platelet mean volume (Bld) [Entitic vol] 9.9 fL Normal 9.4-12.4 [facility] Comment on above: Order Comment: Campu s: M Performed By: #### L 200.12393 ####[place] [address]Ph# [phone] PLT 236 K/CU MM Normal 150-450 [facility] Comment on above: Order Comment: Campu s: M Performed By: #### L 200.24570 ####[place] [address]Ph# [phone] RBC 5.51 M/CU MM Normal 4.50-6.00 [facility] Comment on above: Order Comment: Campu s: M Performed By: #### L 200.82891 ####[address] [address]Mt# [phone] BASO ABS 0.10 K/CU MM Normal 0-0.2 [facility] Comment on above: Order Comment: Campu s: M Performed By: #### L 200.29246 ####[address] [address]Lk# [phone] Basophils/100 WBC (Bld) 0.3 % Normal 0-2 [facility] Comment on above: Order Comment: Campu s: M Performed By: #### L 200.00300 ####[facility] QPNFMLIOQD3238 [place], [place] [address]Vo# [phone] EOS ABS 0.10 K/CU MM Normal 0-0.5 [facility] [place] Comment on above: Order Comment: Campu s: M Performed By: #### L 200.74293 ####[place] [address]Ph# [phone] Eosinophils/100 WBC (Bld) 0.3 % Normal 0-5 [facility] [place] Comment on above: Order Comment: Campu s: M Performed By: #### L 200.25164 ####[place] [address]Ph# [phone] Erythrocyte distribution width (RBC) [Ratio] 12.7 % Normal 11-14.5 [facility] Comment on above: Order Comment: Campu s: M Performed By: #### L 200.05174 ####[place] [address]Ph# [phone] Hematocrit (Bld) [Volume fraction] 46.6 % Normal 41.0-53.0 [facility] Comment on above: Order Comment: Campu s: M Performed By: #### L 200.11443 ####[address] [address]Zd# [phone] Hemoglobin (Bld) [Mass/Vol] 16.1 g/dL Normal 13.5-17.5 [facility] Comment on above: Order Comment: Campu s: M Performed By: #### L 200.32574 ####[facility] VIUSIYDHRK030[address] [place], [place] [address]Ph# [phone] IMMATR GRAN ABS 0.60 K/CU MM Normal Less than 2 [facility] Comment on above: Order Comment: Campu s: M Performed By: #### L 200.94193 ####[place] [address]Ph# [phone] IMMATURE GRAN % 2.4 % Normal Less than 2 [facility] Comment on above: Order Comment: Campu s: M Performed By: #### L 200.73236 ####[facility] [id number] [place], [place] [address]Ph# [phone] LYMPH ABS 1.50 K/CU MM Normal 0.9-4.4 [facility] [place] Comment on above: Order Comment: Campu s: M Performed By: #### L 200.21588 ####[facility] KDJPUDPBPY[address]23[address] [place], [place] [address]Ph# [phone] Lymphocytes/100 WBC (Bld) 6.3 % Low 20-40 [facility] Comment on above: Order Comment: Campu s: M Performed By: #### L 200.02312 ####[place] [address]Ph# [phone] MCHC (RBC) [Mass/Vol] 34.5 g/dL Normal 32.0-36.0 [facility] Comment on above: Order Comment: Campu s: M Performed By: #### L 200.31059 ####[place] [address]Ph# [phone] MCV (RBC) [Entitic vol] 89.8 fL Normal 80.0-99.0 [facility] Comment on above: Order Comment: Campu s: M Performed By: #### L 200.52239 ####[facility] KPYQEMOAWF[address] [place], [place] [address]Ph# [phone] MONO ABS 1.40 K/CU MM High 0.1-1.1 [facility] Comment on above: Order Comment: Campu s: M Performed By: #### L 200.10721 ####[facility] PCHSKDZPEU3883 [place] [address]Ph# [phone] Monocytes/100 WBC (Bld) 5.5 % Normal 2-10 [facility] Comment on above: Order Comment: Campu s: M Performed By: #### L 200.32280 ####[facility] PPGORHHICP1852 [place], [place] [address]Ec# [phone] NEUTROPHIL ABS 20.80 K/CU MM High 2.0-8.3 [facility] Comment on above: Order Comment: Campu s: M Performed By: #### L 200.69218 ####[facility] RRREYJGFBD1890 [place], [place] [address]Ic# [phone] Neutrophils/100 WBC (Bld) 85.2 % High 45-75 [facility] Comment on above: Order Comment: Campu s: M Performed By: #### L 200.28586 ####[place] [address] [place], [place] [address]Ia# [phone] Nucleated RBC/100 WBC (Bld) [Ratio] 0.0 % Normal Less than 1 [facility] Comment on above: Order Comment: Campu s: M Performed By: #### L 200.99671 ####[facility] CGDOYNXJQL[address] [place] [address] 670[address]Ds# [phone] Platelet mean volume (Bld) [Entitic vol] 9.9 fL Normal 9.4-12.4 [facility] Comment on above: Order Comment: Campu s: M Performed By: #### L 200.67701 ####[facility] KMXDTPQHPZ2510 [place], [place] [address]Sz# [phone] PLT 282 K/CU MM Normal 150-450 [facility] Comment on above: Order Comment: Campu s: M Performed By: #### L 200.40836 ####[facility] RDCWDOZJSC6638 [place], [place] [address]Tz# [phone] RBC 5.19 M/CU MM Normal 4.50-6.00 [facility] Comment on above: Order Comment: Campu s: M Performed By: #### L 200.93976 ####[facility] XXHXBDPIOC[address] [place] [address] 67[address]Xo# [phone] WBC 24.4 K/CUMM High 4.5-11.0 [facility] Comment on above: Order Comment: Gabriela s: M Performed By: #### L 200.44426 ####[facility] RXUORBFRXV1565 [place], [place] [address]Et# [phone] CDLECHOon 11-29-2020 CDLECHO Normal [facility] ECHOCARDIOGRAM REPORT Normal [facility] CKon 11-29-2020 CK > 7800 Critically high 26-192 [facility] Comment on above: Order Comment: Gabriela s: M Result Comment: Slig ht Hemolysis, Result may be affected.Previous Critical within one week. Critical Result(s)verified at: 15:05:28 on 11/29/2020 by: Ginny Saba NEW NORMAL RANGE DUE TO REAGENT CHANGE Performed By: #### L 500.03321, L500.31699, L500.31910, L500.73707 ####[facility] XYOKNTCWBK7427 [place], [place] [address]Hr# [phone] CK > 7800 Critically high 26-192 [facility] Comment on above: Order Comment: Gabriela s: M Result Comment: Slig ht Hemolysis, Result may be affected.Critical Result(s)Called at: 05:29:53 on 11/29/2020 by lmba. Called to paresh back by:MIN GUERRA NEW NORMAL RANGE DUE TO REAGENT CHANGE Performed By: #### L 500.24514, L500.83571, L500.15541, L500.12894 ####[facility] AJUVIFSQMG8895 [place], [place] [address]Ld# [phone] CMPon 11-29-2020 Albumin [Mass/Vol] 3.2 g/dL Normal 3.2-5.0 [facility] Comment on above: Order Comment: Gabriela s: M Performed By: #### L 500.01679, L500.33705, L500.15843, L500.93979 ####[facility] BALPQBRYZB6332 [place], [place] [address]Bd# [phone] Albumin/Globulin [Mass ratio] 1.1 {ratio} Normal 0.8-2.0 [facility] Comment on above: Order Comment: Campu s: M Performed By: #### L 500.81366, L500.27969, L500.53736, L500.57521 ####[facility] LWQHJDTVFG0579 [place], [place] [address]Ig# [phone] ALK PHOS 53 U/L Normal 45-117 [facility] Comment on above: Order Comment: Campu s: M Performed By: #### L 500.98946, L500.25962, L500.34236, L500.07078 ####[facility] TILOABGEPK6611 [place], [place] [address]Pw# [phone] ALT [Catalytic activity/Vol] 273 U/L High 13-61 [facility] Comment on above: Order Comment: Aaronu s: M Result Comment: RESU LTS MAY BE FALSELY DEPRESSED AFTER THE ADMINISTRATION OFSULFASALAZINE AND/OR SULFAPYRIDINE. Performed By: #### L 500.88219, L500.72139, L500.43750, L500.02236 ####[facility] ROKASHUGZW5670 [place], [place] [address]Gm# [phone] Anion gap [Moles/Vol] 6 mmol/L Normal 5-16 [facility] Comment on above: Order Comment: Campu s: M Performed By: #### L 500.48926, L500.69486, L500.32817, L500.15028 ####[facility] TRZXGOIXPY2864 [place], [place] [address]Qv# [phone] AST [Catalytic activity/Vol] 448 U/L High 8-34 [facility] Comment on above: Order Comment: Aaronu s: M Result Comment: RESU LTS MAY BE FALSELY DEPRESSED AFTER THE ADMINISTRATION OFSULFASALAZINE AND/OR SULFAPYRIDINE. Performed By: #### L 500.95132, L500.90652, L500.90390, L500.60088 ####[facility] XZFPXWTAAM8209 [place], [place] [address]Iq# [phone] BILI TOTAL 0.70 MG/DL Normal 0.2-1.0 [facility] [place] Comment on above: Order Comment: Campu s: M Performed By: #### L 500.61181, L500.53559, L500.22949, L500.57580 ####[facility] UDMNQTORJU5024 [place], [place] [address]Er# [phone] Calcium [Mass/Vol] 8.9 mg/dL Normal 8.5-10.5 [facility] [place] Comment on above: Order Comment: Campu s: M Result Comment: NOTE NEW NORMAL RANGE DUE TO REAGENT CHANGE Performed By: #### L 500.32568, L500.34859, L500.36877, L500.61428 ####[facility] [id number] [place] [address]Ww# [phone] Chloride [Moles/Vol] 111 mmol/L High 98-107 [facility] Comment on above: Order Comment: Campu s: M Performed By: #### L 500.51658, L500.39496, L500.17762, L500.43354 ####[facility] LXVHS[address]CTAK[address] [place] [address]Un# [phone] CO2 [Moles/Vol] 25.0 mmol/L Normal 21-32 [facility] [place] Comment on above: Order Comment: Campu s: M Performed By: #### L 500.67324, L500.87335, L500.40620, L500.86457 ####[facility] CRVGXUQXOQ[address] [place] [address]Mf# [phone] Creatinine [Mass/Vol] 0.74 mg/dL Normal 0.5-1.4 [facility] Comment on above: Order Comment: Campu s: M Result Comment: NOTE NEW NORMAL RANGE DUE TO REAGENT CHANGEPatients receiving either N-Acetylcysteine (NAC) orMetamizole prior to venipuncture, may have falsely depressedresults. Performed By: #### L 500.02081, L500.18185, L500.36406, L500.15297 ####[facility] NJRHCQTSVE7245 [place], [place] [address]Xe# [phone] Globulin (S) [Mass/Vol] 3.0 g/dL Normal 2.2-4.2 [facility] [place] Comment on above: Order Comment: Campu s: M Performed By: #### L 500.60990, L500.84651, L500.61090, L500.66475 ####[facility] IERSUJCEGK5240 [place], [place] [address]Za# [phone] Glucose [Mass/Vol] 129 mg/dL High 70-100 [facility] Comment on above: Order Comment: Campu s: M Result Comment: 70-1 00- Normal Fasting; 100-125 Impaired Fasting; greaterthan 126 on more than one result- Diabetes. ADA guidelines.Results may be falsely elevated after the administration ofSulfapyridine.Results may be falsely depressed after the administration ofSulfasalazine. Performed By: #### L 500.20968, L500.86727, L500.60192, L500.97699 ####[facility] [id number] [place], [place] [address]Ca# [phone] Potassium [Moles/Vol] 3.7 mmol/L Normal 3.5-5.1 [facility] Comment on above: Order Comment: Campu s: M Result Comment: Slig ht Hemolysis, Result may be affected. Performed By: #### L 500.51991, L500.65051, L500.01853, L500.92662 ####[facility] [id number] [place], [place] [address]Gk# [phone] Protein [Mass/Vol] 6.2 g/dL Normal 6.0-8.5 [facility] Comment on above: Order Comment: Campu s: M Performed By: #### L 500.92388, L500.89712, L500.51901, L500.48282 ####[facility] [id number] [place], [place] [address]In# [phone] Sodium [Moles/Vol] 142 mmol/L Normal 136-145 [facility] [place] Comment on above: Order Comment: Campu s: M Performed By: #### L 500.09978, L500.14224, L500.12931, L500.32216 ####[facility] [id number] [place], [place] [address]Vs# [phone] Urea nitrogen [Mass/Vol] 18 mg/dL Normal 7-26 [facility] Comment on above: Order Comment: Campu s: M Performed By: #### L 500.95300, L500.41996, L500.16676, L500.04824 ####[facility] [id number] [place], [place] [address]Ny# [phone] Urea nitrogen/Creatinine [Mass ratio] 24 mg/mg Normal 15-24 [facility] Comment on above: Order Comment: Campu s: M Performed By: #### L 500.73311, L500.95267, L500.53788, L500.14824 ####[facility] [id number] [place], [place] [address]Dn# [phone] Anion gap [Moles/Vol] 6 mmol/L Normal 5-16 [facility] Comment on above: Order Comment: Campu s: M Performed By: #### L 500.90652, L500.51164, L500.75396, L500.33294 ####[facility] [id number] [place], [place] [address]Ml# [phone] Albumin [Mass/Vol] 3.3 g/dL Normal 3.2-5.0 [facility] Comment on above: Order Comment: Campu s: M Performed By: #### L 500.53132, L500.01334, L500.36019, L500.11652 ####[facility] [id number] [place], [place] [address]Mn# [phone] Albumin/Globulin [Mass ratio] 1.0 {ratio} Normal 0.8-2.0 [facility] Comment on above: Order Comment: Campu s: M Performed By: #### L 500.61701, L500.31344, L500.43234, L500.55711 ####[facility] [id number] [place], [place] [address]Vv# [phone] ALK PHOS 57 U/L Normal 45-117 [facility] Comment on above: Order Comment: Campu s: M Performed By: #### L 500.98250, L500.75548, L500.33091, L500.42997 ####[facility] JHMUPUBZYP8651 [place], [place] [address]Ry# [phone] ALT [Catalytic activity/Vol] 298 U/L High 13-61 [facility] Comment on above: Order Comment: Campu s: M Result Comment: RESU LTS MAY BE FALSELY DEPRESSED AFTER THE ADMINISTRATION OFSULFASALAZINE AND/OR SULFAPYRIDINE. Performed By: #### L 500.65237, L500.02849, L500.41820, L500.98283 ####[facility] [id number] [place], [place] [address]Gy# [phone] AST [Catalytic activity/Vol] 578 U/L High 8-34 [facility] Comment on above: Order Comment: Campu s: M Result Comment: RESU LTS MAY BE FALSELY DEPRESSED AFTER THE ADMINISTRATION OFSULFASALAZINE AND/OR SULFAPYRIDINE. Performed By: #### L 500.53012, L500.11067, L500.07212, L500.26749 ####[facility] UZCSVSMAIX2314 [place], [place] [address]Dj# [phone] BILI TOTAL 0.80 MG/DL Normal 0.2-1.0 [facility] Comment on above: Order Comment: Campu s: M Performed By: #### L 500.48676, L500.27275, L500.39227, L500.88905 ####[facility] SZPYCDDCCV3286 [place], [place] [address]Pl# [phone] Calcium [Mass/Vol] 9.2 mg/dL Normal 8.5-10.5 [facility] [place] Comment on above: Order Comment: Campu s: M Result Comment: NOTE NEW NORMAL RANGE DUE TO REAGENT CHANGE Performed By: #### L 500.27468, L500.19748, L500.17461, L500.00694 ####[facility] LYHVELCEOK6426 [place], [place] [address]Td# [phone] Chloride [Moles/Vol] 109 mmol/L High 98-107 [facility] Comment on above: Order Comment: Campu s: M Performed By: #### L 500.48595, L500.96696, L500.28112, L500.27531 ####[facility] FMEQSLBVKK2394 [place], [place] [address]Rt# [phone] CO2 [Moles/Vol] 25.0 mmol/L Normal 21-32 [facility] [place] Comment on above: Order Comment: Campu s: M Performed By: #### L 500.90331, L500.00213, L500.02525, L500.09746 ####[facility] GZVAECJWKS9210 [place], [place] [address]Fk# [phone] Creatinine [Mass/Vol] 1.07 mg/dL Normal 0.5-1.4 [facility] Comment on above: Order Comment: Campu s: M Result Comment: NOTE NEW NORMAL RANGE DUE TO REAGENT CHANGEPatients receiving either N-Acetylcysteine (NAC) orMetamizole prior to venipuncture, may have falsely depressedresults. Performed By: #### L 500.12275, L500.11090, L500.49498, L500.06616 ####[facility] [id number] [place], [place] [address]Oe# [phone] Globulin (S) [Mass/Vol] 3.2 g/dL Normal 2.2-4.2 [facility] Comment on above: Order Comment: Campu s: M Performed By: #### L 500.21772, L500.86297, L500.57515, L500.76734 ####[facility] AGHHNCDVAX6898 [place], [place] [address]Sq# [phone] Glucose [Mass/Vol] 180 mg/dL High 70-100 [facility] [place] Comment on above: Order Comment: Campu s: M Result Comment: 70-1 00- Normal Fasting; 100-125 Impaired Fasting; greaterthan 126 on more than one result- Diabetes. ADA guidelines.Results may be falsely elevated after the administration ofSulfapyridine.Results may be falsely depressed after the administration ofSulfasalazine. Performed By: #### L 500.74042, L500.48812, L500.90514, L500.01135 ####[facility] EUCVAQNACM5689 [place], [place] [address]Jq# [phone] Potassium [Moles/Vol] 4.8 mmol/L Normal 3.5-5.1 [facility] Comment on above: Order Comment: Campu s: M Result Comment: Slig ht Hemolysis, Result may be affected. Performed By: #### L 500.41466, L500.98875, L500.94071, L500.09455 ####[facility] [id number] [place], [place] [address]Ji# [phone] Protein [Mass/Vol] 6.5 g/dL Normal 6.0-8.5 [facility] Comment on above: Order Comment: Campu s: M Performed By: #### L 500.80262, L500.29921, L500.14629, L500.54082 ####[facility] YASAKLFYGF2637 [place], [place] [address]Dd# [phone] Sodium [Moles/Vol] 140 mmol/L Normal 136-145 [facility] Comment on above: Order Comment: Campu s: M Performed By: #### L 500.36949, L500.34859, L500.58554, L500.17454 ####[facility] USAAJLEPUR9483 [place], [place] [address]Kk# [phone] Urea nitrogen [Mass/Vol] 19 mg/dL Normal 7-26 [facility] Comment on above: Order Comment: Campu s: M Performed By: #### L 500.46599, L500.04965, L500.61466, L500.23883 ####[facility] CYILDCGWSG8665 [place], [place] [address]Oc# [phone] Urea nitrogen/Creatinine [Mass ratio] 18 mg/mg Normal 15-24 [facility] Comment on above: Order Comment: Campu s: M Performed By: #### L 500.34389, L500.40660, L500.41412, L500.40787 ####[facility] HGAQYCCYYO0070 [place], [place] [address]Ef# [phone] CONS.Meche 11-29-2020 CONS.CARD [facility] Consultation-Cardio logy [facility] CONS.INTENon 11-29-2020 CONS.INTEN [facility] Consultation-Intens ivist Normal [facility] CT ANGIO HEAD W/POST PROCon 11-29-2020 CT ANGIO HEAD W/POST PROC [facility] CT HEAD/BRAIN W/O CONon 11-11 CT HEAD/BRAIN W/O CON Normal [facility] Christy 11-29-2020 EMERGENCY PHYSICIAN REPORT This is a preliminary report only, as the practitioner review and authentication has not occurred. Normal [facility] ER Normal [facility] GFR ESTon 11-29-2020 IF AMER Greater than 60 [facility] Comment on above: Order Comment: Campu s: M Performed By: #### L 500.15487, L500.03083, L500.84458, L500.52778 ####[facility] BOXRYAGSQZ1412 [place], [place] [address]Ss# [phone] IF non-AFR AMER Greater than 60 [facility] Comment on above: Order Comment: Campu s: M Performed By: #### L 500.37405, L500.11427, L500.49270, L500.09165 ####[facility] FJNXSLIJHN2206 [place], [place] [address]Ha# [phone] IF AMER Greater than 60 Normal [facility] [place] Comment on above: Order Comment: Campu s: M Performed By: #### L 500.28076, L500.00601, L500.20628, L500.53213 ####[facility] [id number] [place], [place] [address]Pa# [phone] IF non-AFR AMER Greater than 60 Normal [facility] [place] Comment on above: Order Comment: Campu s: M Performed By: #### L 500.28110, L500.90150, L500.88243, L500.77281 ####[facility] TFRHMPVUWI7611 [place], [place] [address]En# [phone] IF AMER Greater than 60 Normal [facility] [place] Comment on above: Order Comment: Campu s: M Performed By: #### L 500.02985, L500.57525 ####[facility] [id number] [place] [address]Af# [phone] IF non-AFR AMER Greater than 60 Normal [facility] [place] Comment on above: Order Comment: Campu s: M Performed By: #### L 500.22089, L500.98070 ####[facility] GAFKUCMUWS7567 [place], [place] [address]Rk# [phone] GLUCOSE METERon 11-29-2020 Glucose [Mass/Vol] 116 mg/dL High 70-115 [facility] Glucose [Mass/Vol] 161 mg/dL High 70-115 [facility] Glucose [Mass/Vol] 168 mg/dL High 70-115 [facility] Glucose [Mass/Vol] 223 mg/dL High 70-115 [facility] HGB A1C GLYCOHBon 11-29-2020 HbA1c (Bld) [Mass fraction] 5.8 % Normal 4.3-6.0 [facility] Comment on above: Order Comment: Aaronu s: M Performed By: #### L 550.70131 ####[facility] [address] [place] [address] [place] [address]Mf# [phone] HP.IMS.ADMon 11-29-2020 Admission-H&P Normal [facility] HP.IMS.ADM Normal [facility] IONIZED CAon 11-29-2020 IONIZED CA 1.11 MMOL/L Low 1.16-1.32 [facility] Comment on above: Order Comment: Gabriela s: M Performed By: #### L 550.92256 ####[facility] [id number] [place] [address]Oi# [phone] IONIZED CA 1.16 MMOL/L Normal 1.16-1.32 [facility] Comment on above: Order Comment: Gabriela s: M Performed By: #### L 550.38410 ####[facility] [id number] [place] [address]Qr# [phone] LIPIDon 11-29-2020 CHOL 260 MG/dL High 0-199 [facility] Comment on above: Order Comment: Gabriela s: M Performed By: #### L 500.37815 ####[facility] [id number] [place] [address]Gv# [phone] Cholesterol in HDL [Mass/Vol] 43 mg/dL Normal GREATER THAN 40 [facility] Comment on above: Order Comment: Gabriela s: M Result Comment: Tawana ents receiving Metamizole prior to venipuncture, mayhave falsely depressed results. Performed By: #### L 500.10330 ####[facility] [id number] [place] [address]Ha# [phone] Cholesterol in LDL [Mass/Vol] 195 mg/dL Normal [facility] Comment on above: Order Comment: Gabriela Morales Result Comment: ___C HOLESTEROL/HDL RATIO RISK___ CHD RISK = Total CHOL LDL HDL (CHOL/HDL) ----Recommended <200 <130 >40 <3.4 Jose rderline 200-239 130-159 3.4-4.99 --High >240 >160 >5.0 Performed By: #### L 500.83254 ####[facility] BUZEQPVXPE3937 [place], [place] [address]Bx# [phone] Triglyceride [Mass/Vol] 111 mg/dL Normal 30-149 [facility] Comment on above: Order Comment: Gabriela Morales Result Comment: Tawana ents receiving either N-Acetylcysteine (NAC) orMetamizole prior to venipuncture, may have falsely depressedresults. Performed By: #### L 500.99455 ####[facility] [id number] [place], [place] [address]Gj# [phone] MAGNESIUMon 11-29-2020 Magnesium [Mass/Vol] 1.9 mg/dL Normal 1.6-2.6 [facility] Comment on above: Order Comment: Gabriela Morales Result Comment: Slig ht Hemolysis, Result may be affected.Previous Critical within one week. Critical Result(s)verified at: 15:05:28 on 11/29/2020 by: Ginny Manzano Performed By: #### L 500.63198, L500.02512, L500.48389, L500.64486 ####[facility] RBGVLYBTWL4074 [place], [place] [address]Cv# [phone] Magnesium [Mass/Vol] 2.2 mg/dL Normal 1.6-2.6 [facility] Comment on above: Order Comment: Gabriela s: M Result Comment: Slig ht Hemolysis, Result may be affected.Critical Result(s)Called at: 05:29:53 on 11/29/2020 by lmba. Called to paresh back by:MIN CRAWFORD Performed By: #### L 500.85376, L500.28022, L500.22453, L500.67209 ####[facility] LPRGIYWXCT8867 [place], [place] [address]Sj# [phone] MODIFIED BARIUM SWALLOWon MODIFIED BARIUM SWALLOW Normal [facility] PORTABLE CHESTon 11-29-2020 PORTABLE CHEST Normal [facility] PTon 11-29-2020 INR Coag (PPP) [Relative time] 1.07 {INR} Normal 0.9-1.1 [facility] Comment on above: Order Comment: Gabriela s: M Result Comment: Jesse mmended PT INR therapeutic range for correction andprophylactic therapy is 2.0 - 3.0. For heart valve andshunt patients the range is 2.5 - 3.5. Performed By: #### L 300.58973, L300.97975 ####[facility] JVPPPTYUAW2442 [place], [place] [address]Px# [phone] PTS 11.4 SECONDS Normal 9.5-12.0 [facility] Comment on above: Order Comment: Gabriela qiu: Carmen Performed By: #### L 300.59473, L300.12544 ####[facility] XHPRCKEKMS2589 [place], [place] [address]Mg# [phone] INR Coag (PPP) [Relative time] 1.19 {INR} High 0.9-1.1 [facility] Comment on above: Order Comment: Gabriela s: M Result Comment: Jesse mmended PT INR therapeutic range for marketing secretary andprophylactic therapy is 2.0 - 3.0. For heart valve andshunt patients the range is 2.5 - 3.5. Performed By: #### L 300.81526, L300.93005 ####[facility] LCHHXNKQDM6754 [place], [place] [address]Pa# [phone] PTS 12.6 SECONDS High 9.5-12.0 [facility] Comment on above: Order Comment: Gabriela Morales Performed By: #### L 300.64149, L300.90577 ####[facility] CAXJKIWCHX6986 [place], [place] [address]Fs# [phone] PTTon 11-29-2020 aPTT Coag (Bld) [Time] 34.8 s High 22.0-31.5 [facility] Comment on above: Order Comment: Gabriela qiu: Carmen Result Comment: Ther apeutic Heparin Reference Range: High Dose: 46-75 seconds (DVT/PE) Low Dose: 39-60 seconds (Acute Coronary Syndrome)For low molecular weight heparin or danaparoid, monitoringis often NOT necessary, but the heparin assay, Xa inhibitionassay (send-out) may be used in certain circumstances, asthe PTT is generally insensitive to the effect of theseagents. Direct thrombin inhibitors are becoming more widelyutilized and these drugs are often monitored using the PTT. Performed By: #### L 300.32664 ####[facility] KCUMWMVVOM6312 [place], [place] [address]Jm# [phone] aPTT Coag (Bld) [Time] 30.6 s Normal 22.0-31.5 [facility] Comment on above: Order Comment: Gabriela qiu: Carmen Result Comment: Ther apeutic Heparin Reference Range: High Dose: 46-75 seconds (DVT/PE) Low Dose: 39-60 seconds (Acute Coronary Syndrome)For low molecular weight heparin or danaparoid, monitoringis often NOT necessary, but the heparin assay, Xa inhibitionassay (send-out) may be used in certain circumstances, asthe PTT is generally insensitive to the effect of theseagents. Direct thrombin inhibitors are becoming more widelyutilized and these drugs are often monitored using the PTT. Performed By: #### L 300.74865 ####[facility] [id number] [place], [place] [address]Tj# [phone] aPTT Coag (Bld) [Time] 117.3 s Critically high 22.0-31.5 [facility] Comment on above: Order Comment: Gabriela Morales Result Comment: CRIT ICAL VALUE(S) VERIFIED AND CALLED [place] [address]/29/20 BY BHAVESH JETTTherapeutic Heparin Reference Range: High Dose: 46-75 seconds (DVT/PE) Low Dose: 39-60 seconds (Acute Coronary Syndrome)For low molecular weight heparin or danaparoid, monitoringis often NOT necessary, but the heparin assay, Xa inhibitionassay (send-out) may be used in certain circumstances, asthe PTT is generally insensitive to the effect of theseagents. Direct thrombin inhibitors are becoming more widelyutilized and these drugs are often monitored using the PTT. Performed By: #### L 300.66429, L300.89950 ####[facility] NSCGPQUHSR6846 [place], [place] [address]Rc# [phone] PTT Normal 22.0-31.5 [facility] Comment on above: Order Comment: Gabriela Morales Result Comment: GREA TER THAN 200.0 SECONDSCRITICAL VALUE(S) VERIFIED AND CALLED [place] [address]/29/20 BY EDDA ALLEN Performed By: #### L 300.34291, L300.92028 ####[facility] NWNOKWELTM7260 [place], [place] [address]Et# [phone] [id number] 11-29-2020 SARS-CoV-2 (COVID-19) RNA GIBRAN+probe Ql (Unsp spec) Negative Invalid Interpretation Code Negative [facility] Comment on above: Order Comment: Gabriela Morales Result Comment: RESU LTS CALLED TO QUENTIN PIERRE 02111/29/20 BY BATOOL JACOBSNegative results do not preclude SARS-CoV-2 infection andshould not be used as the sole basis for treatment or otherpatient management decisions. Negative results must becombined with clinical observation, patient history, andepidemiological information.This test was performed by PCR. Performed By: #### L 770.07576 ####[facility] KRVTZGBWSW2891 [place], [place] [address]Yp# [phone] TROPONIN Ion 11-29-2020 [place] I 317[address].5 pg/mL Critically high 0-54 [facility] Comment on above: Order Comment: Gabriela qiu: Carmen Result Comment: Prev ious Critical within one week. Critical Result(s)verified at: 19:20:25 on 11/29/2020 by: Ginny Saba NEW NORMAL RANGE DUE TO REAGENT CHANGEThis assay uses different antibodies than our current assay,and assays, even by the same doctor of dental surgery may recognizedifferent regions of the antibody and cannot be usedinterchangeably. Expect results of this assay to run higherthan the previous assay. Performed By: #### L 550.36560 ####[address] [place], [place] [address]Gj# [phone] TROPONIN I 355244.3 pg/mL Critically high 0-54 [facility] Comment on above: Order Comment: Gabriela Morales Result Comment: Prev ious Critical within one week. Critical Result(s)verified at: 12:09:43 on 11/29/2020 by: Fay Mckee NEW NORMAL RANGE DUE TO REAGENT CHANGEThis assay uses different antibodies than our current assay,and assays, even by the same doctor of dental surgery may recognizedifferent regions of the antibody and cannot be usedinterchangeably. Expect results of this assay to run higherthan the previous assay. Performed By: #### L 550.79744 ####[facility] HTSTRPEKWJ1645 [place], [place] [address]Tn# [phone] Troponin I.cardiac [Mass/Vol] 815664 ng/mL Critically high 0-54 [facility] Comment on above: Order Comment: Gabriela Morales Result Comment: Prev ious Critical within one week. Critical Result(s)verified at: 04:57:21 on 11/29/2020 by: Yessi GarciaNOTE NEW NORMAL RANGE DUE TO REAGENT CHANGENOTE NEW NORMAL RANGE DUE TO REAGENT CHANGEThis assay uses different antibodies than our current assay,and assays, even by the same doctor of dental surgery may recognizedifferent regions of the antibody and cannot be usedinterchangeably. Expect results of this assay to run higherthan the previous assay. Performed By: #### L 550.61656 ####[facility] NCGGIAOIAF3722 [place], [place] [address]My# [phone] [place] I 37140.1 pg/mL Critically high 0-54 [facility] [place] Comment on above: Order Comment: Gabriela s: M Result Comment: Crit ical Result(s) Called at: 01:00:34 on 11/29/2020 byolesya. Called to and read back by:EVER RNNOTE NEW NORMAL RANGE DUE TO REAGENT CHANGEThis assay uses different antibodies than our current assay,and assays, even by the same doctor of dental surgery may recognizedifferent regions of the antibody and cannot be usedinterchangeably. Expect results of this assay to run higherthan the previous assay. Performed By: #### L 550.50195 ####[facility] ASILAMJMBW5760 [place], [place] [address]Dx# [phone] CNOVon 07-14-2018 CNOV Office Visit (PODIWS ) GINNY BARFIELD ([id number]) 1980 M TXT Date Time Provider Department 07/14/18 2:15 PM PETER MANZO PODIWS During your visit today, we recorded the following information about you: Gianna Calvin Ma 07/16/2018 7:38 AM Signed AMB ROOMING INTAKE FLOWSHEET DATA Risk Screening Do you have concerns about personal safety or safety in the home?: No Pain Pain Level: (iunable to describe) Pain Location: Other: See Comment(bilateral feet) Description: Stabbing Duration Amount of Time: (unknown) Duration Units: Years Frequency: Continuous Intervention: Relaxation Patient presents to clinic for bilateral foot callus. Patient states pain scale varies. Patient states he has sanded and cut out his own parts on callus. No redness present around callus. Peter Manzo DPM 07/16/2018 7:38 AM Signed Initial Podiatric Office Visit: Chief Complaint: This 38 year old male who presents with chief complaint:painful callus of b/l feet HPI Patient presents to clinic for initial evaluation of b/l callus. Patient complains of severe callus of b/l feet. He trims these himself. He is here to discuss options. PAIN EVALUATION 07/14/2018 Pain Level: ? iunable to describe iunable to describe Pain Location: Other: See Comment bilateral feet bilateral feet Description: Stabbing Duration Amount of Time: ? unknown unknown Duration Units: Years Frequency: Continuous Intervention: Relaxation No results found for: HBA1C PCP: NAMAN RASHEED MD PAST MEDICAL HISTORY Diagnosis Date - History of drug use - Lumbago 2006 Fell at work - Tobacco use Current Outpatient Medications: omeprazole (PRILOSEC) 20 mg capsule Take 1 capsule by mouth daily before breakfast. 1/2 hr before meal. (Patient not taking: Reported on 07/14/2018 ) triamcinolone acetonide (KENALOG) 0.1 % cream Apply 1 application to affected area three times daily. Apply sparingly to area for rash/itching. (Patient not taking: Reported on 07/14/2018 ) No current facility-administered medications for this visit. ALLERGIES Allergen Reactions - Clindamycin Hives - Poison Olga - Poison [place] PAST SURGICAL HISTORY Procedure Laterality Date - COLONOSCOP W/ OR W/O [facility] SPEC 03/14/2015 Colonoscopy - PAST SURGICAL HISTORY OF 2002 ORIF Right hand - PAST SURGICAL HISTORY OF Birthmark excision, posterior neck No family history on file. 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 Drug use: No Comment: No IVDA. Marijuana 5 yrs. ago. Sexual activity: Not on file Other Topics Concerns: Not on file Social History Narrative Not on file REVIEW OF SYSTEMS GENERAL: Negative for Malaise, significant weight loss, fever RESPIRATORY: Negative for cough, wheezing and shortness of breath CARDIOVASCULAR: Negative for chest pain, leg swelling and palpitations GI: Negative for abdominal discomfort, blood in stools or black stools and change in bowel habits : Negative for dysuria, frequency and incontinence MUSCULOSKELETAL: Negative for joint pain or swelling, back pain, and muscle pain. SKIN: positive for callus of b/l feet. HEMATOLOGY/LYMPHOLOGY Negative for prolonged bleeding, bruising easily, and swollen nodes. ENDOCRINE: Negative for cold or heat intolerance, polyuria, polydipsia and goiter. NEURO: negative Physical Exam: Constitutional: Pt is a well developed 38 year old male who is alert, oriented and cooperative Eyes: Following during examination. No redness or drainage. Respiratory: RR normal and nonlabored. Even breathing. No evidence of distress or shortness of breath. Psychology: Patient is engaged during conversation. Normal affect and mood. Does not appear depressed or anxious during encounter. Vascular: Dorsalis pedis and posterior tibial pulses palpable as b/l Capillary Fill time < 5 seconds to digits 1-5 b/l Skin temperature warm to warm proximal to distal b/l Hair growth present to digits Neurological: intact light touch/epicritic sensation b/l intact protective sensation no significant neurological deficits Dermatological: Nails 1-5 b/l appear normal. Webspaces clean and dry 1-4 b/l. Skin appears well hydrated and supple. good color, texture, turgor. No open lesions present. Callus to b/l 5th metatarsal, b/l hallux and right 2nd metatarsal. Musculoskeletal/Orthop aedic: Patient has pain to palpation of callus areas of b/l feet Foot type is neutral structurally AJ ROM is full with knee extended and flexed 1st MPJ is full when loaded and no pain or crepitus are noted with ROM. MTJ, STJ are full and free of pain and crepitus. +5/5 muscle strength dorsiflexion, plantarflexion, inversion, eversion b/l Radiographs: n/a ASSESSMENT: (L85.9) Hyperkeratosis (primary encounter diagnosis) (M25.579) Pain in joint involving ankle and foot, unspecified laterality PLAN: Patient was examined and informed of current findings. Discussed skin lesions. On exam, there is no bleeding with debridement and no diverging skin lines. Suspect more porokeratosis rather than wart. Sharp debridement was performed with 15 blade and tca was applied. Recommend trying compound w to these lesions although patient informed that compound w may or may not result in elimination. Will have patient use gel inserts to provide further pressure reduction. ? In event these fail to improve, he could consider surgical removal but there is high risk of recurrence. I would highly recommend holding out on any surgery until he cuts back his smoking. REENA Guzman Ma 07/14/2018 3:04 PM Signed Trichloroacetic acid (TCA) has been applied to the plantar warts. Rinse off in 12 hours and keep clean and dry. May bathe and shower normally starting the day after treatment The area is expected to burn and blister in about 1-3 days, if painful soak in plain, cool water. If blistered, you may drain the blister with a clean, STERILIZED needle and apply OTC antibiotic ointment and band aid to area. Repeat 2-3 times daily as needed. Tylenol or Aleve as needed for pain, provided you have no allergies to either of these. Keep scheduled follow up appointment to have wart(s) re-evaluated and/or additional treatments. Gianna Calvin Ma 07/16/2018 7:[address] Manzo, Ginny was provided with full length comfortlast powersteps, size 11- 12 1, and instructed/educated in its application, wear, and care. All questions were answered, and patient was able to demonstrate competence with the necessary skills to utilize the above equipment. Gianna Calvin Ma Referring Provider: SELF [[id number]] Allergies As of Date: 07/14/2018 Noted Allergy Reaction CLINDAMYCIN 06/28/2018 4 - Hives POISON OLGA 04/28/2006 POISON OAK 04/28/2006 Date Reviewed: 07/14/2018 Reviewed by: Gianna Calvin Ma - Fully Assessed Reason for Visit: New Patient [172] Primary Visit Diagnosis:Hyperkeratos is [L85.9] Other Visit Diagnosis:Pain in joint involving ankle and foot, unspecified laterality [M25.579] Order(s):urea (CARMOL) 40 % creaApply 1 application to affected area once daily.Disp: 1 BottleRfl: 3 Prescriptions as of 07/14/2018 Sig: UREA 40 % TOPICAL CREAM Apply 1 application to affect* OMEPRAZOLE 20 MG CAPSULE,AARON* Take 1 capsule by mouth daily* Patient not taking: Reported on 07/14/2018 TRIAMCINOLONE ACETONIDE 0.1 %* Apply 1 application to affect* Patient not taking: Reported on 07/14/2018 Problem List As Of Date 07/14/2018 Noted Resolved Tobacco use [Z72.0] INVALID FOR* History of drug use (HCC) [Z87.898] INVALID FOR* Somatic complaints, multiple [R68.89] INVALID FOR* Other instructions from your clinician: Trichloroacetic acid (TCA) has been applied to the plantar warts. Rinse off in 12 hours and keep clean and dry. May bathe and shower normally starting the day after treatment The area is expected to burn and blister in about 1-3 days, if painful soak in plain, cool water. If blistered, you may drain the blister with a clean, STERILIZED needle and apply OTC antibiotic ointment and band aid to area. Repeat 2-3 times daily as needed. Tylenol or Aleve as needed for pain, provided you have no allergies to either of these. Keep scheduled follow up appointment to have wart(s) re-evaluated and/or additional treatments. Prescriptions ordered this encounter Disp Refills Start End UREA 40 % TOPICAL CREAM 1 Jose* 3 07/14/2018 Route: TOPICAL Sig: Apply 1 application to affected area once daily. Disposition: Return in about 1 month (around 08/11/2018) for 1 month F/U callus. Follow-up and Disposition History Recorded Encounter Status:Closed by PETER MANZO DPM on 07/16/18 [facility] PROGRESSon 07-14-2018 Protein mass conc HNO ID: [id number] Author: Gianna Calvin Ma Service: ? Author Type: ? Type: Progress Notes Filed: 07/16/2018 7:38 AM Note Text: Per Dr. Manzo, Ginny was provided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 touch inside his mouth or palpate teeth due to pain. Also refused external palpation in that area. Buccal mucosa normal appearing, tongue midline and normal, soft palate, uvula, and tonsils normal ASSESSMENT/PLAN: 1. Dental infection - ICD9: 522.4, ICD10: K04.7 Right upper teeth appear infected but unable to palpate for abscess or other complications. Patient very upset when questioned about teeth and when advised dental infections will reoccur until teeth are treated by dentist. Discussed risks of untreated dental infections including cellulitis, osteomyelitis and heart valve infections. States he knows this and once again very upset that I am mentioning this. I am not asking for pain medicine, I just need some damn antibiotics. - Start Clindamycin, see orders - Follow-up in office if symptoms persist or worsen Prescription instructions reviewed with patient as applicable. Potential red flag symptoms discussed with the patient. Reviewed appropriate action plan to take if red flag symptoms occur. Patient agreeable to treatment plan. 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 Referring Provider: SELF [[id number]] Allergies As of Date: 06/28/2018 Noted Allergy Reaction POISON OLGA 04/28/2006 POISON OAK 04/28/2006 Date Reviewed: 06/28/2018 Reviewed by: Evette Duarte Panel Monitor - Fully Assessed Reason for Visit: tooth pain [Other] Primary Visit Diagnosis:Dental infection [K04.7] Order(s):clindamycin (CLEOCIN) 300 mg capsuleTake 1 capsule by mouth four times daily for 10 days.Disp: 40 capsuleRfl: 0 Prescriptions as of 06/28/2018 Sig: CLINDAMYCIN HCL 300 MG CAPSULE Take 1 capsule by mouth four * TRIAMCINOLONE ACETONIDE 0.1 %* Apply 1 application to affect* Problem List As Of Date 06/28/2018 Noted Resolved Tobacco use [Z72.0] INVALID FOR* History of drug use (HCC) [Z87.898] INVALID FOR* Somatic complaints, multiple [R68.89] INVALID FOR* Prescriptions ordered this encounter Disp Refills Start End CLINDAMYCIN HCL 300 MG CAPSULE 40 c* 0 06/28/2018 07/08/2018 Route: ORAL Sig: Take 1 capsule by mouth four times daily for 10 days. Medications Discontinued During This Encounter clindamycin (CLEOCIN) 300 mg capsule 40 c* 0 11/04/2017 06/28/2018 Route: ORAL Sig: Take 1 capsule by mouth four times daily for 10 days. Disc: Reason for discontinue is not on file. Encounter Status:Closed by TEMI RHOADES CNP on 06/28/18 Normal [facility] PROGRESSon 06-28-2018 Protein mass conc HNO ID: [id number] Author: Temi Luevano) Marilyn Service: ? Author Type: Nurse Practitioner Type: Progress Notes Filed: 06/28/2018 3:49 PM Note Text: CC: Patient presents with: tooth pain HPI Ginny Barfield is a 38 year old male who presents today for dental pain. Pointing to multiple top tooth as the source of his pain which has been present for months and months. For the past two days he has had swelling and increased pain in a couple of the top right teeth. Positive for tenderness with palpation and chronic cold/heat sensitivity. Denies drainage, fever, chills, body aches, nausea. Requesting an antibiotic for the infection. Unable to go to a dentist because he can't find one he trusts in this area. Was in [facility] October last year and prescribed Clindamycin for dental abscess. REVIEW OF SYSTEMS See HPI PAST MEDICAL HISTORY Diagnosis Date - History of drug use - Lumbago 2006 Fell at work - Tobacco use PAST SURGICAL HISTORY Procedure Laterality Date - COLONOSCOP W/ OR W/O [facility] SPEC 03/14/2015 Colonoscopy - PAST SURGICAL HISTORY OF 2003 ORIF Right hand - PAST SURGICAL HISTORY OF Birthmark excision, posterior neck ALLERGIES Poison Olga; Poison [place] MEDICATIONS triamcinolone acetonide (KENALOG) 0.1 % cream Apply 1 application to affected area three times daily. Apply sparingly to area for rash/itching. No family history on file. Social History Tobacco Use - Smoking status: Current Every Day Smoker Packs/day: 1.00 Years: 15.00 Pack years: 15.00 Types: Cigarettes - Smokeless tobacco: Never Used Substance Use Topics - Alcohol use: Yes Comment: 9 beers on occasion. - Drug use: No Comment: No IVDA. Marijuana 5 yrs. ago. PHYSICAL EXAM BP 140/84 Pulse 108 Resp 16 Wt 108.4 kg (239 lb) SpO2 93% BMI 31.53 kg/m? General Appearance: well appearing, in no acute distress, alert Oropharynx: Multiple dental caries and missing teeth. Broken teeth right upper jaw with deep appearing caries and surrounding gums are red and swollen. Patient refuses to let me touch inside his mouth or palpate teeth due to pain. Also refused external palpation in that area. Buccal mucosa normal appearing, tongue midline and normal, soft palate, uvula, and tonsils normal ASSESSMENT/PLAN: 1. Dental infection - ICD9: 522.4, ICD10: K04.7 Right upper teeth appear infected but unable to palpate for abscess or other complications. Patient very upset when questioned about teeth and when advised dental infections will reoccur until teeth are treated by dentist. Discussed risks of untreated dental infections including cellulitis, osteomyelitis and heart valve infections. States he knows this and once again very upset that I am mentioning this. I am not asking for pain medicine, I just need some damn antibiotics. - Start Clindamycin, see orders - Follow-up in office if symptoms persist or worsen Prescription instructions reviewed with patient as applicable. Potential red flag symptoms discussed with the patient. Reviewed appropriate action plan to take if red flag symptoms occur. Patient agreeable to treatment plan. Temi Rhoades APRN.CNP Normal [facility] CNOVon 11-16-2017 CNOV Office Visit (UCWSTR ) SIMONEGINNY Marian ([id number]) 1980 M Date Time Provider Department 11/16/17 4:00 PM DAMARI STRANGE ([facility]) [facility] During your visit today, we recorded the following information about you: Pulse Respiration Blood pressure Weight 85/minute 16/minute 120/82 112.1 kg Damari Strange APRN.CNP 11/16/2017 5:04 PM Signed Subjective HPI HPI Ginny Fonseca Simone is a 37 year old male who presents today for CC of poison olga. This started 1 week ago. Has tried otc medication. Symptoms are worsened by nothing. Risk factors hx allergy to olga. .Patient presents with: Rash: possible poison olga; NESTOR arms AND face PAST MEDICAL HISTORY Diagnosis Date - History of drug use - Lumbago 2006 Fell at work - Tobacco use PAST SURGICAL HISTORY Procedure Laterality Date - COLONOSCOP W/ OR W/O [facility] SPEC 03/14/2015 Colonoscopy - PAST SURGICAL HISTORY OF 2002 ORIF Right hand - PAST SURGICAL HISTORY OF Birthmark excision, posterior neck ALLERGIES Poison Olga; Poison [place] MEDICATIONS ibuprofen (MOTRIN) 800 mg tablet Take 1 tablet by mouth every 8 hours as needed for up to 14 days. No family history on file. Social History Substance Use Topics - Smoking status: Current Every Day Smoker Packs/day: 1.00 Years: 15.00 Types: Cigarettes - Smokeless tobacco: Never Used - Alcohol use Yes Comment: 9 beers on occasion. Review of Systems Constitutional: Negative for chills and fever. Skin: Positive for itching and rash (Positive for clear, watery drainage. Denies warmth and purulent drainage. ). Objective Blood pressure 120/82, pulse 85, resp. rate 16, weight 112.1 kg (247 lb 3.2 oz), SpO2 98 %. Physical Exam Constitutional: He is oriented to person, place, and time and well-developed, well-nourished, and in no distress. Non-toxic appearance. He does not have a sickly appearance. No distress. HENT: Head: Normocephalic and atraumatic. Neurological: He is alert and oriented to person, place, and time. Skin: Skin is warm, dry and intact. Rash noted. Rash is vesicular (distribution linear ). He is not diaphoretic. ASSESSMENT/PLAN: 1. Allergic contact dermatitis due to plants, except food - ICD9: 692.6, ICD10: L23.7 - Oral Steriod tx -Prednisone taper - Topical steriod tx with Rx for steriod cream/ointment- see orders - discussed skin care of rash - follow up if symptoms persist or worsen. - PREDNISONE 10 MG TABLET - TRIAMCINOLONE ACETONIDE 0.1 % TOPICAL CREAM Prescription instructions reviewed with patient as applicable. Patient advised if symptoms do not improve or if symptoms worsen sooner, to contact the office for further evaluation by their primary care physician. Potential red flag symptoms discussed with the patient. Reviewed appropriate action plan to take if red flag symptoms occur. Patient agreeable to treatment plan. Damari Strange APRN.FELICIA Strange APRN.FELICIA 11/16/2017 4:25 PM Signed [facility] PATIENT INFO POISON OLGA INTRODUCTION When the skin comes in direct contact with an irritating or allergy-causing substance, contact dermatitis can develop. Exposure to poison olga, poison oak, and poison sumac cause more cases of allergic contact dermatitis than all other plant families combined. People of all ethnicities and skin types are at risk for developing poison olga dermatitis. The severity of the reaction tends to decrease with age, especially in people who have had mild reactions in the past. People in occupations such as firefighting, forestry, and farming are at a higher risk of poison olga dermatitis because of repeated exposure to toxic plants. POISON OLGA CAUSES Poison olga, poison oak, and poison sumac plants all contain a compound called urushiol, which is a light, colorless oil that is found on the fruit, leaves, stem, root, and sap of the plant. When urushiol is exposed to air, it turns brown and the plant leaves develop small black spots. There are several ways that you can be exposed to urushiol: ? By touching the sap or rubbing against the leaves of the toxic plant ? By touching something that has urushiol on it, such as animal fur or garden tools ? By breathing in smoke when toxic plants are burned ? Ginkgo fruit and the skin of mangoes also contain urushiol and can produce symptoms similar to poison olga dermatitis. IDENTIFYING POISON OLGA Leaves of three, let them be is a phrase often used to identify plants that cause poison olga dermatitis. Generally, poison olga and poison oak have three leaves with flowering branches on a single stem. Poison sumac has five, seven, or more leaves that angle upward toward the top of the stem. Some types of poison olga produce a green or off-white fruit in reggie, and in some cases, black dots form on the plants' leaves. It is not always possible to identify the plant by the leaves alone since the appearance can vary depending upon the season, growth cycle, region, and climate. Poison olga, oak, and sumac plants grow in many areas across the [facility] and throughout the world. [place] of the [facility], poison olga commonly grows as a climbing vine. In the [place] area and west, poison olga tends to grow low to the ground as a shrub. Poison oak most often grows west of the [facility], and poison sumac inhabits boggy areas in the southeastern part of the [facility]. The plants are not usually found in areas at high elevations or in desert climates. POISON OLGA SIGNS AND SYMPTOMS After contact with urushiol, approximately 50 percent of people develop signs and symptoms of poison olga dermatitis. The symptoms and severity differ from person to person. The most common signs and symptoms of poison olga dermatitis are: ? Intense itching ? Skin swelling ? Skin redness These symptoms usually develop within four hours to four days after exposure to the urushiol. After the initial symptoms, you will develop fluid-filled blisters in a line or streak-like pattern. The symptoms are worst within 1 to 14 days after touching the plant, but can develop up to 21 days later if you have never been exposed to urushiol before. The blisters can occur at different times in different people; blisters can develop on the arms several days after blisters on the hands developed. This does not mean that the reaction is spreading from one area of the body to the other. The fluid that leaks from blisters does not cause symptoms. Poison olga dermatitis is not contagious and cannot be passed from person to person. However, urushiol can be carried under fingernails and on clothes; if another person comes in contact with the urushiol, they can develop poison olga dermatitis. POISON OLGA DIAGNOSIS Poison olga is usually diagnosed based upon how your skin looks. Further testing is not usually necessary. POISON OLGA TREATMENT Poison olga dermatitis usually resolves within one to three weeks without treatment. Treatments that may help relieve the itching, soreness, and discomfort caused by poison olga dermatitis include: Skin treatments ? For some people, adding oatmeal to a bath, applying cool wet compresses, and applying calamine lotion may help to relieve itching. Once the blisters begin weeping fluid, astringents containing aluminum acetate (Perla's solution) and [place]omeboro may help to relieve the rash. Antihistamines ? Antihistamines may help to relieve itching caused by poison olga dermatitis. Some antihistamines make you sleepy while others do not. ? Antihistamines that make you sleepy (eg, diphenhydramine [Benadryl?]) may be helpful if you have trouble sleeping due to itching. ? Other formulas (eg, loratadine [Claritin?], cetirizine [Zyrtec?]) may be preferable for daytime. Steroid creams ? Steroid creams may be helpful if they are used during the first few days after symptoms develop. Low potency steroid creams, such as 1 percent hydrocortisone (available in the [place] without prescription) are not usually helpful. A stronger prescription formula may be helpful. Steroids ? If you develop severe symptoms or the rash covers a large area (especially on the face or genitals), you may need steroid pills or injections (eg, prednisone) to help relieve itching and swelling. Pills are usually given for 14 to 21 days, with the dosage slowly decreased over time. Antibiotics ? Skin infections are a potential complication of poison olga, especially if you scratch your skin. If you develop a skin infection because of poison olga dermatitis, you may need antibiotics to treat the infection. Other treatments ? An herbal therapy called jewelweed extract has been used to treat poison olga dermatitis, although it has not been proven effective. You should not use antihistamine creams or lotions, anesthetic creams containing benzocaine, or antibiotic creams containing neomycin or bacitracin to the skin. These creams or ointments could make the rash worse. POISON OLGA PREVENTION The best way to prevent poison olga dermatitis is to identify and avoid the plants that cause it. These plants can irritate the skin year round, even during the winter months, and can still cause a reaction years after the plant dies. ? Wear protective clothing, including long sleeves and pants when working in areas where toxic plants may be found. Keep in mind that the resin and oils from the toxic plants can be carried on clothing, pets, and under fingernails. ? Wear heavy-duty vinyl gloves when doing yard work or gardening. The oils from toxic plants can seep through latex or rubber gloves. ? After coming in contact with poison olga, remove any contaminated clothing and gently wash (do not scrub or rub) you skin and under the fingernails with mild soap and water as soon as possible. Washing within two hours after exposure can reduce the likelihood and severity of symptoms; washing the skin after you have symptoms will not help. ? Creams and ointments that create a barrier between the skin and the urushiol oil may be somewhat effective for people who are frequently exposed to poison olga. Bentoquatam (Olga Block?) is one type of barrier cream that may prevent poison olga dermatitis. It must be reapplied every four hours and it leaves a mandi residue on the skin. ? Avoid burning poisonous vegetation, which can disperse the plant particles in the smoke, irritate the skin, and cause poison olga dermatitis. Referring Provider: SELF [[id number]] Allergies As of Date: 11/16/2017 Noted Allergy Reaction POISON OLGA 04/28/2006 POISON OAK 04/28/2006 Date Reviewed: 11/16/2017 Reviewed by: Damari ([facility]) - Fully Assessed Reason for Visit: Rash [1087] Cmt: possible poison olga; NESTOR arms AND face Primary Visit Diagnosis:Allergic contact dermatitis due to plants, except food [L23.7] Order(s):predniSONE (DELTASONE) 10 mg tabletTake 4 tabs daily for 3 days, then 2 tabs daily for 3 days, then 1 tab daily for 3 days with food.Disp: 21 tabletRfl: 0 triamcinolone acetonide (KENALOG) 0.1 % creamApply 1 application to affected area three times daily. Apply sparingly to area for rash/itching.Disp: 80 gRfl: 0 Prescriptions as of 11/16/2017 Sig: PREDNISONE 10 MG TABLET Take 4 tabs daily for 3 days,* TRIAMCINOLONE ACETONIDE 0.1 %* Apply 1 application to affect* IBUPROFEN 800 MG TABLET Take 1 tablet by mouth every * Patient not taking: Reported on 11/16/2017 Problem List As Of Date 11/16/2017 Noted Resolved Tobacco use [Z72.0] INVALID FOR* History of drug use (HCC) [Z87.898] INVALID FOR* Somatic complaints, multiple [R68.89] INVALID FOR* Other instructions from your clinician: [facility] PATIENT INFO POISON OLGA INTRODUCTION When the skin comes in direct contact with an irritating or allergy-causing substance, contact dermatitis can develop. Exposure to poison olga, poison oak, and poison sumac cause more cases of allergic contact dermatitis than all other plant families combined. People of all ethnicities and skin types are at risk for developing poison olga dermatitis. The severity of the reaction tends to decrease with age, especially in people who have had mild reactions in the past. People in occupations such as firefighting, forestry, and farming are at a higher risk of poison olga dermatitis because of repeated exposure to toxic plants. POISON OLGA CAUSES Poison olga, poison oak, and poison sumac plants all contain a compound called urushiol, which is a light, colorless oil that is found on the fruit, leaves, stem, root, and sap of the plant. When urushiol is exposed to air, it turns brown and the plant leaves develop small black spots. There are several ways that you can be exposed to urushiol: ? By touching the sap or rubbing against the leaves of the toxic plant ? By touching something that has urushiol on it, such as animal fur or garden tools ? By breathing in smoke when toxic plants are burned ? Ginkgo fruit and the skin of mangoes also contain urushiol and can produce symptoms similar to poison olga dermatitis. IDENTIFYING POISON OLGA Leaves of three, let them be is a phrase often used to identify plants that cause poison olga dermatitis. Generally, poison olga and poison oak have three leaves with flowering branches on a single stem. Poison sumac has five, seven, or more leaves that angle upward toward the top of the stem. Some types of poison olga produce a green or off-white fruit in reggie, and in some cases, black dots form on the plants' leaves. It is not always possible to identify the plant by the leaves alone since the appearance can vary depending upon the season, growth cycle, region, and climate. Poison olga, oak, and sumac plants grow in many areas across the [facility] and throughout the world. East of the [facility], poison olga commonly grows as a climbing vine. In the [place] area and west, poison olga tends to grow low to the ground as a shrub. Poison oak most often grows west of the [facility], and poison sumac inhabits boggy areas in the southeastern part of the [facility]. The plants are not usually found in areas at high elevations or in desert climates. POISON OLGA SIGNS AND SYMPTOMS After contact with urushiol, approximately 50 percent of people develop signs and symptoms of poison olga dermatitis. The symptoms and severity differ from person to person. The most common signs and symptoms of poison olga dermatitis are: ? Intense itching ? Skin swelling ? Skin redness These symptoms usually develop within four hours to four days after exposure to the urushiol. After the initial symptoms, you will develop fluid-filled blisters in a line or streak-like pattern. The symptoms are worst within 1 to 14 days after touching the plant, but can develop up to 21 days later if you have never been exposed to urushiol before. The blisters can occur at different times in different people; blisters can develop on the arms several days after blisters on the hands developed. This does not mean that the reaction is spreading from one area of the body to the other. The fluid that leaks from blisters does not cause symptoms. Poison olga dermatitis is not contagious and cannot be passed from person to person. However, urushiol can be carried under fingernails and on clothes; if another person comes in contact with the urushiol, they can develop poison olga dermatitis. POISON OLGA DIAGNOSIS Poison olga is usually diagnosed based upon how your skin looks. Further testing is not usually necessary. POISON OLGA TREATMENT Poison olga dermatitis usually resolves within one to three weeks without treatment. Treatments that may help relieve the itching, soreness, and discomfort caused by poison olga dermatitis include: Skin treatments ? For some people, adding oatmeal to a bath, applying cool wet compresses, and applying calamine lotion may help to relieve itching. Once the blisters begin weeping fluid, astringents containing aluminum acetate (Perla's solution) and [place] may help to relieve the rash. Antihistamines ? Antihistamines may help to relieve itching caused by poison olga dermatitis. Some antihistamines make you sleepy while others do not. ? Antihistamines that make you sleepy (eg, diphenhydramine [Benadryl?]) may be helpful if you have trouble sleeping due to itching. ? Other formulas (eg, loratadine [Claritin?], cetirizine [Zyrtec?]) may be preferable for daytime. Steroid creams ? Steroid creams may be helpful if they are used during the first few days after symptoms develop. Low potency steroid creams, such as 1 percent hydrocortisone (available in the [place] without prescription) are not usually helpful. A stronger prescription formula may be helpful. Steroids ? If you develop severe symptoms or the rash covers a large area (especially on the face or genitals), you may need steroid pills or injections (eg, prednisone) to help relieve itching and swelling. Pills are usually given for 14 to 21 days, with the dosage slowly decreased over time. Antibiotics ? Skin infections are a potential complication of poison olga, especially if you scratch your skin. If you develop a skin infection because of poison olga dermatitis, you may need antibiotics to treat the infection. Other treatments ? An herbal therapy called jewelweed extract has been used to treat poison olga dermatitis, although it has not been proven effective. You should not use antihistamine creams or lotions, anesthetic creams containing benzocaine, or antibiotic creams containing neomycin or bacitracin to the skin. These creams or ointments could make the rash worse. POISON OLGA PREVENTION The best way to prevent poison olga dermatitis is to identify and avoid the plants that cause it. These plants can irritate the skin year round, even during the winter months, and can still cause a reaction years after the plant dies. ? Wear protective clothing, including long sleeves and pants when working in areas where toxic plants may be found. Keep in mind that the resin and oils from the toxic plants can be carried on clothing, pets, and under fingernails. ? Wear heavy-duty vinyl gloves when doing yard work or gardening. The oils from toxic plants can seep through latex or rubber gloves. ? After coming in contact with poison olga, remove any contaminated clothing and gently wash (do not scrub or rub) you skin and under the fingernails with mild soap and water as soon as possible. Washing within two hours after exposure can reduce the likelihood and severity of symptoms; washing the skin after you have symptoms will not help. ? Creams and ointments that create a barrier between the skin and the urushiol oil may be somewhat effective for people who are frequently exposed to poison olga. Bentoquatam (Olga Block?) is one type of barrier cream that may prevent poison olga dermatitis. It must be reapplied every four hours and it leaves a mandi residue on the skin. ? Avoid burning poisonous vegetation, which can disperse the plant particles in the smoke, irritate the skin, and cause poison olga dermatitis. Prescriptions ordered this encounter Disp Refills Start End PREDNISONE 10 MG TABLET 21 t* 0 11/16/2017 11/25/2017 Sig: Take 4 tabs daily for 3 days, then 2 tabs daily for 3 days, then 1 tab daily for 3 days with food. TRIAMCINOLONE ACETONIDE 0.1 % TOPICA* 80 g 0 11/16/2017 Route: TOPICAL Sig: Apply 1 application to affected area three times daily. Apply sparingly to area for rash/itching. Encounter Status:Closed by DAMARI STRANGE CNP on 11/16/17 [facility] PROGRESSon 11-16-2017 Protein mass conc HNO ID: [id number] Author: Damari Luevano) Service: (none) Author Type: Nurse Practitioner Type: Progress Notes Filed: 11/16/2017 5:04 PM Note Text: Subjective HPI HPI Ginny Barfield is a 37 year old male who presents today for CC of poison olga. This started 1 week ago. Has tried otc medication. Symptoms are worsened by nothing. Risk factors hx allergy to olga. .Patient presents with: Rash: possible poison olga; NESTOR arms AND face PAST MEDICAL HISTORY Diagnosis Date - History of drug use - Lumbago 2006 Fell at work - Tobacco use PAST SURGICAL HISTORY Procedure Laterality Date - COLONOSCOP W/ OR W/O [facility] SPEC 03/14/2015 Colonoscopy - PAST SURGICAL HISTORY OF 2002 ORIF Right hand - PAST SURGICAL HISTORY OF Birthmark excision, posterior neck ALLERGIES Poison Olga; Poison [place] MEDICATIONS ibuprofen (MOTRIN) 800 mg tablet Take 1 tablet by mouth every 8 hours as needed for up to 14 days. No family history on file. Social History Substance Use Topics - Smoking status: Current Every Day Smoker Packs/day: 1.00 Years: 15.00 Types: Cigarettes - Smokeless tobacco: Never Used - Alcohol use Yes Comment: 9 beers on occasion. Review of Systems Constitutional: Negative for chills and fever. Skin: Positive for itching and rash (Positive for clear, watery drainage. Denies warmth and purulent drainage. ). Objective Blood pressure 120/82, pulse 85, resp. rate 16, weight 112.1 kg (247 lb 3.2 oz), SpO2 98 %. Physical Exam Constitutional: He is oriented to person, place, and time and well-developed, well-nourished, and in no distress. Non-toxic appearance. He does not have a sickly appearance. No distress. HENT: Head: Normocephalic and atraumatic. Neurological: He is alert and oriented to person, place, and time. Skin: Skin is warm, dry and intact. Rash noted. Rash is vesicular (distribution linear ). He is not diaphoretic. ASSESSMENT/PLAN: 1. Allergic contact dermatitis due to plants, except food - ICD9: 692.6, ICD10: L23.7 - Oral Steriod tx -Prednisone taper - Topical steriod tx with Rx for steriod cream/ointment- see orders - discussed skin care of rash - follow up if symptoms persist or worsen. - PREDNISONE 10 MG TABLET - TRIAMCINOLONE ACETONIDE 0.1 % TOPICAL CREAM Prescription instructions reviewed with patient as applicable. Patient advised if symptoms do not improve or if symptoms worsen sooner, to contact the office for further evaluation by their primary care physician. Potential red flag symptoms discussed with the patient. Reviewed appropriate action plan to take if red flag symptoms occur. Patient agreeable to treatment plan. Damari Strange APRN.FELICIA [facility] CNOVon 11-04-2017 CNOV Office Visit (UCWSTR ) SIMONEGINNY J ([id number]) 1980 M Date Time Provider Department 11/04/17 4:00 PM FAY AMES [facility]ACID BATH MIXER[facility] During your visit today, we recorded the following information about you: Temperature Pulse Respiration Blood pressure 98.1 degrees 80/minute 18/minute 130/110 Weight 110.7 kg Fay Ames APRN.FELICIA 11/04/2017 4:14 PM Signed Subjective HPI Patient presents with: Dental Problem x 2 day Frequent hx of dental caries and dental abscesses. Looking at getting into dentist in [facility], states does not trust any dentist in [place]. Analgesics otc with minimal relief. ROS All other reviewed and negative other than HPI. PAST MEDICAL HISTORY Diagnosis Date - History of drug use - Lumbago 2006 Fell at work - Tobacco use PAST SURGICAL HISTORY Procedure Laterality Date - COLONOSCOP W/ OR W/O [facility] SPEC 03/14/2015 Colonoscopy - PAST SURGICAL HISTORY OF 2002 ORIF Right hand - PAST SURGICAL HISTORY OF Birthmark excision, posterior neck ALLERGIES Poison Olga; Poison [place] MEDICATIONS clindamycin (CLEOCIN) 300 mg capsule Take 1 capsule by mouth four times daily for 10 days. ibuprofen (MOTRIN) 800 mg tablet Take 1 tablet by mouth every 8 hours as needed for up to 14 days. No family history on file. Social History Substance Use Topics - Smoking status: Current Every Day Smoker Packs/day: 1.00 Years: 15.00 Types: Cigarettes - Smokeless tobacco: Never Used - Alcohol use Yes Comment: 9 beers on occasion. Objective Physical Exam Constitutional: He is well-developed, well-nourished, and in no distress. HENT: Head: Normocephalic. Mouth/Throat: Dental abscesses and dental caries present. Eyes: Conjunctivae are normal. Neck: Normal range of motion. Lymphadenopathy: He has no cervical adenopathy. Nursing note and vitals reviewed. ASSESSMENT/PLAN: 1. Dental abscess - ICD9: 522.5, ICD10: K04.7 -clindamycin -Ibuprofen Pt Instructed to establish with a new dentist, ask family/friends for a referral to dentist they trust. Pt MUST be seen by a dentist for dental caries and frequent tooth abscess. Prescription instructions reviewed with patient as applicable. Patient advised if symptoms do not improve or if symptoms worsen sooner, to contact their primary care physician. Potential red flag symptoms discussed with the patient. Reviewed appropriate action plan to take if red flag symptoms occur. Patient agreeable to treatment plan. Fay Ames APRN.MACHINE CLOTHING WORKER Referring Provider: SELF [[id number]] Allergies As of Date: 11/04/2017 Noted Allergy Reaction POISON OLGA 04/28/2006 POISON OAK 04/28/2006 Date Reviewed: 11/04/2017 Reviewed by: Uyen Moran Ma - Fully Assessed Reason for Visit: Dental Problem [31] Primary Visit Diagnosis:Dental abscess [K04.7] Order(s):clindamycin (CLEOCIN) 300 mg capsuleTake 1 capsule by mouth four times daily for 10 days.Disp: 40 capsuleRfl: 0 ibuprofen (MOTRIN) 800 mg tabletTake 1 tablet by mouth every 8 hours as needed for up to 14 days.Disp: 60 tabletRfl: 0 Prescriptions as of 11/04/2017 Sig: CLINDAMYCIN HCL 300 MG CAPSULE Take 1 capsule by mouth four * IBUPROFEN 800 MG TABLET Take 1 tablet by mouth every * Problem List As Of Date 11/04/2017 Noted Resolved Tobacco use [Z72.0] INVALID FOR* History of drug use (HCC) [Z87.898] INVALID FOR* Somatic complaints, multiple [R68.89] INVALID FOR* Prescriptions ordered this encounter Disp Refills Start End CLINDAMYCIN HCL 300 MG CAPSULE 40 c* 0 11/04/2017 11/14/2017 Route: ORAL Sig: Take 1 capsule by mouth four times daily for 10 days. IBUPROFEN 800 MG TABLET 60 t* 0 11/04/2017 11/18/2017 Route: ORAL Sig: Take 1 tablet by mouth every 8 hours as needed for up to 14 days. Disposition: Return if symptoms worsen or fail to improve. Follow-up and Disposition History Recorded Encounter Status:Closed by FAY AMES on 11/04/17 [facility] PROGRESSon 11-04-2017 Protein mass conc HNO ID: [id number] Author: Fay Qiu (Inorganic Chemistry Professor) Adolfo Service: (none) Author Type: Nurse Practitioner Type: Progress Notes Filed: 11/04/2017 4:14 PM Note Text: Subjective HPI Patient presents with: Dental Problem x 2 day Frequent hx of dental caries and dental abscesses. Looking at getting into dentist in [place], states does not trust any dentist in [place]. Analgesics otc with minimal relief. ROS All other reviewed and negative other than HPI. PAST MEDICAL HISTORY Diagnosis Date - History of drug use - Lumbago 2006 Fell at work - Tobacco use PAST SURGICAL HISTORY Procedure Laterality Date - COLONOSCOP W/ OR W/O [facility] SPEC 03/14/2015 Colonoscopy - PAST SURGICAL HISTORY OF 2002 ORIF Right hand - PAST SURGICAL HISTORY OF Birthmark excision, posterior neck ALLERGIES Poison Olga; Poison [place] MEDICATIONS clindamycin (CLEOCIN) 300 mg capsule Take 1 capsule by mouth four times daily for 10 days. ibuprofen (MOTRIN) 800 mg tablet Take 1 tablet by mouth every 8 hours as needed for up to 14 days. No family history on file. Social History Substance Use Topics - Smoking status: Current Every Day Smoker Packs/day: 1.00 Years: 15.00 Types: Cigarettes - Smokeless tobacco: Never Used - Alcohol use Yes Comment: 9 beers on occasion. Objective Physical Exam Constitutional: He is well-developed, well-nourished, and in no distress. HENT: Head: Normocephalic. Mouth/Throat: Dental abscesses and dental caries present. Eyes: Conjunctivae are normal. Neck: Normal range of motion. Lymphadenopathy: He has no cervical adenopathy. Nursing note and vitals reviewed. ASSESSMENT/PLAN: 1. Dental abscess - ICD9: 522.5, ICD10: K04.7 -clindamycin -Ibuprofen Pt Instructed to establish with a new dentist, ask family/friends for a referral to dentist they trust. Pt MUST be seen by a dentist for dental caries and frequent tooth abscess. Prescription instructions reviewed with patient as applicable. Patient advised if symptoms do not improve or if symptoms worsen sooner, to contact their primary care physician. Potential red flag symptoms discussed with the patient. Reviewed appropriate action plan to take if red flag symptoms occur. Patient agreeable to treatment plan. Fay Ames APRN.MACHINE CLOTHING WORKER [facility] Vital Signs Date Time Vital Sign Value Performing Clinician Facility 07-04-2024 19:15-0400 Body height 187.[address] Gayle Camacho MD Work Phone: [facility] 07-04-2024 19:15-0400 Body mass index (BMI) [Ratio] 31.1 kg/m2 Dr. Gayle Camacho MD Work Phone: [facility] 07-04-2024 19:15-0400 Body temperature 97.8 [degF] Dr. Gayle Camacho MD Work Phone: [facility] 07-04-2024 19:15-0400 Body weight 110.[address] Gayle Camacho MD Work Phone: [facility] 07-04-2024 19:15-0400 Diastolic blood pressure 90 mm[Hg] Dr. Gayle Camacho MD Work Phone: [facility] 07-04-2024 19:15-0400 Heart rate 82 /min Dr. Gayle Camacho MD Work Phone: [facility] 07-04-2024 19:15-0400 Respiratory rate 16 /min Dr. Gayle Camacho MD Work Phone: [facility] 07-04-2024 19:15-0400 SaO2% (BldA) [Mass fraction] 99 % Dr. Gayle Camacho MD Work Phone: [facility] 07-04-2024 19:15-0400 Systolic blood pressure 148 mm[Hg] Dr. Gayle Camacho MD Work Phone: [facility] 04-03-2023 09:37-0500 Body height 188 cm NELL THOMPSON MD [facility] 04-03-2023 09:37-0500 Body temperature 98.42 [degF] NELL THOMPSON MD [facility] 04-03-2023 09:37-0500 Body weight 112 kg NELL THOMPSON MD [facility] 04-03-2023 09:37-0500 Diastolic Blood Pressure Non-Invasive 89 mm[Hg] NELL THOMPSON MD [facility] 04-03-2023 09:37-0500 Heart rate 74 /min NELL THOMPSON MD [facility] 04-03-2023 09:37-0500 Respiratory rate 20 /min NELL THOMPSON MD [facility] 04-03-2023 09:37-0500 Systolic Blood Pressure Non-Invasive 147 mm[Hg] NELL THOMPSON MD [facility] 04-03-2023 06:22-0500 Blood Pressure Location KATRINA MURILLO MD [facility] 04-03-2023 06:22-0500 Body height 188 cm KATRINA MURILLO MD [facility] 04-03-2023 06:22-0500 Body temperature 97.88 [degF] KATRINA MURILLO MD [facility] 04-03-2023 06:22-0500 Body weight 113 kg KATRINA MURILLO MD [facility] 04-03-2023 06:22-0500 Diastolic Blood Pressure Non-Invasive 88 mm[Hg] KATRINA MURILLO MD [facility] 04-03-2023 06:22-0500 Heart rate 66 /min KATRINA MURILLO MD [facility] 04-03-2023 06:22-0500 Respiratory rate 16 /min KATRINA MURILLO MD [facility] 04-03-2023 06:22-0500 Systolic Blood Pressure Non-Invasive 137 mm[Hg] KATRINA MURILLO MD [facility] 04-03-2023 05:49-0500 SaO2% (BldA) [Mass fraction] 96 % [facility] 04-03-2023 05:48-0500 Diastolic blood pressure 60 mm[Hg] [facility] 04-03-2023 05:48-0500 Heart rate 82 /min [facility] 04-03-2023 05:48-0500 Respiratory rate 16 /min [facility] 04-03-2023 05:48-0500 Systolic blood pressure 152 mm[Hg] [facility] 04-03-2023 04:57-0500 Body height 187.96 cm [facility] 04-03-2023 04:57-0500 Body mass index (BMI) [Ratio] 31.6 kg/m2 [facility] 04-03-2023 04:57-0500 Body temperature 96 [degF] [facility] 04-03-2023 04:57-0500 Body weight 111.8 kg [facility] 12-03-2020 07:40-0400 SaO2% (BldA) [Mass fraction] 99 % [facility] Comment on above: Order Comment: [place]: [facility] BLOOD GAS? YP atient's Anticoagulant? UNKNOWN Performed By: #### L [id number] ####[facility] [id number] [place], [place] [address]Pl# [phone] 11-30-2020 06:43-0400 SaO2% (BldA) [Mass fraction] 100 % [facility] Comment on above: Order Comment: [place]: [facility] BLOOD GAS? YP atient's Anticoagulant? UNKNOWN Performed By: #### L [id number] ####[facility] [id number] [place], [place] [address]Oo# [phone] 11-29-2020 06:30-0400 SaO2% (BldA) [Mass fraction] 100 % [facility] Comment on above: Order Comment: [place]: CORTNEY BLOOD GAS? YP atient's Anticoagulant? HEPARIN Performed By: #### L [id number] ####[facility] [id number] [place], [place] [address]Io# [phone] 11-29-2020 02:20-0400 SaO2% (BldA) [Mass fraction] 95 % [facility] Comment on above: Performed By: #### [id number] ####[facility] [id number] [place], [place] [address]Ax# [phone] Encounters Encounter Date Encounter Type Care Provider Facility Start: 07-04-2024 End: 07-04-2024 Emergency department patient visit Ed Physician Provider Facility:[facility] Start: 03-04-2024 End: 03-04-2024 Emergency department patient visit Gayle Camacho Facility:[facility] Start: 01-05-2024 End: 01-05-2024 Emergency department patient visit Valdemar Maygermaine Facility:[facility] Start: 04-03-2023 End: 04-03-2023 Emergency department patient visit NELL THOMPSON MD Facility:B Start: 04-03-2023 End: 04-03-2023 Emergency department patient visit NELL THOMPSON MD [facility] Start: 04-03-2023 End: 04-03-2023 Emergency department patient visit KATRINA MURILLO MD Facility:[facility] Start: 04-03-2023 End: 04-03-2023 Emergency department patient visit KATRINA MURILLO MD [facility] Start: 04-03-2023 End: 04-03-2023 Emergency department patient visit [facility] Work Phone: Start: 11-29-2020 End: 11-29-2020 ambulatory UNKNOWN PROVIDER Facility:[facility] Start: 07-14-2018 End: 07-16-2018 Patient encounter procedure PETER MANZO [facility] Start: 07-06-2018 End: 07-07-2018 Patient encounter procedure LYNDON (MACHINE CLOTHING WORKER) [facility] Start: 07-05-2018 End: 07-05-2018 Patient encounter procedure LYNDON (MACHINE CLOTHING WORKER) [facility] Start: 07-01-2018 End: 07-01-2018 Patient encounter procedure LYNDON (MACHINE CLOTHING WORKER) [facility] Start: 07-01-2018 End: 07-02-2018 Patient encounter procedure LYNDON (MACHINE CLOTHING WORKER) [facility] Start: 06-28-2018 End: 06-29-2018 Patient encounter procedure TEMI (MACHINE CLOTHING WORKER) [facility] Start: 11-16-2017 End: 11-17-2017 Patient encounter procedure TEMI [facility] Start: 11-04-2017 End: 11-05-2017 Patient encounter procedure TEMI [facility] Procedures Date Procedure Procedure Detail Performing Clinician Start: 11-29-2020 History of placement of stent for coronary artery disease History of coronary artery stent placement Comment on above: [id number] LCx w/ 3.0 x 12 mm Rebel Stent 11/29/20 Start: 11-29-2020 Ecg routine ecg w/le ast 12 lds i&r only Start: 11-29-2020 Cardiac catheterization H/O: surgery H/O hand surgery Plan of Treatment Date Care Activity Detail Author Start: 04-03-2023 [facility] Patient Education ED Dental Pain ED Dental Cavity [facility] Work Phone: Patient referral [facility] Work Phone: Payers Date Payer Category Payer Self-pay [id number] 2023 Unknown [id number] 2020 Medicaid [id number] 1980 Unknown [id number] 2.16. [id number] 1980 Unknown [id number] 2.16. [id number] 1980 Unknown [id number] 2.16.8 [id number] 1980 Unknown [id number] 2.16.8 [id number] Unknown [id number] 2.16.8 [id number] Unknown [id number] 2.16.8 [id number] Unknown [id number] 2.16.8 [id number] Social History Date Type Detail Facility Start: 04-03-2023 Tobacco smoking stat [facility] Unknown if ever smoked [facility] Start: 04-09-2020 None [facility] Start: 08-08-2020 Cigarettes [facility] Start: 1980 Sex Assigned At Male [facility] Start: 12-12-2020 Tobacco smoking status Never s moked tobacco (finding) [facility] Start: [facility]-04[facility] Start: 07-04-2024 Sex Male (finding) [facility] Functional Status Date Assessment Result Facility 04-03-2023 Functional Status ID band on, Allergy Band on, Call device within reach, Bed in low position, Wheels locked, personal items within reach, Bedside Cart Locked [facility] Mental Status Date Assessment Result Facility 07-04-2024 Cognitive function Level Of Cons ciousness Awake;Alert;Appropriate [facility] Work Phone: 04-03-2023 Mental Status Oriented x 4 [facility] Discharge instructions 04-03-2023 Note Date & Type Note Facility 04-03-2023 Hospital Discharg e instructions Patient Education 04/03/2023 09:40:25 Dental Pain Dental Pain A crack or cavity in a tooth can cause tooth pain. This is because the crack or cavity exposes the sensitive inner area of the tooth. An infection in the gum or the root of the tooth can cause pain and swelling. The pain is often made worse when you drink hot or cold beverages. It can also be worse when you bite on hard foods. Pain may spread from the tooth to your ear or the area of the jaw on the same side. Home care Follow these tips when caring for yourself at home: Don't have hot and cold foods and drinks. Your tooth may be sensitive to changes in temperature. Use toothpaste made for sensitive teeth. Mona gently up and down instead of sideways. Brushing sideways can wear away root surfaces if they are exposed. If your tooth is chipped or cracked, or if there is a large open cavity, put oil of cloves directly on the tooth to relieve pain. You can buy oil of cloves at drugstores. Some pharmacies carry an firh-gsx-mtkqlfd toothache kit. This contains a paste that you can put on the exposed tooth to make it less sensitive. Put a cold pack on your jaw over the sore area to help reduce pain. You may use bgcr-yvs-uqgizag medicine to ease pain, unless your doctor prescribed another medicine. If you have chronic liver or kidney disease, talk with your healthcare provider before using acetaminophen or ibuprofen. Also talk with your provider if you ve had a stomach ulcer or GI bleeding. If you have signs of an infection, you will be given an antibiotic. Take it as directed. Follow-up care Follow up with your dentist, or as advised. Your pain may go away with the treatment given today. But only a dentist can fully look at and treat the cause of your pain. This will keep the pain from coming back. Call 911 Call 911 if any of these occur: Unusual drowsiness Headache or stiff neck Weakness or fainting Difficulty swallowing or breathing When to seek medical advice Call your health care provider right away if any of these occur: Your face becomes swollen or red Pain gets worse or spreads to your neck Fever of 100.4 F (38.0 C) or higher, or as directed by your healthcare provider Pus drains from the tooth [phone] [employer]. [address] [place] [address], [place] [address]. All rights reserved. This information is not intended as a substitute for professional medical care. Always follow your healthcare professional's instructions. Follow Up Care 04/03/2023 09:29:33 With:Follow up with primary care provider Address:Unknown When:2-4 days [facility] Clinical Note 04-03-2023 Note Date & Type Note Facility 04-03-2023 Note Discharge Instructions Thank you for allowing [facility] to assist you with your healthcare needs. The following is important discharge information regarding your hospital visit. Diagnosis from Today's Visit Dentalgia Toothache What to Do Next Instructions from Your Care Team No qualifying data available. Post Acute Orders No qualifying data available. You Need to Schedule the Following Appointments Follow Up with Follow up with primary care provider When Within 2-4 days Allergies Red Dye clindamycin Medications Please ask your primary doctor or pharmacist before taking any other medication not listed, including over the counter drugs, herbal medications, vitamins and or supplements as they may interact with your home medications. Please take this list to your next doctor s visit. Bring all medications you take, including over the counter medications, herbals and other supplements with you to your doctor s visit. Patients and families are reminded to discard old lists and to update any records with all medication providers or retail pharmacies. Education Materials Dental Pain A crack or cavity in a tooth can cause tooth pain. This is because the crack or cavity exposes the sensitive inner area of the tooth. An infection in the gum or the root of the tooth can cause pain and swelling. The pain is often made worse when you drink hot or cold beverages. It can also be worse when you bite on hard foods. Pain may spread from the tooth to your ear or the area of the jaw on the same side. Home care Follow these tips when caring for yourself at home: Don't have hot and cold foods and drinks. Your tooth may be sensitive to changes in temperature. Use toothpaste made for sensitive teeth. Mona gently up and down instead of sideways. Brushing sideways can wear away root surfaces if they are exposed. If your tooth is chipped or cracked, or if there is a large open cavity, put oil of cloves directly on the tooth to relieve pain. You can buy oil of cloves at [employer]. Some pharmacies carry an afch-qqr-bmvrvsa toothache kit. This contains a paste that you can put on the exposed tooth to make it less sensitive. Put a cold pack on your jaw over the sore area to help reduce pain. You may use fovj-ufm-qrlujcu medicine to ease pain, unless your doctor prescribed another medicine. If you have chronic liver or kidney disease, talk with your healthcare provider before using acetaminophen or ibuprofen. Also talk with your provider if you ve had a stomach ulcer or GI bleeding. If you have signs of an infection, you will be given an antibiotic. Take it as directed. Follow-up care Follow up with your dentist, or as advised. Your pain may go away with the treatment given today. But only a dentist can fully look at and treat the cause of your pain. This will keep the pain from coming back. Call 911 Call 911 if any of these occur: Unusual drowsiness Headache or stiff neck Weakness or fainting Difficulty swallowing or breathing When to seek medical advice Call your health care provider right away if any of these occur: Your face becomes swollen or red Pain gets worse or spreads to your neck Fever of 100.4 F (38.0 C) or higher, or as directed by your healthcare provider Pus drains from the tooth [phone] [employer]. [address] [place] [address]. All rights reserved. This information is not intended as a substitute for professional medical care. Always follow your healthcare professional's instructions. Additional Information VACCINATE! IT SAVES LIVES! Members of the community who have not yet received the COVID-19 vaccine and would like to receive it can visit one of [facility] vaccine clinics. There are many vaccine clinic locations within the [facility]. For locations and available times, please visit [email or web address] It is important to note that some COVID mobile vaccine clinics are held outdoors and may be canceled in rainy or stormy conditions. To learn more about pediatric vaccinations (ages 5-11), we invite you to visit the [facility] webpage. https://www.[email or web address].org/pages/2 255-Bmfcu-Okaswkllgvn-Frequently-Asked -Questions.html To learn more about the COVID-19 vaccine, we invite you to visit the CDC website for a list of frequently asked questions. https://www.cdc.gov/coronavirus/2019-n cov/vaccines/faq.html [facility] Patient Portal Access Instructions: Stay connected with your healthcare team and access your personal medical information anytime with the [facility] Patient Portal. If you would like a full copy of your medical records please contact the [facility] Medical Records Department Thursday through Thursday between 8a.m. and 4:30p.m. Please follow the directions below to access the portal: 1.Access the email account you provided upon registration to the [facility].2.Look for an invitation email from [facility].3.Open the email and access the invitation link: Accept Invitation to [facility].Fill in the required anaya to create your account. Sign into [email or web address] with your username and password that you created in the above steps to stay up to date. You can then view a summary of results, a summary of your visits, and the ability to download your summaries to your computer or send the information securely to a physician. Remember that your healthcare information is confidential, so carefully consider who you will allow to register on the [facility] Patient Portal for access to your information. You can also access the [facility] Patient Portal on the [employer] blanca. Simply click on Health Records under Health Data and then click on the [employer] logo. HOW TO SAFELY DISPOSE OF PRESCRIPTION MEDICATIONS Please use one of the following methods to safely dispose of your unused medications. 1.Use a drug disposal kit: the drug disposal pouch allows you to safely discard your old and unused drugs. Ask your nurse to give you one when you are discharged.2.Visit a local take-back location: Many local pharmacies and police departments have programs that collect old and unwanted prescription drugs. Call your local pharmacy or go to http://[employer].Finario/0P0Qi5d to find one close to you.3.Make use of household items: Use cat litter or old coffee grounds to dispose medications if other options are not available. Mix your drugs with these household products, seal them in an airtight container and throw it into the garbage. Call [facility]: [phone] to be sure your drugs can be disposed of in this way. Some medicines may require a different approach.4.Never flush your medications down the toilet. IF YOU HAVE BEEN PRESCRIBED AN OPIOIDS FOR PAIN If you have been prescribed an opioid (such as hydrocodone, oxycodone or morphine), it is critical to understand the possible side effects and risks of opioid pain medications. Even when taken as directed, opioids can have several side effects including: Tolerance, meaning you might need to take more of a medication for the same pain relief. Nausea, vomiting and/or constipation. Sleepiness, dizziness, dry mouth, confusion, depression or itching. Physical dependence, meaning you have withdrawal symptoms when a medication is stopped ? this can develop within a few days. KNOW YOUR RESPONSIBILITIES It is important to know exactly how much and how often to take the opioid pain medications you are prescribed. Never take opioids in higher amounts or more often than prescribed. Do not combine opioids with alcohol or other drugs that cause drowsiness, such as benzodiazepines, also known as benzos, including diazepam and alprazolam, muscle relaxants or sleep aids. Never sell or share prescription opioids. This is illegal. Store opioids in a secure place and out of reach of others (including children, family, friends and visitors). The last page(s) of this document has been signed and retained as a CHART COPY Signatures Patient Education Materials Dental Pain Medication Leaflets My discharge plan and instructions have been reviewed and explained to me and I,GINNY BARFIELD understand my current condition and have read and understand these discharge instructions. I have received a written copy of the plan/instructions. If I have questions, I am aware that I should contact my doctor. Patient/Valuation Manager Signature: _ Date/Time: Relationship to Patient: Witness Name/Signature: Date/Time: [facility] Discharge instructions 04-03-2023 Note Date & Type Note Facility 04-03-2023 Hospital Discharg e instructions Patient Education 04/03/2023 06:49:09 Dental Pain Dental Pain A crack or cavity in a tooth can cause tooth pain. This is because the crack or cavity exposes the sensitive inner area of the tooth. An infection in the gum or the root of the tooth can cause pain and swelling. The pain is often made worse when you drink hot or cold beverages. It can also be worse when you bite on hard foods. Pain may spread from the tooth to your ear or the area of the jaw on the same side. Home care Follow these tips when caring for yourself at home: Don't have hot and cold foods and drinks. Your tooth may be sensitive to changes in temperature. Use toothpaste made for sensitive teeth. Mona gently up and down instead of sideways. Brushing sideways can wear away root surfaces if they are exposed. If your tooth is chipped or cracked, or if there is a large open cavity, put oil of cloves directly on the tooth to relieve pain. You can buy oil of cloves at drugstores. Some pharmacies carry an trbl-rbe-ztkjoqe toothache kit. This contains a paste that you can put on the exposed tooth to make it less sensitive. Put a cold pack on your jaw over the sore area to help reduce pain. You may use efay-otv-kqdyuzr medicine to ease pain, unless your doctor prescribed another medicine. If you have chronic liver or kidney disease, talk with your healthcare provider before using acetaminophen or ibuprofen. Also talk with your provider if you ve had a stomach ulcer or GI bleeding. If you have signs of an infection, you will be given an antibiotic. Take it as directed. Follow-up care Follow up with your dentist, or as advised. Your pain may go away with the treatment given today. But only a dentist can fully look at and treat the cause of your pain. This will keep the pain from coming back. Call 911 Call 911 if any of these occur: Unusual drowsiness Headache or stiff neck Weakness or fainting Difficulty swallowing or breathing When to seek medical advice Call your health care provider right away if any of these occur: Your face becomes swollen or red Pain gets worse or spreads to your neck Fever of 100.4 F (38.0 C) or higher, or as directed by your healthcare provider Pus drains from the tooth [phone] [employer]. [address] [place] [address], [place] [address]. All rights reserved. This information is not intended as a substitute for professional medical care. Always follow your healthcare professional's instructions. Follow Up Care 04/03/2023 06:19:55 With:Dental Referral List Address: When:2-4 days Comments:Schedule appointment as soon as possibleReturn to ED if symptoms worsen [facility] Sirisha Clinical Note 04-03-2023 Note Date & Type Note Facility 04-03-2023 Note Discharge Instructions Thank you for allowing [facility] to assist you with your healthcare needs. The following is important discharge information regarding your hospital visit. Diagnosis from Today's Visit Dentalgia Pain in tooth What to Do Next Instructions from Your Care Team Fill the antibiotic prescription that you were given from [facility]. Motrin and Tylenol as needed. Follow-up with dentist in 2 to 3 days. Return if worse anyway. No qualifying data available. Post Acute Orders No qualifying data available. You Need to Schedule the Following Appointments Follow Up with Dental Referral List When Within 2-4 days Why: Schedule appointment as soon as possible Return to ED if symptoms worsen Where: Allergies Red Dye clindamycin Medications Please ask your primary doctor or pharmacist before taking any other medication not listed, including over the counter drugs, herbal medications, vitamins and or supplements as they may interact with your home medications. Please take this list to your next doctor s visit. Bring all medications you take, including over the counter medications, herbals and other supplements with you to your doctor s visit. Patients and families are reminded to discard old lists and to update any records with all medication providers or retail pharmacies. Education Materials Dental Pain A crack or cavity in a tooth can cause tooth pain. This is because the crack or cavity exposes the sensitive inner area of the tooth. An infection in the gum or the root of the tooth can cause pain and swelling. The pain is often made worse when you drink hot or cold beverages. It can also be worse when you bite on hard foods. Pain may spread from the tooth to your ear or the area of the jaw on the same side. Home care Follow these tips when caring for yourself at home: Don't have hot and cold foods and drinks. Your tooth may be sensitive to changes in temperature. Use toothpaste made for sensitive teeth. Mona gently up and down instead of sideways. Brushing sideways can wear away root surfaces if they are exposed. If your tooth is chipped or cracked, or if there is a large open cavity, put oil of cloves directly on the tooth to relieve pain. You can buy oil of cloves at drugstores. Some pharmacies carry an ofkl-ijj-gbouqww toothache kit. This contains a paste that you can put on the exposed tooth to make it less sensitive. Put a cold pack on your jaw over the sore area to help reduce pain. You may use amli-osy-wnpfevk medicine to ease pain, unless your doctor prescribed another medicine. If you have chronic liver or kidney disease, talk with your healthcare provider before using acetaminophen or ibuprofen. Also talk with your provider if you ve had a stomach ulcer or GI bleeding. If you have signs of an infection, you will be given an antibiotic. Take it as directed. Follow-up care Follow up with your dentist, or as advised. Your pain may go away with the treatment given today. But only a dentist can fully look at and treat the cause of your pain. This will keep the pain from coming back. Call 911 Call 911 if any of these occur: Unusual drowsiness Headache or stiff neck Weakness or fainting Difficulty swallowing or breathing When to seek medical advice Call your health care provider right away if any of these occur: Your face becomes swollen or red Pain gets worse or spreads to your neck Fever of 100.4 F (38.0 C) or higher, or as directed by your healthcare provider Pus drains from the tooth [id number] [employer]. [address] [place] [address], [place] [address]. All rights reserved. This information is not intended as a substitute for professional medical care. Always follow your healthcare professional's instructions. Additional Information VACCINATE! IT SAVES LIVES! Members of the community who have not yet received the COVID-19 vaccine and would like to receive it can visit one of [facility] vaccine clinics. There are many vaccine clinic locations within the [facility]. For locations and available times, please visit [email or web address]/. It is important to note that some COVID mobile vaccine clinics are held outdoors and may be canceled in rainy or stormy conditions. To learn more about pediatric vaccinations (ages 5-11), we invite you to visit the [facility] webpage. https://www.[email or web address].org/pages/2 750-Dytpw-Bvpjnszkszq-Frequently-Asked -Questions.html To learn more about the COVID-19 vaccine, we invite you to visit the CDC website for a list of frequently asked questions. https://www.cdc.gov/coronavirus/2019-n cov/vaccines/faq.html [facility] Patient Portal Access Instructions: Stay connected with your healthcare team and access your personal medical information anytime with the [facility] Patient Portal. If you would like a full copy of your medical records please contact the [facility] Medical Records Department Thursday through Thursday between 8a.m. and 4:30p.m. Please follow the directions below to access the portal: 1.Access the email account you provided upon registration to the [facility].2.Look for an invitation email from [facility].3.Open the email and access the invitation link: Accept Invitation to [facility]4.Fill in the required anaya to create your account. Sign into [email or web address] with your username and password that you created in the above steps to stay up to date. You can then view a summary of results, a summary of your visits, and the ability to download your summaries to your computer or send the information securely to a physician. Remember that your healthcare information is confidential, so carefully consider who you will allow to register on the [facility] Patient Portal for access to your information. You can also access the [facility] Patient Portal on the [employer] blanca. Simply click on Health Records under Health Data and then click on the [employer] logo. HOW TO SAFELY DISPOSE OF PRESCRIPTION MEDICATIONS Please use one of the following methods to safely dispose of your unused medications. 1.Use a drug disposal kit: the drug disposal pouch allows you to safely discard your old and unused drugs. Ask your nurse to give you one when you are discharged.2.Visit a local take-back location: Many local pharmacies and police departments have programs that collect old and unwanted prescription drugs. Call your local pharmacy or go to http://bit.Finario/4K1Aa6l to find one close to you.3.Make use of household items: Use cat litter or old coffee grounds to dispose medications if other options are not available. Mix your drugs with these household products, seal them in an airtight container and throw it into the garbage. Call [facility]: [phone] to be sure your drugs can be disposed of in this way. Some medicines may require a different approach.4.Never flush your medications down the toilet. IF YOU HAVE BEEN PRESCRIBED AN OPIOIDS FOR PAIN If you have been prescribed an opioid (such as hydrocodone, oxycodone or morphine), it is critical to understand the possible side effects and risks of opioid pain medications. Even when taken as directed, opioids can have several side effects including: Tolerance, meaning you might need to take more of a medication for the same pain relief. Nausea, vomiting and/or constipation. Sleepiness, dizziness, dry mouth, confusion, depression or itching. Physical dependence, meaning you have withdrawal symptoms when a medication is stopped ? this can develop within a few days. KNOW YOUR RESPONSIBILITIES It is important to know exactly how much and how often to take the opioid pain medications you are prescribed. Never take opioids in higher amounts or more often than prescribed. Do not combine opioids with alcohol or other drugs that cause drowsiness, such as benzodiazepines, also known as benzos, including diazepam and alprazolam, muscle relaxants or sleep aids. Never sell or share prescription opioids. This is illegal. Store opioids in a secure place and out of reach of others (including children, family, friends and visitors). The last page(s) of this document has been signed and retained as a CHART COPY Signatures Patient Education Materials Dental Pain Medication Leaflets My discharge plan and instructions have been reviewed and explained to me and ISIMONE TIMOTHY understand my current condition and have read and understand these discharge instructions. I have received a written copy of the plan/instructions. If I have questions, I am aware that I should contact my doctor. Patient/Valuation Manager Signature: _ Date/Time: Relationship to Patient: Witness Name/Signature: Date/Time: [facility] Discharge summary note 12-11-2020 Note Date & Type Note Facility 12-11-2020 Note Lamar garrisonignacio Mccurdy Evaluation + Plan note Note Date & Type Note Facility Evaluation + Plan note No data available for this section [facility] Evaluation note Note Date & Type Note Facility Evaluation note No assessment information availa ble [facility] Work Phone: Reason for referral (narrative) Note Date & Type Note Facility Reason for referral (narrative) No reason for referral information available [facility] Work Phone: Summary Purpose Family History Relationship Condition Age at Onset Recorded Date/T sheyla mother Diabetes mellitus Unknown grandmother Diabetes mellitus Unknown Hypertension Unknown Malignant neoplasm Unknown Advance Directives Advance Directive Response Recorded Date/ Time Living Will No April 03 4:59am Power of Preschool Director No April 03, 2023 4:59am Advance Directive Response Recorded Date/ Time Living Will No July 04, 2024 8:41pm Do you have a Healthcare Power of Preschool Director? No July 04, 2024 8:41pm Chief Complaint and Reason for Visit Chief Complaint DENTAL Chief Complaint Admit Date foreign object July 04, 2024 7:1 4pm Additional Source Comments (unrecognized sect ion and content) No Status Records FoundNo Status Records FoundNo Status Records FoundNo Status Records FoundNo Status Records Found INFORMATION SOURCE (unrecogn ized section and content) DATE CREATED AUTHOR 07/18/2018 [facility] DATE CREATED AUTHOR AUTHOR'S ORGANIZ ATION 12/04/2020 [facility] [employer] [facility] DATE CREATED AUTHOR AUTHOR'S ORGANIZ ATION 06/03/2021 Lamar Mccurdy DATE CREATED AUTHOR AUTHOR'S ORGANIZ ATION 04/11/2023 [facility] ([place]) DATE CREATED AUTHOR AUTHOR'S ORGANIZ ATION 07/10/2024 [facility] Care Teams (unrecognized sec tion and content) Team Status: Active Member Role Status Dates No Primary Care Physician Family Provider Active No Primary Care Physician Primary Care Provider Active Team Status: Inactive Member Role Status Dates Dr. Javi Bridges DO Emergency Provider Active No Primary Care Physician Primary Care Provider Active Team Status: Active Member Role Status Dates Dr. Gayle Camacho MD Primary Care Provider Active Team Status: Inactive Member Role Status Dates Dr. Gayle Camacho MD Primary Care Provider Active Start: July 04, 2024 End: July 04, 2024 Ed Physician Provider Emergency Provider Active Start: July 04, 2024 End: July 04, 2024 Goals (unrecognized section and content) Goals may be documented in a n alternate section No data available for this section No data available for this sectionGoals may be documented in an alternate section FOR RECORDS PERTAINING TO PATIENTS WHO ARE OR HAVE BEEN ENROLLED IN A CHEMICAL DEPENDENCY/SUBSTANCEABUSE PROGRAM, SOME INFORMATION MAY BE OMITTED. This clinical summary was aggregated from multiple sources. Caution should be exercised in using it in the provision of clinical care. This summary normalizes information from multiple sources, and as a consequence, information in this document may materially change the coding, format and clinical context of patient data. In addition, data may be omitted in some cases. CLINICAL DECISIONS SHOULD BE BASED ON THE PRIMARY CLINICAL RECORDS. [facility]. provides no warranty or guarantee of the accuracy or completeness of information in this document.
== END 2024-10-04 00:05 | disposition home or self-care (01) ==
LOC: ED 10-04 00:03
PROVIDERS: Emergency Provider Emergency Medicine; PCP Internal Medicine; Visit Provider Emergency Medicine
DX: L30.8 Other specified dermatitis (principal); I25.10 Atherosclerotic heart disease of native coronary artery without angina pectoris; I25.5 Ischemic cardiomyopathy; I25.2 Old myocardial infarction; Z86.73 Personal history of transient ischemic attack (TIA), and cerebral infarction without residual deficits; Z95.5 Presence of coronary angioplasty implant and graft; F17.210 Nicotine dependence, cigarettes, uncomplicated
CPT/HCPCS: 99282

== ENCOUNTER 2024-10-24 18:09 | Emergency (ER) | payer MEDICAID, SELFPAY ==
[2024-10-24 18:09] VITALS: BP 161/95; PULSE 96; RESP 14; TEMP 36.1; O2SAT 98; BMI 30.6
[2024-10-24 22:09] VITALS: BP 134/108; PULSE 63; O2SAT 97
--- NOTE | 2024-10-24 22:12 | EDS_ITS ---
HPI History of Present Illness Chief Complaint: Itching Informant: patient Onset/Context/Timing Onset: Weeks Context: Gradual Onset Timing: Continuous Quality: Pruritic Location: Generalized Worsened by: Heat Relieved by: Cooler temperatures Narrative Narrative: Patient presents with poison olga rash has been getting worse over the past few weeks. Patient states he was seen here and was given a prescription for prednisone. Patient states this only helped a little bit. Patient states that normally when he gets poison olga, he gets a shot. Patient denies any difficulty breathing or difficulty swallowing. Patient states the rash is generalized. Patient states it is worse when he is out in the heat. Patient states it is better when he is in cooler temperatures. [facility] Medical History Old inferolateral myocardial infarction Obesity Ischemic cardiomyopathy Atherosclerotic heart disease of [place] coronary artery without angina pectoris Cardiac arrest with ventricular fibrillation (11/28/20) History of ST elevation myocardial infarction (STEMI) (11/28/20) History of CVA (cerebrovascular accident) Left-sided weakness Dysphagia as late effect of cerebrovascular accident (CVA) Cardiopulmonary arrest with successful resuscitation (11/28/20) Failing root canal Facet arthritis of lumbar region Thoracic degenerative disc disease Medical History no medical history Home Medications ?Medication ?Instructions ?Recorded ?Last Taken ?Type prednisone 20 mg tablet 40 mg (2 x 20 mg) PO DAILY # 8 10/03/24 Unknown Rx TABLETS Allergy/AdvReac Type Severity Reaction Status Date / Time clindamycin Allergy Unknown Verified 10/24/24 18:10 poison olga extract Allergy Rash Verified 10/24/24 18:10 poison oak extract Allergy Rash Verified 10/24/24 18:10 poison sumac extract Allergy Rash Verified 10/24/24 18:10 red dye Allergy Rash Verified 10/24/24 18:10 Family History Mother Diabetes Grandmother Diabetes Hypertension Cancer Surgical History History of coronary artery stent placement (11/29/20) [place] teeth extracted H/O hand surgery Social History Smoking Status: Heavy Smoker (>10/day) alcohol intake: current substance use type: former substance user and marijuana what type of physical activity do you participate in: none ROS ROS ED Constitutional Constitutional ED: Denies chills or fever(s) Eyes Eyes: Denies blurry vision or change in vision ENT ENT ED: Denies rhinorrhea or sore throat Cardiovascular Cardiovascular: Denies chest pain or palpitations Respiratory/Chest Respiratory/Chest: Denies cough or dyspnea Gastrointestinal Gastrointestinal: Denies nausea or vomiting Genitourinary Genitourinary ED: Denies dysuria or hematuria Musculoskeletal Musculoskeletal: Reports back pain and neck pain Integumentary Reports rash; Denies abscess Neurologic Neurologic: Denies headache(s) or weakness Allergic/Immunologic Allergic/Immunologic ED: Reports urticaria; Denies mouth swelling EXAM Physical Exam Const Vital Signs: 10/24/24 18:09 10/24/24 22:09 10/24/24 22:29 Temperature 97 F L 97 F L Temperature Source Oral Pulse Rate 96 63 63 Respiratory Rate 14 14 Blood Pressure 161/95 H 134/108 H 134/108 H Blood Pressure Mean 117 116 116 Pulse Ox 98 97 97 Oxygen Delivery Method Room Air Room Air Positive well nourished and well developed General Appearance ED: well developed and NAD HEENT Reports moist mucous membranes Neck supple and no JVD Neuro oriented x3, CN's II-XII intact bilaterally and no sensory deficits noted Sensorium / Orientation: alert Motor Exam: strength 5/5 throughout Psych mental status grossly normal Skin Skin Narrative: There is a patchy erythematous rash with areas of linear vesicles over the upper extremities, lower extremities, neck, ears, and hairline. There is no crusting noted. There is no discharge or drainage. MDM MDM MDM Narrative Medical decision making narrative: Patient was advised that this is most likely consistent with poison olga or poison oak. Patient was given injection of Kenalog here. Patient was instructed to follow-up with a primary care physician in 5 to 7 days patient understood and was agreeable with the plan. All questions were answered. History & Record Review Additional record(s) reviewed:: Prior ED visit Discharge Plan Triage Chief Complaint: Itching ED Provider: Javi Bridges Dx/Rx/DC Orders Clinical Impression: Rhus dermatitis, Tobacco abuse Instructions: ED Poison Olga or Poison [place] Rash Prescriptions: No Action prednisone 20 mg tablet 40 mg PO DAILY Qty: 8 0RF Primary Care Provider: Gayle Camacho Referrals: Gayle Camacho MD [Primary Care Provider] - 5-7 Days Print Language: Lithuanian Disposition Disposition: Home, Self Care Discharge Date/Time: 10/24/24 22:29
[2024-10-24 22:29] VITALS: BP 134/108; PULSE 63; RESP 14; TEMP 36.1; O2SAT 97
== END 2024-10-24 22:29 | disposition home or self-care (01) ==
PROVIDERS: Emergency Provider Emergency Medicine; PCP Internal Medicine; Visit Provider Emergency Medicine
DX: L23.7 Allergic contact dermatitis due to plants, except food (principal); I25.10 Atherosclerotic heart disease of native coronary artery without angina pectoris; I25.5 Ischemic cardiomyopathy; I25.2 Old myocardial infarction; Z86.73 Personal history of transient ischemic attack (TIA), and cerebral infarction without residual deficits; F17.210 Nicotine dependence, cigarettes, uncomplicated; Z95.5 Presence of coronary angioplasty implant and graft
CPT/HCPCS: 96372; 99282

== ENCOUNTER 2024-11-04 22:48 | Emergency (ER) | payer MEDICAID, SELFPAY ==
[2024-11-04 22:49] VITALS: BP 165/106; PULSE 105; RESP 16; TEMP 37; O2SAT 97; BMI 30.2
--- NOTE | 2024-11-04 23:09 | EX.ED.DYSGE1 ---
HPI History of Present Illness Chief Complaint: Shortness of Breath Informant: patient Narrative Narrative: Patient is a 44-year-old male with past medical history of hypertension and tobacco use. He states that roughly 1 month ago he was in the ER secondary to poison max. He states it was a busy day and he had to sit next to a child who was sick and coughing for 6 hours. He states a few days after that he began having nasal congestion drainage and cough. He states his symptoms have been persistent for the last few weeks. He states that the last time he had symptoms similar to this he had pneumonia and therefore he is concerned that he may have the infection once again and therefore comes in for evaluation [facility] Medical History Old inferolateral myocardial infarction Obesity Ischemic cardiomyopathy Atherosclerotic heart disease of [place] coronary artery without angina pectoris Cardiac arrest with ventricular fibrillation (11/28/20) History of ST elevation myocardial infarction (STEMI) (11/28/20) History of CVA (cerebrovascular accident) Left-sided weakness Dysphagia as late effect of cerebrovascular accident (CVA) Cardiopulmonary arrest with successful resuscitation (11/28/20) Failing root canal Facet arthritis of lumbar region Thoracic degenerative disc disease Home Medications ?Medication ?Instructions ?Recorded ?Last Taken ?Type azithromycin 250 mg tablet See Rx Instructions PO .COMPLEX #6 11/04/24 Unknown Rx (Zithromax Z-Sunday) tabs Allergy/AdvReac Type Severity Reaction Status Date / Time clindamycin Allergy Unknown Verified 11/04/24 22:53 poison max extract Allergy Rash Verified 11/04/24 22:53 poison oak extract Allergy Rash Verified 11/04/24 22:53 poison sumac extract Allergy Rash Verified 11/04/24 22:53 red dye Allergy Rash Verified 11/04/24 22:53 Family History Mother Diabetes Grandmother Diabetes Hypertension Cancer Surgical History History of coronary artery stent placement (11/29/20) [place] teeth extracted H/O hand surgery Social History Smoking Status: Heavy Smoker (>10/day) alcohol intake: current substance use type: former substance user and marijuana what type of physical activity do you participate in: none ROS ROS ED Constitutional Constitutional ED: Denies chills or fever(s) Eyes Eyes: Denies change in vision ENT ENT ED: Reports rhinorrhea; Denies sore throat Cardiovascular Cardiovascular: Denies chest pain Respiratory/Chest Respiratory/Chest: Reports cough and dyspnea Gastrointestinal Gastrointestinal: Denies abdominal pain, diarrhea, nausea or vomiting Genitourinary Genitourinary ED: Denies dysuria Musculoskeletal Musculoskeletal: Denies myalgias Integumentary Denies rash Neurologic Neurologic: Denies headache(s) Hematologic/Lymphatic Hematologic/Lymphatic: Denies easy bleeding or easy bruising Allergic/Immunologic Allergic/Immunologic ED: Denies mouth swelling or tongue swelling EXAM Physical Exam Const Vital Signs: 11/04/24 22:49 11/04/24 23:24 11/04/24 23:26 Temperature 98.6 F Temperature Source Oral Pulse Rate 105 H 86 Respiratory Rate 16 18 Respiratory Effort Normal Non-Labored Respiratory Depth Normal Respiratory Pattern Normal Blood Pressure 165/106 H 162/88 H Blood Pressure Mean 125 112 Pulse Ox 97 98 Oxygen Delivery Method Room Air Room Air Room Air Positive well nourished and well developed General Appearance ED: well developed; Negative for pallor HEENT HEENT Narrative: Normocephalic atraumatic Nasal mucosa is hyperemic and boggy No tongue or lip swelling no oral lesions no airway edema or compromise; there is cobblestoning the posterior pharynx consistent with sinus drainage Eyes PERRL and EOMs intact bilaterally General Eye ED: Negative for scleral icterus Neck supple and no JVD Chest Wall palpation of chest normal Resp normal respiratory effort Resp Narrative: Breath sounds are diminished throughout with diffuse rhonchi and faint expiratory wheeze. However no nasal flaring retractions tachypnea or accessory muscle use Cardio regular rate and regular rhythm Extremity normal to inspection Extremity Narrative: No asymmetric edema no pitting edema negative Homans' sign bilaterally Neuro oriented x3, CN's II-XII intact bilaterally and no sensory deficits noted Sensorium / Orientation: alert Motor Exam: strength 5/5 throughout Psych mental status grossly normal Skin no rashes or lesions noted General Skin Exam: Negative for jaundice or pallor MDM MDM MDM Narrative Medical decision making narrative: Patient arrived hypertensive but has a past medical history of this and otherwise with stable vitals. He reported congestion drainage and cough for the last few weeks. Differential diagnosis is for viral upper respiratory tract infection such as COVID influenza or RSV versus pneumonia. As the patient does not have fever or hypoxia or signs of respiratory distress I have low concern for sepsis/systemic infection so there is no need for laboratory studies. A chest x-ray was obtained to check for lung pathology such as pneumonia or pneumothorax. X-ray was negative. On reevaluation the patient is resting comfortably remains in no acute respiratory distress. At this time based on his history of smoking and the fact he has had persistent symptoms I will trial him on a Z-Sunday but as he does not have signs of respiratory distress or hypoxia there is no need for further intervention he is otherwise safe for discharge. History & Record Review Discussion w/independent historian: Patient Radiography Diagnostic Testing: Clinical Impression(s) from Imaging Studies Chest X-Ray 11/04/24 23:10 IMPRESSION: No acute chest findings. Reading Location: [facility] 2 view chest x-ray as interpreted by the emergency medicine physician reveals no acute infiltrate pneumothorax or pleural effusion Discharge Plan Triage Chief Complaint: Shortness of Breath ED Provider: Valdemar Estrada Dx/Rx/DC Orders Clinical Impression: Upper respiratory tract infection, Tobacco abuse, Essential hypertension Instructions: ED URI, Viral W/ Wheezing (Adult) Prescriptions: New azithromycin [Zithromax Z-Sunday] 250 mg tablet See Rx Instructions .ROUTE .COMPLEX Qty: 6 0RF Rx Instructions: For 250 mg dose pack: take 500 mg today (day 1), then 250 mg for 4 days (days 2-5) Primary Care Provider: Gayle Camacho Referrals: Gayle Camacho MD [Primary Care Provider] - Activity Restrictions/Additional Instructions: Your x-ray did not show any signs of pneumonia indicating your symptoms are from a viral URI. However as your symptoms have been present for multiple weeks please try the Z-Sunday that was prescribed as this may help resolve your symptoms. Continue with cough drops to help with the cough and use the inhaler if you are having symptoms of shortness of breath. Return to the ER should you have any further concerns Print Language: Icelandic Disposition Disposition: Home, Self Care
--- NOTE | 2024-11-04 23:10 | RAD_ITS ---
PROCEDURE: CHEST PA AND LATERAL 11/04/2024 REASON FOR EXAM: COUGH TECHNIQUE: CHEST PA AND LATERAL COMPARISON: 04/22/2021 FINDINGS: Rotated patient. Normal heart size. Well inflated lungs. No consolidation, effusion, or pneumothorax. RAD/Chest PA and Lateral IMPRESSION: No acute chest findings. Reading Location: [facility]
--- OUTSIDE RECORDS SUMMARY | 2024-11-04 23:23 | XMS RPT_ITS | CCD ---
Author Organization [facility] Care Team Providers Care Lead Retail Sales Associate Name Role Phone TEMI RHOADES (WILDLIFE ENFORCEMENT MAJOR) Attending Unavailable LYNDON LEDESMA (WILDLIFE ENFORCEMENT MAJOR) Attending Unavailable LYNDON LEDESMA (WILDLIFE ENFORCEMENT MAJOR) Referring Unavailable LYNDON LEDESMA (WILDLIFE ENFORCEMENT MAJOR) Referring Unavailable LYNDON LEDESMA (WILDLIFE ENFORCEMENT MAJOR) Attending Unavailable LYNDON LEDESMA (WILDLIFE ENFORCEMENT MAJOR) Referring Unavailable LYNDON LEDESMA (WILDLIFE ENFORCEMENT MAJOR) Referring Unavailable PETER MANZO Attending Unavailable PROVIDER, UNKNOWN Admitting Unavailable PROVIDER, UNKNOWN Attending Unavailable PROVIDER, UNKNOWN Admitting Unavailable PROVIDER, UNKNOWN Attending Unavailable PHYSICIAN, NONE Primary Care Physician Unavailab christine MURILLO MD, KATRINA Morales Attending Unavailable PHYSICIAN, NONE Primary Care Unavailable DONNA VEGA, NELL Toro Attending Unavail able PHYSICIAN, NONE Primary Care Unavailable Janice EVGA, Dr. Araujo Primary Care Provider Provider, Ed Physician Emergency Provider Mary davis Provider, Ed Physician Attending Provider Dr. Javi Chaudhari DO Emergency Provider Dr. Javi Bridges DO Attending Provider Gayle Camacho Primary Care Unavailable Deena Sarkar Attending Unavailable Gayle Camacho Primary Care Unavailable Provider, Ed Physician Attending Unavailab Gayle Elizondo Primary Care Unavailable Valdemar Estrada Attending Unavailable Javi Bridges Attending Unavailable Gayle Camacho Primary Care Unavailable Javi Bridges Attending Unavailable Gayle Camacho Primary Care Unavailable Allergies Allergy Classification Reported Allergen(s) Allergy Type Date of Onset Reaction(s) Facility (8 sources) Clindamycin; Translations: [CLINDAMYCIN] Drug Allergy [address] [facility] Repository (1 source) POISON OLGA; Translations: [POISON OLGA] Propensity to adverse reactions (disorder) 7 [facility] Repository (1 source) POISON OAK; Translations: [POISON OAK] Propensity to adverse reactions (disorder) 7 [facility] Repository (7 sources) Contrast media; Translations: [red dye] Allergy to substance 3 [facility] (4 sources) POISON OLGA EXTRACT Drug Allergy 3 [facility] (5 sources) poison oak extract; Translations: [poison oak extract] Allergy to substance 3 [facility] (4 sources) poison sumac extract Allergy to substance 3 [facility] (1 source) poison olga extract Drug allergy (disorder) 5 [facility] Repository (1 source) poison sumac extract Drug allergy (disorder) 5 [facility] Repository Medications Current Medications Medication Drug Class(es) Dates Sig (Normalized) Sig (Original) Welch (Nk) (1 source) Start: 07-04-2024 Welch (Nk) Active July 04, 2024 12:00am predniSONE 20 mg oral tablet (6 sources) Start: 10-03-2024 take 2 tablets by mouth once daily Prednisone 20 mg tablet Active 40 mg PO DAILY 8 0 October 03, 2024 12:00am Start: 11-10-2018 End: 05-05-2019 take 3 tablets by mouth once daily, then take 2 tablets by mouth once daily, then take 1 tablet by mouth once daily Prednisone 20 mg tablet Discontinued 20 mg PO DAILY 18 0 November 10, 2018 12:00am May 05, 2019 3:34pm 3 tablets daily for 3 days, then 2 tablets daily for 3 days, then 1 tablet daily for 3 days Completed/Discontinued Medications Medication Drug Class(es) Dates Sig (Normalized) Sig (Original) acetaminophen 325 mg / oxyCODONE hydrochloride 5 mg oral tablet (16 sources) Opioid Agonist Start: 04-09-2020 End: 04-11-2020 Oxycodone-Acetamino phen 1 TABLET tablet Discontinued 1 {tbl} PO EVERY 6 HOURS NEEDED as needed for Pain 8 2 0 April 09, 2020 April 10, 2020 1:00am April 11, 2020 1:02am Dental abscess Periapical abscess without sinus Start: 04-09-2020 End: 04-11-2020 take 1 tablet by mouth every six hours as needed Oxycodone-Acetaminophen Discontinued 1 TABLET PO EVERY 6 HOURS NEEDED 8 2 April 09, 2020 April 11, 2020 12:02am Start: 09-23-2019 End: 01-30-2020 Oxycodone-Acetaminophen 5-32 5 mg tablet Discontinued {tbl} PO 0 September 23, 2019 12:00am January 30, 2020 10:46am Start: 09-23-2019 End: 01-30-2020 Oxycodone-Acetaminophen Disc ontinued TABLET PO September 22, 2019 11:00pm January 30, 2020 9:46am Start: 09-02-2019 End: 09-05-2019 Oxycodone-Acetaminophen 1 TA BLET tablet Discontinued 1 {tbl} PO EVERY 6 HOURS NEEDED as needed for Pain 12 3 September 02, 2019 September 04, 2019 12:00am September 05, 2019 12:02am Start: 09-02-2019 End: 09-05-2019 take 1 tablet by mouth every six hours as needed Oxycodone-Acetaminophen Discontinued 1 TABLET PO EVERY 6 HOURS NEEDED 12 3 September 02, 2019 September 04, 2019 11:02pm Start: 05-05-2019 End: 05-08-2019 Oxycodone-Acetaminophen 1 TA BLET tablet Discontinued 1 {tbl} PO EVERY 6 HOURS NEEDED as needed for Pain 12 3 0 May 05, 2019 May 07, 2019 1:00am May 08, 2019 1:08am Toothache Other specified disorders of teeth and supporting structures Start: 05-05-2019 End: 05-08-2019 take 1 tablet by mouth every six hours as needed Oxycodone-Acetaminophen Discontinued 1 TABLET PO EVERY 6 HOURS NEEDED 12 3 May 05, 2019 May 08, 2019 12:08am amoxicillin 500 mg oral tablet (8 sources) Penicillin-class Antibacterial Start: 04-03-2023 End: 03-04-2024 take 1 tablet by mouth three times daily Amoxicillin 500 mg tablet Discontinued 500 mg PO THREE TIMES A DAY 30 April 03, 2023 1:00am March 04, 2024 9:07pm Start: 02-13-2021 End: 04-25-2021 take 1 tablet by mouth every eight hours Amoxicillin 500 mg tablet Discontinued 500 mg PO Q8H 30 0 February 13, 2021 12:00am April 25, 2021 11:51am amoxicillin 875 mg / clavulanate 125 mg oral tablet (3 sources) Penicillin-class Antibacterial Start: 01-05-2024 End: 03-04-2024 Amoxicillin-Pot Clavulanate 875-125 mg tablet Discontinued 1 {tbl} PO TWICE A DAY 14 7 0 January 05, 2024 12:00am March 04, 2024 9:08pm aspirin 81 mg delayed release oral tablet (20 sources) Platelet Aggregation Inhibitor, Nonsteroidal Anti-inflammatory Drug Start: 01-05-2024 End: 07-04-2024 take 1 tablet by mouth once daily Aspirin 81 mg tablet,delayed release (DR/EC) Discontinued 81 mg PO DAILY January 05, 2024 12:00am July 04, 2024 7:18pm Start: 01-15-2021 End: 01-05-2024 take 1 capsule by mouth once daily Aspirin 81 mg capsule Discontinued 81 mg PO DAILY 30 February 10, 2023 4:50pm January 05, 2024 11:36pm Start: 12-12-2020 End: 01-15-2021 Aspirin 81 mg Capsule Discon tinued 81 mg DAILY December 12, 2020 12:00am January 15, 2021 9:55pm Start: 12-12-2020 End: 01-15-2021 Aspirin Discontinued 81 MG D AILY December 11, 2020 11:00pm January 15, 2021 8:55pm atorvastatin 40 mg oral tablet (20 sources) HMG-CoA Reductase Inhibitor Start: 12-12-2020 End: 07-04-2024 take 1 tablet by mouth at bedtime Atorvastatin (Lipitor) 40 mg tablet Discontinued 40 mg PO AT BEDTIME 30 February 17, 2023 5:08pm July 04, 2024 7:18pm celecoxib 200 mg oral capsule (4 sources) Nonsteroidal Anti-inflammatory Drug Start: 04-25-2021 End: 08-06-2021 take 1 capsule by mouth once daily Celecoxib (Celebrex) 200 mg capsule Discontinued 200 mg PO DAILY 10 April 25, 2021 1:00am August 06, 2021 1:06pm cephalexin 500 mg oral capsule (4 sources) Cephalosporin Antibacterial Start: 05-05-2019 End: 09-23-2019 take 1 capsule by mouth three times daily Cephalexin 500 mg capsule Discontinued 500 mg PO THREE TIMES A DAY 30 May 05, 2019 1:00am September 23, 2019 11:05am clopidogrel 75 mg oral tablet (20 sources) P2Y12 Platelet Inhibitor Start: 12-12-2020 End: 07-04-2024 take 1 tablet by mouth once daily Clopidogrel 75 mg tablet Discontinued 0 .ROUTE .COMPLEX 90 0 November 27, 2023 4:14pm July 04, 2024 7:18pm TAKE 1 TABLET BY MOUTH DAILY cyclobenzaprine hydrochloride 10 mg oral tablet (4 sources) Muscle Relaxant Start: 09-02-2019 End: 09-23-2019 take 1 tablet by mouth three times daily as needed for muscle spasms Cyclobenzaprine 10 MG tablet Discontinued 10 mg PO THREE TIMES A DAY as needed for Muscle Spasm 20 0 September 02, 2019 12:00am September 23, 2019 11:05am furosemide 40 mg oral tablet (12 sources) Loop Diuretic Start: 01-15-2021 End: 01-31-2021 take 1 tablet by mouth twice daily Furosemide 40 mg Tablet Discontinued 40 mg PO TWICE A DAY 60 30 0 January 15, 2021 10:14pm January 31, 2021 5:52pm handicap placard (4 sources) Start: 09-11-2021 End: 07-04-2024 handicap placard Discontinued 0 .Route .MEDSUPPLY 1 0 September 11, 2021 12:00am July 04, 2024 7:19pm History of cerebrovascular accident Left cervical radiculopathy Radiculopathy, cervical region length of time: 5 years Start: 09-11-2021 End: 07-04-2024 handicap placard Discontinue d 0 .Route .MEDSUPPLY 1 September 11, 2021 12:00am July 04, 2024 7:19pm length of time: 5 years Start: 09-11-[address] Active 0 .Route .MEDSUPPLY September 10, 2021 11:00pm length of time: 5 years lisinopril 5 mg oral tablet (20 sources) Angiotensin Converting Enzyme Inhibitor Start: 12-12-2020 End: 07-04-2024 take 1 tablet by mouth once daily at bedtime Lisinopril 5 mg tablet Discontinued 0 .ROUTE .COMPLEX 30 11 April 27, 2023 9:59am March 24th, 2025 7:18pm TAKE 1 TABLET BY MOUTH DAILY AT BEDTIME meloxicam 15 mg oral tablet (4 sources) Nonsteroidal Anti-inflammatory Drug Start: 09-23-2019 End: 01-30-2020 take 1 tablet by mouth once daily Meloxicam (Mobic) 15 mg tablet Discontinued 15 mg PO DAILY 30 0 September 23, 2019 12:00am January 30, 2020 10:46am Do not take with other NSAIDs. Tylenol is okay methylPREDNISolone 4 mg oral tablet (4 sources) Corticosteroid Start: 09-02-2019 End: 09-23-2019 Methylprednisolone 4 MG tablets,dose pack Discontinued 4 mg PO DIRECTED 1 September 02, 2019 12:00am September 23, 2019 11:05am metoprolol tartrate 25 mg oral tablet (20 sources) beta-Adrenergic Kash Start: 12-12-2020 End: 07-04-2024 Metoprolol Tartrate 25 mg tablet Discontinued 0 .ROUTE .COMPLEX 60 11 April 27, 2023 9:59am July 04, 2024 7:19pm TAKE 1 TABLET TWICE DAILY Miscellaneous Medical Supply (1 source) Start: 09-23-2019 End: 09-23-2019 Miscellaneous Medical Supply Discontinued 1 EACH MC .PRN 1 September 22, 2019 11:00pm September 23, 2019 10:59am Valid for 3 months from today. Miscellaneous Medical Supply misc (3 sources) Start: 09-23-2019 End: 09-23-2019 Miscellaneous Medical Supply misc Discontinued 1 NMA MC .PRN 1 0 September 23, 2019 12:00am September 23, 2019 11:59am Other intervertebral disc degeneration, thoracolumbar region HandiCap Placard Valid for 3 months from today. Start: 09-23-2019 End: 09-23-2019 Miscellaneous Medical Supply misc Discontinued 1 NMA MC .PRN 1 September 23, 2019 12:00am September 23, 2019 11:59am Valid for 3 months from today. naproxen 500 mg oral tablet (8 sources) Nonsteroidal Anti-inflammatory Drug Start: 04-03-2023 End: 01-05-2024 take 1 tablet by mouth twice daily as needed Naproxen 500 mg tablet Discontinued 500 mg PO TWICE DAILY NEEDED 20 April 03, 2023 1:00am January 05, 2024 11:36pm Start: 09-02-2019 End: 09-23-2019 take 1 tablet by mouth twice daily as needed Naproxen 500 MG tablet Discontinued 500 mg PO TWICE DAILY NEEDED September 02, 2019 12:00am September 23, 2019 11:04am nystatin [id number] unt/ml oral suspension (4 sources) Polyene Antifungal Start: 08-03-2019 End: 09-23-2019 Nystatin 100,000 unit/mL suspension Discontinued [id number] U PO DAILY 60 August 03, 2019 12:00am September 23, 2019 11:05am administer 1/2 of dose in each side of the mouth omeprazole 40 mg delayed release oral capsule (4 sources) Proton Pump Inhibitor Start: 08-03-2019 End: 09-23-2019 take 1 capsule by mouth once daily 30 minutes before breakfast Omeprazole 40 mg capsule,delayed release(DR/EC) Discontinued 40 mg PO DAILY 60 August 03, 2019 12:00am September 23, 2019 11:05am Take on an empty stomach, 30 minutes before breakfast ondansetron 4 mg disintegrating oral tablet (3 sources) Serotonin-3 Receptor Antagonist Start: 01-05-2024 End: 07-04-2024 take 1 tablet by mouth three times daily as needed for nausea and vomiting Ondansetron 4 mg tablet,disintegrat ing Discontinued 4 mg PO THREE TIMES A DAY as needed for nausea and vomiting January 05, 2024 11:24pm July 04, 2024 7:19pm potassium chloride 20 meq extended release oral tablet (16 sources) Start: 02-13-2021 End: 02-15-2021 take 1 tablet by mouth twice daily Potassium Chloride 20 mEq tablet extended release Discontinued 20 meq PO TWICE A DAY February 13, 2021 12:00am February 15, 2021 2:03pm Start: 12-12-2020 End: 01-31-2021 take 1 tablet by mouth once daily Potassium Chloride 20 mEq Tablet Extended Release Discontinued 20 meq PO DAILY 30 30 January 15, 2021 10:15pm January 31, 2021 5:52pm sulfamethoxazole 800 mg / trimethoprim 160 mg oral tablet (4 sources) Dihydrofolate Reductase Inhibitor Antibacterial, Sulfonamide Antimicrobial Start: 05-11-2019 End: 09-23-2019 Sulfamethoxazole-Trimethopri m 800-160 mg tablet Discontinued 1 {tbl} PO TWICE A DAY May 11, 2019 1:00am September 23, 2019 11:06am Start: 05-11-2019 End: 09-23-2019 take 1 tablet by mouth twice daily Sulfamethoxazole-Trimethoprim Discontinu ed 1 TABLET PO TWICE A DAY May 11, 2019 12:00am September 23, 2019 10:06am 24 hr divalproex sodium 250 mg extended release oral tablet (16 sources) Mood Stabilizer, Anti-epileptic Agent Start: 12-12-2020 End: 08-06-2021 Divalproex 250 mg tablet extended release 24 hr Discontinued 750 mg PO TWICE A DAY 180 30 February 18, 2021 1:32pm August 06, 2021 1:06pm Start: 12-12-2020 End: 08-06-2021 take 750 mg by mouth twice daily Divalproex Discontinued 750 MG PO TWICE A DAY 180 30 February 18, 2021 12:32pm August 06, 2021 12:06pm Problems Active Problems Problem Classification Problem Date Documented Date Episodic/Chronic Administrative/social admission (4 sources) Repeated prescription; Translations: [Encounter for issue of repeat prescription] 01-23-2021 Episodic Allergic reactions (12 sources) Contact dermatitis due to poison olga; Translations: [Allergic contact dermatitis due to plants, except food] Onset: 10-29-2024 01-30-2021 Episodic Anal and rectal conditions (4 sources) Anal fistula; Translations: [Anal fistula] 07-29-2015 Episodic Anxiety disorders (3 sources) Anxiety; Translations: [Anxiety disorder, unspecified] 01-13-2024 Chronic Blindness and vision defects (4 sources) Eye / vision finding; Translations: [Unspecified visual disturbance] 05-14-2021 Episodic Cardiac arrest and ventricular fibrillation (8 sources) Ventricular fibrillation; Translations: [Cardiac arrest, cause unspecified] Onset: 11-28-2020 01-30-2021 Chronic Coronary atherosclerosis and other heart disease (16 sources) History of acute ST segment elevation myocardial infarction; Translations: [Old myocardial infarction] Onset: 11-28-2020 01-30-2021 Chronic Disorders of teeth and jaw (20 sources) Dental caries; Translations: [Dental caries, unspecified] Onset: 04-03-2023 02-13-2021 Episodic Essential hypertension (4 sources) Essential hypertension; Translations: [Essential (primary) hypertension] 05-14-2021 Chronic Late effects of cerebrovascular disease (4 sources) Dysphagia as a late effect of cerebrovascular accident; Translations: [Dysphagia following cerebral infarction] 01-30-2021 Chronic Malaise and fatigue (4 sources) Left hemiparesis; Translations: [Weakness] 01-30-2021 Episodic Nonspecific chest pain (4 sources) Chest pain; Translations: [Chest pain, unspecified] 04-30-2021 Episodic Other circulatory disease (4 sources) History of cerebrovascular accident; Translations: [Personal history of transient ischemic attack (TIA), and cerebral infarction without residual deficits] 01-30-2021 Episodic Comment on above: RIGHT MIDDLE CEREBRA L ARTERY STROKE Other connective tissue disease (4 sources) Foot pain; Translations: [Pain in right foot] 02-13-2021 Episodic Other male genital disorders (1 source) Painful ejaculation; Translations: [Painful ejaculation] Onset: 07-06-2018 Episodic Other nervous system disorders (1 source) Other chronic pain; Translations: [Other chronic pain] Onset: 07-06-2018 Chronic Other nervous system disorders (4 sources) Cervical nerve root compression; Translations: [Cervical root disorders, not elsewhere classified] 04-25-2021 Chronic Other nutritional; endocrine; and metabolic disorders (4 sources) Obesity; Translations: [Obesity, unspecified] 01-30-2021 Chronic Other skin disorders (1 source) Eccrine sweat disorder, unspecified; Translations: [Eccrine sweat disorder, unspecified] Onset: 07-01-2018 Episodic Other skin disorders (1 source) Rash and other nonspecific skin eruption; Translations: [Rash and other nonspecific skin eruption] Onset: 10-09-2024 Episodic Residual codes; unclassified (1 source) High risk heterosexual behavior; Translations: [High risk heterosexual behavior] Onset: 07-06-2018 Episodic Residual codes; unclassified (4 sources) Tobacco user; Translations: [Tobacco use] 04-03-2023 Episodic Spondylosis; intervertebral disc disorders; other back problems (8 sources) Arthritis of facet joint of lumbar spine; Translations: [Spondylosis without myelopathy or radiculopathy, lumbar region] 01-30-2021 Chronic Spondylosis; intervertebral disc disorders; other back problems (5 sources) Dorsalgia, unspecified; Translations: [Left cervical root neuropathy] Onset: 07-06-2018 06-25-2021 Episodic Past or Other Problems Problem Classification Problem Date Documented Da te Episodic/Chronic Nausea and vomiting (4 sources) Nausea; Translations: [Nausea] Onset: 01-27-2024 01-13-2024 Episodic Other injuries and conditions due to external causes (1 source) Foreign body of alimentary tract, part unspecified, initial encounter; Translations: [Foreign body of alimentary tract, part unspecified, initial encounter] Onset: 07-09-2024 Episodic Superficial injury; contusion (8 sources) Contusion of nose; Translations: [Contusion of nose, initial encounter] Onset: 04-02-2024 08-09-2020 Episodic Results Test Name Value Interpretation Reference Range Facility Emergency Department Summary on 10-24-2024 Emergency Department Summary [facility] Medical Records Department [address] [place] [address] Emergency Department Summary 10/24/24 MR#: [id number] Acct: [id number] Name: GINNY BARFIELD Rep #: [id number] : 1980 44 From: Javi Bridges DO PCP: Dr. Gayle Camacho MD Status:DEP ER Location: ED HPI History of Present Illness Chief Complaint: Itching Informant: patient Onset/Context/Timing Onset: Weeks Context: Gradual Onset Timing: Continuous Quality: Pruritic Location: Generalized Worsened by: Heat Relieved by: Cooler temperatures Narrative Narrative: Patient presents with poison olga rash has been getting worse over the past few weeks. Patient states he was seen here and was given a prescription for prednisone. Patient states this only helped a little bit. Patient states that normally when he gets poison olga, he gets a shot. Patient denies any difficulty breathing or difficulty swallowing. Patient states the rash is generalized. Patient states it is worse when he is out in the heat. Patient states it is better when he is in cooler temperatures. 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 Cardiac arrest with ventricular fibrillation (11/28/20) History of ST elevation myocardial infarction (STEMI) (11/28/20) History of CVA (cerebrovascular accident) Left-sided weakness Dysphagia as late effect of cerebrovascular accident (CVA) Cardiopulmonary arrest with successful resuscitation (11/28/20) Failing root canal Facet arthritis of lumbar region Thoracic degenerative disc disease Medical History no medical history Home Medications ???Medication ???Instructions ???Recorded ???Last Taken ???Type prednisone 20 mg tablet 40 mg (2 x 20 mg) PO DAILY #8 09/12 07/05 Unknown Rx TABLETS Allergy/AdvReac Type Severity Reaction Status Date / Time clindamycin Allergy Unknown Verified 10/24/24 18:10 poison olga extract Allergy Rash Verified 10/24/24 18:10 poison oak extract Allergy Rash Verified 10/24/24 18:10 poison sumac extract Allergy Rash Verified 10/24/24 18:10 red dye Allergy Rash Verified 10/24/24 18:10 Family History Mother Diabetes Grandmother Diabetes Hypertension Cancer Surgical History History of coronary artery stent placement (11/29/20) [place] teeth extracted H/O hand surgery Social History Smoking Status: Heavy Smoker (>10/day) alcohol intake: current substance use type: former substance user and marijuana what type of physical activity do you participate in: none ROS ROS ED Constitutional Constitutional ED: Denies chills or fever(s) Eyes Eyes: Denies blurry vision or change in vision ENT ENT ED: Denies rhinorrhea or sore throat Cardiovascular Cardiovascular: Denies chest pain or palpitations Respiratory/Chest Respiratory/Chest: Denies cough or dyspnea Gastrointestinal Gastrointestinal: Denies nausea or vomiting Genitourinary Genitourinary ED: Denies dysuria or hematuria Musculoskeletal Musculoskeletal: Reports back pain and neck pain Integumentary Reports rash; Denies abscess Neurologic Neurologic: Denies headache(s) or weakness Allergic/Immunologic Allergic/Immunologic ED: Reports urticaria; Denies mouth swelling EXAM Physical Exam Const Vital Signs: 10/24/24 18:09 10/24/24 22:09 10/24/24 22:29 Temperature 97 F L 97 F L Temperature Source Oral Pulse Rate 96 63 63 Respiratory Rate 14 14 Blood Pressure 161/95 H 134/108 H 134/108 H Blood Pressure Mean 117 116 116 Pulse Ox 98 97 97 Oxygen Delivery Method Room Air Room Air Positive well nourished and well developed General Appearance ED: well developed and NAD HEENT Reports moist mucous membranes Neck supple and no JVD Neuro oriented x3, CN's II-XII intact bilaterally and no sensory deficits noted Sensorium / Orientation: alert Motor Exam: strength 5/5 throughout Psych mental status grossly normal Skin Skin Narrative: There is a patchy erythematous rash with areas of linear vesicles over the upper extremities, lower extremities, neck, ears, and hairline. There is no crusting noted. There is no discharge or drainage. MDM MDM MDM Narrative Medical decision making narrative: Patient was advised that this is most likely consistent with poison olga or poison oak. Patient was given injection of Kenalog here. Patient was instructed to follow-up with a primary care physician in 5 to 7 days patient understood and was agreeable with the plan. All (more content not included)... Normal [facility] Emergency Department Summary on 10-03-2024 Emergency Department Summary [facility] Medical Records Department [address] [place] [id number] Emergency Department Summary 10/03/24 MR#: [id number] Acct: [id number] Name: GINNY BARFIELD Rep #: [id number] : 1980 44 From: Javi Bridges DO PCP: Dr. Gayle Camacho MD Status:DEP ER Location: ED HPI History of Present Illness Chief Complaint: Rash Informant: patient Onset/Context/Timing Onset: Yesterday Context: Gradual Onset Timing: Continuous Quality: Pruritic Location: Arms, face, chest, and abdomen Worsened by: Heat and sweating Relieved by: Nothing Narrative Narrative: Patient presents with a rash that began yesterday. Patient states it feels similar to poison olga or poison oak. Patient states the rash is pruritic. Patient states it is mainly over the arms, chest, and abdomen. Patient states it does go up into his face. Patient states it is worse with heat and sweating. Patient states nothing makes it better. Patient denies any fevers or chills. Patient denies difficulty breathing or difficulty swallowing. 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 Cardiac arrest with ventricular fibrillation (11/28/20) History of ST elevation myocardial infarction (STEMI) (11/28/20) History of CVA (cerebrovascular accident) Left-sided weakness Dysphagia as late effect of cerebrovascular accident (CVA) Cardiopulmonary arrest with successful resuscitation (11/28/20) Failing root canal Facet arthritis of lumbar region Thoracic degenerative disc disease Home Medications ???Medication ???Instructions ???Recorded ???Last Taken ???Type prednisone 20 mg tablet 40 mg (2 x 20 mg) PO DAILY #8 09/12 07/05 Unknown Rx TABLETS Allergy/AdvReac Type Severity Reaction Status Date / Time clindamycin Allergy Unknown Verified 10/03/24 22:42 poison olga extract Allergy Rash Verified 10/03/24 22:42 poison oak extract Allergy Rash Verified 10/03/24 22:42 poison sumac extract Allergy Rash Verified 10/03/24 22:42 red dye Allergy Rash Verified 10/03/24 22:42 Family History Mother Diabetes Grandmother Diabetes Hypertension Cancer Surgical History History of coronary artery stent placement (11/29/20) [place] teeth extracted H/O hand surgery Social History Smoking Status: Current every day smoker tobacco type: cigarettes alcohol intake: current substance use type: former substance user and marijuana what type of physical activity do you participate in: none ROS ROS ED Constitutional Constitutional ED: Denies chills or fever(s) Eyes Eyes: Denies blurry vision or change in vision ENT ENT ED: Denies rhinorrhea or sore throat Cardiovascular Cardiovascular: Denies chest pain or palpitations Respiratory/Chest Respiratory/Chest: Denies cough or dyspnea Gastrointestinal Gastrointestinal: Denies nausea or vomiting Genitourinary Genitourinary ED: Denies dysuria or hematuria Musculoskeletal Musculoskeletal: Denies back pain or neck pain Integumentary Reports rash; Denies abscess Neurologic Neurologic: Denies headache(s) or weakness Allergic/Immunologic Allergic/Immunologic ED: Denies mouth swelling or urticaria EXAM Physical Exam Const Vital Signs: 10/03/24 22:42 Temperature 95.9 F L Temperature Source Temporal Pulse Rate 77 Respiratory Rate 16 Blood Pressure 131/85 H Blood Pressure Mean 100 Pulse Ox 99 Positive well nourished and well developed General Appearance ED: well developed and NAD HEENT Reports moist mucous membranes Neck supple and no JVD Neuro oriented x3, CN's II-XII intact bilaterally and no sensory deficits noted Sensorium / Orientation: alert Motor Exam: strength 5/5 throughout Psych mental status grossly normal Skin Skin Narrative: There is a patchy erythematous rash with areas of linear vesicles over the chest, abdomen, upper extremities, and face. There is no discharge or drainage noted. There are no pustules noted. There are no petechia noted. There is no involvement of the mucous membranes. There is no involvement of the palms or soles. MDM MDM MDM Narrative Medical decision making narrative: Patient was advised that this is most likely poison olga or poison oak. Patient was given a dose of prednisone here. Patient was given a prescription for a short course of prednisone. Patient was instructed to take Claritin or Zyrtec as needed for itching. Patient was instructed to follow-up with his primary care physician in 5 t (more content not included)... Normal [facility] Lyme Screen W/Reflex WBon LYME SCREEN Ab Negative Normal Negative [facility] Comment on above: Result Comment: Lyme antibodies not detected. Reflex testing is not indicated. No laboratory evidence of infection with B. burgdorferi (Lyme disease). Negative results may occur in patients recently infected (less than or equal to 14 days) with B. burgdorferi. If recent infection is suspected, repeat testing on a new sample collected in 7 to 14 days is recommended. Performed at: - [facility] [id number] Navigation Teacher: Manan Rendon PhD, Phone: [phone] Performed By: #### L 3118.9692 #### [facility] Laboratory [address] [facility]. [place], [place], [address] Emergency Department Summary on 03-04-2024 Emergency Department Summary [facility] Medical Records Department [address] [place] [address] Emergency Department Summary 03/04/24 MR#: [id number] Acct: [id number] Name: GINNY BARFIELD Rep #: [id number] : 1980 43 From: Deena Sarkar DO [...] complaints or concerns reported at this time. 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 Normal [facility] 12-11-2020 Anion gap [Moles/Vol] 6 mmol/L Normal 5-16 [facility] Comment on above: Order Comment: Campu s: MCBN Label Performed By: #### L 500.98041, L500.08983 ####[facility] VORFJYRWHF6703 [place], [place] [address]Qw# [phone] Calcium [Mass/Vol] 9.6 mg/dL Normal 8.5-10.5 [facility] Comment on above: Order Comment: Campu s: MCBN Label Result Comment: NOTE NEW NORMAL RANGE DUE TO REAGENT CHANGE Performed By: #### L 500.48750, L500.96657 ####[facility] [id number] [place], [place] [address]Xy# [phone] Chloride [Moles/Vol] 100 mmol/L Normal 98-107 [facility] Comment on above: Order Comment: Campu s: MCBN Label Performed By: #### L 500.35423, L500.20807 ####[facility] INHIWKAFXB7092 [place], [place] [address]Nm# [phone] CO2 [Moles/Vol] 32.0 mmol/L Normal 21-32 [facility] Comment on above: Order Comment: Campu s: MCBN Label Performed By: #### L 500.80169, L500.96657 ####[facility] SZEPKBSXWS4018 [place], [place] [address]Fd# [phone] Creatinine [Mass/Vol] 0.84 mg/dL Normal 0.5-1.4 [facility] Comment on above: Order Comment: Campu s: MCBN Label Result Comment: NOTE NEW NORMAL RANGE DUE TO REAGENT CHANGEPatients receiving either N-Acetylcysteine (NAC) orMetamizole prior to venipuncture, may have falsely depressedresults. Performed By: #### L 500.20290, L500.47136 ####[facility] DGQOIZZJBB2201 [place], [place] [address]Ot# [phone] Glucose [Mass/Vol] 147 mg/dL High 70-100 [facility] Comment on above: Order Comment: Campu s: MCBN Label Result Comment: 70-1 00- Normal Fasting; 100-125 Impaired Fasting; greaterthan 126 on more than one result- Diabetes. ADA guidelines.Results may be falsely elevated after the administration ofSulfapyridine.Results may be falsely depressed after the administration ofSulfasalazine. Performed By: #### L 500.51938, L500.51571 ####[facility] [id number] [place] [address]Iq# [phone] Potassium [Moles/Vol] 3.5 mmol/L Normal 3.5-5.1 [facility] Comment on above: Order Comment: Campu s: MCBN Label Result Comment: Slig ht Hemolysis, Result may be affected. Performed By: #### L 500.23455, L500.05650 ####[facility] NIVEKQDNRP9704 [place], [place] [address]Dp# [phone] Sodium [Moles/Vol] 138 mmol/L Normal 136-145 [facility] Comment on above: Order Comment: Campu s: MCBN Label Performed By: #### L 500.56608, L500.69176 ####[facility] GBUIEJKLOM6030 [place], [place] [address]Zx# [phone] Urea nitrogen [Mass/Vol] 28 mg/dL High 7-26 [facility] Comment on above: Order Comment: Campu s: MCBN Label Performed By: #### L 500.67695, L500.33477 ####[facility] OLESHBVFMT3305 [place], [place] [address]Gp# [phone] Urea nitrogen/Creatinine [Mass ratio] 33 mg/mg High 15-24 [facility] Comment on above: Order Comment: Campu s: MCBN Label Performed By: #### L 500.14902, L500.02770 ####[facility] EFVMWDSLFN8550 [place], [place] [address]Vv# [phone] DISCH.SUMon 12-11-2020 DISCH.SUM [facility] 12-11-2020 IF AMER Greater than 60 [facility] Comment on above: Order Comment: Aaronu s: MCBN Label Performed By: #### L 500.94104, L500.92311 ####[facility] [id number] [place] [address]Ls# [phone] IF non-AFR AMER Greater than 60 [facility] Comment on above: Order Comment: Campu s: MCBN Label Performed By: #### L 500.65168, L500.44326 ####[facility] UQYEWMUVFW5057 [place], [place] [address]Oh# [phone] OTPNon 12-11-2020 OT Progress Note Normal [facility] OTPN Normal [facility] PROG IMSon 12-11-2020 PROG IMS Normal [facility] Progress Note-Hospitalist Normal [facility] STPNon 12-11-2020 APPLICATION PROGRAMMER ANALYST Progress Note Normal [facility] STPN Normal [facility] OTARon 12-10-2020 OT Assessment Report Normal [facility] OTAR Normal [facility] PROG IMSon 12-10-2020 PROG IMS Normal [facility] Progress Note-Hospitalist Normal [facility] PROG IMS Normal [facility] Progress Note-Hospitalist Normal [facility] PROG.Meche 12-10-2020 PROG.CARD Normal [facility] Progress Note-Cardiology Normal [facility] PTPNon 12-10-2020 PT [facility] CMPon 12-09-2020 Albumin [Mass/Vol] 3.5 g/dL Normal 3.2-5.0 [facility] Comment on above: Order Comment: Campu s: MMinimal Draw: YCBN Label Performed By: #### L 500.95687, L500.74352 ####[facility] KGCBPGCBOK3830 [place], [place] [address]Qz# [phone] Albumin/Globulin [Mass ratio] 0.8 {ratio} Normal 0.8-2.0 [facility] Comment on above: Order Comment: Campu s: MMinimal Draw: YCBN Label Performed By: #### L 500.33011, L500.52570 ####[facility] JKMLTDKUXX0740 [place], [place] [address]Zd# [phone] ALK PHOS 102 U/L Normal 45-117 [facility] Comment on above: Order Comment: Campu s: MMinimal Draw: YCBN Label Performed By: #### L 500.85754, L500.54978 ####[facility] ATSWPBCYXT3566 [place], [place] [address]Dj# [phone] ALT [Catalytic activity/Vol] 90 U/L High 13-61 [facility] Comment on above: Order Comment: Campu s: MMinimal Draw: YCBN Label Result Comment: RESU LTS MAY BE FALSELY DEPRESSED AFTER THE ADMINISTRATION OFSULFASALAZINE AND/OR SULFAPYRIDINE. Performed By: #### L 500.26820, L500.46952 ####[facility] HLJSSROSUC3038 [place], [place] [address]Rg# [phone] Anion gap [Moles/Vol] 9 mmol/L Normal 5-16 [facility] Comment on above: Order Comment: Campu s: MMinimal Draw: YCBN Label Performed By: #### L 500.33772, L500.31444 ####[facility] IJQDZUEEQI8250 [place], [place] [address]Tw# [phone] AST [Catalytic activity/Vol] 50 U/L High 8-34 [facility] Comment on above: Order Comment: Campu s: MMinimal Draw: YCBN Label Result Comment: RESU LTS MAY BE FALSELY DEPRESSED AFTER THE ADMINISTRATION OFSULFASALAZINE AND/OR SULFAPYRIDINE. Performed By: #### L 500.23995, L500.79252 ####[facility] DVSFARGZIF5667 [place], [place] [address]Io# [phone] BILI TOTAL 0.70 MG/DL Normal 0.2-1.0 [facility] Comment on above: Order Comment: Campu s: MMinimal Draw: YCBN Label Performed By: #### L 500.94582, L500.11442 ####[facility] NFIEROKGQN5484 [place], [place] [address]Rb# [phone] Calcium [Mass/Vol] 9.8 mg/dL Normal 8.5-10.5 [facility] Comment on above: Order Comment: Campu s: MMinimal Draw: YCBN Label Result Comment: NOTE NEW NORMAL RANGE DUE TO REAGENT CHANGE Performed By: #### L 500.20560, L500.75550 ####[facility] GWMSJTHYAC0077 [place], [place] [address]Zo# [phone] Chloride [Moles/Vol] 104 mmol/L Normal 98-107 [facility] Comment on above: Order Comment: Campu s: MMinimal Draw: YCBN Label Performed By: #### L 500.38362, L500.30469 ####[facility] SNRHFKHAAH7756 [place], [place] [address]Nv# [phone] CO2 [Moles/Vol] 31.0 mmol/L Normal 21-32 [facility] Comment on above: Order Comment: Campu s: MMinimal Draw: YCBN Label Performed By: #### L 500.27284, L500.78150 ####[facility] WPAADFKYKX5884 [place], [place] [address]Nk# [phone] Creatinine [Mass/Vol] 0.85 mg/dL Normal 0.5-1.4 [facility] Comment on above: Order Comment: Campu s: MMinimal Draw: YCBN Label Result Comment: NOTE NEW NORMAL RANGE DUE TO REAGENT CHANGEPatients receiving either N-Acetylcysteine (NAC) orMetamizole prior to venipuncture, may have falsely depressedresults. Performed By: #### L 500.88054, L500.89419 ####[facility] QQKUSNTJNO7559 [place], [place] [address]Oh# [phone] Globulin (S) [Mass/Vol] 4.2 g/dL Normal 2.2-4.2 [facility] Comment on above: Order Comment: Campu s: MMinimal Draw: YCBN Label Performed By: #### L 500.02185, L500.57260 ####[facility] LUTYFILQQX0092 [place], [place] [address]Az# [phone] Glucose [Mass/Vol] 108 mg/dL High 70-100 [facility] Comment on above: Order Comment: Campu s: MMinimal Draw: YCBN Label Result Comment: 70-1 00- Normal Fasting; 100-125 Impaired Fasting; greaterthan 126 on more than one result- Diabetes. ADA guidelines.Results may be falsely elevated after the administration ofSulfapyridine.Results may be falsely depressed after the administration ofSulfasalazine. Performed By: #### L 500.32022, L500.98172 ####[facility] QDHACXSNFK7844 [place], [place] [address]Os# [phone] Potassium [Moles/Vol] 3.6 mmol/L Normal 3.5-5.1 [facility] Comment on above: Order Comment: Campu s: MMinimal Draw: YCBN Label Result Comment: Slig ht Hemolysis, Result may be affected. Performed By: #### L 500.75309, L500.41428 ####[facility] VGNDLPSMMK2669 [place], [place] [address]Nb# [phone] Protein [Mass/Vol] 7.7 g/dL Normal 6.0-8.5 [facility] Comment on above: Order Comment: Campu s: MMinimal Draw: YCBN Label Performed By: #### L 500.23711, L500.32916 ####[facility] NNGCPNXAMS8712 [place], [place] [address]Mn# [phone] Sodium [Moles/Vol] 144 mmol/L Normal 136-145 [facility] Comment on above: Order Comment: Campu s: MMinimal Draw: YCBN Label Performed By: #### L 500.37473, L500.30983 ####[facility] [id number] [place] [address]Pa# [phone] Urea nitrogen [Mass/Vol] 36 mg/dL High 7-26 [facility] Comment on above: Order Comment: Campu s: MMinimal Draw: YCBN Label Performed By: #### L 500.60454, L500.58931 ####[facility] [id number] [place] [address]Tq# [phone] Urea nitrogen/Creatinine [Mass ratio] 42 mg/mg High 15-24 [facility] Comment on above: Order Comment: Campu s: MMinimal Draw: YCBN Label Performed By: #### L 500.07968, L500.32643 ####[facility] [id number] [place] [address]Ce# [phone] GFR ESTon 12-09-2020 IF AMER Greater than 60 [facility] Comment on [facility]: Order Comment: Campu s: MMinimal Draw: YCBN Label Performed By: #### L 500.62874, L500.31208 ####[facility] [id number] [place] [address]Ym# [phone] IF non-AFR AMER Greater than 60 Normal [facility] Comment on above: Order Comment: Campu s: MMinimal Draw: YCBN Label Performed By: #### L 500.73700, L500.17044 ####[facility] [id number] [place] [address]So# [phone] PROG IMSon 08-29-2021 PROG IMS Normal [facility] Progress Note-Hospitalist Normal [facility] PTTon 12-09-2020 aPTT Coag (Bld) [Time] 55.9 s High 22.0-31.5 [facility] Comment on above: Order Comment: Gabriela qiu: [...] using the PTT. Performed By: #### L 300.33830 ####[facility] EMXSHMDJTG0863 [place], [place] [address]Sh# [phone] aPTT Coag (Bld) [Time] 49.0 s High 22.0-31.5 [facility] Comment on above: Order Comment: Gabriela qiu: [...] using the PTT. Performed By: #### L 300.27881 ####[facility] CXTCTLXCJQ0381 [place], [place] [address]Pr# [phone] STARon 12-09-2020 APPLICATION PROGRAMMER ANALYST Assessment Report Normal [facility] STAR Normal [facility] CBCon 12-08-2020 Erythrocyte distribution width (RBC) [Ratio] 12.6 % Normal 11-14.5 [facility] Comment on above: Order Comment: Gabriela Morales Performed By: #### L 200.48245 ####[facility] [id number] [place] [address]Pu# [phone] Hematocrit (Bld) [Volume fraction] 44.8 % Normal 41.0-53.0 [facility] Comment on above: Order Comment: Campu s: M Performed By: #### L 200.83920 ####[address] [address]La# [phone] Hemoglobin (Bld) [Mass/Vol] 15.1 g/dL Normal 13.5-17.5 [facility] Comment on above: Order Comment: Campu s: M Performed By: #### L 200.97367 ####[place] [address]Ph# [phone] MCHC (RBC) [Mass/Vol] 33.7 g/dL Normal 32.0-36.0 [facility] Comment on above: Order Comment: Campu s: M Performed By: #### L 200.05022 ####[facility] [id number] [place] [address]Dm# [phone] MCV (RBC) [Entitic vol] 91.1 fL Normal 80.0-99.0 [facility] Comment on above: Order Comment: Campu s: M Performed By: #### L 200.24460 ####[address] [address]Uj# [phone] Nucleated RBC/100 WBC (Bld) [Ratio] 0.0 % Normal Less than 1 [facility] Comment on above: Order Comment: Campu s: M Performed By: #### L 200.06488 ####[facility] [id number] [place] [address]Dz# [phone] Platelet mean volume (Bld) [Entitic vol] 9.8 fL Normal 9.4-12.4 [facility] Comment on above: Order Comment: Campu s: M Performed By: #### L 200.66681 ####[facility] [id number] [place], [place] [address]Ph# [phone] PLT 361 K/CU MM Normal 150-450 [facility] Comment on above: Order Comment: Campu s: M Performed By: #### L 200.97068 ####[facility] ZRPGZVDIVS0976 [place], [place] [address]Ut# [phone] RBC 4.92 M/CU MM Normal 4.50-6.00 [facility] Comment on above: Order Comment: Campu s: M Performed By: #### L 200.90881 ####[facility] [id number] [place] [address]Vx# [phone] WBC 10.7 K/CUMM Normal 4.5-11.0 [facility] Comment on above: Order Comment: Campu s: M Performed By: #### L 200.61758 ####[facility] [id number] [place] [address]Dr# [phone] CMPon 12-08-2020 Albumin [Mass/Vol] 3.4 g/dL Normal 3.2-5.0 [facility] Comment on above: Order Comment: Campu s: M Performed By: #### L 520.31256, L500.36411, L500.55137, L500.53679 ####[facility] HOQJAPLNQI2623 [place], [place] [address]Qn# [phone] Albumin/Globulin [Mass ratio] 0.8 {ratio} Normal 0.8-2.0 [facility] Comment on above: Order Comment: Campu s: M Performed By: #### L 520.53504, L500.23941, L500.56256, L500.54566 ####[facility] FURCXEHTXV7280 [place], [place] [address]Mn# [phone] ALK PHOS 106 U/L Normal 45-117 [facility] Comment on above: Order Comment: Campu s: M Performed By: #### L 520.26442, L500.10126, L500.32073, L500.94281 ####[facility] ZFRZZTVEFS8202 [place], [place] [address]Jc# [phone] ALT [Catalytic activity/Vol] 100 U/L High 13-61 [facility] Comment on above: Order Comment: Campu s: M Result Comment: RESU LTS MAY BE FALSELY DEPRESSED AFTER THE ADMINISTRATION OFSULFASALAZINE AND/OR SULFAPYRIDINE. Performed By: #### L 520.82496, L500.87493, L500.34094, L500.88255 ####[facility] [id number] [place] [address]Tz# [phone] Anion gap [Moles/Vol] 10 mmol/L Normal 5-16 [facility] Comment on above: Order Comment: Campu s: M Performed By: #### L 520.53561, L500.68177, L500.13799, L500.88969 ####[facility] [address]QQ[address] [place] [address]Ey# [phone] AST [Catalytic activity/Vol] 58 U/L High 8-34 [facility] Comment on above: Order Comment: Campu s: M Result Comment: RESU LTS MAY BE FALSELY DEPRESSED AFTER THE ADMINISTRATION OFSULFASALAZINE AND/OR SULFAPYRIDINE. Performed By: #### L 520.14052, L500.86476, L500.53255, L500.86545 ####[facility] GYOBEHIJQF9915 [place], [place] [address]Rk# [phone] BILI TOTAL 0.80 MG/DL Normal 0.2-1.0 [facility] Comment on above: Order Comment: Campu s: M Performed By: #### L 520.40690, L500.41020, L500.97411, L500.99821 ####[facility] AHSVPAYPDO7128 [place], [place] [address]My# [phone] Calcium [Mass/Vol] 9.5 mg/dL Normal 8.5-10.5 [facility] Comment on above: Order Comment: Campu s: M Result Comment: NOTE NEW NORMAL RANGE DUE TO REAGENT CHANGE Performed By: #### L 520.55439, L500.58470, L500.92106, L500.79758 ####[facility] WFHWKUYJKG7461 [place], [place] [address]Bk# [phone] Chloride [Moles/Vol] 108 mmol/L High 98-107 [facility] Comment on above: Order Comment: Campu s: M Performed By: #### L 520.95320, L500.90377, L500.89626, L500.56174 ####[facility] NENSTZUACF4236 [place], [place] [address]Kl# [phone] CO2 [Moles/Vol] 29.0 mmol/L Normal 21-32 [facility] Comment on above: Order Comment: Campu s: M Performed By: #### L 520.73779, L500.85553, L500.28945, L500.00122 ####[facility] BUUEWVWKRA3235 [place], [place] [address]Vv# [phone] Creatinine [Mass/Vol] 0.78 mg/dL Normal 0.5-1.4 [facility] Comment on above: Order Comment: Campu s: M Result Comment: NOTE NEW NORMAL RANGE DUE TO REAGENT CHANGEPatients receiving either N-Acetylcysteine (NAC) orMetamizole prior to venipuncture, may have falsely depressedresults. Performed By: #### L 520.54160, L500.78227, L500.90672, L500.61790 ####[facility] IEHGSFSEZP1709 [place], [place] [address]Jn# [phone] Globulin (S) [Mass/Vol] 4.1 g/dL Normal 2.2-4.2 [facility] Comment on above: Order Comment: Campu s: M Performed By: #### L 520.72395, L500.81233, L500.47846, L500.95300 ####[facility] RRKUKKYBKL2955 [place], [place] [address]Nk# [phone] Glucose [Mass/Vol] 115 mg/dL High 70-100 [facility] Comment on above: Order Comment: Campu s: M Result Comment: 70-1 00- Normal Fasting; 100-125 Impaired Fasting; greaterthan 126 on more than one result- Diabetes. ADA guidelines.Results may be falsely elevated after the administration ofSulfapyridine.Results may be falsely depressed after the administration ofSulfasalazine. Performed By: #### L 520.10321, L500.66545, L500.89982, L500.68047 ####[facility] EYFASRGEAF7254 [place], [place] [address]Dx# [phone] Potassium [Moles/Vol] 3.6 mmol/L Normal 3.5-5.1 [facility] Comment on above: Order Comment: Campu s: M Result Comment: Slig ht Hemolysis, Result may be affected. Performed By: #### L 520.25775, L500.68957, L500.34843, L500.59059 ####[facility] REQEDNDXCE9364 [place], [place] [address]Ir# [phone] Protein [Mass/Vol] 7.5 g/dL Normal 6.0-8.5 [facility] Comment on above: Order Comment: Campu s: M Performed By: #### L 520.46782, L500.44433, L500.22237, L500.62904 ####[facility] WYHAGLKKHX9555 [place], [place] [address]Co# [phone] Sodium [Moles/Vol] 147 mmol/L High 136-145 [facility] Comment on above: Order Comment: Campu s: M Performed By: #### L 520.31124, L500.87221, L500.67209, L500.36048 ####[facility] SANTKMEICK[address] [place], [place] [address]Tn# [phone] Urea nitrogen [Mass/Vol] 34 mg/dL High 7-26 [facility] Comment on above: Order Comment: Campu s: M Performed By: #### L 520.82883, L500.41201, L500.84522, L500.81913 ####[facility] QRJMLTXNXH2476 [place], [place] [address]Hz# [phone] Urea nitrogen/Creatinine [Mass ratio] 43 mg/mg High 15-24 [facility] Comment on above: Order Comment: Campu s: M Performed By: #### L 520.16652, L500.63669, L500.61789, L500.10483 ####[facility] LTYCAEQMGG8297 [place], [place] [address]Pi# [phone] GFR ESTon 12-08-2020 IF AMER Greater than 60 Normal [facility] Comment on above: Order Comment: Campu s: M Performed By: #### L 520.50670, L500.89246, L500.97019, L500.68351 ####[facility] YUXUHKLRCP1683 [place], [place] [address]Op# [phone] IF non-AFR AMER Greater than 60 Normal [facility] Comment on above: Order Comment: Campu s: M Performed By: #### L 520.55426, L500.72306, L500.43193, L500.07632 ####[facility] DQNHZVZCWY8532 [place], [place] [address]Gc# [phone] MAGNESIUMon 12-08-2020 Magnesium [Mass/Vol] 2.6 mg/dL Normal 1.6-2.6 [facility] Comment on above: Order Comment: Campu s: M Performed By: #### L 520.56921, L500.98177, L500.39385, L500.84146 ####[facility] [address] [place] [address]Xg# [phone] PROG IMSon 12-08-2020 PROG IMS Normal [facility] Progress Note-Hospitalist Normal [facility] PROG.NOTEon 12-08-2020 PROG.NOTE Normal [facility] Progress Note-Physician Normal [facility] PROG.PSYCHon 12-08-2020 PROG.PSYCH Normal [facility] Progress Note-Psych Normal [facility] PTTon 12-08-2020 aPTT Coag (Bld) [Time] 35.6 s High 22.0-31.5 [facility] Comment on above: Order Comment: Gabriela Morales: HEPARIN GTT Result Comment: Ther apeutic Heparin [...] using the PTT. Performed By: #### L 300.92809 ####[facility] FIMGCUSGQN8912 [place], [place] [address]Nu# [phone] aPTT Coag (Bld) [Time] 43.2 s High 22.0-31.5 [facility] Comment on above: Order Comment: Gabriela qiu: [...] using the PTT. 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 Normal [facility] STPN Normal [facility] VALPROIC ACIDon 12-08-2020 VALPROIC ACID 64.1 MCG/ML Normal 50-100 [facility] Comment on above: Order Comment: Gabriela Morales Performed By: #### L 520.27496, L500.29994, L500.85869, L500.67445 ####[facility] WBZQZXODPU4608 [place], [place] [address]Oo# [phone] CBCon 12-07-2020 Erythrocyte distribution width (RBC) [Ratio] 12.6 % Normal 11-14.5 [facility] Comment on above: Order Comment: Campu s: MMinimal Draw: YCBN Label Performed By: #### L 200.07890 ####[facility] FGLLPEHLPW1727 [place], [place] [address]Aa# [phone] Hematocrit (Bld) [Volume fraction] 44.5 % Normal 41.0-53.0 [facility] Comment on above: Order Comment: Campu s: MMinimal Draw: YCBN Label Performed By: #### L 200.41899 ####[place] [id number]# [phone] Hemoglobin (Bld) [Mass/Vol] 14.9 g/dL Normal 13.5-17.5 [facility] Comment on above: Order Comment: Campu s: MMinimal Draw: YCBN Label Performed By: #### L 200.43160 ####[facility] [address]YZ[address] [place] [address]Jg# [phone] MCHC (RBC) [Mass/Vol] 33.5 g/dL Normal 32.0-36.0 [facility] Comment on above: Order Comment: Campu s: MMinimal Draw: YCBN Label Performed By: #### L 200.19148 ####[facility] [address]UALCYAY[address] [place], [place] [address]Ph# [phone] MCV (RBC) [Entitic vol] 91.9 fL Normal 80.0-99.0 [facility] Comment on above: Order Comment: Campu s: MMinimal Draw: YCBN Label Performed By: #### L 200.64508 ####[facility] [address]CFDVBXMF[address] [place] [address]Ml# [phone] Nucleated RBC/100 WBC (Bld) [Ratio] 0.0 % Normal Less than 1 [facility] Comment on above: Order Comment: Campu s: MMinimal Draw: YCBN Label Performed By: #### L 200.32064 ####[facility] KFHKVFHYER7482 [place], [place] [address]Gc# [phone] Platelet mean volume (Bld) [Entitic vol] 9.8 fL Normal 9.4-12.4 [facility] Comment on above: Order Comment: Campu s: MMinimal Draw: YCBN Label Performed By: #### L 200.66339 ####[facility] LMUEHRKRFF7589 [place], [place] [address]Ag# [phone] PLT 367 K/CU MM Normal 150-450 [facility] Comment on above: Order Comment: Campu s: MMinimal Draw: YCBN Label Performed By: #### L 200.68783 ####[facility] DURAZWMWSJ0733 [place], [place] [address]Vr# [phone] RBC 4.84 M/CU MM Normal 4.50-6.00 [facility] Comment on above: Order Comment: Campu s: MMinimal Draw: YCBN Label Performed By: #### L 200.84572 ####[facility] ZLXWKSAVKT9052 [place], [place] [address]Rk# [phone] WBC 13.0 K/CUMM High 4.5-11.0 [facility] Comment on above: Order Comment: Campu s: MMinimal Draw: YCBN Label Performed By: #### L 200.24736 ####[facility] IDRNLJCQOT4556 [place], [place] [address]Ne# [phone] DIET.ASSMTon 12-07-2020 DIET.ASSMT Normal [facility] Nutrition Assessments Normal [facility] DIET.MALNon 12-07-2020 DIET.MALN Normal [facility] Malnutrition Assessments Normal [facility] LIVERon 12-07-2020 Albumin [Mass/Vol] 3.3 g/dL Normal 3.2-5.0 [facility] Comment on above: Order Comment: Gabriela s: M Performed By: #### L 500.74124 ####[facility] WOFUWCCXAI9394 [place], [place] [address]Al# [phone] Albumin/Globulin [Mass ratio] 0.7 {ratio} Low 0.8-2.0 [facility] Comment on above: Order Comment: Campu s: M Performed By: #### L 500.84768 ####[facility] NYZRAJSMIA2093 [place], [place] [address]Jg# [phone] ALK PHOS 106 U/L Normal 45-117 [facility] Comment on above: Order Comment: Campu s: M Performed By: #### L 500.36612 ####[facility] SNFWGDUWNM7531 [place], [place] [address]Yw# [phone] ALT [Catalytic activity/Vol] 106 U/L High 13-61 [facility] Comment on above: Order Comment: Campu s: M Result Comment: RESU LTS MAY BE FALSELY DEPRESSED AFTER THE ADMINISTRATION OFSULFASALAZINE AND/OR SULFAPYRIDINE. Performed By: #### L 500.72163 ####[facility] IRMRGNWFZI1752 [place], [place] [address]Du# [phone] AST [Catalytic activity/Vol] 68 U/L High 8-34 [facility] Comment on above: Order Comment: Campu s: M Result Comment: RESU LTS MAY BE FALSELY DEPRESSED AFTER THE ADMINISTRATION OFSULFASALAZINE AND/OR SULFAPYRIDINE. Performed By: #### L 500.93898 ####[facility] IIUFKNVHUQ9233 [place], [place] [address]Zm# [phone] BILI DIRECT 0.4 MG/DL High 0.00-0.36 [facility] Comment on above: Order Comment: Campu s: M Result Comment: NOTE NEW NORMAL RANGE DUE TO REAGENT CHANGE Performed By: #### L 500.62661 ####[facility] GSJUMMYJSI0229 [place], [place] [address]Zv# [phone] BILI TOTAL 0.80 MG/DL Normal 0.2-1.0 [facility] Comment on above: Order Comment: Campu s: M Performed By: #### L 500.47517 ####[facility] ISANDXDNCB1681 [place], [place] [address]Dn# [phone] Globulin (S) [Mass/Vol] 4.7 g/dL High 2.2-4.2 [facility] Comment on above: Order Comment: Campu s: M Performed By: #### L 500.42840 ####[facility] SZHDITMOCJ3153 [place], [place] [address]Wd# [phone] Protein [Mass/Vol] 8.0 g/dL Normal 6.0-8.5 [facility] Comment on above: Order Comment: Campu s: M Performed By: #### L 500.79885 ####[facility] TNEAQJILDG2774 [place], [place] [address]Oz# [phone] NEURO.EEGon 12-07-2020 NEURO.EEG Normal [facility] Neurology - EEG Normal [facility] PROG IMSon 12-07-2020 PROG IMS Normal [facility] Progress Note-Hospitalist Normal [facility] PROG.Meche 12-07-2020 PROG.CARD Normal [facility] Progress Note-Cardiology Normal [facility] PROG.NEUROon 12-07-2020 PROG.NEURO Normal [facility] Progress Note-Neuro Normal [facility] PROG.PSYCHon 12-07-2020 PROG.PSYCH Normal [facility] Progress Note-Psych Normal [facility] PTPNon 12-07-2020 PT Progress Note Normal [facility] dical [facility] PTPN Normal [facility] STPNon 12-07-2020 APPLICATION PROGRAMMER ANALYST Progress Note Normal [facility] edical [facility] STPN Normal [facility] BMPon 12-06-2020 Anion gap [Moles/Vol] 11 mmol/L Normal 5-16 [facility] Comment on above: Order Comment: Campu s: M Performed By: #### L 500.45325, L500.89846, L500.18350, L500.29408 ####[facility] YYPYMJPRCW7780 [place], [place] [address]Ja# [phone] Calcium [Mass/Vol] 8.8 mg/dL Normal 8.5-10.5 [facility] Comment on above: Order Comment: Campu s: M Result Comment: NOTE NEW NORMAL RANGE DUE TO REAGENT CHANGE Performed By: #### L 500.93602, L500.43586, L500.61440, L500.73441 ####[facility] BAHVEWMWGE5548 [place], [place] [address]Tp# [phone] Chloride [Moles/Vol] 108 mmol/L High 98-107 [facility] Comment on above: Order Comment: Campu s: M Performed By: #### L 500.92251, L500.05498, L500.87778, L500.86388 ####[place] [address] [place], [place] [address]Dn# [phone] CO2 [Moles/Vol] 26.0 mmol/L Normal 21-32 [facility] [place] Comment on above: Order Comment: Campu s: M Performed By: #### L 500.07343, L500.18217, L500.93083, L500.68807 ####[facility] PKAWHPCMQG6287 [place], [place] [address]Fe# [phone] Creatinine [Mass/Vol] 0.74 mg/dL Normal 0.5-1.4 [facility] Comment on above: Order Comment: Campu s: M Result Comment: NOTE NEW NORMAL RANGE DUE TO REAGENT CHANGEPatients receiving either N-Acetylcysteine (NAC) orMetamizole prior to venipuncture, may have falsely depressedresults. Performed By: #### L 500.95157, L500.72836, L500.72447, L500.17588 ####[facility] CTAGNNHIUA8804 [place], [place] [address]Jb# [phone] Glucose [Mass/Vol] 103 mg/dL High 70-100 [facility] Comment on above: Order Comment: Campu s: M Result Comment: 70-1 00- Normal Fasting; 100-125 Impaired Fasting; greaterthan 126 on more than one result- Diabetes. ADA guidelines.Results may be falsely elevated after the administration ofSulfapyridine.Results may be falsely depressed after the administration ofSulfasalazine. Performed By: #### L 500.43236, L500.07537, L500.65881, L500.59687 ####[facility] TUAJSEWBDH8498 [place], [place] [address]Qj# [phone] Potassium [Moles/Vol] 3.6 mmol/L Normal 3.5-5.1 [facility] Comment on above: Order Comment: Campu s: M Result Comment: Slig ht Hemolysis, Result may be affected. Performed By: #### L 500.19955, L500.27755, L500.42801, L500.09869 ####[facility] GXKLQELQWX0722 [place], [place] [address]Dm# [phone] Sodium [Moles/Vol] 145 mmol/L Normal 136-145 [facility] Comment on above: Order Comment: Campu s: M Performed By: #### L 500.25028, L500.95040, L500.54988, L500.74765 ####[facility] DLJGWQGKRN9259 [place], [place] [address]Jq# [phone] Urea nitrogen [Mass/Vol] 27 mg/dL High 11-05 [facility] Comment on above: Order Comment: Campu s: M Performed By: #### L 500.87047, L500.78701, L500.15275, L500.31556 ####[facility] TOXBDVJOOC8408 [place], [place] [address]Dw# [phone] Urea nitrogen/Creatinine [Mass ratio] 36 mg/mg High - [facility] Comment on above: Order Comment: Campu s: M Performed By: #### L 500.02525, L500.34709, L500.89661, L500.45250 ####[facility] VVHZPKYTAK0295 [place], [place] [address]Ho# [phone] CBC W/DIFFon 12-06-2020 BASO ABS 0.10 K/CU MM Normal 0-0.2 [facility] [place] Comment on above: Order Comment: Campu s: MMinimal Draw: Y Performed By: #### L 200.79939 ####[facility] ACABHIOBGC7864 [place], [place] [address]Et# [phone] Basophils/100 WBC (Bld) 0.4 % Normal 0-2 [facility] Comment on above: Order Comment: Campu s: MMinimal Draw: Y Performed By: #### L 200.66835 ####[facility] WLO[address]UMIZR[address] [place] [address]Rq# [phone] EOS ABS 0.10 K/CU MM Normal 0-0.5 [facility] Comment on above: Order Comment: Campu s: MMinimal Draw: Y Performed By: #### L 200.95533 ####[facility] [address]YRSCSZHD[address] [place], [place] [address]Ph# [phone] Eosinophils/100 WBC (Bld) 1.0 % Normal 0-5 [facility] Comment on above: Order Comment: Campu s: MMinimal Draw: Y Performed By: #### L 200.66581 ####[facility] YHIXKSBUWN[address] [place] [address]Hf# [phone] Erythrocyte distribution width (RBC) [Ratio] 12.1 % Normal 11-14.5 [facility] Comment on above: Order Comment: Campu s: MMinimal Draw: Y Performed By: #### L 200.57589 ####[facility] [id number] [place] [address]Lh# [phone] Hematocrit (Bld) [Volume fraction] 41.1 % Normal 41.0-53.0 [facility] Comment on above: Order Comment: Campu s: MMinimal Draw: Y Performed By: #### L 200.04588 ####[facility] AXTSYIHXBO[address] [place] [address]Gd# [phone] Hemoglobin (Bld) [Mass/Vol] 13.7 g/dL Normal 13.5-17.5 [facility] Comment on above: Order Comment: Campu s: MMinimal Draw: Y Performed By: #### L 200.57898 ####[facility] ILNQTZOZRT7008 [place], [place] [address]Qp# [phone] IMMATR GRAN ABS 0.20 K/CU MM Normal Less than 2 [facility] Comment on above: Order Comment: Campu s: MMinimal Draw: Y Performed By: #### L 200.09151 ####[facility] LJWRVKNFZV5230 [place] [address]Ph# [phone] IMMATURE GRAN % 1.1 % Normal Less than 2 [facility] [place] Comment on above: Order Comment: Campu s: MMinimal Draw: Y Performed By: #### L 200.10543 ####[facility] UFOEKSLRTY[address] [place], [place] [address]Ph# [phone] LYMPH ABS 1.40 K/CU MM Normal 0.9-4.4 [facility] Comment on above: Order Comment: Campu s: MMinimal Draw: Y Performed By: #### L 200.21755 ####[facility] KJIUQNTVTS[address] [place] [address]Jk# [phone] Lymphocytes/100 WBC (Bld) 10.6 % Low 20-40 [facility] Comment on above: Order Comment: Campu s: MMinimal Draw: Y Performed By: #### L 200.19590 ####[facility] OBZECSEPIU[address] [place] [address]Bg# [phone] MCHC (RBC) [Mass/Vol] 33.3 g/dL Normal 32.0-36.0 [facility] Comment on above: Order Comment: Campu s: MMinimal Draw: Y Performed By: #### L 200.67030 ####[facility] [id number] [place] [address]Fx# [phone] MCV (RBC) [Entitic vol] 91.5 fL Normal 80.0-99.0 [facility] Comment on above: Order Comment: Campu s: MMinimal Draw: Y Performed By: #### L 200.38749 ####[facility] BYPLIVAADU1815 [place], [place] [address]Ez# [phone] MONO ABS 1.20 K/CU MM High 0.1-1.1 [facility] Comment on above: Order Comment: Campu s: MMinimal Draw: Y Performed By: #### L 200.35212 ####[facility] CCKKGHTWQM6777 [place], [place] [address]Ag# [phone] Monocytes/100 WBC (Bld) 9.0 % Normal 2-10 [facility] Comment on above: Order Comment: Campu s: MMinimal Draw: Y Performed By: #### L 200.42116 ####[facility] AGEKTLTMOR[address] [place] [address]Yv# [phone] NEUTROPHIL ABS 10.60 K/CU MM High 2.0-8.3 [facility] Comment on above: Order Comment: Campu s: MMinimal Draw: Y Performed By: #### L 200.03036 ####[facility] IMKMHHFGLX[address] [place] [address]Rf# [phone] Neutrophils/100 WBC (Bld) 77.9 % High 45-75 [facility] Comment on above: Order Comment: Campu s: MMinimal Draw: Y Performed By: #### L 200.91456 ####[facility] FZRKRHZHPT2560 [place], [place] [address]Dn# [phone] Nucleated RBC/100 WBC (Bld) [Ratio] 0.0 % Normal Less than 1 [facility] Comment on above: Order Comment: Campu s: MMinimal Draw: Y Performed By: #### L 200.67415 ####[facility] MXZWJCWUPJ4154 [place], [place] [address]Zx# [phone] Platelet mean volume (Bld) [Entitic vol] 10.2 fL Normal 9.4-12.4 [facility] Comment on above: Order Comment: Campu s: MMinimal Draw: Y Performed By: #### L 200.92829 ####[facility] CXRCWONSUA0015 [place], [place] [address]Vf# [phone] PLT 311 K/CU MM Normal 150-450 [facility] Comment on above: Order Comment: Campu s: MMinimal Draw: Y Result Comment: Conf irmed by slide estimate. Performed By: #### L 200.85161 ####[facility] [address]QVZLIWN[address] [place] [address]Ze# [phone] PLT EST ADEQUATE Normal [facility] Comment on above: Order Comment: Campu s: MMinimal Draw: Y Performed By: #### L 200.22529 ####[facility] [address]FWPKEVH[address] [place] [address]Jt# [phone] POIK 1+ Normal [facility] Comment on above: Order Comment: Campu s: MMinimal Draw: Y Performed By: #### L 200.87449 ####[facility] U[address]ZBQXWUW[address] [place] [address]Pe# [phone] POLY 1+ Normal [facility] Comment on above: Order Comment: Campu s: MMinimal Draw: Y Performed By: #### L 200.66915 ####[facility] [id number] [place] [address]Dt# [phone] RBC 4.49 M/CU MM Low 4.50-6.00 [facility] Comment on above: Order Comment: Campu s: MMinimal Draw: Y Performed By: #### L 200.11759 ####[facility] K[address]JQNSWKAB[address] [place] [address]As# [phone] WBC 13.6 K/CUMM High 4.5-11.0 [facility] [place] Comment on above: Order Comment: Campu s: MMinimal Draw: Y Performed By: #### L 200.34176 ####[facility] UGQUGVFQVJ5599 [place], [place] [address]Hn# [phone] GFR ESTon 12-06-2020 IF AMER Greater than 60 Normal [facility] [place] Comment on above: Order Comment: Campu s: M Performed By: #### L 500.60487, L500.68523, L500.13651, L500.62252 ####[facility] IUFOHZKCKO8829 [place], [place] [address]Vm# [phone] IF non-AFR AMER Greater than 60 Normal [facility] [place] Comment on above: Order Comment: Campu s: M Performed By: #### L 500.26442, L500.37223, L500.28858, L500.97957 ####[facility] NDQGHJJCTM2071 [place], [place] [address]Ac# [phone] IONIZED CAon 12-06-2020 IONIZED CA 1.08 MMOL/L Low 1.16-1.32 [facility] Comment on above: Order Comment: Campu s: M Performed By: #### L 550.06003 ####[facility] [address]KJHZQHMP[address] [place] [address]Ds# [phone] MAGNESIUMon 12-06-2020 Magnesium [Mass/Vol] 2.0 mg/dL Normal 1.6-2.6 [facility] Comment on above: Order Comment: Campu s: M Performed By: #### L 500.90534, L500.28663, L500.01187, L500.62760 ####[facility] RGJLREJBVP2579 [place], [place] [address]Vc# [phone] PHOSon 12-06-2020 Phosphate [Mass/Vol] 3.90 mg/dL Normal 2.5-4.9 [facility] Comment on above: Order Comment: Campu s: M Result Comment: Elev ated m-protein (paraprotein) levels in the serum may beexhibited in patients with monoclonal gammopathies, causingfalsely elevated inorganic phosphorus results. Performed By: #### L 500.33914, L500.39383, L500.38708, L500.63918 ####[facility] LHRRYXBUXN5867 [place], [place] [address]Or# [phone] PROG IMSon 12-06-2020 PROG IMS Normal [facility] Progress Note-Hospitalist Normal [facility] PROG.Meche 12-06-2020 PROG.CARD Normal [facility] Progress Note-Cardiology Normal [facility] PROG.INTENon 12-06-2020 PROG.INTEN Normal [facility] Progress Note-Sewer Repairer Normal [facility] PROG.PSYCHon 12-06-2020 PROG.PSYCH Normal [facility] Progress Note-Psych Normal [facility] PTARon 12-06-2020 PT Assessment Report Normal [facility] PTAR Normal [facility] PTTon 12-06-2020 aPTT Coag (Bld) [Time] 39.3 s High 22.0-31.5 [facility] Comment on above: Order Comment: Gabriela Morales [...] using the PTT. Performed By: #### L 300.50412 ####[facility] OOIPBFQTPM6789 [place], [place] [address]It# [phone] aPTT Coag (Bld) [Time] 42.6 s High 22.0-31.5 [facility] Comment on above: Order Comment: Gabriela Morales [...] using the PTT. Performed By: #### L 300.58063 ####[facility] GOVLMWUFNF8482 [place], [place] [address]Kz# [phone] aPTT Coag (Bld) [Time] 31.9 s High 22.0-31.5 [facility] Comment on above: Order Comment: [...] using the PTT. Performed By: #### L 300.67896 ####[facility] PEQIHMIMIT6270 [place], [place] [address]Lt# [phone] STPNon 12-06-2020 APPLICATION PROGRAMMER ANALYST Progress Note Normal [facility] STPN Normal [facility] STROKE.NOTon 12-06-2020 Stroke Prog Coordinater Note Normal [facility] STROKE.NOT Normal [facility] BMPon 12-05-2020 Anion gap [Moles/Vol] 7 mmol/L Normal 5-16 [facility] Comment on above: Order Comment: Campu s: M Performed By: #### L 500.01752, L500.85099, L500.94594, L500.12161 ####[facility] DQZBOVXFXF4276 [place], [place] [address]Tr# [phone] Calcium [Mass/Vol] 8.4 mg/dL Low 8.5-10.5 [facility] Comment on above: Order Comment: Campu s: M Result Comment: NOTE NEW NORMAL RANGE DUE TO REAGENT CHANGE Performed By: #### L 500.54505, L500.87927, L500.72304, L500.13930 ####[facility] HZIYQMAOYJ5164 [place], [place] [address]Nw# [phone] Chloride [Moles/Vol] 111 mmol/L High 98-107 [facility] [place] Comment on above: Order Comment: Campu s: M Performed By: #### L 500.44537, L500.34828, L500.72628, L500.91919 ####[facility] SJIWGELIYY1441 [place], [place] [address]Ff# [phone] CO2 [Moles/Vol] 26.0 mmol/L Normal 21-32 [facility] Comment on above: Order Comment: Campu s: M Performed By: #### L 500.86820, L500.54870, L500.43971, L500.62794 ####[facility] [id number] [place], [place] [address]Ny# [phone] Creatinine [Mass/Vol] 0.72 mg/dL Normal 0.5-1.4 [facility] Comment on above: Order Comment: Campu s: M Result Comment: NOTE NEW NORMAL RANGE DUE TO REAGENT CHANGEPatients receiving either N-Acetylcysteine (NAC) orMetamizole prior to venipuncture, may have falsely depressedresults. Performed By: #### L 500.98455, L500.71231, L500.30779, L500.07629 ####[facility] [id number] [place], [place] [address]Yj# [phone] Glucose [Mass/Vol] 124 mg/dL High 70-100 [facility] Comment on above: Order Comment: Campu s: M Result Comment: 70-1 00- Normal Fasting; 100-125 Impaired Fasting; greaterthan 126 on more than one result- Diabetes. ADA guidelines.Results may be falsely elevated after the administration ofSulfapyridine.Results may be falsely depressed after the administration ofSulfasalazine. Performed By: #### L 500.56364, L500.84217, L500.72809, L500.83545 ####[facility] [id number] [place], [place] [address]Vy# [phone] Potassium [Moles/Vol] 4.0 mmol/L Normal 3.5-5.1 [facility] Comment on above: Order Comment: Campu s: M Performed By: #### L 500.63849, L500.36188, L500.86456, L500.27549 ####[facility] [address] [place] [address] 81668Ic# [phone] Sodium [Moles/Vol] 144 mmol/L Normal 136-145 [facility] Comment on above: Order Comment: Campu s: M Performed By: #### L 500.18175, L500.40809, L500.38169, L500.82674 ####[facility] [id number] [place] [address] 73914Li# [phone] Urea nitrogen [Mass/Vol] 30 mg/dL High 7- [facility] Comment on above: Order Comment: Campu s: M Performed By: #### L 500.15543, L500.96902, L500.02461, L500.15558 ####[facility] [address] [place] [address] 10862Su# [phone] Urea nitrogen/Creatinine [Mass ratio] 41 mg/mg High 15-24 [facility] Comment on above: Order Comment: Campu s: M Performed By: #### L 500.62582, L500.16693, L500.52650, L500.57764 ####[facility] [address]ZQFEYUP[address] [place] [address] 58403Gf# [phone] CBC W/DIFFon 12-05-2020 BASO ABS 0.00 K/CU MM Normal 0-0.2 [facility] Comment on above: Order Comment: Campu s: MMinimal Draw: Y Performed By: #### L 200.35007 ####[facility] [id number] [place] [address] 11949Kl# [phone] Basophils/100 WBC (Bld) 0.3 % Normal 0-2 [facility] Comment on above: Order Comment: Campu s: MMinimal Draw: Y Performed By: #### L 200.61881 ####[facility] OPHJVYTTJE1290 [place], [place] [address]Et# [phone] EOS ABS 0.30 K/CU MM Normal 0-0.5 [facility] Comment on above: Order Comment: Campu s: MMinimal Draw: Y Performed By: #### L 200.12912 ####[facility] [id number] [place] [address] 10405Np# [phone] Eosinophils/100 WBC (Bld) 3.2 % Normal 0-5 [facility] Comment on above: Order Comment: Campu s: MMinimal Draw: Y Performed By: #### L 200.22832 ####[facility] [address]QKPCZMPW[address] [place] [address] 66333Ii# [phone] Erythrocyte distribution width (RBC) [Ratio] 12.4 % Normal 11-14.5 [facility] Comment on above: Order Comment: Campu s: MMinimal Draw: Y Performed By: #### L 200.64734 ####[facility] [id number] [place] [address] 76360Af# [phone] Hematocrit (Bld) [Volume fraction] 36.6 % Low 41.0-53.0 [facility] Comment on above: Order Comment: Campu s: MMinimal Draw: Y Performed By: #### L 200.48355 ####[facility] NPGWQFIOBL[address] [place] [address] 90036Cw# [phone] Hemoglobin (Bld) [Mass/Vol] 12.5 g/dL Low 13.5-17.5 [facility] Comment on above: Order Comment: Campu s: MMinimal Draw: Y Performed By: #### L 200.82013 ####[facility] YPFIYYRCHP5315 [place], [place] [address]Jy# [phone] IMMATR GRAN ABS 0.10 K/CU MM Normal Less than 2 [facility] Comment on above: Order Comment: Campu s: MMinimal Draw: Y Performed By: #### L 200.30261 ####[facility] YFDAVPECYI2102 [place] [address]409[address]Ph# [phone] IMMATURE GRAN % 0.9 % Normal Less than 2 [facility] Comment on above: Order Comment: Campu s: MMinimal Draw: Y Performed By: #### L 200.29706 ####[place] [address]Ph# [phone] LYMPH ABS 1.50 K/CU MM Normal 0.9-4.4 [facility] Comment on above: Order Comment: Campu s: MMinimal Draw: Y Performed By: #### L 200.67193 ####[place] [address]Ph# [phone] Lymphocytes/100 WBC (Bld) 15.1 % Low 20-40 [facility] Comment on above: Order Comment: Campu s: MMinimal Draw: Y Performed By: #### L 200.69257 ####[place] [address]Ph# [phone] MCHC (RBC) [Mass/Vol] 34.2 g/dL Normal 32.0-36.0 [facility] Comment on above: Order Comment: Campu s: MMinimal Draw: Y Performed By: #### L 200.84574 ####[facility] JZQEHBCBLO[address] [place], [place] [address]Ph# [phone] MCV (RBC) [Entitic vol] 90.4 fL Normal 80.0-99.0 [facility] Comment on above: Order Comment: Campu s: MMinimal Draw: Y Performed By: #### L 200.36181 ####[facility] IOXHBTCNFT[address] [place], [place] [address]Ph# [phone] MONO ABS 1.10 K/CU MM Normal 0.1-1.1 [facility] Comment on above: Order Comment: Campu s: MMinimal Draw: Y Performed By: #### L 200.70507 ####[facility] TIRKPCUGDW3469 [place], [place] [address]Le# [phone] Monocytes/100 WBC (Bld) 11.0 % High 2-10 [facility] Comment on above: Order Comment: Campu s: MMinimal Draw: Y Performed By: #### L 200.11311 ####[facility] [id number] [place] [address] 960[address]Bc# [phone] NEUTROPHIL ABS 7.10 K/CU MM Normal 2.0-8.3 [facility] Comment on above: Order Comment: Campu s: MMinimal Draw: Y Performed By: #### L 200.79153 ####[facility] GUMZSECZJO1209 [place], [place] [address]Nw# [phone] Neutrophils/100 WBC (Bld) 69.5 % Normal 45-75 [facility] Comment on above: Order Comment: Campu s: MMinimal Draw: Y Performed By: #### L 200.42702 ####[facility] KBMBUAGLGL4857 [place], [place] [address]Db# [phone] Nucleated RBC/100 WBC (Bld) [Ratio] 0.0 % Normal Less than 1 [facility] Comment on above: Order Comment: Campu s: MMinimal Draw: Y Performed By: #### L 200.10825 ####[facility] MBCQCYMSFS6947 [place], [place] [address]Lv# [phone] Platelet mean volume (Bld) [Entitic vol] 10.3 fL Normal 9.4-12.4 [facility] Comment on above: Order Comment: Campu s: MMinimal Draw: Y Performed By: #### L 200.30522 ####[facility] DWFEZWSPEC7769 [place], [place] [address]Zn# [phone] PLT 201 K/CU MM Normal 150-450 [facility] Comment on above: Order Comment: Campu s: MMinimal Draw: Y Performed By: #### L 200.22071 ####[facility] YAMNWWOWWG9524 [place], [place] [address]Gn# [phone] RBC 4.05 M/CU MM Low 4.50-6.00 [facility] Comment on above: Order Comment: Campu s: MMinimal Draw: Y Performed By: #### L 200.81721 ####[facility] [id number] [place] [address] 084[address]Nb# [phone] WBC 10.1 K/CUMM Normal 4.5-11.0 [facility] Comment on above: Order Comment: Campu s: MMinimal Draw: Y Performed By: #### L 200.94161 ####[facility] YU[address]LZODSS[address] [place] [address] 64[address]Do# [phone] GFR ESTon 12-05-2020 IF AMER Greater than 60 Normal [facility] Comment on above: Order Comment: Campu s: M Performed By: #### L 500.26506, L500.14525, L500.22294, L500.70215 ####[facility] [address]BLWQBZKZ[address] [place] [address] 12245Es# [phone] IF non-AFR AMER Greater than 60 Normal [facility] Comment on above: Order Comment: Campu s: M Performed By: #### L 500.25774, L500.78508, L500.19815, L500.47442 ####[facility] DVMDFFDYNT0038 [place], [place] [address]Os# [phone] IONIZED CAon 12-05-2020 IONIZED CA 1.09 MMOL/L Low 1.16-1.32 [facility] Comment on above: Order Comment: Campu s: M Performed By: #### L 550.11940 ####[facility] TIHDDQQPJN[address] [place] [address] 937[address]Bm# [phone] MAGNESIUMon 12-05-2020 Magnesium [Mass/Vol] 2.0 mg/dL Normal 1.6-2.6 [facility] Comment on above: Order Comment: Aaronu s: M Performed By: #### L 500.38208, L500.72485, L500.64913, L500.84043 ####[facility] CSTDEMBPTQ0170 [place], [place] [address]Mn# [phone] PHOSon 12-05-2020 Phosphate [Mass/Vol] 3.30 mg/dL Normal 2.5-4.9 [facility] Comment on above: Order Comment: Campu s: M Result Comment: Elev ated m-protein (paraprotein) levels in the serum may beexhibited in patients with monoclonal gammopathies, causingfalsely elevated inorganic phosphorus results. Performed By: #### L 500.58785, L500.63780, L500.13315, L500.19715 ####[facility] DUABQNKDSB2404 [place], [place] [address]Rw# [phone] PROG IMSon 12-05-2020 PROG IMS Normal [facility] Progress Note-Hospitalist Normal [facility] PROG.Meche 12-05-2020 PROG.CARD Normal [facility] Progress Note-Cardiology Normal [facility] PROG.INTENon 12-05-2020 PROG.INTEN Normal [facility] Progress Note-Sewer Repairer Normal [facility] PROG.PSYCHon 12-05-2020 PROG.PSYCH Normal [facility] Progress Note-Psych Normal [facility] PTTon 12-05-2020 aPTT Coag (Bld) [Time] 38.9 s High 22.0-31.5 [facility] Comment on above: Order Comment: Aaronu s: M Result Comment: Ther apeutic Heparin [...] using the PTT. Performed By: #### L 300.81885 ####[facility] QEVGRMYSUM9379 [place], [place] [address]Rr# [phone] aPTT Coag (Bld) [Time] 38.3 s High 22.0-31.5 [facility] Comment on above: Order Comment: Gabriela qiu: [...] using the PTT. Performed By: #### L 300.38741 ####[facility] TOSSRYTWRS9556 [place], [place] [address]Xv# [phone] aPTT Coag (Bld) [Time] 32.3 s High 22.0-31.5 [facility] Comment on above: Order Comment: Gabriela qiu: [...] using the PTT. Performed By: #### L 300.96060 ####[facility] EGTRDFEJCY9667 [place], [place] [address]Ik# [phone] STPNon 12-05-2020 APPLICATION PROGRAMMER ANALYST Progress Note Normal [facility] STPN Normal [facility] CBCon 12-04-2020 Erythrocyte distribution width (RBC) [Ratio] 12.6 % Normal 11-14.5 [facility] Comment on above: Order Comment: Campu s: MMinimal Draw: Y Performed By: #### L 200.36188 ####[facility] [id number] [place] [address]Lp# [phone] Hematocrit (Bld) [Volume fraction] 38.5 % Low 41.0-53.0 [facility] Comment on above: Order Comment: Campu s: MMinimal Draw: Y Performed By: #### L 200.93014 ####[facility] BIGRXTHRUL[address] [place] [address]Fb# [phone] Hemoglobin (Bld) [Mass/Vol] 13.5 g/dL Normal 13.5-17.5 [facility] Comment on above: Order Comment: Campu s: MMinimal Draw: Y Performed By: #### L 200.02679 ####[address] [address]Ha# [phone] MCHC (RBC) [Mass/Vol] 35.1 g/dL Normal 32.0-36.0 [facility] Comment on above: Order Comment: Campu s: MMinimal Draw: Y Performed By: #### L 200.73455 ####[facility] TUNHIQVMOX[address] [place] [address]Kq# [phone] MCV (RBC) [Entitic vol] 89.7 fL Normal 80.0-99.0 [facility] Comment on above: Order Comment: Campu s: MMinimal Draw: Y Performed By: #### L 200.94111 ####[facility] COZXWQBBCQ[address] [place] [address] 8[address]Ne# [phone] Nucleated RBC/100 WBC (Bld) [Ratio] 0.0 % Normal Less than 1 [facility] Comment on above: Order Comment: Campu s: MMinimal Draw: Y Performed By: #### L 200.03680 ####[facility] [id number] [place] [address] 238[address]Gy# [phone] Platelet mean volume (Bld) [Entitic vol] 10.5 fL Normal 9.4-12.4 [facility] Comment on above: Order Comment: Campu s: MMinimal Draw: Y Performed By: #### L 200.58787 ####[facility] WTSMTVOCMS[address] [place] [address] 49[address]Vs# [phone] PLT 181 K/CU MM Normal 150-450 [facility] Comment on above: Order Comment: Campu s: MMinimal Draw: Y Performed By: #### L 200.69349 ####[address] [address]Xc# [phone] RBC 4.29 M/CU MM Low 4.50-6.00 [facility] Comment on above: Order Comment: Campu s: MMinimal Draw: Y Performed By: #### L 200.39602 ####[address] [address]Xi# [phone] WBC 11.6 K/CUMM High 4.5-11.0 [facility] Comment on above: Order Comment: Campu s: MMinimal Draw: Y Performed By: #### L 200.62377 ####[address] [address]Qo# [phone] CBC W/DIFFon 12-04-2020 BASO ABS 0.00 K/CU MM Normal 0-0.2 [facility] Comment on above: Order Comment: Campu s: M Performed By: #### L 200.44454 ####[facility] [id number] [place] [address] 097[address]Iy# [phone] Basophils/100 WBC (Bld) 0.3 % Normal 0-2 [facility] Comment on above: Order Comment: Campu s: M Performed By: #### L 200.02578 ####[facility] NRMXVJGZGE5140[address] [place] [address] 586[address]Yq# [phone] EOS ABS 0.20 K/CU MM Normal 0-0.5 [facility] Comment on above: Order Comment: Campu s: M Performed By: #### L 200.00973 ####[facility] RWVDEXEJMU2915 [place], [place] [address]Wc# [phone] Eosinophils/100 WBC (Bld) 1.9 % Normal 0-5 [facility] Comment on above: Order Comment: Campu s: M Performed By: #### L 200.49901 ####[facility] UJQNCWEGHP4929 [place], [place] [address]Tb# [phone] Erythrocyte distribution width (RBC) [Ratio] 12.7 % Normal 11-14.5 [facility] Comment on above: Order Comment: Campu s: M Performed By: #### L 200.38848 ####[facility] SITZUOYYCM[address] [place] [address] 925[address]Ya# [phone] Hematocrit (Bld) [Volume fraction] 39.0 % Low 41.0-53.0 [facility] Comment on above: Order Comment: Campu s: M Performed By: #### L 200.86875 ####[facility] [id number] [place] [address] 735[address]Zb# [phone] Hemoglobin (Bld) [Mass/Vol] 13.0 g/dL Low 13.5-17.5 [facility] Comment on above: Order Comment: Campu s: M Performed By: #### L 200.29444 ####[facility] MDNMNCMLET1589 [place], [place] [address]Fa# [phone] IMMATR GRAN ABS 0.10 K/CU MM Normal Less than 2 [facility] Comment on above: Order Comment: Campu s: M Performed By: #### L 200.90356 ####[facility] ZYXTDUYRYS[address] [place] [address] 16[address]Jz# [phone] IMMATURE GRAN % 0.7 % Normal Less than 2 [facility] Comment on above: Order Comment: Campu s: M Performed By: #### L 200.84207 ####[facility] KOEUCIWIJT[address] [place] [address]Yk# [phone] LYMPH ABS 1.40 K/CU MM Normal 0.9-4.4 [facility] Comment on above: Order Comment: Campu s: M Performed By: #### L 200.93341 ####[facility] JEAKAVSNIF[address] [place] [address] 57[address]Ji# [phone] Lymphocytes/100 WBC (Bld) 14.3 % Low 20-40 [facility] Comment on above: Order Comment: Campu s: M Performed By: #### L 200.52305 ####[address] [address]Qc# [phone] MCHC (RBC) [Mass/Vol] 33.3 g/dL Normal 32.0-36.0 [facility] Comment on above: Order Comment: Campu s: M Performed By: #### L 200.37281 ####[place] [address]Ph# [phone] MCV (RBC) [Entitic vol] 91.8 fL Normal 80.0-99.0 [facility] Comment on above: Order Comment: Campu s: M Performed By: #### L 200.15560 ####[facility] [address]ZOFVCMHR[address] [place] [address] 45[address]Ki# [phone] MONO ABS 1.00 K/CU MM Normal 0.1-1.1 [facility] Comment on above: Order Comment: Campu s: M Performed By: #### L 200.31435 ####[facility] DNHJDTVKWX74[address] [place] [address] 789[address]Ze# [phone] Monocytes/100 WBC (Bld) 10.1 % High 2-10 [facility] Comment on above: Order Comment: Campu s: M Performed By: #### L 200.59520 ####[facility] GXFMYJQXLA[address] [place] [address] 9[address]Mv# [phone] NEUTROPHIL ABS 7.10 K/CU MM Normal 2.0-8.3 [facility] Comment on above: Order Comment: Campu s: M Performed By: #### L 200.64565 ####[facility] PHAIOANFEH0528 [place], [place] [address]Dz# [phone] Neutrophils/100 WBC (Bld) 72.7 % Normal 45-75 [facility] Comment on above: Order Comment: Campu s: M Performed By: #### L 200.69611 ####[facility] CGPYHHJLHL[address] [place] [address] 211[address]Ib# [phone] Nucleated RBC/100 WBC (Bld) [Ratio] 0.0 % Normal Less than 1 [facility] Comment on above: Order Comment: Campu s: M Performed By: #### L 200.27392 ####[facility] VBINFXILTA2510 [place], [place] [address]Fx# [phone] Platelet mean volume (Bld) [Entitic vol] 10.7 fL Normal 9.4-12.4 [facility] Comment on above: Order Comment: Campu s: M Performed By: #### L 200.11222 ####[facility] DJRQRTZJAQ[address] [place] [address] 42017Bs# [phone] PLT 192 K/CU MM Normal 150-450 [facility] Comment on above: Order Comment: Campu s: M Performed By: #### L 200.86060 ####[facility] EMDHAJLLXF[address] [place] [address] 294[address]Gv# [phone] RBC 4.25 M/CU MM Low 4.50-6.00 [facility] Comment on above: Order Comment: Campu s: M Performed By: #### L 200.63289 ####[facility] [address]NNZYMRUR[address] [place] [address] 947[address]Qg# [phone] WBC 9.8 K/CUMM Normal 4.5-11.0 [facility] Comment on above: Order Comment: Campu s: M Performed By: #### L 200.59340 ####[facility] UEMDZNJXBA[address] [place], [place] [address]Ph# [phone] CMPon 12-04-2020 Albumin [Mass/Vol] 2.5 g/dL Low 3.2-5.0 [facility] Comment on above: Order Comment: Campu s: M Performed By: #### L 500.51496, L500.72977, L500.16246, L500.33636 ####[facility] DZHOXJHXVN0305 [place], [place] [address]Jc# [phone] Albumin/Globulin [Mass ratio] 0.8 {ratio} Normal 0.8-2.0 [facility] Comment on above: Order Comment: Campu s: M Performed By: #### L 500.55077, L500.91462, L500.63611, L500.27519 ####[facility] UZECRCVMAF3117 [place], [place] [address]Pt# [phone] ALK PHOS 86 U/L Normal 45-117 [facility] Comment on above: Order Comment: Campu s: M Performed By: #### L 500.37009, L500.26484, L500.19727, L500.36952 ####[facility] PELCHXPWYE4636 [place], [place] [address]Dn# [phone] ALT [Catalytic activity/Vol] 62 U/L High 13-61 [facility] Comment on above: Order Comment: Campu s: M Result Comment: RESU LTS MAY BE FALSELY DEPRESSED AFTER THE ADMINISTRATION OFSULFASALAZINE AND/OR SULFAPYRIDINE. Performed By: #### L 500.98430, L500.99867, L500.91664, L500.26156 ####[facility] YKWFGECLXI4360 [place], [place] [address]Ru# [phone] Anion gap [Moles/Vol] 7 mmol/L Normal 5-16 [facility] Comment on above: Order Comment: Campu s: M Performed By: #### L 500.01879, L500.03001, L500.81728, L500.40641 ####[facility] UDMSMUIWEC4842 [place], [place] [address]Cr# [phone] AST [Catalytic activity/Vol] 55 U/L High 8-34 [facility] Comment on above: Order Comment: Campu s: M Result Comment: RESU LTS MAY BE FALSELY DEPRESSED AFTER THE ADMINISTRATION OFSULFASALAZINE AND/OR SULFAPYRIDINE. Performed By: #### L 500.06194, L500.82051, L500.24269, L500.56801 ####[facility] RKUACVOOXN9275 [place], [place] [address]Ui# [phone] BILI TOTAL 0.80 MG/DL Normal 0.2-1.0 [facility] Comment on above: Order Comment: Campu s: M Performed By: #### L 500.06669, L500.79768, L500.96818, L500.57714 ####[facility] VMGVNSYJSS1972 [place], [place] [address]Vv# [phone] Calcium [Mass/Vol] 8.2 mg/dL Low 8.5-10.5 [facility] Comment on above: Order Comment: Campu s: M Result Comment: NOTE NEW NORMAL RANGE DUE TO REAGENT CHANGE Performed By: #### L 500.45191, L500.06597, L500.00735, L500.40396 ####[facility] YODXSHCQUJ9682 [place], [place] [address]Xm# [phone] Chloride [Moles/Vol] 114 mmol/L High 98-107 [facility] Comment on above: Order Comment: Campu s: M Performed By: #### L 500.85979, L500.89045, L500.07195, L500.03873 ####[facility] CAZOTIVHUU6044 [place], [place] [address]Ih# [phone] CO2 [Moles/Vol] 23.0 mmol/L Normal 21-32 [facility] Comment on above: Order Comment: Campu s: M Performed By: #### L 500.45824, L500.14165, L500.72798, L500.10464 ####[facility] IXODHVHAGB8691 [place], [place] [address]Uz# [phone] Creatinine [Mass/Vol] 0.72 mg/dL Normal 0.5-1.4 [facility] Comment on above: Order Comment: Gabriela s: M Result Comment: NOTE NEW NORMAL RANGE DUE TO REAGENT CHANGEPatients receiving either N-Acetylcysteine (NAC) orMetamizole prior to venipuncture, may have falsely depressedresults. Performed By: #### L 500.23652, L500.67999, L500.29799, L500.46818 ####[facility] SQGLUULBPK0733 [place], [place] [address]Wx# [phone] Globulin (S) [Mass/Vol] 3.2 g/dL Normal 2.2-4.2 [facility] Comment on above: Order Comment: Gabriela s: M Performed By: #### L 500.33721, L500.29239, L500.48734, L500.85329 ####[facility] [address]JPKIYKC[address] [place] [address]Xn# [phone] Glucose [Mass/Vol] 109 mg/dL High 70-100 [facility] [place] Comment on above: Order Comment: Gabriela s: M Result Comment: 70-1 00- Normal Fasting; 100-125 Impaired Fasting; greaterthan 126 on more than one result- Diabetes. ADA guidelines.Results may be falsely elevated after the administration ofSulfapyridine.Results may be falsely depressed after the administration ofSulfasalazine. Performed By: #### L 500.88921, L500.72220, L500.83358, L500.62913 ####[facility] CRMTJTDGDC8748 [place], [place] [address]Vc# [phone] Potassium [Moles/Vol] 4.5 mmol/L Normal 3.5-5.1 [facility] Comment on above: Order Comment: Gabriela s: M Performed By: #### L 500.95661, L500.51353, L500.02919, L500.07851 ####[facility] CIFUSMOPLJ9534 [place], [place] [address]Ku# [phone] Protein [Mass/Vol] 5.7 g/dL Low 6.0-8.5 [facility] Comment on above: Order Comment: Campu s: M Performed By: #### L 500.54482, L500.59407, L500.16826, L500.32000 ####[facility] [id number] [place], [place] [address]Um# [phone] Sodium [Moles/Vol] 144 mmol/L Normal 136-145 [facility] Comment on above: Order Comment: Campu s: M Performed By: #### L 500.79432, L500.59833, L500.13925, L500.84399 ####[facility] [id number] [place], [place] [address]Og# [phone] Urea nitrogen [Mass/Vol] 27 mg/dL High 7- [facility] Comment on above: Order Comment: Campu s: M Performed By: #### L 500.35170, L500.01174, L500.22014, L500.94556 ####[facility] [id number] [place], [place] [address]Tv# [phone] Urea nitrogen/Creatinine [Mass ratio] 38 mg/mg High 15- [facility] Comment on above: Order Comment: Campu s: M Performed By: #### L 500.17670, L500.78130, L500.22546, L500.85619 ####[facility] [id number] [place], [place] [address]Xs# [phone] CONS.PSYCHon 12-04-2020 CONS.PSYCH Normal [facility] CONSULTATION-PSYCH Normal [facility] GFR ESTon 12-04-2020 IF AMER Greater than 60 Normal [facility] Comment on above: Order Comment: Campu s: M Performed By: #### L 500.31759, L500.25740, L500.00683, L500.22676 ####[facility] [id number] [place], [place] [address]Ud# [phone] IF non-AFR AMER Greater than 60 Normal [facility] Comment on above: Order Comment: Campu s: M Performed By: #### L 500.79854, L500.11248, L500.86755, L500.03779 ####[facility] [id number] [place], [place] [address]Wp# [phone] IONIZED CAon 12-04-2020 IONIZED CA 1.07 MMOL/L Low 1.16-1.32 [facility] Comment on above: Order Comment: Campu s: M Performed By: #### L 550.49852 ####[facility] [id number] [place], [place] [address]Vn# [phone] MAGNESIUMon 12-04-2020 Magnesium [Mass/Vol] 1.8 mg/dL Normal 1.6-2.6 [facility] Comment on above: Order Comment: Campu s: M Performed By: #### L 500.04777, L500.12701, L500.62380, L500.43509 ####[facility] [id number] [place], [place] [address]Ol# [phone] PHOSon 12-04-2020 Phosphate [Mass/Vol] 3.50 mg/dL Normal 2.5-4.9 [facility] Comment on above: Order Comment: Campu s: M Result Comment: Elev ated m-protein (paraprotein) levels in the serum may beexhibited in patients with monoclonal gammopathies, causingfalsely elevated inorganic phosphorus results. Performed By: #### L 500.16027, L500.18262, L500.92350, L500.66220 ####[facility] EKEXWBGFYL5863 [place], [place] [address]Zr# [phone] PROG IMSon 12-04-2020 PROG IMS Normal [facility] Progress Note-Hospitalist Normal [facility] PROG.Meche 12-04-2020 PROG.CARD Normal [facility] Progress Note-Cardiology Normal [facility] PROG.INTENon 12-04-2020 PROG.INTEN Normal [facility] Progress Note-Sewer Repairer Normal [facility] PTon 12-04-2020 INR Coag (PPP) [Relative time] 1.02 {INR} Normal 0.9-1.1 [facility] Comment on above: Order Comment: Gabriela s: MMinimal Draw: Y Result Comment: Jesse mmended PT INR therapeutic range for nursing home andprophylactic therapy is 2.0 - 3.0. For heart valve andshunt patients the range is 2.5 - 3.5. Performed By: #### L 300.41232, L300.22542 ####[facility] HHOAMFIUAY0217 [place], [place] [address]Oc# [phone] PTS 10.9 SECONDS Normal 9.5-12.0 [facility] Comment on above: Order Comment: Gabriela s: MMinimal Draw: Y Performed By: #### L 300.52496, L300.65123 ####[facility] QNNSEMVOUB8314 [place], [place] [address]Nd# [phone] PTTon 12-04-2020 aPTT Coag (Bld) [Time] 28.8 s Normal 22.0-31.5 [facility] Comment on above: Order Comment: Gabrieal qiu: M Result Comment: Ther apeutic Heparin [...] using the PTT. Performed By: #### L 300.46589 ####[facility] JXNHBIELJH8433 [place], [place] [address]Dh# [phone] aPTT Coag (Bld) [Time] 21.9 s Low 22.0-31.5 [facility] Comment on above: Order Comment: Gabriela qiu: MMinimal Draw: Y Result Comment: Ther apeutic [...] using the PTT. Performed By: #### L 300.28786, L300.38982 ####[facility] BARABXFSFG5267 [place], [place] [address]Mt# [phone] STARon 12-04-2020 APPLICATION PROGRAMMER ANALYST Assessment Report Normal [facility] STAR Normal [facility] ABGPEGLAon 12-03-2020 ABG BE -1.7 MML/L Normal -2.0-2.0 [facility] Comment on above: Order Comment: Campu s: CORTNEY BLOOD GAS? YPatient's Anticoagulant? UNKNOWN Performed By: #### L 100.62945 ####[facility] JTMPDSPECW6172 [place], [place] [address]Lj# [phone] ABG COHBA 0.3 % Normal 0-10 [facility] Comment on above: Order Comment: Campu s: CORTNEY BLOOD GAS? YPatient's Anticoagulant? UNKNOWN Performed By: #### L 100.33775 ####[facility] AAEULINHSM2341 [place], [place] [address]Aa# [phone] ABG GLU 160.0 MG/DL High 60-80 [facility] Comment on above: Order Comment: Campu s: CORTNEY BLOOD GAS? YPatient's Anticoagulant? UNKNOWN Performed By: #### L 100.50203 ####[facility] NULDWSETUW9777 [place], [place] [address]Fy# [phone] ABG MET 0.1 % Low 0.4-1.5 [facility] Comment on above: Order Comment: Campu s: CORTNEY BLOOD GAS? YPatient's Anticoagulant? UNKNOWN Performed By: #### L 100.50780 ####[facility] AFMARZGJJA9269 [place], [place] [address]Yy# [phone] ABG O2 CAPACITY 17.7 mL/dL Normal [facility] [place] Comment on above: Order Comment: Campu s: CORTNEY BLOOD GAS? YPatient's Anticoagulant? UNKNOWN Performed By: #### L 100.08705 ####[facility] PPHFHZCTNO6715 [place], [place] [address]Jo# [phone] ABG O2 CONTENT 17.3 mL/dL Normal 15.7-21.6 [facility] [place] Comment on above: Order Comment: Campu s: CORTNEY BLOOD GAS? YPatient's Anticoagulant? UNKNOWN Performed By: #### L 100.56862 ####[facility] FEXTSJTQEH3401 [place], [place] [address]Cx# [phone] ABG O2HB SAT 95.9 % Normal 90-100 [facility] Comment on above: Order Comment: Campu s: CORTNEY BLOOD GAS? YPatient's Anticoagulant? UNKNOWN Performed By: #### L 100.28385 ####[facility] TNTYZSCAQJ3709 [place], [place] [address]Vu# [phone] ABG PCO2 33.8 MMHG Low 35-45 [facility] Comment on above: Order Comment: Campu s: CORTNEY BLOOD GAS? YPatient's Anticoagulant? UNKNOWN Performed By: #### L 100.43838 ####[facility] UODWLQSKKZ1727 [place], [place] [address]Ci# [phone] ABG PH 7.43 Normal 7.35-7.45 [facility] Comment on above: Order Comment: Campu s: CORTNEY BLOOD GAS? YPatient's Anticoagulant? UNKNOWN Performed By: #### L 100.12310 ####[facility] DIRYKMONBZ3034 [place], [place] [address]Hu# [phone] ABG PO2 95.2 MMHG Normal 80-100 [facility] Comment on above: Order Comment: Campu s: CORTNEY BLOOD GAS? YPatient's Anticoagulant? UNKNOWN Performed By: #### L 100.29709 ####[facility] INFEKTGJWE4913 [place], [place] [address]Am# [phone] ABG REDUCED HGB 3.7 % Normal 0-5 [facility] Comment on above: Order Comment: Campu s: CORTNEY BLOOD GAS? YPatient's Anticoagulant? UNKNOWN Performed By: #### L 100.37064 ####[facility] ERXRJSEEIS5997 [place], [place] [address]Xr# [phone] MARKELL TEST Positive Normal [facility] Comment on above: Order Comment: Campu s: CORTNEY BLOOD GAS? YPatient's Anticoagulant? UNKNOWN Performed By: #### L 100.09876 ####[facility] JWPLQXMSLP6695 [place], [place] [address]Rd# [phone] Body temperature 99.86 [degF] Normal [facility] Comment on above: Order Comment: Campu s: CORTNEY BLOOD GAS? YPatient's Anticoagulant? UNKNOWN Performed By: #### L 100.26019 ####[facility] UXFNJUZBUX9503 [place] [address]Ph# [phone] EQUIPMENT VENTILATOR Normal [facility] Comment on above: Order Comment: Campu s: CORTNEY BLOOD GAS? YPatient's Anticoagulant? UNKNOWN Performed By: #### L 100.66275 ####[facility] DAEXUQYBXP2249 [place], [place] [address]Qw# [phone] FIO2 40 % Normal [facility] Comment on above: Order Comment: Campu s: CORTNEY BLOOD GAS? YPatient's Anticoagulant? UNKNOWN Performed By: #### L 100.83488 ####[facility] VZYLSNGNDU0063 [place], [place] [address]Yr# [phone] HCO3 (Bld) [Moles/Vol] 21.7 mmol/L Low 22-26 [facility] Comment on above: Order Comment: Campu s: CORTNEY BLOOD GAS? YPatient's Anticoagulant? UNKNOWN Performed By: #### L 100.66105 ####[facility] ZQMUSACMET1853 [place] [address]Ph# [phone] Hemoglobin (Bld) [Mass/Vol] 12.8 g/dL Normal 10-16 [facility] [place] Comment on above: Order Comment: Campu s: CORTNEY BLOOD GAS? YPatient's Anticoagulant? UNKNOWN Performed By: #### L 100.07048 ####[facility] FUBBFQEDCI3436 [place], [place] [address]It# [phone] IONIZED CA 1.10 MMOL/L Low 1.13-1.32 [facility] Comment on above: Order Comment: Campu s: CORTNEY BLOOD GAS? YPatient's Anticoagulant? UNKNOWN Performed By: #### L 100.46082 ####[facility] PGYNQHSRQF6674 [place], [place] [address]Ha# [phone] LACTATE BLOOD 1.02 MMOL/L Normal 0.40-2.00 [facility] [place] Comment on above: Order Comment: Campu s: CORTNEY BLOOD GAS? YPatient's Anticoagulant? UNKNOWN Performed By: #### L 100.26463 ####[facility] IFJVGQAWYN9497 [place], [place] [address]Wq# [phone] PEEP 8.0 CMH2O Normal [facility] Comment on above: Order Comment: Campu s: CORTENY BLOOD GAS? YPatient's Anticoagulant? UNKNOWN Performed By: #### L 100.88650 ####[facility] DYETKUXVSP8721 [place], [place] [address]Oc# [phone] Potassium [Moles/Vol] 4.1 mmol/L Normal 3.5-5.0 [facility] Comment on above: Order Comment: Campu s: CORTNEY BLOOD GAS? YPatient's Anticoagulant? UNKNOWN Performed By: #### L 100.85004 ####[facility] SLHOZXAFGH0139 [place], [place] [address]Mj# [phone] RESP. RATE 14 Normal [facility] Comment on above: Order Comment: Campu s: CORTNEY BLOOD GAS? YPatient's Anticoagulant? UNKNOWN Performed By: #### L 100.37975 ####[facility] IWBPIFLGVI0067 [place], [place] [address]Ca# [phone] SAMPLE SITE R RADIAL Normal [facility] Comment on above: Order Comment: Campu s: CORTNEY BLOOD GAS? YPatient's Anticoagulant? UNKNOWN Performed By: #### L 100.86417 ####[facility] KGVZFUADQK6090 [place], [place] [address]Nu# [phone] SAMPLE TYPE ARTERIAL Normal [facility] Comment on above: Order Comment: Campu s: CORTNEY BLOOD GAS? YPatient's Anticoagulant? UNKNOWN Performed By: #### L 100.60390 ####[facility] FDVSWIATBI7873 [place], [place] [address]Py# [phone] Sodium [Moles/Vol] 138 mmol/L Normal 136-148 [facility] Comment on above: Order Comment: Campu s: CORTNEY BLOOD GAS? YPatient's Anticoagulant? UNKNOWN Performed By: #### L 100.59616 ####[facility] TXHTTVXULL4536 [place], [place] [address]Mq# [phone] TIDAL VOLUME 650 LITERS Normal [facility] Comment on above: Order Comment: Campu s: CORTNEY BLOOD GAS? YPatient's Anticoagulant? UNKNOWN Performed By: #### L 100.59240 ####[facility] TXQRPQHFAG8220 [place], [place] [address]Ih# [phone] VENT MODE VOLUME VENT PLUS Normal [facility] Comment on above: Order Comment: Campu s: CORTNEY BLOOD GAS? YPatient's Anticoagulant? UNKNOWN Performed By: #### L 100.98893 ####[facility] UVRNQNIKPW0796 [place], [place] [address]Zl# [phone] BMPon 12-03-2020 Anion gap [Moles/Vol] 7 mmol/L Normal 5-16 [facility] Comment on above: Order Comment: Campu s: M Performed By: #### L 500.63598, L500.26123, L500.51514 ####[facility] BYCAZAZJUK7546 [place], [place] [address]Bc# [phone] Calcium [Mass/Vol] 8.1 mg/dL Low 8.5-10.5 [facility] Comment on above: Order Comment: Campu s: M Result Comment: NOTE NEW NORMAL RANGE DUE TO REAGENT CHANGE Performed By: #### L 500.76778, L500.37092, L500.12860 ####[facility] PCSMLVFLGL1376 [place], [place] [address]Ra# [phone] Chloride [Moles/Vol] 113 mmol/L High 98-107 [facility] Comment on above: Order Comment: Campu s: M Performed By: #### L 500.03584, L500.33659, L500.05706 ####[facility] UJUNTGCKTS8353 [place], [place] [address]St# [phone] CO2 [Moles/Vol] 22.0 mmol/L Normal 21-32 [facility] [place] Comment on above: Order Comment: Campu s: M Performed By: #### L 500.91687, L500.82573, L500.09122 ####[facility] CTBHHQLVKA7684 [place], [place] [address]Wq# [phone] Creatinine [Mass/Vol] 0.76 mg/dL Normal 0.5-1.4 [facility] Comment on above: Order Comment: Campu s: M Result Comment: NOTE NEW NORMAL RANGE DUE TO REAGENT CHANGEPatients receiving either N-Acetylcysteine (NAC) orMetamizole prior to venipuncture, may have falsely depressedresults. Performed By: #### L 500.33063, L500.01721, L500.62220 ####[facility] AKGOGZPKFF2260 [place], [place] [address]Nx# [phone] Glucose [Mass/Vol] 174 mg/dL High 70-100 [facility] Comment on above: Order Comment: Campu s: M Result Comment: 70-1 00- Normal Fasting; 100-125 Impaired Fasting; greaterthan 126 on more than one result- Diabetes. ADA guidelines.Results may be falsely elevated after the administration ofSulfapyridine.Results may be falsely depressed after the administration ofSulfasalazine. Performed By: #### L 500.13683, L500.37234, L500.98681 ####[facility] XAAQFXFRNK2427 [place], [place] [address]Mj# [phone] Potassium [Moles/Vol] 4.2 mmol/L Normal 3.5-5.1 [facility] Comment on above: Order Comment: Campu s: M Performed By: #### L 500.11846, L500.18103, L500.45335 ####[facility] [address]ZT[address] [place] [address]Wd# [phone] Sodium [Moles/Vol] 142 mmol/L Normal 136-145 [facility] Comment on above: Order Comment: Campu s: M Performed By: #### L 500.52460, L500.78171, L500.61149 ####[address] [address]Kx# [phone] Urea nitrogen [Mass/Vol] 24 mg/dL Normal 7-26 [facility] Comment on above: Order Comment: Campu s: M Performed By: #### L 500.32675, L500.53545, L500.41440 ####[facility] XAWRELOWIC9[address] [place] [address]Nk# [phone] Urea nitrogen/Creatinine [Mass ratio] 32 mg/mg High 15-24 [facility] Comment on above: Order Comment: Campu s: M Performed By: #### L 500.61390, L500.35790, L500.86205 ####[facility] OKJSKLPGCQ17[address] [place] [address]Mw# [phone] CBC W/DIFFon 12-03-2020 BASO ABS 0.00 K/CU MM Normal 0-0.2 [facility] Comment on above: Order Comment: Campu s: M Performed By: #### L 200.55237 ####[facility] LFFTYHHUPM8[address] [place] [address]Go# [phone] Basophils/100 WBC (Bld) 0.2 % Normal 0-2 [facility] [place] Comment on above: Order Comment: Campu s: M Performed By: #### L 200.43521 ####[facility] JQYMYFCMFC9[address] [place] [address]Cv# [phone] EOS ABS 0.10 K/CU MM Normal 0-0.5 [facility] [place] Comment on above: Order Comment: Campu s: M Performed By: #### L 200.95395 ####[place] [address]Ph# [phone] Eosinophils/100 WBC (Bld) 1.3 % Normal 0-5 [facility] Comment on above: Order Comment: Campu s: M Performed By: #### L 200.86091 ####[address] [address]Uy# [phone] Erythrocyte distribution width (RBC) [Ratio] 12.8 % Normal 11-14.5 [facility] [place] Comment on above: Order Comment: Campu s: M Performed By: #### L 200.48561 ####[address] [address]Km# [phone] Hematocrit (Bld) [Volume fraction] 38.0 % Low 41.0-53.0 [facility] Comment on above: Order Comment: Campu s: M Performed By: #### L 200.30273 ####[place] [address]Ph# [phone] Hemoglobin (Bld) [Mass/Vol] 12.8 g/dL Low 13.5-17.5 [facility] [place] Comment on above: Order Comment: Campu s: M Performed By: #### L 200.23374 ####[facility] OTPGXWEKEW[address] [place] [address]Mn# [phone] IMMATR GRAN ABS 0.10 K/CU MM Normal Less than 2 [facility] [place] Comment on above: Order Comment: Campu s: M Performed By: #### L 200.82636 ####[facility] PSZXKXWQBE1771 [place], [place] [address]Wv# [phone] IMMATURE GRAN % 0.7 % Normal Less than 2 [facility] Comment on above: Order Comment: Campu s: M Performed By: #### L 200.00503 ####[place] [address]Ph# [phone] LYMPH ABS 1.50 K/CU MM Normal 0.9-4.4 [facility] [place] Comment on above: Order Comment: Campu s: M Performed By: #### L 200.52808 ####[place] [address]Ph# [phone] Lymphocytes/100 WBC (Bld) 13.6 % Low 20-40 [facility] Comment on above: Order Comment: Campu s: M Performed By: #### L 200.56683 ####[place] [address]Ph# [phone] MCHC (RBC) [Mass/Vol] 33.7 g/dL Normal 32.0-36.0 [facility] Comment on above: Order Comment: Campu s: M Performed By: #### L 200.75443 ####[place] [address]Ph# [phone] MCV (RBC) [Entitic vol] 92.5 fL Normal 80.0-99.0 [facility] Comment on above: Order Comment: Campu s: M Performed By: #### L 200.68303 ####[facility] AGAUNZIYEE[address] [place], [place] [address]Ph# [phone] MONO ABS 0.60 K/CU MM Normal 0.1-1.1 [facility] Comment on above: Order Comment: Campu s: M Performed By: #### L 200.65280 ####[facility] FEYITGQCES[address] [place], [place] [address]Ph# [phone] Monocytes/100 WBC (Bld) 5.7 % Normal 2-10 [facility] Comment on above: Order Comment: Campu s: M Performed By: #### L 200.22985 ####[facility] UBUOBTDZCL6221 [place], [place] [address]Am# [phone] NEUTROPHIL ABS 8.40 K/CU MM High 2.0-8.3 [facility] Comment [facility]: Order Comment: Campu s: M Performed By: #### L 200.52352 ####[place] [address]Ph# [phone] Neutrophils/100 WBC (Bld) 78.5 % High 45-75 [facility] Comment on above: Order Comment: Campu s: M Performed By: #### L 200.07938 ####[place] [address]Ph# [phone] Nucleated RBC/100 WBC (Bld) [Ratio] 0.0 % Normal Less than 1 [facility] Comment on above: Order Comment: Campu s: M Performed By: #### L 200.83943 ####[facility] TKBJYAVTEH[address] [place], [place] [address]Ph# [phone] Platelet mean volume (Bld) [Entitic vol] 10.8 fL Normal 9.4-12.4 [facility] Comment on above: Order Comment: Campu s: M Performed By: #### L 200.66312 ####[facility] BWLBAFXNKR[address] [place], [place] [address]Ph# [phone] PLT 152 K/CU MM Normal 150-450 [facility] Comment on above: Order Comment: Campu s: M Performed By: #### L 200.09415 ####[facility] X[address]QLVZPRNJ[address] [place] [address]Fy# [phone] RBC 4.11 M/CU MM Low 4.50-6.00 [facility] [place] Comment on above: Order Comment: Campu s: M Performed By: #### L 200.82279 ####[facility] JCPRQAFEDG7375 [place], [place] [address]Oc# [phone] WBC 10.7 K/CUMM Normal 4.5-11.0 [facility] Comment on above: Order Comment: Gabriela s: M Performed By: #### L 200.57093 ####[facility] UZFAYDGIKD9266 [place], [place] [address]Fu# [phone] DIET.ASSMTon 12-03-[address] [facility] [place] Nutrition Assessments Normal [facility] GFR ESTon 12-03-2020 IF AMER Greater than 60 Normal [facility] Comment on above: Order Comment: Gabriela s: M Performed By: #### L 500.58036, L500.21411, L500.20247 ####[facility] ATKPZWTRIK2512 [place], [place] [address]Qg# [phone] IF non-AFR AMER Greater than 60 Normal [facility] Comment on above: Order Comment: Gabriela s: M Performed By: #### L 500.12023, L500.75808, L500.78003 ####[facility] BRMPEEVJCB6678 [place], [place] [address]Uu# [phone] IONIZED CAon 12-03-2020 IONIZED CA 1.09 MMOL/L Low 1.16-1.32 [facility] Comment on above: Order Comment: Gabriela s: M Performed By: #### L 550.64483 ####[facility] ESUPCYSWXG2558 [place], [place] [address]Ca# [phone] PHOSon 12-03-2020 Phosphate [Mass/Vol] 3.10 mg/dL Normal 2.5-4.9 [facility] Comment on above: Order Comment: Aaronu s: M Result Comment: Elev ated m-protein (paraprotein) levels in the serum may beexhibited in patients with monoclonal gammopathies, causingfalsely elevated inorganic phosphorus results. Performed By: #### L 500.09876, L500.14901, L500.73477 ####[facility] JZCQLPMNZR8543 [place], [place] [address]Wj# [phone] PROG IMSon 12-03-2020 PROG IMS Normal [facility] Progress Note-Hospitalist Normal [facility] PROG.Meche 12-03-2020 PROG.CARD Normal [facility] Progress Note-Cardiology Normal [facility] PROG.INTENon 12-03-2020 PROG.INTEN Normal [facility] Progress Note-Sewer Repairer Normal [facility] PROG.NEUROon 12-03-2020 PROG.NEURO Normal [facility] Progress Note-Neuro Normal [facility] BMPon 12-02-2020 Anion gap [Moles/Vol] 7 mmol/L Normal 5-16 [facility] Comment on above: Order Comment: Campu s: M Performed By: #### L 500.77209, L500.52164, L500.64565 ####[facility] OMVOTHIXLQ5950 [place], [place] [address]Uf# [phone] Calcium [Mass/Vol] 8.0 mg/dL Low 8.5-10.5 [facility] Comment on above: Order Comment: Campu s: M Result Comment: NOTE NEW NORMAL RANGE DUE TO REAGENT CHANGE Performed By: #### L 500.32950, L500.21006, L500.12032 ####[facility] GXAEKLEKEG5339 [place], [place] [address]Pv# [phone] Chloride [Moles/Vol] 114 mmol/L High 98-107 [facility] Comment on above: Order Comment: Campu s: M Performed By: #### L 500.20876, L500.01125, L500.26187 ####[facility] LKPWQOHIFE6386 [place], [place] [address]Dw# [phone] CO2 [Moles/Vol] 22.0 mmol/L Normal 21-32 [facility] Comment on above: Order Comment: Campu s: M Performed By: #### L 500.73476, L500.87852, L500.47841 ####[facility] REHDAQXTOA9600 [place], [place] [address]Dk# [phone] Creatinine [Mass/Vol] 0.76 mg/dL Normal 0.5-1.4 [facility] [place] Comment on above: Order Comment: Campu s: M Result Comment: NOTE NEW NORMAL RANGE DUE TO REAGENT CHANGEPatients receiving either N-Acetylcysteine (NAC) orMetamizole prior to venipuncture, may have falsely depressedresults. Performed By: #### L 500.48943, L500.85646, L500.92765 ####[facility] TGKYIAHRVM7996 [place], [place] [address]Od# [phone] Glucose [Mass/Vol] 133 mg/dL High 70-100 [facility] [place] Comment on above: Order Comment: Campu s: M Result Comment: 70-1 00- Normal Fasting; 100-125 Impaired Fasting; greaterthan 126 on more than one result- Diabetes. ADA guidelines.Results may be falsely elevated after the administration ofSulfapyridine.Results may be falsely depressed after the administration ofSulfasalazine. Performed By: #### L 500.40234, L500.57104, L500.65765 ####[facility] AHCHADBAQC2509 [place], [place] [address]Zr# [phone] Potassium [Moles/Vol] 4.3 mmol/L Normal 3.5-5.1 [facility] [place] Comment on above: Order Comment: Campu s: M Result Comment: Slig ht Hemolysis, Result may be affected. Performed By: #### L 500.53683, L500.09172, L500.17790 ####[facility] MJEEFEOKUW4419 [place], [place] [address]Nd# [phone] Sodium [Moles/Vol] 143 mmol/L Normal 136-145 [facility] [place] Comment on above: Order Comment: Aaronu s: M Performed By: #### L 500.10072, L500.81079, L500.33617 ####[facility] ILPAPJWHWT1063 [place], [place] [address]Dx# [phone] Urea nitrogen [Mass/Vol] 22 mg/dL Normal 7-26 [facility] [place] Comment on above: Order Comment: Campu s: M Performed By: #### L 500.34188, L500.10390, L500.51796 ####[facility] LDCHDKPXKD8460 [place], [place] [address]Ll# [phone] Urea nitrogen/Creatinine [Mass ratio] 29 mg/mg High 15-24 [facility] Comment on above: Order Comment: Campu s: M Performed By: #### L 500.07475, L500.53072, L500.99009 ####[facility] NSZKJZUDCV6513 [place], [place] [address]Rx# [phone] CBCon 12-02-2020 Erythrocyte distribution width (RBC) [Ratio] 12.9 % Normal 11-14.5 [facility] Comment on above: Order Comment: Campu s: M Performed By: #### L 200.28286 ####[facility] [address]BRXQXHOFR[address] [place] [address]Sm# [phone] Hematocrit (Bld) [Volume fraction] 38.7 % Low 41.0-53.0 [facility] Comment on above: Order Comment: Campu s: M Performed By: #### L 200.71779 ####[facility] [id number] [place] [address] 21635Ig# [phone] Hemoglobin (Bld) [Mass/Vol] 13.1 g/dL Low 13.5-17.5 [facility] Comment on above: Order Comment: Campu s: M Performed By: #### L [id number] ####[facility] [id number] [place] [address]85[address]Cc# [phone] MCHC (RBC) [Mass/Vol] 33.9 g/dL Normal 32.0-36.0 [facility] Comment on above: Order Comment: Campu s: M Performed By: #### L [id number] ####[facility] [id number] [place] [address] 43060Eb# [phone] MCV (RBC) [Entitic vol] 91.1 fL Normal 80.0-99.0 [facility] Comment on above: Order Comment: Campu s: M Performed By: #### L [id number] ####[facility] [id number] [place], [place] [address]Ln# [phone] Nucleated RBC/100 WBC (Bld) [Ratio] 0.0 % Normal Less than 1 [facility] Comment on above: Order Comment: Campu s: M Performed By: #### L [id number] ####[facility] [id number] [place] [address] 184[address]Tf# [phone] Platelet mean volume (Bld) [Entitic vol] 10.6 fL Normal 9.4-12.4 [facility] Comment on above: Order Comment: Campu s: M Performed By: #### L 200.33517 ####[facility] [id number] [place] [address]Yo# [phone] PLT 155 K/CU MM Normal 150-450 [facility] Comment on above: Order Comment: Campu s: M Performed By: #### L 200.81349 ####[facility] ZTEABXSPIR7461 [place], [place] [address]Mz# [phone] RBC 4.25 M/CU MM Low 4.50-6.00 [facility] Comment on above: Order Comment: Campu s: M Performed By: #### L 200.16347 ####[facility] KCNSCDAAAY3920 [place], [place] [address]Ww# [phone] WBC 11.8 K/CUMM High 4.5-11.0 [facility] Comment on above: Order Comment: Campu s: M Performed By: #### L 200.11028 ####[facility] [id number] [place] [address]Ur# [phone] GFR ESTon 12-02-2020 IF AMER Greater than 60 Normal [facility] Comment on above: Order Comment: Campu s: M Performed By: #### L 500.41342, L500.59292, L500.73898 ####[facility] UEUDJXWRUL5930 [place], [place] [address]En# [phone] IF non-AFR AMER Greater than 60 Normal [facility] Comment on above: Order Comment: Campu s: M Performed By: #### L 500.98222, L500.60418, L500.47353 ####[facility] CVYAPEKYDC0181 [place], [place] [address]Ll# [phone] MAGNESIUMon 12-02-2020 Magnesium [Mass/Vol] 2.1 mg/dL Normal 1.6-2.6 [facility] Comment on above: Order Comment: Campu s: M Performed By: #### L 500.65853, L500.81434, L500.66649 ####[facility] YOHKPAQIPO4064 [place], [place] [address]Av# [phone] PBNP TESTon 12-02-2020 Natriuretic peptide B (Bld) [Mass/Vol] 1168 pg/mL High 0-125 [facility] Comment on above: Order Comment: Campu s: M Result Comment: NT-p roBNP results of less than 300 pg/ml likely rules outacute congestive heart failure with 99% predictive value.NOTE: These cuttoff points are suggested for ACUTE CHFDIAGNOSIS onlyLess than 50 years Greater than 450 pg/ml50-75 years Greater than 900 pg/mlGreater than 75 years Greater than 1800 pg/mlNOTE NEW NORMAL RANGE Performed By: #### L 500.91527 ####[facility] VANXXQCSNT4061 [place], [place] [address]Hj# [phone] PROG IMSon 12-02-2020 PROG IMS Normal [facility] Progress Note-Hospitalist Normal [facility] PROG.Meche 12-02-2020 PROG.CARD Normal [facility] PROG.INTENon 12-02-2020 PROG.INTEN Normal [facility] PROG.NEUROon 12-02-2020 PR[facility].NEURO [facility] BMP[facility]-01-2020 Anion gap [Moles/Vol] 7 mmol/L Normal 5-16 [facility] Comment on above: Order Comment: Campu s: M Performed By: #### L 500.87755, L500.59953, L500.74471 ####[facility] GCQMRQLTVJ9535 [place], [place] [address]Lb# [phone] Calcium [Mass/Vol] 8.3 mg/dL Low 8.5-10.5 [facility] Comment on above: Order Comment: Campu s: M Result Comment: NOTE NEW NORMAL RANGE DUE TO REAGENT CHANGE Performed By: #### L 500.44998, L500.54286, L500.17759 ####[facility] WJOMFDURRQ8095 [place], [place] [address]On# [phone] Chloride [Moles/Vol] 112 mmol/L High 98-107 [facility] Comment on above: Order Comment: Campu s: M Performed By: #### L 500.77413, L500.98779, L500.40970 ####[facility] XBIUWVVSPG8554 [place], [place] [address]Gh# [phone] CO2 [Moles/Vol] 25.0 mmol/L Normal 21-32 [facility] Comment on above: Order Comment: Campu s: M Performed By: #### L 500.76294, L500.17958, L500.19471 ####[facility] DTSWUQIEHK0559 [place], [place] [address]Ye# [phone] Creatinine [Mass/Vol] 0.78 mg/dL Normal 0.5-1.4 [facility] Comment on above: Order Comment: Campu s: M Result Comment: NOTE NEW NORMAL RANGE DUE TO REAGENT CHANGEPatients receiving either N-Acetylcysteine (NAC) orMetamizole prior to venipuncture, may have falsely depressedresults. Performed By: #### L 500.01925, L500.25301, L500.92117 ####[facility] BRPYPCZLGQ4245 [place], [place] [address]Lk# [phone] Glucose [Mass/Vol] 117 mg/dL High 70-100 [facility] Comment on above: Order Comment: Campu s: M Result Comment: 70-1 00- Normal Fasting; 100-125 Impaired Fasting; greaterthan 126 on more than one result- Diabetes. ADA guidelines.Results may be falsely elevated after the administration ofSulfapyridine.Results may be falsely depressed after the administration ofSulfasalazine. Performed By: #### L 500.88197, L500.55399, L500.92586 ####[facility] [address]ZNREED[address] [place] [address]Rm# [phone] Potassium [Moles/Vol] 3.6 mmol/L Normal 3.5-5.1 [facility] Comment on above: Order Comment: Campu s: M Performed By: #### L 500.91515, L500.22563, L500.33938 ####[facility] [id number] [place] [address]Zn# [phone] Sodium [Moles/Vol] 144 mmol/L Normal 136-145 [facility] Comment on above: Order Comment: Campu s: M Performed By: #### L 500.81489, L500.54048, L500.68505 ####[facility] TTUX[address]AXH[address] [place] [address]Mc# [phone] Urea nitrogen [Mass/Vol] 18 mg/dL Normal 7-26 [facility] Comment on above: Order Comment: Campu s: M Performed By: #### L 500.22769, L500.76136, L500.65959 ####[facility] LPNJMARYHN[address] [place] [address]Ve# [phone] Urea nitrogen/Creatinine [Mass ratio] 23 mg/mg Normal 15-24 [facility] Comment on above: Order Comment: Campu s: M Performed By: #### L 500.42222, L500.29419, L500.66818 ####[facility] UKXLYKEBOU[address] [place], [place] [address]Ph# [phone] CBCon 12-01-2020 Erythrocyte distribution width (RBC) [Ratio] 13.2 % Normal 11-14.5 [facility] Comment on above: Order Comment: Campu s: M Performed By: #### L 200.55228 ####[facility] HBRFQNIUPM[address] [place] [address]Iv# [phone] Hematocrit (Bld) [Volume fraction] 38.7 % Low 41.0-53.0 [facility] Comment on above: Order Comment: Campu s: M Performed By: #### L 200.95869 ####[facility] SYZNEZPQNE[address] [place] [address] 238[address]Al# [phone] Hemoglobin (Bld) [Mass/Vol] 13.0 g/dL Low 13.5-17.5 [facility] Comment on above: Order Comment: Campu s: M Performed By: #### L 200.87995 ####[facility] KTEJDNAVSF[address] [place] [address]Tm# [phone] MCHC (RBC) [Mass/Vol] 33.6 g/dL Normal 32.0-36.0 [facility] Comment on above: Order Comment: Campu s: M Performed By: #### L 200.07354 ####[facility] FGFSITEBVQ[address] [place] [address]Dj# [phone] MCV (RBC) [Entitic vol] 91.5 fL Normal 80.0-99.0 [facility] Comment on above: Order Comment: Campu s: M Performed By: #### L 200.75733 ####[facility] NEQGFAVQEA[address] [place] [address]Or# [phone] Nucleated RBC/100 WBC (Bld) [Ratio] 0.0 % Normal Less than 1 [facility] Comment on above: Order Comment: Campu s: M Performed By: #### L 200.96567 ####[facility] [address]LKYYUFOPW[address] [place] [address]Zo# [phone] Platelet mean volume (Bld) [Entitic vol] 10.4 fL Normal 9.4-12.4 [facility] Comment on above: Order Comment: Campu s: M Performed By: #### L 200.95086 ####[facility] SIFPUHJTYO6175 [place], [place] [address]Xa# [phone] PLT 170 K/CU MM Normal 150-450 [facility] Comment on above: Order Comment: Campu s: M Performed By: #### L 200.78043 ####[facility] JQPHJMJRVB7569 [place], [place] [address]Ax# [phone] RBC 4.23 M/CU MM Low 4.50-6.00 [facility] Comment on above: Order Comment: Campu s: M Performed By: #### L 200.20701 ####[facility] QVWHQQXKFK1850 [place], [place] [address]Mg# [phone] WBC 12.4 K/CUMM High 4.5-11.0 [facility] Comment on above: Order Comment: Campu s: M Performed By: #### L 200.50396 ####[facility] ZZSDALVTWL2703 [place], [place] [address]Cv# [phone] CONS.NEUROon 12-01-2020 CONS.NEURO Normal [facility] CONSULTATION-NEURO Normal [facility] [place] GFR ESTon 12-01-2020 IF AMER Greater than 60 Normal [facility] Comment on above: Order Comment: Campu s: M Performed By: #### L 500.92352, L500.37783, L500.43381 ####[facility] JAEQRNIAHW1110 [place], [place] [address]Vz# [phone] IF non-AFR AMER Greater than 60 Normal [facility] Comment on above: Order Comment: Campu s: M Performed By: #### L 500.92208, L500.74277, L500.45939 ####[facility] TCZDUFOMTD6723 [place], [place] [address]Pd# [phone] GLUCOSE METERon 12-01-2020 Glucose [Mass/Vol] 113 mg/dL Normal 70-115 [facility] Glucose [Mass/Vol] 92 mg/dL Normal 70-115 [facility] MAGNESIUMon 12-01-2020 Magnesium [Mass/Vol] 1.4 mg/dL Low 1.6-2.6 [facility] Comment on above: Order Comment: Campu s: M Performed By: #### L 500.53319, L500.17961, L500.54355 ####[facility] PCJNWUFPBB3507 [place], [place] [address]Vi# [phone] NEURO.EEGon 12-01-2020 NEURO.EEG Normal [facility] Neurology - EEG Normal [facility] PROG IMSon 12-01-2020 PROG IMS Normal [facility] Progress Note-Hospitalist Normal [facility] PROG.Meche 12-01-2020 PROG.CARD Normal [facility] Progress Note-Cardiology Normal [facility] PROG.INTENon 12-01-2020 PROG.INTEN Normal [facility] Progress Note-Sewer Repairer Normal [facility] RESP/SPUT CULTon 12-01-2020 RESP/SPUT CULT GRAM STAIN MANY WBC'S RARE GRAM POSITIVE COCCI RARE GRAM NEGATIVE BACILLUS RESPIRATORY RESULT FEW NORMAL HELGA Normal [facility] Comment on above: Order Comment: Aaronu s: M Performed By: #### M 100.41084 ####[facility] BMZCWPMYDB7062 [place], [place] [address]Bf# [phone] ABGPEGLAon 11-30-2020 ABG BE -2.4 MML/L Low -2.0-2.0 [facility] Comment on above: Order Comment: Campu s: CORTNEY BLOOD GAS? YPatient's Anticoagulant? UNKNOWN Performed By: #### L 100.74873 ####[facility] WJHSWKCRTN4810 [place], [place] [address]Cf# [phone] ABG COHBA 0.6 % Normal 0-10 [facility] Comment on above: Order Comment: Campu s: CORTNEY BLOOD GAS? YPatient's Anticoagulant? UNKNOWN Performed By: #### L 100.07493 ####[facility] EEMZIRVOSB7962 [place], [place] [address]Va# [phone] ABG GLU 116.0 MG/DL High 60-80 [facility] Comment on above: Order Comment: Campu s: CORTNEY BLOOD GAS? YPatient's Anticoagulant? UNKNOWN Performed By: #### L 100.03822 ####[facility] VKBIGRXYST1205 [place], [place] [address]Bj# [phone] ABG MET 0.5 % Normal 0.4-1.5 [facility] Comment on above: Order Comment: Campu s: CORTNEY BLOOD GAS? YPatient's Anticoagulant? UNKNOWN Performed By: #### L 100.62297 ####[facility] MAPBTOKEJC8536 [place], [place] [address]Ei# [phone] ABG O2 CAPACITY 22.7 mL/dL Normal [facility] Comment on above: Order Comment: Campu s: CORTNEY BLOOD GAS? YPatient's Anticoagulant? UNKNOWN Performed By: #### L 100.02398 ####[facility] BERDBPNLMB1208 [place], [place] [address]Xq# [phone] ABG O2 CONTENT 22.8 mL/dL High 15.7-21.6 [facility] [facility] Comment on above: Order Comment: Campu s: CORTNEY BLOOD GAS? YPatient's Anticoagulant? UNKNOWN Performed By: #### L 100.81987 ####[facility] LRLXWLMAST9224 [place], [place] [address]Sa# [phone] ABG O2HB SAT 97.5 % Normal 90-100 [facility] [place] Comment on above: Order Comment: Campu s: CORTNEY BLOOD GAS? YPatient's Anticoagulant? UNKNOWN Performed By: #### L 100.61161 ####[facility] NOKSSWPUOO1811 [place], [place] [address]Ba# [phone] ABG PCO2 25.2 MMHG Low 35-45 [facility] Comment on above: Order Comment: Campu s: CORTNEY BLOOD GAS? YPatient's Anticoagulant? UNKNOWN Performed By: #### L 100.53096 ####[facility] GQBZLVVWDJ2902 [place], [place] [address]Co# [phone] ABG PH 7.50 High 7.35-7.45 [facility] Comment on above: Order Comment: Campu s: CORTNEY BLOOD GAS? YPatient's Anticoagulant? UNKNOWN Performed By: #### L 100.19531 ####[facility] EOGWNTUJUT0325 [place], [place] [address]Sc# [phone] ABG PO2 141.9 MMHG High 80-100 [facility] Comment on above: Order Comment: Campu s: CORTNEY BLOOD GAS? YPatient's Anticoagulant? UNKNOWN Performed By: #### L 100.14613 ####[facility] [id number] [place] [address]Hi# [phone] ABG REDUCED HGB 1.4 % Normal 0-5 [facility] Comment on above: Order Comment: Campu s: CORTNEY BLOOD GAS? YPatient's Anticoagulant? UNKNOWN Performed By: #### L 100.34587 ####[facility] FQWUISHEGD0106 [place], [place] [address]Xy# [phone] MARKELL TEST Positive Normal [facility] Comment on above: Order Comment: Campu s: CORTNEY BLOOD GAS? YPatient's Anticoagulant? UNKNOWN Performed By: #### L 100.51687 ####[facility] MBKGQPIABJ9833 [place], [place] [address]En# [phone] Body temperature 96.26 [degF] Normal [facility] Comment on above: Order Comment: Campu s: CORTNEY BLOOD GAS? YPatient's Anticoagulant? UNKNOWN Performed By: #### L 100.10217 ####[facility] ALBAODKYMR6739 [place], [place] [address]Ck# [phone] EQUIPMENT 840 VENTILATOR Normal [facility] Comment on above: Order Comment: Campu s: CORTNEY BLOOD GAS? YPatient's Anticoagulant? UNKNOWN Performed By: #### L 100.37236 ####[facility] WAEBNUBPFU8395 [place], [place] [address]Dg# [phone] FIO2 40 % Normal [facility] Comment on above: Order Comment: Campu s: CORTNEY BLOOD GAS? YPatient's Anticoagulant? UNKNOWN Performed By: #### L 100.39866 ####[facility] MTTTGUQFQO4064 [place], [place] [address]Af# [phone] HCO3 (Bld) [Moles/Vol] 19.3 mmol/L Low 22-26 [facility] Comment on above: Order Comment: Campu s: CORTNEY BLOOD GAS? YPatient's Anticoagulant? UNKNOWN Performed By: #### L 100.46213 ####[facility] CAYOFJOXEA4120 [place], [place] [address]Ag# [phone] Hemoglobin (Bld) [Mass/Vol] 16.5 g/dL High 10-16 [facility] Comment on above: Order Comment: Campu s: CORTNEY BLOOD GAS? YPatient's Anticoagulant? UNKNOWN Performed By: #### L 100.58060 ####[facility] LCBMNFIGCS4246 [place], [place] [address]Fl# [phone] IONIZED CA 1.15 MMOL/L Normal 1.13-1.32 [facility] Comment on above: Order Comment: Campu s: CORTNEY BLOOD GAS? YPatient's Anticoagulant? UNKNOWN Performed By: #### L 100.39124 ####[facility] CWZOLXNXIG3463 [place], [place] [address]Uh# [phone] LACTATE BLOOD 1.47 MMOL/L Normal 0.40-2.00 [facility] Comment on above: Order Comment: Campu s: CORTNEY BLOOD GAS? YPatient's Anticoagulant? UNKNOWN Performed By: #### L 100.93497 ####[facility] AELWPKECIH4699 [place], [place] [address]Gz# [phone] PEEP 8.0 CMH2O Normal [facility] [facility] Comment on above: Order Comment: Campu s: CORTNEY BLOOD GAS? YPatient's Anticoagulant? UNKNOWN Performed By: #### L 100.15280 ####[facility] JOEBXBOFBI8161 [place], [place] [address]Ux# [phone] Potassium [Moles/Vol] 3.4 mmol/L Low 3.5-5.0 [facility] Comment on above: Order Comment: Campu s: CORTNEY BLOOD GAS? YPatient's Anticoagulant? UNKNOWN Performed By: #### L 100.45745 ####[facility] VLWUYLBFMM1447 [place] [address]409[address]Ph# [phone] RESP. RATE 16 Normal [facility] Comment on above: Order Comment: Campu s: CORTNEY BLOOD GAS? YPatient's Anticoagulant? UNKNOWN Performed By: #### L 100.88683 ####[facility] GQBUULNEHK[address] [place] [address]Fm# [phone] SAMPLE SITE L RADIAL Normal [facility] Comment on above: Order Comment: Campu s: CORTNEY BLOOD GAS? YPatient's Anticoagulant? UNKNOWN Performed By: #### L 100.17377 ####[facility] WKWGGIKEEF[address] [place], [place] [address]Ph# [phone] SAMPLE TYPE ARTERIAL Normal [facility] Comment on above: Order Comment: Campu s: CORTNEY BLOOD GAS? YPatient's Anticoagulant? UNKNOWN Performed By: #### L 100.93284 ####[facility] YFZHJKJLSQ0726 [place] [address]Ph# [phone] Sodium [Moles/Vol] 140 mmol/L Normal 136-148 [facility] Comment on above: Order Comment: Campu s: CORTNEY BLOOD GAS? YPatient's Anticoagulant? UNKNOWN Performed By: #### L 100.27814 ####[facility] NNFAHXOGRM6472 [place], [place] [address]Xp# [phone] TIDAL VOLUME 0.650 LITERS Normal [facility] Comment on above: Order Comment: Campu s: CORTNEY BLOOD GAS? YPatient's Anticoagulant? UNKNOWN Performed By: #### L 100.17332 ####[facility] JTRXRDZGFB[address] [place] [address]Gr# [phone] VENT MODE VOLUME VENT PLUS Normal [facility] Comment on above: Order Comment: Campu s: CORTNEY BLOOD GAS? YPatient's Anticoagulant? UNKNOWN Performed By: #### L 100.74918 ####[place] [address]Ph# [phone] Lamar 11-30-2020 POC ACT 159 SECONDS High 100-150 [facility] CBC W/DIFFon 11-30-2020 BASO ABS 0.00 K/CU MM Normal 0-0.2 [facility] Comment on above: Order Comment: Campu s: M Performed By: #### L 200.70557 ####[place] [address]Ph# [phone] Basophils/100 WBC (Bld) 0.2 % Normal 0-2 [facility] Comment on above: Order Comment: Campu s: M Performed By: #### L 200.81599 ####[place] [address]Ph# [phone] EOS ABS 0.10 K/CU MM Normal 0-0.5 [facility] Comment on above: Order Comment: Campu s: M Performed By: #### L 200.44433 ####[facility] CZKGSFLHIK[address] [place], [place] [address]Ph# [phone] Eosinophils/100 WBC (Bld) 1.0 % Normal 0-5 [facility] Comment on above: Order Comment: Campu s: M Performed By: #### L 200.60732 ####[facility] LLNYEBFIIO[address] [place] [address] 90[address]Gc# [phone] Erythrocyte distribution width (RBC) [Ratio] 13.2 % Normal 11-14.5 [facility] Comment on above: Order Comment: Campu s: M Performed By: #### L 200.20929 ####[facility] NYDSXRPKBJ5870 [place], [place] [address]Kl# [phone] Hematocrit (Bld) [Volume fraction] 46.2 % Normal 41.0-53.0 [facility] Comment on above: Order Comment: Campu s: M Performed By: #### L 200.22165 ####[facility] DHYYOGKBSS[address] [place] [address] 30[address]Gc# [phone] Hemoglobin (Bld) [Mass/Vol] 15.9 g/dL Normal 13.5-17.5 [facility] Comment on above: Order Comment: Campu s: M Performed By: #### L 200.63745 ####[address] [address]Jd# [phone] IMMATR GRAN ABS 0.10 K/CU MM Normal Less than 2 [facility] Comment on above: Order Comment: Campu s: M Performed By: #### L 200.17180 ####[place] [address]Ph# [phone] IMMATURE GRAN % 0.4 % Normal Less than 2 [facility] [place] Comment on above: Order Comment: Campu s: M Performed By: #### L 200.89712 ####[facility] DCICFQNPHL[address] [place] [address]Rr# [phone] LYMPH ABS 1.80 K/CU MM Normal 0.9-4.4 [facility] Comment on above: Order Comment: Campu s: M Performed By: #### L 200.47095 ####[facility] YOTOKOQWSO[address] [place] [address] 108[address]Hw# [phone] Lymphocytes/100 WBC (Bld) 14.7 % Low 20-40 [facility] Comment on above: Order Comment: Campu s: M Performed By: #### L 200.36826 ####[facility] WYBOYNZWJL[address] [place], [place] [address]Ph# [phone] MCHC (RBC) [Mass/Vol] 34.4 g/dL Normal 32.0-36.0 [facility] Comment on above: Order Comment: Campu s: M Performed By: #### L 200.27283 ####[facility] GVUNJFMTTP5974 [place], [place] [address]Ko# [phone] MCV (RBC) [Entitic vol] 91.3 fL Normal 80.0-99.0 [facility] Comment on above: Order Comment: Campu s: M Performed By: #### L 200.10332 ####[facility] [address]IYXKWAK[address] [place] [address]Qp# [phone] MONO ABS 0.80 K/CU MM Normal 0.1-1.1 [facility] Comment on above: Order Comment: Campu s: M Performed By: #### L 200.32621 ####[place] [address]Ph# [phone] Monocytes/100 WBC (Bld) 6.4 % Normal 2-10 [facility] Comment on above: Order Comment: Campu s: M Performed By: #### L 200.40190 ####[facility] SNVGGIFDJQ[address] [place], [place] [address]Ph# [phone] NEUTROPHIL ABS 9.60 K/CU MM High 2.0-8.3 [facility] Comment [facility]: Order Comment: Campu s: M Performed By: #### L 200.30275 ####[facility] [address]ZVWIIUE[address] [place] [address]Ox# [phone] Neutrophils/100 WBC (Bld) 77.3 % High 45-75 [facility] Comment on above: Order Comment: Campu s: M Performed By: #### L 200.03673 ####[facility] ZZXRYYQFJG5439 [place], [place] [address]Ag# [phone] Nucleated RBC/100 WBC (Bld) [Ratio] 0.0 % Normal Less than 1 [facility] Comment on above: Order Comment: Campu s: M Performed By: #### L 200.27972 ####[facility] WLGQCXJYAC[address] [place] [address] 114[address]Di# [phone] Platelet mean volume (Bld) [Entitic vol] 10.1 fL Normal 9.4-12.4 [facility] Comment on above: Order Comment: Campu s: M Performed By: #### L 200.22326 ####[place] [address]Ph# [phone] PLT 194 K/CU MM Normal 150-450 [facility] [place] Comment on above: Order Comment: Campu s: M Performed By: #### L 200.80228 ####[address] [address]Bl# [phone] RBC 5.06 M/CU MM Normal 4.50-6.00 [facility] Comment on above: Order Comment: Campu s: M Performed By: #### L 200.26687 ####[address] [address]Wi# [phone] WBC 12.4 K/CUMM High 4.5-11.0 [facility] [place] Comment on above: Order Comment: Campu s: M Performed By: #### L 200.62803 ####[address] [address]Dh# [phone] BASO ABS 0.00 K/CU MM Normal 0-0.2 [facility] Comment on above: Order Comment: Campu s: M Performed By: #### L 200.11099 ####[facility] [address]UVVAYDCF[address] [place] [address]Ff# [phone] Basophils/100 WBC (Bld) 0.3 % Normal 0-2 [facility] Comment on above: Order Comment: Campu s: M Performed By: #### L 200.66817 ####[facility] [id number] [place] [address] 29780Hd# [phone] EOS ABS 0.10 K/CU MM Normal 0-0.5 [facility] Comment on above: Order Comment: Campu s: M Performed By: #### L 200.00429 ####[facility] [id number] [place] [address] 41514Sf# [phone] Eosinophils/100 WBC (Bld) 0.5 % Normal 0-5 [facility] Comment on above: Order Comment: Campu s: M Performed By: #### L 200.81435 ####[facility] [id number] [place], [place] [id number]# [phone] Erythrocyte distribution width (RBC) [Ratio] 13.1 % Normal 11-14.5 [facility] Comment on above: Order Comment: Campu s: M Performed By: #### L 200.35935 ####[place] [id number]# [phone] Hematocrit (Bld) [Volume fraction] 47.1 % Normal 41.0-53.0 [facility] Comment on above: Order Comment: Campu s: M Performed By: #### L 200.73447 ####[facility] [id number] [place], [place] [id number]# [phone] Hemoglobin (Bld) [Mass/Vol] 16.5 g/dL Normal 13.5-17.5 [facility] Comment on above: Order Comment: Campu s: M Performed By: #### L 200.16258 ####[facility] [id number] [place], [place] [id number]# [phone] IMMATR GRAN ABS 0.10 K/CU MM Normal Less than 2 [facility] Comment on above: Order Comment: Campu s: M Performed By: #### L 200.40498 ####[facility] [address] [place], [place] [address]Ph# [phone] IMMATURE GRAN % 0.5 % Normal Less than 2 [facility] [place] Comment on above: Order Comment: Campu s: M Performed By: #### L 200.36949 ####[facility] ZMJFSHUQAP5256 [place], [place] [address]Iq# [phone] LYMPH ABS 1.30 K/CU MM Normal 0.9-4.4 [facility] Comment on above: Order Comment: Campu s: M Performed By: #### L 200.65954 ####[address] [address]Yq# [phone] Lymphocytes/100 WBC (Bld) 8.9 % Low 20-40 [facility] Comment on above: Order Comment: Campu s: M Performed By: #### L 200.39939 ####[place] [id number]# [phone] MCHC (RBC) [Mass/Vol] 35.0 g/dL Normal 32.0-36.0 [facility] Comment on above: Order Comment: Campu s: M Performed By: #### L 200.33874 ####[address] [address]Gs# [phone] MCV (RBC) [Entitic vol] 89.5 fL Normal 80.0-99.0 [facility] Comment on above: Order Comment: Campu s: M Performed By: #### L 200.38370 ####[address] [address]Ks# [phone] MONO ABS 1.10 K/CU MM Normal 0.1-1.1 [facility] Comment on above: Order Comment: Campu s: M Performed By: #### L 200.70230 ####[facility] [address] [place] [address]Uv# [phone] Monocytes/100 WBC (Bld) 7.3 % Normal 2-10 [facility] Comment on above: Order Comment: Campu s: M Performed By: #### L 200.89550 ####[facility] [address]FKCFNFGP[address] [place], [place] [address]Ph# [phone] NEUTROPHIL ABS 12.00 K/CU MM High 2.0-8.3 [facility] [place] Comment on above: Order Comment: Campu s: M Performed By: #### L 200.13339 ####[facility] HZRJYCHWHR4664 [place], [place] [address]Iy# [phone] Neutrophils/100 WBC (Bld) 82.5 % High 45-75 [facility] Comment on above: Order Comment: Campu s: M Performed By: #### L 200.79836 ####[facility] [address]PFVASFH[address] [place] [address]Db# [phone] Nucleated RBC/100 WBC (Bld) [Ratio] 0.0 % Normal Less than 1 [facility] Comment on above: Order Comment: Campu s: M Performed By: #### L 200.11573 ####[address] [address]Ix# [phone] Platelet mean volume (Bld) [Entitic vol] 10.0 fL Normal 9.4-12.4 [facility] Comment on above: Order Comment: Campu s: M Performed By: #### L 200.25699 ####[facility] OCCYVKGVJF0005 [place], [place] [address]Ug# [phone] PLT 204 K/CU MM Normal 150-450 [facility] Comment on above: Order Comment: Campu s: M Performed By: #### L 200.27906 ####[facility] [address]TOIDZQOOA[address] [place] [address]Lv# [phone] RBC 5.26 M/CU MM Normal 4.50-6.00 [facility] [place] Comment on above: Order Comment: Campu s: M Performed By: #### L 200.43800 ####[facility] TBVGWXJVSY3781 [place], [place] [address]Er# [phone] WBC 14.6 K/CUMM High 4.5-11.0 [facility] Comment on above: Order Comment: Campu s: M Performed By: #### L 200.21207 ####[facility] UKLQZZRYBQ0943 [place], [place] [address]Cn# [phone] CKon 11-30-2020 CK [Catalytic activity/Vol] 5341 U/L Critically high 26-192 [facility] Comment on above: Order Comment: Campu s: M Result Comment: Slig ht Hemolysis, Result may be affected.Delta check reviewedPrevious Critical within one week. Critical Result(s)verified at: 23:42:29 on 11/29/2020 by: Belem Barroso NEW NORMAL RANGE DUE TO REAGENT CHANGE Performed By: #### L 500.83609, L500.18448, L500.54314, L500.18142 ####[facility] DKUYGSQQON5198 [place], [place] [address]Sk# [phone] CMPon 11-30-2020 Albumin [Mass/Vol] 3.2 g/dL Normal 3.2-5.0 [facility] Comment on above: Order Comment: Campu s: M Performed By: #### L 500.43719, L500.17445, L500.44169, L500.88027 ####[facility] FDSZIYWBVE8385 [place], [place] [address]Qm# [phone] Albumin/Globulin [Mass ratio] 1.2 {ratio} Normal 0.8-2.0 [facility] Comment on above: Order Comment: Campu s: M Performed By: #### L 500.33576, L500.34558, L500.11946, L500.30410 ####[facility] AABTDDMRTN5822 [place], [place] [address]Lk# [phone] ALK PHOS 53 U/L Normal 45-117 [facility] Comment on above: Order Comment: Campu s: M Performed By: #### L 500.62201, L500.44500, L500.73846, L500.39196 ####[facility] DRAPDAPCUA6325 [place], [place] [address]Wz# [phone] ALT [Catalytic activity/Vol] 234 U/L High 13-61 [facility] Comment on above: Order Comment: Campu s: M Result Comment: RESU LTS MAY BE FALSELY DEPRESSED AFTER THE ADMINISTRATION OFSULFASALAZINE AND/OR SULFAPYRIDINE. Performed By: #### L 500.70366, L500.90239, L500.15323, L500.05315 ####[facility] PTFXGHPNMY7343 [place], [place] [address]Kv# [phone] Anion gap [Moles/Vol] 8 mmol/L Normal 5-16 [facility] Comment on above: Order Comment: Campu s: M Performed By: #### L 500.02919, L500.12108, L500.74925, L500.90880 ####[facility] RIVYDFHUPH3655 [place], [place] [address]Et# [phone] AST [Catalytic activity/Vol] 271 U/L High 8-34 [facility] Comment on above: Order Comment: Campu s: M Result Comment: RESU LTS MAY BE FALSELY DEPRESSED AFTER THE ADMINISTRATION OFSULFASALAZINE AND/OR SULFAPYRIDINE. Performed By: #### L 500.55080, L500.26071, L500.88159, L500.28219 ####[facility] OMFCQJENSQ0587 [place], [place] [address]Mk# [phone] BILI TOTAL 0.80 MG/DL Normal 0.2-1.0 [facility] Comment on above: Order Comment: Campu s: M Performed By: #### L 500.77835, L500.72736, L500.87325, L500.27237 ####[facility] HJZJQFSOXU0801 [place], [place] [address]Rh# [phone] Calcium [Mass/Vol] 9.1 mg/dL Normal 8.5-10.5 [facility] Comment on above: Order Comment: Campu s: M Result Comment: NOTE NEW NORMAL RANGE DUE TO REAGENT CHANGE Performed By: #### L 500.34068, L500.47156, L500.00767, L500.92837 ####[facility] ANRUSAGFLY1407 [place], [place] [address]Rr# [phone] Chloride [Moles/Vol] 110 mmol/L High 98-107 [facility] [place] Comment on above: Order Comment: Campu s: M Performed By: #### L 500.64711, L500.59013, L500.35229, L500.98258 ####[facility] LNYLOUJWTI1255 [place], [place] [address]Tx# [phone] CO2 [Moles/Vol] 27.0 mmol/L Normal 21-32 [facility] [place] Comment on above: Order Comment: Campu s: M Performed By: #### L 500.76576, L500.98382, L500.96427, L500.10195 ####[facility] QDKMTEAUTE7961 [place], [place] [address]Go# [phone] Creatinine [Mass/Vol] 0.63 mg/dL Normal 0.5-1.4 [facility] Comment on above: Order Comment: Campu s: M Result Comment: NOTE NEW NORMAL RANGE DUE TO REAGENT CHANGEPatients receiving either N-Acetylcysteine (NAC) orMetamizole prior to venipuncture, may have falsely depressedresults. Performed By: #### L 500.55773, L500.49016, L500.16734, L500.51744 ####[facility] KOVZWVWDYS6361 [place], [place] [address]Bi# [phone] Globulin (S) [Mass/Vol] 2.6 g/dL Normal 2.2-4.2 [facility] Comment on above: Order Comment: Campu s: M Performed By: #### L 500.08407, L500.42108, L500.25998, L500.11639 ####[facility] CZONJQOAGD6460 [place], [place] [address]Vd# [phone] Glucose [Mass/Vol] 109 mg/dL High 70-100 [facility] Comment on above: Order Comment: Campu s: M Result Comment: 70-1 00- Normal Fasting; 100-125 Impaired Fasting; greaterthan 126 on more than one result- Diabetes. ADA guidelines.Results may be falsely elevated after the administration ofSulfapyridine.Results may be falsely depressed after the administration ofSulfasalazine. Performed By: #### L 500.22765, L500.68318, L500.89089, L500.24551 ####[facility] NEHBLNGNFZ5080 [place], [place] [address]En# [phone] Potassium [Moles/Vol] 3.8 mmol/L Normal 3.5-5.1 [facility] [place] Comment on above: Order Comment: Campu s: M Result Comment: Slig ht Hemolysis, Result may be affected. Performed By: #### L 500.52400, L500.54072, L500.58239, L500.73879 ####[facility] SGYYTYGVVM1166 [place], [place] [address]Gx# [phone] Protein [Mass/Vol] 5.8 g/dL Low 6.0-8.5 [facility] Comment on above: Order Comment: Campu s: M Performed By: #### L 500.53932, L500.79295, L500.84407, L500.72050 ####[facility] LDITCGRJAA0513 [place], [place] [address]Bk# [phone] Sodium [Moles/Vol] 145 mmol/L Normal 136-145 [facility] [place] Comment on above: Order Comment: Campu s: M Performed By: #### L 500.11503, L500.78795, L500.48886, L500.43380 ####[facility] PQDSKMTIWS4699 [place], [place] [address]Ut# [phone] Urea nitrogen [Mass/Vol] 14 mg/dL Normal 7-26 [facility] [place] Comment on above: Order Comment: Campu s: M Performed By: #### L 500.98011, L500.16492, L500.10240, L500.67372 ####[facility] RQWVOXRWJD3584 [place], [place] [address]Hq# [phone] Urea nitrogen/Creatinine [Mass ratio] 22 mg/mg Normal 15-24 [facility] Comment on above: Order Comment: Campu s: M Performed By: #### L 500.73639, L500.52806, L500.53209, L500.32782 ####[facility] CWTYBSDZDM4079 [place], [place] [address]Ap# [phone] Albumin [Mass/Vol] 3.3 g/dL Normal 3.2-5.0 [facility] Comment on above: Order Comment: Campu s: M Performed By: #### L 500.75071, L500.54504, L500.81668, L500.11266 ####[facility] NQYJNHOJBI6252 [place], [place] [address]Sp# [phone] Albumin/Globulin [Mass ratio] 1.2 {ratio} Normal 0.8-2.0 [facility] Comment on above: Order Comment: Campu s: M Performed By: #### L 500.17969, L500.62938, L500.72825, L500.77968 ####[facility] UTWXUQPOFO0427 [place], [place] [address]Pi# [phone] ALK PHOS 54 U/L Normal 45-117 [facility] Comment on above: Order Comment: Campu s: M Performed By: #### L 500.41948, L500.66773, L500.71672, L500.36185 ####[facility] IPIPJKHNMO2181 [place], [place] [address]Sx# [phone] ALT [Catalytic activity/Vol] 256 U/L High 13-61 [facility] Comment on above: Order Comment: Campu s: M Result Comment: RESU LTS MAY BE FALSELY DEPRESSED AFTER THE ADMINISTRATION OFSULFASALAZINE AND/OR SULFAPYRIDINE. Performed By: #### L 500.51800, L500.54317, L500.29259, L500.78196 ####[facility] WDJPIFXTZD8317 [place], [place] [address]Yl# [phone] Anion gap [Moles/Vol] 8 mmol/L Normal 5-16 [facility] Comment on above: Order Comment: Campu s: M Performed By: #### L 500.97089, L500.05365, L500.72144, L500.10443 ####[facility] HUICDHJZMN1443 [place], [place] [address]Vq# [phone] AST [Catalytic activity/Vol] 351 U/L High 8-34 [facility] Comment on above: Order Comment: Campu s: M Result Comment: RESU LTS MAY BE FALSELY DEPRESSED AFTER THE ADMINISTRATION OFSULFASALAZINE AND/OR SULFAPYRIDINE. Performed By: #### L 500.62323, L500.39702, L500.87004, L500.94925 ####[facility] MZVWERRAXD1391 [place], [place] [address]On# [phone] BILI TOTAL 0.80 MG/DL Normal 0.2-1.0 [facility] Comment on above: Order Comment: Campu s: M Performed By: #### L 500.31338, L500.77603, L500.33651, L500.77900 ####[facility] BIGZDRGJVU1251 [place], [place] [address]Rf# [phone] Calcium [Mass/Vol] 9.0 mg/dL Normal 8.5-10.5 [facility] Comment on above: Order Comment: Campu s: M Result Comment: NOTE NEW NORMAL RANGE DUE TO REAGENT CHANGE Performed By: #### L 500.41299, L500.38397, L500.07138, L500.41279 ####[facility] EHKPZVCECR0781 [place], [place] [address]Ry# [phone] Chloride [Moles/Vol] 110 mmol/L High 98-107 [facility] Comment on above: Order Comment: Campu s: M Performed By: #### L 500.97420, L500.81952, L500.50136, L500.56925 ####[facility] XCJNHMDHYX8014 [place], [place] [address]Tv# [phone] CO2 [Moles/Vol] 26.0 mmol/L Normal 21-32 [facility] [place] Comment on above: Order Comment: Campu s: M Performed By: #### L 500.36050, L500.75034, L500.78453, L500.61435 ####[facility] TIHVEUJAFR7237 [place], [place] [address]Sb# [phone] Creatinine [Mass/Vol] 0.65 mg/dL Normal 0.5-1.4 [facility] Comment on above: Order Comment: Campu s: M Result Comment: NOTE NEW NORMAL RANGE DUE TO REAGENT CHANGEPatients receiving either N-Acetylcysteine (NAC) orMetamizole prior to venipuncture, may have falsely depressedresults. Performed By: #### L 500.82403, L500.21209, L500.62465, L500.35653 ####[facility] LJCDCBWUZK8523 [place], [place] [address]Dt# [phone] Globulin (S) [Mass/Vol] 2.8 g/dL Normal 2.2-4.2 [facility] Comment on above: Order Comment: Campu s: M Performed By: #### L 500.57584, L500.53637, L500.53477, L500.56537 ####[facility] VPKFTLVFLF3705 [place], [place] [address]Et# [phone] Glucose [Mass/Vol] 120 mg/dL High 70-100 [facility] Comment on above: Order Comment: Campu s: M Result Comment: 70-1 00- Normal Fasting; 100-125 Impaired Fasting; greaterthan 126 on more than one result- Diabetes. ADA guidelines.Results may be falsely elevated after the administration ofSulfapyridine.Results may be falsely depressed after the administration ofSulfasalazine. Performed By: #### L 500.48915, L500.25840, L500.40331, L500.88448 ####[facility] MQKUEXOADT0501 [place], [place] [address]Ks# [phone] Potassium [Moles/Vol] 3.9 mmol/L Normal 3.5-5.1 [facility] Comment on above: Order Comment: Campu s: M Result Comment: Slig ht Hemolysis, Result may be affected. Performed By: #### L 500.05871, L500.56678, L500.54715, L500.23351 ####[facility] VWYTDXLDAD9680 [place], [place] [address]Za# [phone] Protein [Mass/Vol] 6.1 g/dL Normal 6.0-8.5 [facility] Comment on above: Order Comment: Campu s: M Performed By: #### L 500.76318, L500.48590, L500.63994, L500.03728 ####[facility] LKFRZRKDTV8626 [place], [place] [address]Cf# [phone] Sodium [Moles/Vol] 144 mmol/L Normal 136-145 [facility] Comment on above: Order Comment: Campu s: M Performed By: #### L 500.03659, L500.58590, L500.06809, L500.84848 ####[facility] CFDUBNXKOM6294 [place], [place] [address]Jd# [phone] Urea nitrogen [Mass/Vol] 15 mg/dL Normal 7-26 [facility] Comment on above: Order Comment: Campu s: M Performed By: #### L 500.29978, L500.81671, L500.67231, L500.00270 ####[facility] NEQJFJZDRJ2585 [place], [place] [address]Oz# [phone] Urea nitrogen/Creatinine [Mass ratio] 23 mg/mg Normal 15-24 [facility] Comment on above: Order Comment: Campu s: M Performed By: #### L 500.22667, L500.67741, L500.27666, L500.76022 ####[facility] UVTQILTGBY7680 [place], [place] [address]Tw# [phone] CONS.GIon 11-30-2020 CONS.GI Normal [facility] Consultation-GI Normal [facility] GFR ESTon 11-30-2020 IF AMER Greater than 60 Normal [facility] [place] Comment on above: Order Comment: Campu s: M Performed By: #### L 500.41670, L500.72916, L500.96687, L500.93735 ####[facility] JFXPFNEKIU9855 [place], [place] [address]Ka# [phone] IF non-AFR AMER Greater than 60 Normal [facility] [place] Comment on above: Order Comment: Campu s: M Performed By: #### L 500.65379, L500.43844, L500.96863, L500.60600 ####[facility] HIFWXFLZJX4809 [place], [place] [address]Lc# [phone] IF AMER Greater than 60 Normal [facility] Comment on above: Order Comment: Campu s: M Performed By: #### L 500.10135, L500.73437, L500.62364, L500.04009 ####[facility] FFLHKFOCEE9121 [place], [place] [address]Sz# [phone] IF non-AFR AMER Greater than 60 Normal [facility] Comment on above: Order Comment: Campu s: M Performed By: #### L 500.97476, L500.63214, L500.62096, L500.51716 ####[facility] WUJMTTYCRV1132 [place], [place] [address]Ly# [phone] GLUCOSE METERon 11-30-2020 Glucose [Mass/Vol] 124 mg/dL High 70-115 [facility] [place] Glucose [Mass/Vol] 120 mg/dL High 70-115 [facility] [place] Glucose [Mass/Vol] 132 mg/dL High 70-115 [facility] [place] Glucose [Mass/Vol] 106 mg/dL Normal 70-115 [facility] [place] IONIZED CAon 11-30-2020 IONIZED CA 1.13 MMOL/L Low 1.16-1.32 [facility] Comment on above: Order Comment: Campu s: M Performed By: #### L 550.71419 ####[facility] JVBBIOAKVW4783 [place], [place] [address]Dj# [phone] IONIZED CA 1.12 MMOL/L Low 1.16-1.32 [facility] Comment on above: Order Comment: Gabriela s: M Performed By: #### L 550.23880 ####[facility] LFVVXESVMG9808 [place], [place] [address]Hy# [phone] MAGNESIUMon 11-30-2020 Magnesium [Mass/Vol] 1.9 mg/dL Normal 1.6-2.6 [facility] Comment on above: Order Comment: Aaronu s: M Performed By: #### L 500.72383, L500.08800, L500.81649, L500.41460 ####[facility] ZIAVPYZTAI9648 [place], [place] [address]Bu# [phone] Magnesium [Mass/Vol] 1.8 mg/dL Normal 1.6-2.6 [facility] Comment on above: Order Comment: Aaronu s: M Result Comment: Slig ht Hemolysis, Result may be affected.Delta check reviewedPrevious Critical within one week. Critical Result(s)verified at: 23:42:29 on 11/29/2020 by: Belem Sorenson Performed By: #### L 500.30221, L500.27611, L500.32486, L500.27760 ####[facility] AABPPCRQOW4692 [place], [place] [address]La# [phone] NEURO.EEGon 11-30-2020 NEURO.EEG Normal [facility] Neurology - EEG Normal [facility] [place] PHOSon 11-30-2020 Phosphate [Mass/Vol] 2.70 mg/dL Normal 2.5-4.9 [facility] Comment on above: Order Comment: Aaronu s: M Result Comment: Elev ated m-protein (paraprotein) levels in the serum may beexhibited in patients with monoclonal gammopathies, causingfalsely elevated inorganic phosphorus results. Performed By: #### L 500.59264, L500.59138, L500.87936, L500.11606 ####[facility] NEDZPYXQRV6509 [place], [place] [address]Qf# [phone] PROG IMSon 11-30-2020 PROG IMS Normal [facility] Progress Note-Hospitalist Normal [facility] PROG.Meche 11-30-2020 PROG.CARD Normal [facility] Progress Note-Cardiology Normal [facility] PROG.INTENon 11-30-2020 PROG.INTEN Normal [facility] Progress Note-Sewer Repairer Normal [facility] PROG.INTEN Normal [facility] Progress Note-Sewer Repairer Normal [facility] PTon 11-30-2020 INR Coag (PPP) [Relative time] 1.02 {INR} Normal 0.9-1.1 [facility] Comment on above: Order Comment: Gabriela s: Carmen Result Comment: Jesse mmended PT INR therapeutic range for terminal computer operator andprophylactic therapy is 2.0 - 3.0. For heart valve andshunt patients the range is 2.5 - 3.5. Performed By: #### L 300.04727, L300.73944 ####[facility] LDSIRIXVYR7668 [place], [place] [address]Ev# [phone] PTS 10.9 SECONDS Normal 9.5-12.0 [facility] Comment on above: Order Comment: Gabriela qiu: Carmen Performed By: #### L 300.56866, L300.36871 ####[facility] MGXOSPHXNL6335 [place], [place] [address]Us# [phone] INR Coag (PPP) [Relative time] 1.02 {INR} Normal 0.9-1.1 [facility] Comment on above: Order Comment: Gabriela qiu: Carmen Result Comment: Jesse mmended PT INR therapeutic range for terminal computer operator andprophylactic therapy is 2.0 - 3.0. For heart valve andshunt patients the range is 2.5 - 3.5. Performed By: #### L 300.83711, L300.56229 ####[facility] DRZGXRQIAR4104 [place], [place] [address]Fk# [phone] PTS 10.9 SECONDS Normal 9.5-12.0 [facility] Comment on above: Order Comment: Gabriela qiu: M Performed By: #### L 300.61559, L300.44004 ####[facility] PEDEGBAFTY5865 [place], [place] [address]Mx# [phone] PTTon 11-30-2020 aPTT Coag (Bld) [Time] 38.5 s High 22.0-31.5 [facility] Comment on above: Order Comment: Gabriela s: JODI/ Draw Result Comment: Ther apeutic Heparin [...] using the PTT. Performed By: #### L 300.32450 ####[facility] QHYRLGSPIQ4857 [place], [place] [address]Jl# [phone] aPTT Coag (Bld) [Time] 50.6 s High 22.0-31.5 [facility] Comment on above: Order Comment: Gabriela qiu: [...] using the PTT. Performed By: #### L 300.86815 ####[facility] WLPXFNYJLZ9507 [place], [place] [address]Sm# [phone] aPTT Coag (Bld) [Time] 41.2 s High 22.0-31.5 [facility] Comment on above: Order Comment: Gabriela s: Carmen Result Comment: Ther apeutic Heparin Reference [...] using the PTT. Performed By: #### L 300.82212, L300.28884 ####[facility] TWSVKGADUU9004 [place], [place] [address]Zl# [phone] aPTT Coag (Bld) [Time] 35.8 s High 22.0-31.5 [facility] Comment on above: Order Comment: Gabriela qiu: [...] using the PTT. Performed By: #### L 300.33851 ####[facility] GLPVQONFHS5830 [place], [place] [address]Fx# [phone] aPTT Coag (Bld) [Time] 35.5 s High 22.0-31.5 [facility] Comment on above: Order Comment: Gabriela qiu: [...] using the PTT. Performed By: #### L 300.61011, L300.86131 ####[facility] WWPJDDUMMT8041 [place], [place] [address]Kh# [phone] ABDOMEN OR KUBon 11-29-2020 ABDOMEN OR KUB Normal [facility] [place] ABGPEGLAon 11-29-2020 ABG BE -2.8 MML/L Low -2.0-2.0 [facility] Comment on above: Order Comment: Campu s: CORTNEY BLOOD GAS? YPatient's Anticoagulant? HEPARIN Performed By: #### L 100.18294 ####[facility] ZLBUCHBPFB4299 [place], [place] [address]Tk# [phone] ABG COHBA 0.3 % Normal 0-10 [facility] Comment on above: Order Comment: Campu s: CORTNEY BLOOD GAS? YPatient's Anticoagulant? HEPARIN Performed By: #### L 100.68072 ####[facility] HFAGUIVPRV0901 [place] [address]Ph# [phone] ABG GLU 181.0 MG/DL High 60-80 [facility] Comment on above: Order Comment: Campu s: CORTNEY BLOOD GAS? YPatient's Anticoagulant? HEPARIN Performed By: #### L 100.97464 ####[facility] [id number] [place], [place] [address]Kh# [phone] ABG MET 0.1 % Low 0.4-1.5 [facility] Comment on above: Order Comment: Campu s: CORTNEY BLOOD GAS? YPatient's Anticoagulant? HEPARIN Performed By: #### L 100.78506 ####[facility] [id number] [place], [place] [address]Xj# [phone] ABG O2 CAPACITY 24.5 mL/dL Normal [facility] Comment on above: Order Comment: Campu s: CORTNEY BLOOD GAS? YPatient's Anticoagulant? HEPARIN Performed By: #### L [id number] ####[facility] [id number] [place], [place] [address]Zy# [phone] ABG O2 CONTENT 25.3 mL/dL High 15.7-21.6 [facility] Comment on above: Order Comment: Campu s: CORTNEY BLOOD GAS? YPatient's Anticoagulant? HEPARIN Performed By: #### L 100.55114 ####[facility] [id number] [place], [place] [address]Yz# [phone] ABG O2HB SAT 98.9 % Normal 90-100 [facility] Comment on above: Order Comment: Campu s: CORTNEY BLOOD GAS? YPatient's Anticoagulant? HEPARIN Performed By: #### L 100.29565 ####[facility] [id number] [place], [place] [address]Ed# [phone] ABG PCO2 30.7 MM[facility] Low 35-45 [facility] Comment on above: Order Comment: Campu s: CORTNEY BLOOD GAS? YPatient's Anticoagulant? HEPARIN Performed By: #### L 100.42857 ####[facility] [id number] [place], [place] [address]Cn# [phone] ABG PH 7.43 Normal 7.35-7.45 [facility] Comment on above: Order Comment: Campu s: CORTNEY BLOOD GAS? YPatient's Anticoagulant? HEPARIN Performed By: #### L 100.17434 ####[facility] [id number] [place], [place] [address]Qs# [phone] ABG PO2 304.9 MM[facility] High 80-100 [facility] Comment on above: Order Comment: Campu s: CORTNEY BLOOD GAS? YPatient's Anticoagulant? HEPARIN Performed By: #### L 100.14600 ####[facility] XFZARWKXIR8318 [place], [place] [address]Xw# [phone] ABG REDUCED HGB 0.7 % Normal 0-5 [facility] Comment on above: Order Comment: Campu s: CORTNEY BLOOD GAS? YPatient's Anticoagulant? HEPARIN Performed By: #### L 100.99498 ####[facility] PYHYXXMCPV5969 [place], [place] [address]Bz# [phone] MARKELL TEST Positive Normal [facility] Comment on above: Order Comment: Campu s: CORTNEY BLOOD GAS? YPatient's Anticoagulant? HEPARIN Performed By: #### L 100.40681 ####[facility] NUBCLTMBUH0764 [place], [place] [address]Tj# [phone] Body temperature 98.42 [degF] Normal [facility] Comment on above: Order Comment: Campu s: CORTNEY BLOOD GAS? YPatient's Anticoagulant? HEPARIN Performed By: #### L 100.43932 ####[facility] ESKWTBPWNB[address] [place] [address]Wx# [phone] EQUIPMENT VENTILATOR Normal [facility] Comment on above: Order Comment: Campu s: CORTNEY BLOOD GAS? YPatient's Anticoagulant? HEPARIN Performed By: #### L 100.85187 ####[facility] KLSVBTOZQX[address] [place] [address]Jt# [phone] FIO2 80 % Normal [facility] Comment on above: Order Comment: Campu s: CORTNEY BLOOD GAS? YPatient's Anticoagulant? HEPARIN Performed By: #### L 100.64398 ####[facility] YJOMNJHGCK[address] [place] [address]Je# [phone] HCO3 (Bld) [Moles/Vol] 20.0 mmol/L Low 22-26 [facility] Comment on above: Order Comment: Campu s: CORTNEY BLOOD GAS? YPatient's Anticoagulant? HEPARIN Performed By: #### L 100.37724 ####[facility] MKZRZOCFWP8421 [place], [place] [address]Bf# [phone] Hemoglobin (Bld) [Mass/Vol] 17.7 g/dL High 10-16 [facility] Comment on above: Order Comment: Campu s: CORTNEY BLOOD GAS? YPatient's Anticoagulant? HEPARIN Performed By: #### L 100.25882 ####[facility] WGVRTNFBAA6132 [place], [place] [address]Wq# [phone] IONIZED CA 1.17 MMOL/L Normal 1.13-1.32 [facility] Comment on above: Order Comment: Campu s: CORTNEY BLOOD GAS? YPatient's Anticoagulant? HEPARIN Performed By: #### L 100.94060 ####[facility] MIAUJFHLFX1338 [place], [place] [address]Jo# [phone] LACTATE BLOOD 2.83 MMOL/L High 0.40-2.00 [facility] Comment on above: Order Comment: Campu s: CORTNEY BLOOD GAS? YPatient's Anticoagulant? HEPARIN Performed By: #### L 100.19604 ####[facility] ZOWREHARDB6711 [place], [place] [address]Db# [phone] PEEP 8.0 CMH2O Normal [facility] Comment on above: Order Comment: Campu s: CORTNEY BLOOD GAS? YPatient's Anticoagulant? HEPARIN Performed By: #### L 100.93496 ####[facility] [id number] [place] [address]We# [phone] Potassium [Moles/Vol] 4.3 mmol/L Normal 3.5-5.0 [facility] Comment on above: Order Comment: Campu s: CORTNEY BLOOD GAS? YPatient's Anticoagulant? HEPARIN Performed By: #### L 100.19701 ####[facility] YLFCVICJTB4462 [place], [place] [address]Nl# [phone] RESP. RATE Normal [facility] Comment on above: Order Comment: Campu s: CORTNEY BLOOD GAS? YPatient's Anticoagulant? HEPARIN Performed By: #### L 100.68497 ####[facility] KNIXDLRLXW0845 [place], [place] [address]Bm# [phone] SAMPLE SITE L RADIAL Normal [facility] Comment on above: Order Comment: Campu s: CORTNEY BLOOD GAS? YPatient's Anticoagulant? HEPARIN Performed By: #### L 100.92161 ####[facility] MVQKFYJKWC3487 [place], [place] [address]Aj# [phone] SAMPLE TYPE ARTERIAL Normal [facility] Comment on above: Order Comment: Campu s: CORTNEY BLOOD GAS? YPatient's Anticoagulant? HEPARIN Performed By: #### L 100.28303 ####[facility] ZFXLOYWRHI8739 [place] [address]409[address]Ph# [phone] Sodium [Moles/Vol] 138 mmol/L Normal 136-148 [facility] Comment on above: Order Comment: Campu s: CORTNEY BLOOD GAS? YPatient's Anticoagulant? HEPARIN Performed By: #### L 100.01259 ####[facility] YIARQXFAMA[address] [place], [place] [address]Ph# [phone] TIDAL VOLUME 0.650 LITERS Normal [facility] [place] Comment on above: Order Comment: Campu s: CORTNEY BLOOD GAS? YPatient's Anticoagulant? HEPARIN Performed By: #### L 100.57581 ####[facility] OIYTLNSTFT[address] [place], [place] [address]Ph# [phone] VENT MODE VOLUME VENT PLUS Normal [facility] [place] Comment on above: Order Comment: Campu s: CORTNEY BLOOD GAS? YPatient's Anticoagulant? HEPARIN Performed By: #### L 100.05475 ####[facility] WIUREHHBDA[address] [place], [place] [address]Ph# [phone] ABG BE -9.3 MML/L Low -2.0-2.0 [facility] Comment on above: Performed By: #### L 100.18304 ####[facility] BYRXVBECUE[address] [place], [place] [address]Ph# [phone] ABG COHBA 0.9 % Normal 0-10 [facility] Comment on above: Performed By: #### L 100.14043 ####[facility] OVIAMMTEVZ[address] [place], [place] [address]Ph# [phone] ABG GLU 220.0 MG/DL High 60-80 [facility] Comment on above: Performed By: #### L 100.04271 ####[facility] BZGWTCNDPC[address] [place], [place] [address]Ph# [phone] ABG MET 0.1 % Low 0.4-1.5 [facility] [place] Comment on above: Performed By: #### L 100.95124 ####[facility] SJYLPUEMXL8557 [place], [place] [address]Bi# [phone] ABG O2 CAPACITY 22.7 mL/dL Normal [facility] [place] Comment on above: Performed By: #### L 100.77081 ####[facility] VIUSUJJVIP5161 [place], [place] [address]Sz# [phone] ABG O2 CONTENT 22.8 mL/dL High 15.7-21.6 [facility] [place] Comment on above: Performed By: #### L 100.69571 ####[place] [address] [place], [place] [address]Gt# [phone] ABG O2HB SAT 97.5 % Normal 90-100 [facility] [place] Comment on above: Performed By: #### L 100.99704 ####[address] [address]Vl# [phone] ABG PCO2 40.1 MMHG Normal 35-45 [facility] [place] Comment on above: Performed By: #### L 100.18624 ####[facility] ICJJTMFQOM2256 [place], [place] [address]Kx# [phone] ABG PH 7.25 Low 7.35-7.45 [facility] [place] Comment on above: Performed By: #### L 100.79406 ####[facility] PKGSGGGLNB0031 [place], [place] [address]Co# [phone] ABG PO2 148.7 MMHG High 80-100 [facility] [place] Comment on above: Performed By: #### L 100.91188 ####[facility] DEXTXFKPNC[address] [place] [address]Hk# [phone] ABG REDUCED HGB 1.5 % Normal 0-5 [facility] [place] Comment on above: Performed By: #### L 100.46077 ####[facility] MLPWBFBRHN7654 [place], [place] [address]Cq# [phone] MARKELL TEST N/A Normal [facility] [place] Comment on above: Performed By: #### L 100.03536 ####[facility] XTRNIGUZPL0345 [place], [place] [address]Ay# [phone] Body temperature 98.6 [degF] Normal [facility] [place] Comment on above: Performed By: #### L 100.63553 ####[facility] QVBFYNNXDE[address] [place] [address]Hc# [phone] EQUIPMENT [address]ILATOR Normal [facility] [place] Comment on above: Performed By: #### L 100.50789 ####[address] [address]Jo# [phone] FIO2 100 % Normal [facility] [place] Comment on above: Performed By: #### L 100.82682 ####[address] [address]Cz# [phone] HCO3 (Bld) [Moles/Vol] 17.3 mmol/L Low 22-26 [facility] [place] Comment on above: Performed By: #### L 100.41683 ####[facility] XBRZPVECSR[address] [place] [address]Fh# [phone] Hemoglobin (Bld) [Mass/Vol] 16.5 g/dL High 10-16 [facility] [place] Comment on above: Performed By: #### L 100.69473 ####[facility] EMKHFLHPXY[address] [place] [address]Zq# [phone] IONIZED CA 1.15 MMOL/L Normal 1.13-1.32 [facility] [place] Comment on above: Performed By: #### L 100.15272 ####[facility] TPUGNRKSWZ0342 [place], [place] [address]Do# [phone] LACTATE BLOOD 2.46 MMOL/L High 0.40-2.00 [facility] [place] Comment on above: Performed By: #### L 100.24131 ####[place] [address] [place], [place] [address]En# [phone] PEEP 12.[address] [facility] [place] Comment on above: Performed By: #### L 100.75687 ####[facility] CRFOKFXNYP0506 [place], [place] [address]Sr# [phone] Potassium [Moles/Vol] 4.6 mmol/L Normal 3.5-5.0 [facility] [place] Comment on above: Performed By: #### L 100.34031 ####[facility] IJLSKRDRSJ[address] [place] [address]Lr# [phone] RESP. RATE [address] [facility] [place] Comment on above: Performed By: #### L 100.81312 ####[address] [address]Qh# [phone] SAMPLE SITE ARTERIAL LINE Normal [facility] [place] Comment on above: Performed By: #### L 100.35454 ####[facility] ENSRJEWDEB[address] [place] [address]Qc# [phone] SAMPLE TYPE ARTERIAL Normal [facility] [place] Comment on above: Performed By: #### L 100.32134 ####[facility] XXUDCMOAZZ[address] [place] [address]Eo# [phone] Sodium [Moles/Vol] 130 mmol/L Low 136-148 [facility] [place] Comment on above: Performed By: #### L 100.82898 ####[facility] KDCWBACZZJ[address] [place] [address]Jx# [phone] TIDAL VOLUME 0.650 LITERS Normal [facility] [place] Comment on above: Performed By: #### L 100.68942 ####[facility] NCRFVEAULN[address] [place] [address]Hp# [phone] VENT MODE VOLUME VENT PLUS Normal [facility] [place] Comment on above: Performed By: #### L 100.89954 ####[facility] STMDMGSMYR[address] [place] [address]Tq# [phone] Lamar 11-29-2020 POC ACT 259 SECONDS High 100-150 [facility] [place] BMPon 11-29-2020 Anion gap [Moles/Vol] 8 mmol/L Normal 5-16 [facility] Comment [facility]: Order Comment: Campu s: M Performed By: #### L 500.51310, L500.94551 ####[facility] QGZZSDETVB4766 [place], [place] [address]Ea# [phone] Calcium [Mass/Vol] 8.4 mg/dL Low 8.5-10.5 [facility] Comment on above: Order Comment: Campu s: M Result Comment: NOTE NEW NORMAL RANGE DUE TO REAGENT CHANGE Performed By: #### L 500.21502, L500.40532 ####[facility] WHZCMMRQOT9995 [place], [place] [address]Lo# [phone] Chloride [Moles/Vol] 108 mmol/L High 98-107 [facility] Comment on above: Order Comment: Campu s: M Performed By: #### L 500.21146, L500.70420 ####[facility] QEFHNVXBBA1046 [place], [place] [address]Zo# [phone] CO2 [Moles/Vol] 19.0 mmol/L Low 21-32 [facility] Comment on above: Order Comment: Campu s: M Performed By: #### L 500.22586, L500.64906 ####[facility] UUQISNNPBZ7080 [place], [place] [address]Dn# [phone] Creatinine [Mass/Vol] 1.03 mg/dL Normal 0.5-1.4 [facility] Comment on above: Order Comment: Campu s: M Result Comment: NOTE NEW NORMAL RANGE DUE TO REAGENT CHANGEPatients receiving either N-Acetylcysteine (NAC) orMetamizole prior to venipuncture, may have falsely depressedresults. Performed By: #### L 500.22624, L500.03870 ####[facility] FBSLZENRKH5099 [place], [place] [address]Of# [phone] Glucose [Mass/Vol] 245 mg/dL High 70-100 [facility] Comment on above: Order Comment: Campu s: M Result Comment: 70-1 00- Normal Fasting; 100-125 Impaired Fasting; greaterthan 126 on more than one result- Diabetes. ADA guidelines.Results may be falsely elevated after the administration ofSulfapyridine.Results may be falsely depressed after the administration ofSulfasalazine. Performed By: #### L 500.45262, L500.02168 ####[facility] FWOLWSMYGC9686 [place], [place] [address]Ku# [phone] Potassium [Moles/Vol] 4.8 mmol/L Normal 3.5-5.1 [facility] Comment on above: Order Comment: Campu s: M Result Comment: Slig ht Hemolysis, Result may be affected. Performed By: #### L 500.81508, L500.29536 ####[facility] OSSSYNVVMM5181 [place], [place] [address]Pn# [phone] Sodium [Moles/Vol] 135 mmol/L Low 136-145 [facility] Comment on above: Order Comment: Campu s: M Performed By: #### L 500.29898, L500.61569 ####[facility] DZSISXNHGI7466 [place], [place] [address]Gf# [phone] Urea nitrogen [Mass/Vol] 15 mg/dL Normal 7-26 [facility] Comment on above: Order Comment: Campu s: M Performed By: #### L 500.32174, L500.41041 ####[facility] NKOHEXSBML4632 [place], [place] [address]Kw# [phone] Urea nitrogen/Creatinine [Mass ratio] 15 mg/mg Normal 15-24 [facility] Comment on above: Order Comment: Campu s: M Performed By: #### L 500.32055, L500.70407 ####[facility] KGPWVCTSQP0204 [place], [place] [address]Fk# [phone] CADon 11-29-2020 CAD Normal [facility] CAROTID DUPLEX REPORT [facility] CARD.CATHon 11-29-2020 CARD.CATH Normal [facility] CBC W/DIFFon 11-29-2020 BASO ABS 0.00 K/CU MM Normal 0-0.2 [facility] Comment on above: Order Comment: Campu s: M Performed By: #### L 200.06817 ####[facility] WEFGEAFYJB[address] [place] [address]Ua# [phone] Basophils/100 WBC (Bld) 0.2 % Normal 0-2 [facility] Comment on above: Order Comment: Campu s: M Performed By: #### L 200.48912 ####[facility] GXGKVYDZPX[address] [place] [address]Ik# [phone] EOS ABS 0.00 K/CU MM Normal 0-0.5 [facility] Comment on above: Order Comment: Campu s: M Performed By: #### L 200.73812 ####[facility] MRYLREQWKY2260[address] [place] [address]Dd# [phone] Eosinophils/100 WBC (Bld) 0.1 % Normal 0-5 [facility] Comment on above: Order Comment: Campu s: M Performed By: #### L 200.74595 ####[facility] TMULJJLAVE2147[address] [place] [address]Kx# [phone] Erythrocyte distribution width (RBC) [Ratio] 12.9 % Normal 11-14.5 [facility] Comment on above: Order Comment: Campu s: M Performed By: #### L 200.51136 ####[facility] LUGVZHETPX155[address] [place] [address]Bh# [phone] Hematocrit (Bld) [Volume fraction] 48.2 % Normal 41.0-53.0 [facility] Comment on above: Order Comment: Campu s: M Performed By: #### L 200.77411 ####[facility] RLGQGQHFMS0727[address] [place] [address]Us# [phone] Hemoglobin (Bld) [Mass/Vol] 16.5 g/dL Normal 13.5-17.5 [facility] Comment on above: Order Comment: Campu s: M Performed By: #### L 200.77351 ####[facility] CWRIEVPOUN0012 [place], [place] [address]Up# [phone] IMMATR GRAN ABS 0.10 K/CU MM Normal Less than 2 [facility] Comment on above: Order Comment: Campu s: M Performed By: #### L 200.88959 ####[facility] OAIJELOGKS7892 [place], [place] [address]Pt# [phone] IMMATURE GRAN % 0.5 % Normal Less than 2 [facility] [place] Comment on above: Order Comment: Campu s: M Performed By: #### L 200.95583 ####[facility] COJRIISLEX33[address] [place] [address]Jk# [phone] LYMPH ABS 1.70 K/CU MM Normal 0.9-4.4 [facility] [place] Comment on above: Order Comment: Campu s: M Performed By: #### L 200.81786 ####[facility] LPSVIKNLEP[address] [place] [address] 9[address]Lu# [phone] Lymphocytes/100 WBC (Bld) 10.5 % Low 20-40 [facility] Comment on above: Order Comment: Campu s: M Performed By: #### L 200.52273 ####[facility] AXMLKTJAFZ907[address] [place] [address]Up# [phone] MCHC (RBC) [Mass/Vol] 34.2 g/dL Normal 32.0-36.0 [facility] Comment on above: Order Comment: Campu s: M Performed By: #### L 200.04712 ####[facility] WJEDBINZAX670[address] [place] [address] 98[address]Yn# [phone] MCV (RBC) [Entitic vol] 90.3 fL Normal 80.0-99.0 [facility] Comment on above: Order Comment: Campu s: M Performed By: #### L 200.51460 ####[facility] ETXRPQVTEP8241 [place], [place] [address]Xr# [phone] MONO ABS 1.20 K/CU MM High 0.1-1.1 [facility] [place] Comment on above: Order Comment: Campu s: M Performed By: #### L 200.70180 ####[facility] RVNIVUPGTT558[address] [place] [address]Cq# [phone] Monocytes/100 WBC (Bld) 7.6 % Normal 2-10 [facility] Comment on above: Order Comment: Campu s: M Performed By: #### L 200.00596 ####[address] [address]Le# [phone] NEUTROPHIL ABS 13.20 K/CU MM High 2.0-8.3 [facility] [place] Comment on above: Order Comment: Campu s: M Performed By: #### L 200.00657 ####[address] [address]Gi# [phone] Neutrophils/100 WBC (Bld) 81.1 % High 45-75 [facility] Comment on above: Order Comment: Campu s: M Performed By: #### L 200.62252 ####[facility] PIZTCDQQRZ4874[address] [place] [address] 206[address]Kb# [phone] Nucleated RBC/100 WBC (Bld) [Ratio] 0.0 % Normal Less than 1 [facility] Comment on above: Order Comment: Campu s: M Performed By: #### L 200.86098 ####[facility] BNDZGUDDKS994[address] [place] [address]Fv# [phone] Platelet mean volume (Bld) [Entitic vol] 10.0 fL Normal 9.4-12.4 [facility] Comment on above: Order Comment: Campu s: M Performed By: #### L 200.24903 ####[facility] FUTUWBYFUY[address] [place], [place] [address]Ph# [phone] PLT 215 K/CU MM Normal 150-450 [facility] [place] Comment on above: Order Comment: Campu s: M Performed By: #### L 200.23586 ####[facility] XDAIRQQUNG5506 [place], [place] [address]Rj# [phone] RBC 5.34 M/CU MM Normal 4.50-6.00 [facility] Comment on above: Order Comment: Campu s: M Performed By: #### L 200.36928 ####[address] [address]Du# [phone] WBC 16.2 K/CUMM High 4.5-11.0 [facility] Comment on above: Order Comment: Campu s: M Performed By: #### L 200.01705 ####[place] [address]Ph# [phone] ATYP LYMPH % 0.0 % Normal [facility] [place] Comment on above: Order Comment: Campu s: M Performed By: #### L 200.68405 ####[place] [address]Ph# [phone] BAND ABS 2.02 K/CU MM Normal [facility] Comment [facility]: Order Comment: Campu s: M Performed By: #### L 200.98173 ####[facility] RTNYVIMJWT[address] [place], [place] [address]Ph# [phone] Band form neutrophils/100 WBC (Bld) 10.0 % High 0-7 [facility] Comment on above: Order Comment: Campu s: M Performed By: #### L 200.08106 ####[facility] WTXOPADWLO[address] [place] [address]Dc# [phone] Basophils/100 WBC (Bld) 0.0 % Normal 0-2 [facility] Comment on above: Order Comment: Campu s: M Performed By: #### L 200.65924 ####[facility] TMWBDQRAGM9602 [place], [place] [address]Yt# [phone] BLAST % 0.0 % Normal 0 [facility] [place] Comment on above: Order Comment: Campu s: M Performed By: #### L 200.09037 ####[facility] QAQXCRWKZU2160 [place], [place] [address]Fx# [phone] Eosinophils/100 WBC (Bld) 0.0 % Normal 0-5 [facility] [place] Comment on above: Order Comment: Campu s: M Performed By: #### L 200.37339 ####[place] [address]Ph# [phone] LYMPH ABS 0.20 K/CU MM Low 0.9-4.4 [facility] Comment on above: Order Comment: Campu s: M Performed By: #### L 200.43553 ####[place] [address]Ph# [phone] Lymphocytes/100 WBC (Bld) 1.0 % Low 20-40 [facility] [place] Comment on above: Order Comment: Campu s: M Performed By: #### L 200.48652 ####[facility] VWNBXPWYDQ[address] [place] [address] 127[address]Af# [phone] META % 0.0 % Normal [facility] [place] Comment on above: Order Comment: Campu s: M Performed By: #### L 200.52625 ####[facility] HZZXFUFAYE[address] [place], [place] [address]Ph# [phone] MONO ABS 1.41 K/CU MM High 0.1-1.1 [facility] [facility] Comment on above: Order Comment: Campu s: M Performed By: #### L 200.16895 ####[facility] VJWPCQVFSO[address] [place], [place] [address]Ph# [phone] Monocytes/100 WBC (Bld) 7.0 % Normal 2-10 [facility] Comment on above: Order Comment: Campu s: M Performed By: #### L 200.66951 ####[facility] RHDAPUPSVE5169 [place], [place] [address]Np# [phone] MYELOCYTE % 0.0 % Normal [facility] Comment on above: Order Comment: Campu s: M Performed By: #### L 200.38742 ####[facility] OUTTZEDJYR[address] [place] [address] 55[address]Hp# [phone] NEUTROPHIL ABS 16.56 K/CU MM High 2.0-8.3 [facility] Comment on above: Order Comment: Campu s: M Performed By: #### L 200.50859 ####[facility] B[address]XFGSZIBS[address] [place] [address] 28[address]Ko# [phone] Neutrophils/100 WBC (Bld) 82.0 % High 45-75 [facility] Comment on above: Order Comment: Campu s: M Performed By: #### L 200.07042 ####[facility] QWHDMDFXTB[address] [place] [address]Ns# [phone] Nucleated RBC/100 WBC (Bld) [Ratio] 0.0 % Normal Less than 1 [facility] Comment on above: Order Comment: Campu s: M Performed By: #### L 200.54742 ####[facility] AUUMTSLJWQ[address] [place] [address] 96256Fk# [phone] OTHER % 0 % Normal [facility] Comment on above: Order Comment: Campu s: M Performed By: #### L 200.82623 ####[facility] [id number] [place] [address] 57942En# [phone] PLT EST ADEQUATE Normal [facility] Comment on above: Order Comment: Campu s: M Performed By: #### L 200.48902 ####[facility] [id number] [place] [address] 70158Qk# [phone] POLY 1+ Normal [facility] Comment on above: Order Comment: Campu s: M Performed By: #### L 200.99224 ####[facility] [id number] [place], [place] [address]He# [phone] PROMYELOCYTE % 0.0 % Normal [facility] [place] Comment on above: Order Comment: Campu s: M Performed By: #### L 200.08226 ####[facility] [id number] [place], [place] [address]Qz# [phone] WBC 20.2 K/CUMM High 4.5-11.0 [facility] [place] Comment on above: Order Comment: Campu s: M Result Comment: Conf irmed by slide estimate. Performed By: #### L 200.64651 ####[address] [address]Eq# [phone] Erythrocyte distribution width (RBC) [Ratio] 12.8 % Normal 11-14.5 [facility] Comment on above: Order Comment: Campu s: M Performed By: #### L 200.74932 ####[facility] [id number] [place] [address] 145[address]Ql# [phone] Hematocrit (Bld) [Volume fraction] 49.2 % Normal 41.0-53.0 [facility] Comment on above: Order Comment: Campu s: M Performed By: #### L 200.03426 ####[facility] [id number] [place] [address] [address]De# [phone] Hemoglobin (Bld) [Mass/Vol] 17.1 g/dL Normal 13.5-17.5 [facility] [place] Comment on above: Order Comment: Campu s: M Performed By: #### L 200.57249 ####[facility] [address] [place] [address]Zd# [phone] MCHC (RBC) [Mass/Vol] 34.8 g/dL Normal 32.0-36.0 [facility] [place] Comment on above: Order Comment: Campu s: M Performed By: #### L 200.48829 ####[facility] [address] [place] [address]Hh# [phone] MCV (RBC) [Entitic vol] 89.3 fL Normal 80.0-99.0 [facility] [place] Comment on above: Order Comment: Campu s: M Performed By: #### L 200.66313 ####[facility] [address]VSP[address]NRCW[address] [place], [place] [address]Ph# [phone] Platelet mean volume (Bld) [Entitic vol] 9.9 fL Normal 9.4-12.4 [facility] Comment on above: Order Comment: Campu s: M Performed By: #### L 200.09451 ####[place] [address]Ph# [phone] PLT 236 K/CU MM Normal 150-450 [facility] [place] Comment on above: Order Comment: Campu s: M Performed By: #### L 200.98133 ####[place] [address]Ph# [phone] RBC 5.51 M/CU MM Normal 4.50-6.00 [facility] [place] Comment on above: Order Comment: Campu s: M Performed By: #### L 200.16906 ####[place] [address]Ph# [phone] BASO ABS 0.10 K/CU MM Normal 0-0.2 [facility] [place] Comment on above: Order Comment: Campu s: M Performed By: #### L 200.39196 ####[place] [address]Ph# [phone] Basophils/100 WBC (Bld) 0.3 % Normal 0-2 [facility] Comment on above: Order Comment: Campu s: M Performed By: #### L 200.45833 ####[place] [address]Ph# [phone] EOS ABS 0.10 K/CU MM Normal 0-0.5 [facility] Comment on above: Order Comment: Campu s: M Performed By: #### L 200.95248 ####[facility] EGDIMRFSCG[address] [place] [address]Us# [phone] Eosinophils/100 WBC (Bld) 0.3 % Normal 0-5 [facility] [place] Comment on above: Order Comment: Campu s: M Performed By: #### L 200.81982 ####[place] [address]Ph# [phone] Erythrocyte distribution width (RBC) [Ratio] 12.7 % Normal 11-14.5 [facility] Comment on above: Order Comment: Campu s: M Performed By: #### L 200.31852 ####[address] [address]Ui# [phone] Hematocrit (Bld) [Volume fraction] 46.6 % Normal 41.0-53.0 [facility] Comment on above: Order Comment: Campu s: M Performed By: #### L 200.04362 ####[place] [address]Ph# [phone] Hemoglobin (Bld) [Mass/Vol] 16.1 g/dL Normal 13.5-17.5 [facility] Comment on above: Order Comment: Campu s: M Performed By: #### L 200.40126 ####[facility] OBDLMUADLJ[address] [place], [place] [address]Ph# [phone] IMMATR GRAN ABS 0.60 K/CU MM Normal Less than 2 [facility] Comment on above: Order Comment: Campu s: M Performed By: #### L 200.93148 ####[facility] RZWQDAFSXO[address] [place], [place] [address]Ph# [phone] IMMATURE GRAN % 2.4 % Normal Less than 2 [facility] [place] Comment on above: Order Comment: Campu s: M Performed By: #### L 200.55546 ####[facility] [address]WS[address]LUZ[address] [place], [place] [address]Ph# [phone] LYMPH ABS 1.50 K/CU MM Normal 0.9-4.4 [facility] Comment on above: Order Comment: Campu s: M Performed By: #### L 200.58974 ####[facility] CUJVREIWUL3557 [place], [place] [address]Xn# [phone] Lymphocytes/100 WBC (Bld) 6.3 % Low 20-40 [facility] Comment on above: Order Comment: Campu s: M Performed By: #### L 200.07271 ####[address] [address]Qu# [phone] MCHC (RBC) [Mass/Vol] 34.5 g/dL Normal 32.0-36.0 [facility] Comment on above: Order Comment: Campu s: M Performed By: #### L .58752 ####[place] [address]Ph# [phone] MCV (RBC) [Entitic vol] 89.8 fL Normal 80.0-99.0 [facility] Comment on above: Order Comment: Campu s: M Performed By: #### L 200.34233 ####[address] [address]Nn# [phone] MONO ABS 1.40 K/CU MM High 0.1-1.1 [facility] Comment on above: Order Comment: Campu s: M Performed By: #### L 200.61384 ####[facility] SEQ[address] [place] [address]Xp# [phone] Monocytes/100 WBC (Bld) 5.5 % Normal 2-10 [facility] Comment on above: Order Comment: Campu s: M Performed By: #### L 200.84812 ####[facility] [address]UEJ[address] [place] [address]Js# [phone] NEUTROPHIL ABS 20.80 K/CU MM High 2.0-8.3 [facility] Comment on above: Order Comment: Campu s: M Performed By: #### L 200.12667 ####[facility] KRVTYEYTHA1679 [place], [place] [address]Vn# [phone] Neutrophils/100 WBC (Bld) 85.2 % High 45-75 [facility] Comment on above: Order Comment: Campu s: M Performed By: #### L 200.39130 ####[facility] [address] [place] [address]Za# [phone] Nucleated RBC/100 WBC (Bld) [Ratio] 0.0 % Normal Less than 1 [facility] Comment on above: Order Comment: Campu s: M Performed By: #### L 200.21466 ####[facility] ORNKKSODRO7609 [place], [place] [address]Ev# [phone] Platelet mean volume (Bld) [Entitic vol] 9.9 fL Normal 9.4-12.4 [facility] Comment on above: Order Comment: Campu s: M Performed By: #### L 200.88106 ####[facility] BLJDDXRQAK3799 [place], [place] [address]Ei# [phone] PLT 282 K/CU MM Normal 150-450 [facility] Comment on above: Order Comment: Campu s: M Performed By: #### L 200.72613 ####[facility] OYTSGDJLZP7360 [place], [place] [address]Iv# [phone] RBC 5.19 M/CU MM Normal 4.50-6.00 [facility] Comment on above: Order Comment: Campu s: M Performed By: #### L 200.91863 ####[facility] WE[address]YR[address]EV[address] [place] [address]Rc# [phone] WBC 24.4 K/CUMM High 4.5-11.0 [facility] Comment on above: Order Comment: Campu s: M Performed By: #### L 200.63174 ####[facility] FMUICRZFUB[address] [place] [address]Tw# [phone] CDLECHOon 11-29-2020 CDLECHO Normal [facility] ECHOCARDIOGRAM REPORT Normal [facility] [place] CKon 11-29-2020 CK > 7800 Critically high 26-192 [facility] Comment on above: Order Comment: Campu s: M Result Comment: Slig ht Hemolysis, Result may be affected.Previous Critical within one week. Critical Result(s)verified at: 15:05:28 on 11/29/2020 by: Ginny Saba NEW NORMAL RANGE DUE TO REAGENT CHANGE Performed By: #### L 500.37193, L500.39957, L500.57308, L500.36023 ####[facility] KKWNQUHYEM1868 [place], [place] [address]Jw# [phone] CK > 7800 Critically high 26-192 [facility] Comment on above: Order Comment: Campu s: M Result Comment: Slig ht Hemolysis, Result may be affected.Critical Result(s)Called at: 05:29:53 on 11/29/2020 by lmba. Called to paresh back by:MIN GUERRA NEW NORMAL RANGE DUE TO REAGENT CHANGE Performed By: #### L 500.42205, L500.19889, L500.06851, L500.18674 ####[facility] OWINJZTCTY3010 [place], [place] [address]Tk# [phone] CMPon 11-29-2020 Albumin [Mass/Vol] 3.2 g/dL Normal 3.2-5.0 [facility] Comment on above: Order Comment: Campu s: M Performed By: #### L 500.24752, L500.29834, L500.73905, L500.77310 ####[facility] PZHGZFFHGJ6176 [place], [place] [address]Eg# [phone] Albumin/Globulin [Mass ratio] 1.1 {ratio} Normal 0.8-2.0 [facility] Comment on above: Order Comment: Campu s: M Performed By: #### L 500.27956, L500.92997, L500.10303, L500.81928 ####[facility] MRQTLARYWI7835 [place], [place] [address]Kz# [phone] ALK PHOS 53 U/L Normal 45-117 [facility] Comment on above: Order Comment: Campu s: M Performed By: #### L 500.79411, L500.00431, L500.59414, L500.12403 ####[facility] WZPDTPOWJK8267 [place], [place] [address]Uj# [phone] ALT [Catalytic activity/Vol] 273 U/L High 13-61 [facility] Comment on above: Order Comment: Campu s: M Result Comment: RESU LTS MAY BE FALSELY DEPRESSED AFTER THE ADMINISTRATION OFSULFASALAZINE AND/OR SULFAPYRIDINE. Performed By: #### L 500.57836, L500.05322, L500.66002, L500.71967 ####[facility] MRNJCHSKUP3916 [place], [place] [address]Gy# [phone] Anion gap [Moles/Vol] 6 mmol/L Normal 5-16 [facility] Comment on above: Order Comment: Campu s: M Performed By: #### L 500.81543, L500.05451, L500.17700, L500.11948 ####[facility] IAZMLARNYI9939 [place], [place] [address]Vd# [phone] AST [Catalytic activity/Vol] 448 U/L High 8-34 [facility] Comment on above: Order Comment: Campu s: M Result Comment: RESU LTS MAY BE FALSELY DEPRESSED AFTER THE ADMINISTRATION OFSULFASALAZINE AND/OR SULFAPYRIDINE. Performed By: #### L 500.04514, L500.19180, L500.24792, L500.20313 ####[facility] IGWYRXMXNN0535 [place], [place] [address]Lp# [phone] BILI TOTAL 0.70 MG/DL Normal 0.2-1.0 [facility] Comment on above: Order Comment: Campu s: M Performed By: #### L 500.19272, L500.71070, L500.93414, L500.88776 ####[facility] UVETQAMAZY2474 [place], [place] [address]Rr# [phone] Calcium [Mass/Vol] 8.9 mg/dL Normal 8.5-10.5 [facility] Comment on above: Order Comment: Campu s: M Result Comment: NOTE NEW NORMAL RANGE DUE TO REAGENT CHANGE Performed By: #### L 500.22471, L500.43017, L500.45894, L500.90783 ####[facility] XTPOMNKIIQ2389 [place], [place] [address]Bs# [phone] Chloride [Moles/Vol] 111 mmol/L High 98-107 [facility] Comment on above: Order Comment: Campu s: M Performed By: #### L 500.64119, L500.01200, L500.89580, L500.50733 ####[facility] [address] [place] [address]Ih# [phone] CO2 [Moles/Vol] 25.0 mmol/L Normal 21-32 [facility] [place] Comment on above: Order Comment: Campu s: M Performed By: #### L 500.82205, L500.43013, L500.42869, L500.01095 ####[facility] VAJGEFOPVL3127 [place], [place] [address]Cr# [phone] Creatinine [Mass/Vol] 0.74 mg/dL Normal 0.5-1.4 [facility] Comment on above: Order Comment: Campu s: M Result Comment: NOTE NEW NORMAL RANGE DUE TO REAGENT CHANGEPatients receiving either N-Acetylcysteine (NAC) orMetamizole prior to venipuncture, may have falsely depressedresults. Performed By: #### L 500.92094, L500.83396, L500.19918, L500.96596 ####[facility] AOOHERPDXQ9901 [place], [place] [address]Tg# [phone] Globulin (S) [Mass/Vol] 3.0 g/dL Normal 2.2-4.2 [facility] Comment on above: Order Comment: Campu s: M Performed By: #### L 500.37586, L500.31633, L500.01544, L500.48326 ####[facility] WPCEYQBYMY4424 [place], [place] [address]No# [phone] Glucose [Mass/Vol] 129 mg/dL High 70-100 [facility] Comment on above: Order Comment: Campu s: M Result Comment: 70-1 00- Normal Fasting; 100-125 Impaired Fasting; greaterthan 126 on more than one result- Diabetes. ADA guidelines.Results may be falsely elevated after the administration ofSulfapyridine.Results may be falsely depressed after the administration ofSulfasalazine. Performed By: #### L 500.18896, L500.62100, L500.68337, L500.51690 ####[facility] PBRLZUVXJM0430 [place], [place] [address]Hg# [phone] Potassium [Moles/Vol] 3.7 mmol/L Normal 3.5-5.1 [facility] Comment on above: Order Comment: Campu s: M Result Comment: Slig ht Hemolysis, Result may be affected. Performed By: #### L 500.37780, L500.10541, L500.95333, L500.74039 ####[facility] VZXKGMOTTV3536 [place], [place] [address]Jw# [phone] Protein [Mass/Vol] 6.2 g/dL Normal 6.0-8.5 [facility] Comment on above: Order Comment: Campu s: M Performed By: #### L 500.15509, L500.88336, L500.98524, L500.98902 ####[facility] FRPFAIMIST5362 [place], [place] [address]Ka# [phone] Sodium [Moles/Vol] 142 mmol/L Normal 136-145 [facility] Comment on above: Order Comment: Campu s: M Performed By: #### L 500.71973, L500.54309, L500.79786, L500.15977 ####[facility] NWKFGPOOSQ4911 [place], [place] [address]Fy# [phone] Urea nitrogen [Mass/Vol] 18 mg/dL Normal 7-26 [facility] [place] Comment on above: Order Comment: Campu s: M Performed By: #### L 500.91393, L500.60500, L500.26247, L500.82702 ####[facility] MUSFEOSCLX7577 [place], [place] [address]Pr# [phone] Urea nitrogen/Creatinine [Mass ratio] 24 mg/mg Normal 15-24 [facility] [place] Comment on above: Order Comment: Campu s: M Performed By: #### L 500.47101, L500.08044, L500.47734, L500.00666 ####[facility] EZKYMJTOFP4924 [place], [place] [address]Xg# [phone] Anion gap [Moles/Vol] 6 mmol/L Normal 5-16 [facility] [place] Comment on above: Order Comment: Campu s: M Performed By: #### L 500.66020, L500.01112, L500.67651, L500.26044 ####[facility] PYPAYUPILL9557 [place], [place] [address]Yb# [phone] Albumin [Mass/Vol] 3.3 g/dL Normal 3.2-5.0 [facility] Comment on above: Order Comment: Campu s: M Performed By: #### L 500.68466, L500.86267, L500.64039, L500.07004 ####[facility] LWTKBOOFAD7046 [place], [place] [address]Bt# [phone] Albumin/Globulin [Mass ratio] 1.0 {ratio} Normal 0.8-2.0 [facility] Comment on above: Order Comment: Campu s: M Performed By: #### L 500.39568, L500.17868, L500.77017, L500.44774 ####[facility] RZFLWGMUNB1925 [place], [place] [address]Yt# [phone] ALK PHOS 57 U/L Normal 45-117 [facility] Comment on above: Order Comment: Campu s: M Performed By: #### L 500.68345, L500.40907, L500.18806, L500.16272 ####[facility] YGXSDNOBZQ2491 [place], [place] [address]Zn# [phone] ALT [Catalytic activity/Vol] 298 U/L High 13-61 [facility] Comment on above: Order Comment: Campu s: M Result Comment: RESU LTS MAY BE FALSELY DEPRESSED AFTER THE ADMINISTRATION OFSULFASALAZINE AND/OR SULFAPYRIDINE. Performed By: #### L 500.87533, L500.21483, L500.23741, L500.16341 ####[facility] OMGJUWDZJG7881 [place], [place] [address]Eg# [phone] AST [Catalytic activity/Vol] 578 U/L High 8-34 [facility] Comment on above: Order Comment: Campu s: M Result Comment: RESU LTS MAY BE FALSELY DEPRESSED AFTER THE ADMINISTRATION OFSULFASALAZINE AND/OR SULFAPYRIDINE. Performed By: #### L 500.68189, L500.65824, L500.75286, L500.96958 ####[facility] GYORMLSCRE2436 [place], [place] [address]Er# [phone] BILI TOTAL 0.80 MG/DL Normal 0.2-1.0 [facility] Comment on above: Order Comment: Campu s: M Performed By: #### L 500.04971, L500.71489, L500.35512, L500.22604 ####[facility] XIGTVEMRRG3437 [place], [place] [address]Vv# [phone] Calcium [Mass/Vol] 9.2 mg/dL Normal 8.5-10.5 [facility] Comment on above: Order Comment: Campu s: M Result Comment: NOTE NEW NORMAL RANGE DUE TO REAGENT CHANGE Performed By: #### L 500.17170, L500.78525, L500.25550, L500.47436 ####[facility] SSBNUQCBMY7259 [place], [place] [address]Tt# [phone] Chloride [Moles/Vol] 109 mmol/L High 98-107 [facility] [place] Comment on above: Order Comment: Campu s: M Performed By: #### L 500.88840, L500.79898, L500.96960, L500.83364 ####[facility] SNHEVGELMO0397 [place], [place] [address]Io# [phone] CO2 [Moles/Vol] 25.0 mmol/L Normal 21-32 [facility] [place] Comment on above: Order Comment: Campu s: M Performed By: #### L 500.49792, L500.52815, L500.36715, L500.69228 ####[facility] KBJCBKPOCD1639 [place], [place] [address]Bv# [phone] Creatinine [Mass/Vol] 1.07 mg/dL Normal 0.5-1.4 [facility] Comment on above: Order Comment: Campu s: M Result Comment: NOTE NEW NORMAL RANGE DUE TO REAGENT CHANGEPatients receiving either N-Acetylcysteine (NAC) orMetamizole prior to venipuncture, may have falsely depressedresults. Performed By: #### L 500.25051, L500.39737, L500.26073, L500.52159 ####[facility] PVSDEKESRT7132 [place], [place] [address]Ea# [phone] Globulin (S) [Mass/Vol] 3.2 g/dL Normal 2.2-4.2 [facility] Comment on above: Order Comment: Campu s: M Performed By: #### L 500.40342, L500.70483, L500.64139, L500.21161 ####[facility] VVDXGYWFXU3440 [place], [place] [address]Lh# [phone] Glucose [Mass/Vol] 180 mg/dL High 70-100 [facility] Comment on above: Order Comment: Campu s: M Result Comment: 70-1 00- Normal Fasting; 100-125 Impaired Fasting; greaterthan 126 on more than one result- Diabetes. ADA guidelines.Results may be falsely elevated after the administration ofSulfapyridine.Results may be falsely depressed after the administration ofSulfasalazine. Performed By: #### L 500.60948, L500.43542, L500.88717, L500.04375 ####[facility] SWYKSDBEPZ5260 [place], [place] [address]Jb# [phone] Potassium [Moles/Vol] 4.8 mmol/L Normal 3.5-5.1 [facility] [place] Comment on above: Order Comment: Campu s: M Result Comment: Slig ht Hemolysis, Result may be affected. Performed By: #### L 500.36585, L500.49137, L500.59367, L500.74462 ####[facility] FZKOUGYAQA4946 [place], [place] [address]Bb# [phone] Protein [Mass/Vol] 6.5 g/dL Normal 6.0-8.5 [facility] Comment on above: Order Comment: Campu s: M Performed By: #### L 500.07061, L500.78659, L500.15148, L500.13627 ####[facility] ACVHVHQRQR9864 [place], [place] [address]Sx# [phone] Sodium [Moles/Vol] 140 mmol/L Normal 136-145 [facility] Comment on above: Order Comment: Campu s: M Performed By: #### L 500.89343, L500.88216, L500.63191, L500.28236 ####[facility] MXMEZRKCOH3313 [place], [place] [address]Td# [phone] Urea nitrogen [Mass/Vol] 19 mg/dL Normal 7-26 [facility] [place] Comment on above: Order Comment: Campu s: M Performed By: #### L 500.98005, L500.82289, L500.74534, L500.58005 ####[facility] EKDCOYATUU8508 [place], [place] [address]Wo# [phone] Urea nitrogen/Creatinine [Mass ratio] 18 mg/mg Normal 15-24 [facility] Comment on above: Order Comment: Campu s: M Performed By: #### L 500.54404, L500.96081, L500.44339, L500.18618 ####[facility] NFJRGMMDSK5015 [place], [place] [address]Vf# [phone] CONS.Meche 11-29-2020 CONS.CARD Normal [facility] Consultation-Cardio logy Normal [facility] CONS.INTENon 11-29-2020 CONS.INTEN Normal [facility] Consultation-Intens ivist [facility] CT ANGIO HEAD W/POST PROCon 11-29-2020 CT ANGIO HEAD W/POST PROC Normal [facility] CT HEAD/BRAIN W/O CONon 11-11 CT HEAD/BRAIN W/O CON [facility] Christ[facility] 11-29-2020 EMERGENCY PHYSICIAN REPORT This is a preliminary report only, as the practitioner review and authentication has not occurred. Normal [facility] ER Normal [facility] GFR ESTon 11-29-2020 IF AMER Greater than 60 [facility] Comment on above: Order Comment: Campu s: M Performed By: #### L 500.59377, L500.17644, L500.21726, L500.86083 ####[facility] QLUNVTVDQL3264 [place], [place] [address]En# [phone] IF non-AFR AMER Greater than 60 [facility] Comment on above: Order Comment: Campu s: M Performed By: #### L 500.83332, L500.03633, L500.77099, L500.39004 ####[facility] ZTMTYKGRDZ3138 [place], [place] [address]Jh# [phone] IF AMER Greater than 60 [facility] Comment on above: Order Comment: Campu s: M Performed By: #### L 500.32815, L500.63282, L500.21948, L500.21552 ####[facility] WZJPAOHWNE9787 [place], [place] [address]Lo# [phone] IF non-AFR AMER Greater than 60 Normal [facility] [place] Comment on above: Order Comment: Aaronu s: M Performed By: #### L 500.31678, L500.47941, L500.60611, L500.48429 ####[facility] YDJBUJTOZS7977 [place], [place] [address]Xn# [phone] IF AMER Greater than 60 Normal [facility] [place] Comment on above: Order Comment: Aaronu s: M Performed By: #### L 500.39530, L500.16854 ####[facility] BUDEMFSEQR2193 [place], [place] [address]Yu# [phone] IF non-AFR AMER Greater than 60 Normal [facility] [place] Comment on above: Order Comment: Aaronu s: M Performed By: #### L 500.12399, L500.97811 ####[facility] ZDKUFTSKTO2840 [place], [place] [address]Tn# [phone] GLUCOSE METERon 11-29-2020 Glucose [Mass/Vol] 116 mg/dL High 70-115 [facility] Glucose [Mass/Vol] 161 mg/dL High 70-115 [facility] Glucose [Mass/Vol] 168 mg/dL High 70-115 [facility] Glucose [Mass/Vol] 223 mg/dL High 70-115 [facility] HGB A1C GLYCOHBon 11-29-2020 HbA1c (Bld) [Mass fraction] 5.8 % Normal 4.3-6.0 [facility] Comment on above: Order Comment: Aaronu s: M Performed By: #### L 550.83769 ####[facility] OBVZSFCZRF3802 [place], [place] [address]Xu# [phone] HP.IMS.ADMon 11-29-2020 Admission-H&P Normal [facility] [place] HP.IMS.ADM Normal [facility] IONIZED CAon 11-29-2020 IONIZED CA 1.11 MMOL/L Low 1.16-1.32 [facility] Comment on above: Order Comment: Gabriela s: M Performed By: #### L 550.53358 ####[facility] AHMMCYAXUM4793 [place], [place] [address]Fi# [phone] IONIZED CA 1.16 MMOL/L Normal 1.16-1.32 [facility] Comment on above: Order Comment: Gabriela s: M Performed By: #### L 550.76655 ####[facility] VUVTRKNWBJ8689 [place], [place] [address]Ac# [phone] LIPIDon 11-29-2020 CHOL 260 MG/dL High 0-199 [facility] Comment on above: Order Comment: Gabriela s: M Performed By: #### L 500.76145 ####[facility] TPOWGWWQJM5458 [place], [place] [address]Ox# [phone] Cholesterol in HDL [Mass/Vol] 43 mg/dL Normal GREATER THAN 40 [facility] Comment on above: Order Comment: Gabriela qiu: Carmen Result Comment: Tawana ents receiving Metamizole prior to venipuncture, mayhave falsely depressed results. Performed By: #### L [id number] ####[facility] [id number] [place], [place] [address]Vl# [phone] Cholesterol in LDL [Mass/Vol] 195 mg/dL Normal [facility] Comment on above: Order Comment: Gabriela Morales Result Comment: ___C HOLESTEROL/HDL RATIO RISK___ CHD RISK = Total CHOL LDL HDL (CHOL/HDL) ----Recommended <200 <130 >40 <3.4 Jose rderline 200-239 130-159 3.4-4.99 --High >240 >160 >5.0 Performed By: #### L [id number] ####[facility] [id number] [place], [place] [address]Lx# [phone] Triglyceride [Mass/Vol] 111 mg/dL Normal 30-149 [facility] Comment on above: Order Comment: Garbiela qiu: Carmen Result Comment: Tawana ents receiving either N-Acetylcysteine (NAC) orMetamizole prior to venipuncture, may have falsely depressedresults. Performed By: #### L [id number] ####[facility] [id number] [place], [place] [address]Fl# [phone] MAGNESIUMon 11-29-2020 Magnesium [Mass/Vol] 1.9 mg/dL Normal 1.6-2.6 [facility] Comment on above: Order Comment: Gabriela Morales Result Comment: Slig ht Hemolysis, Result may be affected.Previous Critical within one week. Critical Result(s)verified at: 15:05:28 on 11/29/2020 by: Ginny Manzano Performed By: #### L 500.05650, L500.67433, L500.57245, L500.00609 ####[facility] [id number] [place], [place] [address]Ac# [phone] Magnesium [Mass/Vol] 2.2 mg/dL Normal 1.6-2.6 [facility] Comment on above: Order Comment: Gabriela Morales Result Comment: Slig ht Hemolysis, Result may be affected.Critical Result(s)Called at: 05:29:53 on 11/29/2020 by olesya. Called to paresh back by:MIN CRAWFORD Performed By: #### L 500.56094, L500.90403, L500.30816, L500.36729 ####[facility] RAR[address]IM[address] [place], [place] [address]Iu# [phone] MODIFIED BARIUM SWALLOWon MODIFIED BARIUM SWALLOW Normal [facility] [place] PORTABLE CHESTon 11-29-2020 PORTABLE CHEST Normal [facility] [place] PTon 11-29-2020 INR Coag (PPP) [Relative time] 1.07 {INR} Normal 0.9-1.1 [facility] Comment on above: Order Comment: Gabriela qui: Carmen Result Comment: Jesse mmended PT INR therapeutic range for terminal computer operator andprophylactic therapy is 2.0 - 3.0. For heart valve andshunt patients the range is 2.5 - 3.5. Performed By: #### L 300.22386, L300.52073 ####[facility] LDZPZKILRX22[address] [place], [place] [address]Hc# [phone] PTS 11.4 SECONDS Normal 9.5-12.0 [facility] Comment on above: Order Comment: Gabriela Morales Performed By: #### L 300.31018, L300.50836 ####[facility] KWQYPMYPKX9[address] [place], [place] [address]Md# [phone] INR Coag (PPP) [Relative time] 1.19 {INR} High 0.9-1.1 [facility] Comment on above: Order Comment: Gabriela qiu: Carmen Result Comment: Jesse mmended PT INR therapeutic range for nursing home andprophylactic therapy is 2.0 - 3.0. For heart valve andshunt patients the range is 2.5 - 3.5. Performed By: #### L 300.26160, L300.56152 ####[facility] SWPMZHVJSO5840 [place], [place] [address]Lj# [phone] PTS 12.6 SECONDS High 9.5-12.0 [facility] Comment on above: Order Comment: Gabriela Morales Performed By: #### L 300.52186, L300.46307 ####[facility] [id number] [place], [place] [address]Wx# [phone] PTTon 11-29-2020 aPTT Coag (Bld) [Time] 34.8 s High 22.0-31.5 [facility] Comment on above: Order Comment: Gabriela s: Carmen Result Comment: Ther apeutic Heparin Reference [...] using the PTT. Performed By: #### L 300.04481 ####[facility] YRWACMKPKT2864 [place], [place] [address]Ey# [phone] aPTT Coag (Bld) [Time] 30.6 s Normal 22.0-31.5 [facility] Comment on above: Order Comment: Gabriela qiu: [...] using the PTT. Performed By: #### L 300.67641 ####[facility] ICYHSXTZLQ0765 [place], [place] [address]Xx# [phone] aPTT Coag (Bld) [Time] 117.3 s Critically high 22.0-31.5 [facility] Comment on above: Order Comment: Gabriela s: M Result Comment: CRIT ICAL VALUE(S) VERIFIED AND CALLED TO AND READ BACK BYANTIONE LOW AT 0437 11/29/20 BY BHAVESH JETTTherapeutic Heparin Reference Range: High [...] using the PTT. Performed By: #### L 300.34135, L300.13877 ####[facility] VWTHFNGSRC0915 [place], [place] [address]Mc# [phone] PTT Normal 22.0-31.5 [facility] Comment on above: Order Comment: Gabriela s: M Result Comment: GREA TER THAN 200.0 SECONDSCRITICAL VALUE(S) VERIFIED AND CALLED TO AND READ BACK STARLA LOW AT 0108 11/29/20 BY EDDA ALLEN Performed By: #### L 300.76445, L300.36025 ####[facility] JNNHXRJBRB1709 [place], [place] [address]Rq# [phone] [id number] 11-29-2020 SARS-CoV-2 (COVID-19) RNA GIBRAN+probe Ql (Unsp spec) Negative Invalid Interpretation Code Negative [facility] Comment on above: Order Comment: Gabriela qiu: M Result Comment: RESU LTS CALLED TO AUTUMN PIERRET 21611/29/20 BY BATOOL JACOBSNegative results do not preclude SARS-CoV-2 infection andshould not be used as the sole basis for treatment or otherpatient management decisions. Negative results must becombined with clinical observation, patient history, andepidemiological information.This test was performed by PCR. Performed By: #### L 770.97900 ####[facility] IAURLMJEDC8085 [place], [place] [address]Ct# [phone] TROPONIN Ion 11-29-2020 [place]OP[place]IN I 31151.5 pg/mL Crit[facility] 0-54 [facility] Comment [facility]: Order Comment: Gabriela qiu: Carmen Result Comment: Prev ious Critical within one week. Critical Result(s)verified at: 19:20:25 on 11/29/2020 by: Ginny Saba NEW NORMAL RANGE DUE TO REAGENT CHANGEThis assay uses different antibodies than our current assay,and assays, even by the same pump press operator may recognizedifferent regions of the antibody and cannot be usedinterchangeably. Expect results of this assay to run higherthan the previous assay. Performed By: #### L 550.44424 ####[address] [address]Hj# [phone] TROPONIN I 742493.3 pg/mL Critically high 0-54 [facility] Comment on above: Order Comment: Gabriela s: M Result Comment: Prev ious Critical within one week. Critical Result(s)verified at: 12:09:43 on 11/29/2020 by: Fay Mckee NEW NORMAL RANGE DUE TO REAGENT CHANGEThis assay uses different antibodies than our current assay,and assays, even by the same pump press operator may recognizedifferent regions of the antibody and cannot be usedinterchangeably. Expect results of this assay to run higherthan the previous assay. Performed By: #### L 550.78767 ####[address] [address]Lq# [phone] Troponin I.cardiac [Mass/Vol] 690899 ng/mL Critically high 0-54 [facility] Comment on above: Order Comment: Gabriela s: Carmen Result Comment: Prev ious Critical within one week. Critical Result(s)verified at: 04:57:21 on 11/29/2020 by: Yessi FallenshipNOTE NEW NORMAL RANGE DUE TO REAGENT CHANGENOTE NEW NORMAL RANGE DUE TO REAGENT CHANGEThis assay uses different antibodies than our current assay,and assays, even by the same pump press operator may recognizedifferent regions of the antibody and cannot be usedinterchangeably. Expect results of this assay to run higherthan the previous assay. Performed By: #### L 550.31848 ####[facility] VRAVLGUJRA32[address] [place], [place] [address]Ea# [phone] [place] I [address].1 pg/mL Critically high 0-54 [facility] [place] Comment on above: Order Comment: Gabriela qiu: Carmen Result Comment: Erin ical Result(s) Called at: 01:00:34 on 11/29/2020 bylmaurea. Called to and read back by:EVER CRAWFORDNOTMuna NEW NORMAL RANGE DUE TO REAGENT CHANGEThis assay uses different antibodies than our current assay,and assays, even by the same pump press operator may recognizedifferent regions of the antibody and cannot be usedinterchangeably. Expect results of this assay to run higherthan the previous assay. Performed By: #### L 550.44565 ####[facility] [id number] [place], [place] [address]Qx# [phone] CNOVon 07-14-2018 CNOV Office Visit (PODIWS ) GINNY BARFIELD ([id number]) 1980 M TXT Date Time Provider Department 07/14/18 2:15 PM PETER MANZO During your visit today, we recorded the [...] Relaxation No results found for: HBA1C PCP: NAMNA RASHEED MD PAST MEDICAL HISTORY Diagnosis Date [...] Clindamycin Hives - Poison Olga - Poison [place] PAST SURGICAL HISTORY Procedure Laterality Date - COLONOSCOP W/ OR W/O [facility] SPEC 03/14/2015 Colonoscopy - PAST SURGICAL [...] non-medical: Not on file 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 Tobacco Use Smoking status: Current Every Day [...] by PETER MANZO DPM on 07/16/18 Normal [facility] PROGRESSon 07-14-2018 Protein mass conc HNO ID: [id number] Author: Gianna Calvin Ma Service: ? Author [...] the above equipment. Gianna Calvin Ma Normal [facility] Protein mass conc HNO ID: [id number] Author: Peter Manzo Service: ? 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 Peter Manzo DPM Normal [facility] Protein mass conc HNO ID: [id number] Author: Gianna Calvin Ma Service: ? Author [...] callus. No redness present around callus. Normal [facility] CNOVon 07-06-2018 CNOV Office Visit (INTMWS ) GINNY BARFIELD ([id number]) 1980 M TXT Date Time Provider Department 07/06/18 2:00 PM [facility] INTMWS During your visit today, we recorded [...] Laterality Date - COLONOSCOP W/ OR W/O [facility] SPEC 03/14/2015 Colonoscopy - PAST SURGICAL HISTORY OF 2002 ORIF Right hand - PAST SURGICAL HISTORY OF Birthmark excision, posterior neck ALLERGIES Clindamycin; Poison Olga; Poison [place] MEDICATIONS omeprazole (PRILOSEC) 20 mg capsule Take [...] SIMPLEX TYPE 1 AND 2 IG Lyndon Ledemsa APRN.WILDLIFE ENFORCEMENT MAJOR Prescription instructions reviewed with patient as applicable. [...] COMBO(AG/AB),WITH REFLEX TO DIFFERENTIATION [SQHIV12] Order #: [id number] FUTURE GC/CHLAMYDIA AMPLIF, URINE [SQUGCCT] Order #: [id number] FUTURE HERPES SIMPLEX TYPE 1 AND 2 IG [QXQWJP11] Order #: [id number] FUTURE CONSULT TO UROLOGY [9041] Order #: [id number]: 1 XR LUMBAR GENERAL 3V AP/LAT/L5-S1 [7242330] Order #: [id number] FUTURE XR THORACIC LIMITED 2V AP/LAT [2897513] Order #: [id number] FUTURE CONSULT TO ENT [9008] Order #: [id number]: 1 Prescriptions as of 07/06/2018 Sig: OMEPRAZOLE [...] by LYNDON LEDESMA CNP on 07/06/18 Normal [facility] GC/Chlamydia Amp, Uron 07-06 Chlamydia Amplif, Ur Negative Normal [facility] Comment on above: Performed By: #### U GCCT ####[facility] [place], [place] [phone] GC Amplification, Ur Negative Normal [facility] Comment on above: Performed By: #### U GCCT ####[facility] [place] [phone] HIV 12 Combo (Ag/Ab)on 07-06 HIV 12 Ag/Ab Non Reactive Normal Non Reactive [facility] Comment on above: Performed By: #### H SVG12, HIV12C ####[facility] [address] [place] [phone] HIV Interpretation Negative Normal [facility] Comment on above: Result Comment: No e vidence of HIV-1 or HIV-2 infection. Should recent infection be suspected, repeat testing may be considered 2-3 weeks after this draw. HIV Information: [place] Rev. Code 3701.243(E): This information has been [...] diagnoses. Performed By: #### H SVG12, HIV12C ####[address] [place] [phone] HIV-1/2 Antibody Test Not Indicated Normal [facility] Comment on above: Performed By: #### H SVG12, HIV12C ####[place] [address] [place] [phone] HSVG Typ 1 and 2 Abson 07-06 Herpes Simplex IgG 1 <0.2 Normal [facility] Comment on above: Result Comment: INDE X VALUES ARE INTERPRETED FOLLOWS: NEGATIVE SPECIMENS <0.9 EQUIVOCAL SPECIMENS 0.9 TO 1.0 POSITIVE SPECIMENS >=1.1 Performed By: #### H SVG12, HIV12C ####[place] [phone] Herpes Simplex IgG 2 >8.0 Normal [facility] Comment on above: Result Comment: INDE X VALUES ARE INTERPRETED FOLLOWS: NEGATIVE SPECIMENS <0.9 EQUIVOCAL SPECIMENS 0.9 TO 1.0 POSITIVE SPECIMENS >=1.1 Performed By: #### H SVG12, HIV12C ####[facility] [address] [place] [phone] HSV IgG 1 Qualitative Negative Normal Negative [facility] Comment on above: Result Comment: No H SV-1 IgG antibodies detected. Patient is presumed not to have had a previous HSV-1 infection. Performed By: #### H SVG12, HIV12C ####[facility] [address] AveCMelinda [place] [phone] HSV IgG 2 Qualitative Positive Critically abnormal Negative [facility] Comment on above: Result Comment: IgG antibody to HSV-2 detected Performed By: #### H SVG12, HIV12C ####[facility] [address] [place], [place] [phone] PROGRESSon 07-06-2018 Protein mass conc HNO ID: [id number] Author: Hannah ChauhanRtBisi Lucas Service: ? Author Type: Drug Worker Type: Progress Notes Filed: 07/06/2018 3:05 PM [...] Lesia July 06, 2018 2:55 PM Normal [facility] Protein mass conc HNO ID: [id number] Author: Lyndon Ledesma Service: ? Author Type: [...] Laterality Date - COLONOSCOP W/ OR W/O [facility] SPEC 03/14/2015 Colonoscopy - PAST SURGICAL HISTORY OF 2002 ORIF Right hand - PAST SURGICAL HISTORY OF Birthmark excision, posterior neck ALLERGIES Clindamycin; Poison Olga; Poison [place] MEDICATIONS omeprazole (PRILOSEC) 20 mg capsule Take [...] TYPE 1 AND 2 IG Lyndon Ledesma APRN.WILDLIFE ENFORCEMENT MAJOR Prescription instructions reviewed with patient as applicable. Potential red flag symptoms discussed with the patient. Reviewed appropriate action plan to take if red flag symptoms occur. Patient agreeable to treatment plan. Normal [facility] XR LUMBAR 3V AP/LAT/L5-S1on 07-06-2018 XR LUMBAR [...] THE L1 VERTEBRAL BODY OF INDETERMINATE ORIGIN. Assistant Professor Of Sociology: CANDACE Transcribe Date/Time: Jul 06 2018 5:10P Dictated by : MEENAKSHI SANTA MD This examination was interpreted and the report reviewed and electronically signed by: MEENAKSHI SANTA MD on Jul 06 2018 5:13PM EST [id number] Normal [facility] XR THORACIC 2V AP/LATon 06-12 XR THORACIC [...] THE L1 VERTEBRAL BODY OF INDETERMINATE ORIGIN. Assistant Professor Of Sociology: CANDACE Transcribe Date/Time: Jul 06 2018 5:10P Dictated by : MEENAKSHI SANTA MD This examination was interpreted and the report reviewed and electronically signed by: MEENAKSHI SANTA MD on Jul 06 2018 5:13PM EST [id number] Normal [facility] Cortisolon 07-05-2018 Cortisol 10.7 ug/dL Normal [facility] Comment on above: Result Comment: Jalen isol Reference Range: AM = 5.3-22.5, PM = 3.4-16.8 Performed By: #### C OR ####[facility] [address], [place] [phone] Basic Metabolic Panlon 07-01 Anion gap molar conc 8 mmol/L Low - [facility] Comment on above: Performed By: #### C BC, BMP, TSH, FT4, T3 #### [facility] [employer] [address] [place], [place] [address] Calcium mass conc 8.9 mg/dL Normal 8.5-10.2 [facility] Comment on above: Performed By: #### C BC, BMP, TSH, FT4, T3 #### [facility] [address] [place] [phone] Chloride molar conc 106 mmol/L High 97-105 [facility] Comment on above: Performed By: #### C BC, BMP, TSH, FT4, T3 #### [place] [phone] CO2 molar conc 26 mmol/L Normal 22-30 [facility] Comment on above: Performed By: #### C BC, BMP, TSH, FT4, T3 #### [place] [phone] Creatinine mass conc 1.00 mg/dL Normal 0.73-1.22 [facility] Comment on above: Performed By: #### C BC, BMP, TSH, FT4, T3 #### [place] [phone] eGFR- Amer. >60 Normal [facility] Comment on above: Performed By: #### C BC, BMP, TSH, FT4, T3 #### [place] [phone] GFR/1.73 sq M predicted among non-blacks MDRD vol rate/area (S/P/Bld) mL/min/{1.73_m2} Normal [facility] Comment on above: Result Comment: eGFR (Estimated [...] C BC, BMP, TSH, FT4, T3 #### [facility] [employer] [facility] [place] [address] Glucose mass conc 101 mg/dL High 74-99 [facility] Comment on above: Result Comment: The [place] Diabetes Association (ADA) provides guidance for cutoff [...] Standards of Medical Care in Diabetes 2016, [place] [employer] Association. Diabetes Care. 2016.39(Suppl 1). Performed By: #### C BC, BMP, TSH, FT4, T3 #### [facility] [employer] [address] [place] [address] Potassium molar conc 4.3 mmol/L Normal 3.7-5.1 [facility] Comment on above: Performed By: #### C BC, BMP, TSH, FT4, T3 #### [place] [address] Sodium molar conc 140 mmol/L Normal 136-144 [facility] Comment on above: Performed By: #### C BC, BMP, TSH, FT4, T3 #### [place] [phone] Urea nitrogen mass conc 8 mg/dL Low 9-24 [facility] Comment on above: Performed By: #### C BC, BMP, TSH, FT4, T3 #### [place] [address] CBCon 07-01-2018 Absolute nRBC <0.01 Normal <0.01 [facility] Comment on above: Performed By: #### C BC, BMP, TSH, FT4, T3 #### [place] [address] Erythrocyte distribution width Ratio (RBC) 12.3 % Normal 11.5-15.0 [facility] Comment on above: Performed By: #### C BC, BMP, TSH, FT4, T3 #### [place] [address] Hematocrit Volume Fraction (Bld) 49.6 % Normal 39.0-51.0 [facility] Comment on above: Performed By: #### C BC, BMP, TSH, FT4, T3 #### [place] [address] Hemoglobin mass conc (Bld) 16.4 g/dL Normal 13.0-17.0 [facility] Comment on above: Performed By: #### C BC, BMP, TSH, FT4, T3 #### [place] [address] MCH Entitic mass (RBC) 29.9 pG Normal 26.0-34.0 [facility] Comment on above: Performed By: #### C BC, BMP, TSH, FT4, T3 #### [place] [address] MCHC mass conc (RBC) 33.1 g/dL Normal 30.5-36.0 [facility] Comment on above: Performed By: #### C BC, BMP, TSH, FT4, T3 #### [place] [address] MCV Entitic volume (RBC) 90.5 fL Normal 80.0-100.0 [facility] Comment on above: Performed By: #### C BC, BMP, TSH, FT4, T3 #### [place] [address] Platelet mean volume Entitic volume (Bld) 10.4 fL Normal 9.0-12.7 [facility] Comment on above: Performed By: #### C BC, BMP, TSH, FT4, T3 #### [facility] [address] [place] [address] Platelets #/vol (Bld) 208 10*3/uL Normal 150-400 [facility] Comment on above: Performed By: #### C BC, BMP, TSH, FT4, T3 #### [place] [address] [place] [address] RBC #/vol (Bld) 5.48 10*6/uL Normal 4.20-6.00 [facility] Comment on above: Performed By: #### C BC, BMP, TSH, FT4, T3 #### [place] [address] [place] [address] WBC #/vol (Bld) 5.69 10*3/uL Normal 3.70-11.00 [facility] Comment on above: Performed By: #### C BC, BMP, TSH, FT4, T3 #### [place] [address] [place] [address] CNOVon 07-01-2018 CNOV Office Visit (INTMWS ) GINNY BARFIELD ([id number]) 1980 M Date Time Provider Department 07/01/18 11:20 AM LYNDON LEDESMA (WILDLIFE ENFORCEMENT MAJOR) INTMWS During your visit today, we recorded the following information about you: Temperature Pulse Respiration Blood pressure 97.6 degrees 84/minute 16/minute 132/82 Lyndon Ledesma APRN.CNP 07/01/2018 4:24 PM Signed CC: Patient presents with: Multiple Concerns HPI Ginny Marian Simone is a 38 year old male who [...] around here. Doesn't want to travel to [place] for fear of getting jumped or robbed [...] Laterality Date - COLONOSCOP W/ OR W/O [facility] SPEC 03/14/2015 Colonoscopy - PAST SURGICAL HISTORY OF 2002 ORIF Right hand - PAST SURGICAL HISTORY OF Birthmark excision, posterior neck ALLERGIES Clindamycin; Poison Olga; Poison [place] MEDICATIONS amoxicillin (AMOXIL) 875 mg tablet Take [...] to address all concerns appropriately. Lyndon Ledesma APRN.[facility] Prescription instructions reviewed with patient as applicable. [...] 2 CONSULT TO PODIATRY [9034] Order #: [id number]: 1 BASIC METABOLIC PNL [SQBMP] Order #: [id number] FUTURE TSH BLD [SQTSH] Order #: [id number] FUTURE T4 FREE/FREE THYROX [SQFT4] Order #: [id number] FUTURE T3 BLD [SQT3] Order #: [id number] FUTURE CBC [SQCBC] Order #: [id number] FUTURE CORTISOL BLD [SQCOR] Order #: [id number] FUTURE Prescriptions as of 07/01/2018 Sig: AMOXICILLIN [...] by LYNDON LEDESMA CNP on 07/01/18 Normal [facility] Free T4on 07-01-2018 T4 free mass conc 1.2 ng/dL Normal 0.9-1.7 [facility] Comment on above: Performed By: #### C BC, BMP, TSH, FT4, T3 ####[facility] [address] [place], [place] [phone] PROGRESSon 07-01-2018 Protein mass conc HNO ID: [id number] Author: Lyndon Ledesma Service: ? Author Type: [...] around here. Doesn't want to travel to [place] for fear of getting jumped or robbed [...] Laterality Date - COLONOSCOP W/ OR W/O [facility] SPEC 03/14/2015 Colonoscopy - PAST SURGICAL HISTORY OF 2003 ORIF Right hand - PAST SURGICAL HISTORY OF Birthmark excision, posterior neck ALLERGIES Clindamycin; Poison Olga; Poison [place] MEDICATIONS amoxicillin (AMOXIL) 875 mg tablet Take [...] to address all concerns appropriately. Lyndon Ledesma APRN.WILDLIFE ENFORCEMENT MAJOR Prescription instructions reviewed with patient as applicable. Potential red flag symptoms discussed with the patient. Reviewed appropriate action plan to take if red flag symptoms occur. Patient agreeable to treatment plan. Normal [facility] T3on 07-01-2018 T3 149 ng/dL Normal 79-165 [facility] Comment on above: Performed By: #### C BC, BMP, TSH, FT4, T3 ####[facility] [address] [place], [place] [phone] TSHon 07-01-2018 Thyrotropin Qn 2.020 uU/mL Normal 0.400-5.500 Mary nascimento [facility] Comment on above: Performed By: #### C BC, BMP, TSH, FT4, T3 ####[facility] [address] [place], [place] [phone] CNOVon 06-28-2018 CNOV Office Visit (INTMWS ) SIMONEGINNY Marian ([id number]) 1980 M Date Time Provider Department 06/28/18 3:00 PM TEMI RHOADES ([facility]) INTMWS During your visit today, we recorded [...] he trusts in this area. Was in express care October last year and prescribed Clindamycin for dental abscess. REVIEW OF SYSTEMS See HPI PAST MEDICAL HISTORY Diagnosis Date - History of drug use - Lumbago 2006 Fell at work - Tobacco use PAST SURGICAL HISTORY Procedure Laterality Date - COLONOSCOP W/ OR W/O [facility] SPEC 03/14/2015 Colonoscopy - PAST SURGICAL HISTORY OF 2002 ORIF Right hand - PAST SURGICAL HISTORY OF Birthmark excision, posterior neck ALLERGIES Poison Olga; Poison [place] MEDICATIONS triamcinolone acetonide (KENALOG) 0.1 % cream [...] Patient agreeable to treatment plan. Temi Rhoades APRN.WILDLIFE ENFORCEMENT MAJOR Referring Provider: SELF [200] Allergies As of Date: 06/28/2018 Noted Allergy Reaction POISON OLGA 04/28/2006 POISON OAK 04/28/2006 Date Reviewed: 06/28/2018 Reviewed by: Evette Duarte Block Bolter Mule Operator - Fully Assessed Reason for Visit: tooth [...] Status:Closed by TEMI RHOADES CNP on 06/28/18 [facility] PROGRESSon 06-28-2018 Protein mass conc HNO ID: [id number] Author: Temi Rhoades Service: ? Author Type: Nurse Practitioner Type: [...] he trusts in this area. Was in [facility] care October last year and prescribed Clindamycin for dental abscess. REVIEW OF SYSTEMS See HPI PAST MEDICAL HISTORY Diagnosis Date - History of drug use - Lumbago 2006 Fell at work - Tobacco use PAST SURGICAL HISTORY Procedure Laterality Date - COLONOSCOP W/ OR W/O [facility] SPEC 03/14/2015 Colonoscopy - PAST SURGICAL HISTORY OF 2002 ORIF Right hand - PAST SURGICAL HISTORY OF Birthmark excision, posterior neck ALLERGIES Poison Olga; Poison [place] MEDICATIONS triamcinolone acetonide (KENALOG) 0.1 % cream [...] occur. Patient agreeable to treatment plan. Temi Rhoades, ADELA.WILDLIFE ENFORCEMENT MAJOR Normal [facility] CNOVon 11-16-2017 CNOV Office Visit ([facility] ) GINNY BARFIELD ([id number]) 1980 M Date Time Provider Department 11/16/17 4:00 PM DAMARI STRANGE) [facility] During your visit today, we recorded the following information about you: Pulse Respiration Blood pressure Weight 85/minute 16/minute 120/82 112.1 kg Damari Strange APRN.CNP 11/16/2017 5:04 PM Signed Subjective HPI HPI Ginny Barfield is a [...] Laterality Date - COLONOSCOP W/ OR W/O [facility] SPEC 03/14/2015 Colonoscopy - PAST SURGICAL HISTORY OF 2002 ORIF Right hand - PAST SURGICAL HISTORY OF Birthmark excision, posterior neck ALLERGIES Poison Olga; Poison [place] MEDICATIONS ibuprofen (MOTRIN) 800 mg tablet Take [...] to treatment plan. Damari Strange APRN.FELICIA Strange APRN.CNP 11/16/2017 4:25 PM Signed EXPRESS CARE PATIENT [...] plants grow in many areas across the [facility] and throughout the world. East of the [facility], poison olga commonly grows as a climbing vine. In the [place] area and west, poison olga tends to grow low to the ground as a shrub. Poison oak most often grows west of the [facility], and poison sumac inhabits boggy areas in the critical access hospital part of the [facility]. The plants are not usually found [...] 04/28/2006 Date Reviewed: 11/16/2017 Reviewed by: Damari ([facility]) - Fully Assessed Reason for Visit: [...] plants grow in many areas across the [facility] and throughout the world. East of the [facility], poison olga commonly grows as a climbing vine. In the [place] area and west, poison olga tends to grow low to the ground as a shrub. Poison oak most often grows west of the [facility], and poison sumac inhabits boggy areas in the southeastern part of the [facility]. The plants are not usually found [...] by DAMARI STRANGE CNP on 11/16/17 [facility] PROGRESSon 11-16-2017 Protein mass conc HNO ID: [id number] Author: Damari Luevano) Service: (none) Author Type: [...] Laterality Date - COLONOSCOP W/ OR W/O [facility] SPEC 03/14/2015 Colonoscopy - PAST SURGICAL HISTORY OF 2002 ORIF Right hand - PAST SURGICAL HISTORY OF Birthmark excision, posterior neck ALLERGIES Poison Olga; Poison [place] MEDICATIONS ibuprofen (MOTRIN) 800 mg tablet Take [...] Patient agreeable to treatment plan. Damari Strange APRN.WILDLIFE ENFORCEMENT MAJOR [facility] CNOVon 11-04-2017 CNOV Office Visit ([facility] ) SIMONEGINNY ([id number]) 1980 M Date Time Provider Department 11/04/17 4:00 PM FAY AMES (PODODERMATOLOGIST) [facility] During your visit today, we recorded the following information about you: Temperature Pulse Respiration Blood pressure 98.1 degrees 80/minute 18/minute 130/110 Weight 110.7 kg Fay Ames APRN.WILDLIFE ENFORCEMENT MAJOR 11/04/2017 4:14 PM Signed Subjective HPI Patient presents with: Dental Problem x 2 day Frequent hx of dental caries and dental abscesses. Looking at getting into dentist in [place] and [place], states does not trust any dentist in [place]. Analgesics otc with minimal relief. ROS All other reviewed and negative other than HPI. 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 Fay Ames APRN.WILDLIFE ENFORCEMENT MAJOR Referring Provider: SELF [200] Allergies As of [...] Encounter Status:Closed by FAY AMES on 11/04/17 [facility] PROGRESSon 11-04-2017 Protein mass conc HNO ID: [id number] Author: Fay Qiu (Water Safety Instructor) Adolfo Service: (none) Author Type: Nurse Practitioner Type: Progress Notes Filed: 11/04/2017 4:14 PM Note Text: Subjective HPI Patient presents with: Dental Problem x 2 day Frequent hx of dental caries and dental abscesses. [place] [facility], states does not trust any dentist in [place]. Analgesics otc with minimal relief. ROS All other reviewed and negative other than HPI. 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 Fay Ames APRN.WILDLIFE ENFORCEMENT MAJOR [facility] Vital Signs Date Time Vital Sign Value Performing Clinician Facility 10-24-2024 22:29-0400 Body temperature 97 [degF] Dr. Gayle Camacho MD Work Phone: [facility] 10-24-2024 22:29-0400 Diastolic blood pressure 108 mm[Hg] Dr. Gayle Camacho MD Work Phone: [facility] 10-24-2024 22:29-0400 Heart rate 63 /min Dr. Gayle Camacho MD Work Phone: [facility] 10-24-2024 22:29-0400 Respiratory rate 14 /min Dr. Gayle Camacho MD Work Phone: [facility] 10-24-2024 22:29-0400 SaO2% (BldA) [Mass fraction] 97 % Dr. Gayle Camacho MD Work Phone: [facility] 10-24-2024 22:29-0400 Systolic blood pressure 134 mm[Hg] Dr. Gayle Camacho MD Work Phone: [facility] 10-24-2024 18:09-0400 Body height 187.[address] Gayle Camacho MD Work Phone: [facility] 10-24-2024 18:09-0400 Body mass index (BMI) [Ratio] 30.6 kg/m2 Dr. Gayle Camacho MD Work Phone: [facility] 10-24-2024 18:09-0400 Body weight 108.[address] Gayle Camacho MD Work Phone: [facility] 10-03-2024 23:57-0400 Body temperature 98 [degF] Dr. Gayle Camacho MD Work Phone: [facility] 10-03-2024 23:57-0400 Diastolic blood pressure 89 mm[Hg] Dr. Gayle Camacho MD Work Phone: [facility] 10-03-2024 23:57-0400 Heart rate 69 /min Dr. Gayle Camacho MD Work Phone: [facility] 10-03-2024 23:57-0400 Respiratory rate 18 /min Dr. Gayle Camacho MD Work Phone: [facility] 10-03-2024 23:57-0400 SaO2% (BldA) [Mass fraction] 98 % Dr. Gayle Camacho MD Work Phone: [facility] 10-03-2024 23:57-0400 Systolic blood pressure 132 mm[Hg] Dr. Gayle Camacho MD Work Phone: [facility] 10-03-2024 22:42-0400 Body height 187.[address] Gayle Camacho MD Work Phone: [facility] 10-03-2024 22:42-0400 Body mass index (BMI) [Ratio] 30.4 kg/m2 Dr. Gayle Camacho MD Work Phone: [facility] 10-03-2024 22:42-0400 Body weight 107.[address] Gayle Camacho MD Work Phone: [facility] 07-04-2024 19:15-0400 Body height 187.[address] Gayle Camacho MD Work Phone: [facility] 07-04-2024 19:15-0400 Body mass index (BMI) [Ratio] 31.1 kg/m2 Dr. Gayle Camacho MD Work Phone: [facility] 07-04-2024 19:15-0400 Body temperature 97.8 [degF] Dr. Gayle Camacho MD Work Phone: [facility] 07-04-2024 19:15-0400 Body weight 110.[address] Gayle Camacho MD Work Phone: [facility] 07-04-2024 19:15-0400 Diastolic blood pressure 90 mm[Hg] Dr. Gayle Camacho MD Work Phone: [facility] 07-04-2024 19:15-0400 Heart rate 82 /min Dr. Gayle Camacho MD Work Phone: [facility] 07-04-2024 19:15-0400 Respiratory rate 16 /min Dr. Gayle Camacho MD Work Phone: [facility] 07-04-2024 19:15-0400 SaO2% (BldA) [Mass fraction] 99 % Dr. Gayle Camacho MD Work Phone: [facility] 07-04-2024 19:15-0400 Systolic blood pressure 148 mm[Hg] Dr. Gayle Camacho MD Work Phone: [facility] 04-03-2023 09:37-0500 Body height 188 cm NELL THOMPSON MD [facility] 04-03-2023 09:37-0500 Body temperature 98.42 [degF] NELL THOMPSON MD [facility] 04-03-2023 09:37-0500 Body weight 112 kg NELL THOMPSON MD [facility] 04-03-2023 09:37-0500 Diastolic Blood Pressure Non-Invasive 89 mm[Hg] NELL THOMPSON MD [facility] 04-03-2023 09:37-0500 Heart rate 74 /min NELL THOMPSON MD [facility] 04-03-2023 09:37-0500 Respiratory rate 20 /min NELL THOMPSON MD [facility] 04-03-2023 09:37-0500 Systolic Blood Pressure Non-Invasive 147 mm[Hg] NELL THOMPSON MD [facility] 04-03-2023 06:22-0500 Blood Pressure Location KATRINA MURILLO MD [facility] 04-03-2023 06:22-0500 Body height 188 cm KATRINA MURILLO MD [facility] 04-03-2023 06:22-0500 Body temperature 97.88 [degF] KATRINA MURILLO MD [facility] 04-03-2023 06:22-0500 Body weight 113 kg KATRINA MURILLO MD [facility] 04-03-2023 06:22-0500 Diastolic Blood Pressure Non-Invasive 88 mm[Hg] KATRINA MURILLO MD [facility] 04-03-2023 06:22-0500 Heart rate 66 /min KATRINA MURILLO MD [facility] 04-03-2023 06:22-0500 Respiratory rate 16 /min KATRINA MURILLO MD [facility] 04-03-2023 06:22-0500 Systolic Blood Pressure Non-Invasive 137 mm[Hg] KATRINA MURILLO MD [facility] 04-03-2023 05:49-0500 SaO2% (BldA) [Mass fraction] 96 % [facility] 04-03-2023 05:48-0500 Diastolic blood pressure 60 mm[Hg] [facility] 04-03-2023 05:48-0500 Heart rate 82 /min [facility] 04-03-2023 05:48-0500 Respiratory rate 16 /min [facility] 04-03-2023 05:48-0500 Systolic blood pressure 152 mm[Hg] [facility] 04-03-2023 04:57-0500 Body height 187.96 cm [facility] 04-03-2023 04:57-0500 Body mass index (BMI) [Ratio] 31.6 kg/m2 [facility] 04-03-2023 04:57-0500 Body temperature 96 [degF] [facility] 04-03-2023 04:57-0500 Body weight 111.8 kg [facility] 12-03-2020 07:40-0400 SaO2% (BldA) [Mass fraction] 99 % [facility] Comment on above: Order Comment: Veblen: CORTNEY BLOOD GAS? YP atient's Anticoagulant? UNKNOWN Performed By: #### L [id number] ####[facility] [id number] [place], [place] [address]Dx# [phone] 11-30-2020 06:43-0400 SaO2% (BldA) [Mass fraction] 100 % [facility] Comment on above: Order Comment: Veblen: CORTNEY BLOOD GAS? YP atient's Anticoagulant? UNKNOWN Performed By: #### L [id number] ####[facility] [id number] [place], [place] [address]Ax# [phone] 11-29-2020 06:30-0400 SaO2% (BldA) [Mass fraction] 100 % [facility] Comment on above: Order Comment: Veblen: [facility] BLOOD GAS? YP atient's Anticoagulant? HEPARIN Performed By: #### L [id number] ####[facility] [id number] [place], [place] [address]Lu# [phone] 11-29-2020 02:20-0400 SaO2% (BldA) [Mass fraction] 95 % [facility] Comment on above: Performed By: #### [id number] ####[facility] [id number] [place] [address]Er# [phone] Encounters Encounter Date Encounter Type Care Provider Facility Start: 10-24-2024 End: 10-24-2024 Emergency department patient visit Dr. Gayle Camacho MD Work Phone: -Emergency Department Work Phone: Start: 10-03-2024 End: 10-04-2024 Emergency department patient visit Dr. Gayle Camacho MD Work Phone: -Emergency Department Work Phone: Start: 07-04-2024 End: 07-04-2024 Emergency department patient visit Dr. Gayle Camacho MD Work Phone: -Emergency Department Work Phone: Start: 03-04-2024 End: 03-04-2024 Emergency department patient visit Gayle Camacho Facility:[facility] Start: 01-05-2024 End: 01-05-2024 Emergency department patient visit Gayle Camacho Facility:[facility] Start: 04-03-2023 End: 04-03-2023 Emergency department patient visit NELL THOMPSON MD Facility:B Start: 04-03-2023 End: 04-03-2023 Emergency department patient visit NELL THOMPSON MD [facility] Start: 04-03-2023 End: 04-03-2023 Emergency department patient visit KATRINA MURILLO MD Facility:B Start: 04-03-2023 End: 04-03-2023 Emergency department patient visit KATRINA MURILLO MD [facility] Start: 04-03-2023 End: 04-03-2023 Emergency department patient visit [facility]-Emergency Department Work Phone: Start: 11-29-2020 End: 11-29-2020 ambulatory UNKNOWN PROVIDER Facility:[facility] Start: 07-14-2018 End: 07-16-2018 Patient encounter procedure PETER MANZO [facility] Start: 07-06-2018 End: 07-07-2018 Patient encounter procedure LYNDON (WILDLIFE ENFORCEMENT MAJOR) [facility] Start: 07-05-2018 End: 07-05-2018 Patient encounter procedure LYNDON (WILDLIFE ENFORCEMENT MAJOR) CALLIE [facility] Start: 07-01-2018 End: 07-01-2018 Patient encounter procedure LYNDON (WILDLIFE ENFORCEMENT MAJOR) CALLIE [facility] Start: 07-01-2018 End: 07-02-2018 Patient encounter procedure LYNDON (WILDLIFE ENFORCEMENT MAJOR) CALLIE [facility] Start: 06-28-2018 End: 06-29-2018 Patient encounter procedure TEMI (WILDLIFE ENFORCEMENT MAJOR) [facility] Start: 11-16-2017 End: 11-17-2017 Patient encounter procedure TEMI [facility] Start: 11-04-2017 End: 11-05-2017 Patient encounter procedure TEMI [facility] Procedures Date Procedure Procedure Detail Performing Clinician Start: 11-29-2020 History of placement of stent for coronary artery disease History of coronary artery stent placement Comment on above: WWJ-VAD-Taqb LCx w/ 3.0 x 12 mm Rebel Stent 11/29/20 Start: 11-29-2020 Ecg routine ecg w/le ast 12 lds i&r only Start: 11-29-2020 Cardiac catheterization H/O: surgery H/O hand surgery Plan of Treatment Date Care Activity Detail Author Start: 10-24-[address] [facility] Start: 10-03-[address] [facility] Start: 04-03-[address] [facility] Patient Education [facility] Work Phone: Patient referral [facility] Work Phone: Payers Date Payer Category Payer Self-pay [id number] 2023 Unknown [id number] 2020 Medicaid [id number] 1980 Unknown [id number] 2.16. [id number] 1980 Unknown [id number] 2.16. [id number] 1980 Unknown [id number] 2.16.8 [id number] 1980 Unknown [id number] 2.16.8 [id number] Unknown [id number] 2.16.8 [id number] Unknown [id number] 2.16.8 [id number] Unknown [id number] 2.16.8 [id number] Unknown [id number] 2.16.8 [id number] Unknown [id number] 2.16.8 [id number] Social History Date Type Detail Facility Start: 04-03-2023 Tobacco smoking stat [facility] Unknown if ever smoked [facility] Start: 04-09-[address] [facility] Start: 08-08-[address] [facility] Start: 1980 Sex Assigned At Male [facility] Start: 12-12-2020 Tobacco smoking status Never s moked tobacco (finding) [facility] Start: 07-04-2024 End: 10-03-2024 Tobacco smoking status NHIS Smokes tobacco daily (finding) [facility] Start: 07-04-2024 Sex Male (finding) [facility] Start: 10-24-2024 Tobacco smoking stat [facility] Current Heavy tobacco smoker [facility] Functional Status Date Assessment Result Facility 04-03-2023 Functional Status ID band on, Allergy Band on, Call device within reach, Bed in low position, Wheels locked, personal items within reach, Bedside Cart Locked [facility] Mental Status Date Assessment Result Facility 07-04-2024 Cognitive function Level Of Cons ciousness Awake;Alert;Appropriate [facility] Work Phone: 04-03-2023 Mental Status Oriented x 4 [facility] Discharge instructions 04-03-2023 Note Date [...] temperature. Use toothpaste made for sensitive teeth. Novelty gently up and down instead of sideways. Brushing sideways can wear away root surfaces if they are exposed. If your tooth is chipped or cracked, or if there is a large open cavity, put oil of cloves directly on the tooth to relieve pain. You can buy oil of cloves at drugstores. Some pharmacies carry an qbmn-teo-lxjmzkn toothache kit. This contains a paste that you can put on the exposed tooth to make it less sensitive. Put a cold pack on your jaw over the sore area to help reduce pain. You may use bcec-enq-pcqnykb medicine to ease pain, unless your doctor [...] healthcare provider Pus drains from the tooth [phone] [employer] [address] [place] [address], [place] [address]. All rights reserved. This information is not intended as a substitute for professional medical care. Always follow your healthcare professional's instructions. Follow Up Care 04/03/2023 09:29:33 With:Follow up with primary care provider Address:Unknown When:2-4 days [facility] Clinical Note 04-03-2023 Note Date & Type [...] temperature. Use toothpaste made for sensitive teeth. Novelty gently up and down instead of sideways. Brushing sideways can wear away root surfaces if they are exposed. If your tooth is chipped or cracked, or if there is a large open cavity, put oil of cloves directly on the tooth to relieve pain. You can buy oil of cloves at drugstores. Some pharmacies carry an amjl-dtr-ngbodqr toothache kit. This contains a paste that you can put on the exposed tooth to make it less sensitive. Put a cold pack on your jaw over the sore area to help reduce pain. You may use cjss-maw-sgheiem medicine to ease pain, unless your doctor [...] healthcare provider Pus drains from the tooth [phone] [employer] [address] [place] [address]. All rights reserved. This information is not intended as a substitute for professional medical care. Always follow your healthcare professional's instructions. Additional Information VACCINATE! IT SAVES LIVES! Members of the community who have not yet received the COVID-19 vaccine and would like to receive it can visit one of [facility] vaccine clinics. There are many vaccine clinic locations within the [facility]. For locations and available times, please visit www.[email or web address].[place].gov/. It is important to note that some COVID mobile vaccine clinics are held outdoors and may be canceled in rainy or stormy conditions. To learn more about pediatric vaccinations (ages 5-11), we invite you to visit the [facility] webpage. [email or web address]/pages/[email or web address]-[email or web address]-Fsrwixcxbnm-Frequently-Asked -Questions.html To learn more about the COVID-19 vaccine, we invite you to visit the CDC website for a list of frequently asked questions. https://www.cdc.gov/coronavirus/2019-n cov/vaccines/faq.html [facility] Patient Portal Access Instructions: Stay connected with your healthcare team and access your personal medical information anytime with the [facility] Patient Portal. If you would like a full copy of your medical records please contact the [facility] Medical Records Department Thursday through Thursday between 8a.m. and 4:30p.m. Please follow the directions below to access the portal: 1.Access the email account you provided upon registration to the [facility].2.Look for an invitation email from [facility].3.Open the email and access the invitation link: Accept Invitation to [facility].Fill in the required anaya to create your account. Sign into [email or web address] with your username and password that you [...] you will allow to register on the [email or web address] Patient Portal for access to your information. You can also access the [facility] Patient Portal on the [employer] blanca. Simply click on Health Records under Health Data and then click on the [facility] logo. HOW TO SAFELY DISPOSE OF PRESCRIPTION [...] Call your local pharmacy or go to http://[employer]/2V6Aq4y to find one close to you.3.Make use of household items: Use cat litter or old coffee grounds to dispose medications if other options are not available. Mix your drugs with these household products, seal them in an airtight container and throw it into the garbage. Call [facility]: [phone] to be sure your drugs can be [...] aware that I should contact my doctor. Patient/Rent Collector Signature: _ Date/Time: Relationship to Patient: Witness Name/Signature: Date/Time: [facility] Discharge instructions 04-03-2023 Note Date & [...] temperature. Use toothpaste made for sensitive teeth. Novelty gently up and down instead of sideways. Brushing sideways can wear away root surfaces if they are exposed. If your tooth is chipped or cracked, or if there is a large open cavity, put oil of cloves directly on the tooth to relieve pain. You can buy oil of cloves at [facility]. Some pharmacies carry an jvcf-rmi-nxsqzkc toothache kit. This contains a paste that you can put on the exposed tooth to make it less sensitive. Put a cold pack on your jaw over the sore area to help reduce pain. You may use khci-mfc-ikalhvo medicine to ease pain, unless your doctor [...] healthcare provider Pus drains from the tooth [phone] [employer] [address] [place] [address]. All rights reserved. This information is not intended as a substitute for professional medical care. Always follow your healthcare professional's instructions. Follow Up Care 04/03/2023 06:19:55 With:Dental Referral List Address: When:2-4 days Comments:Schedule appointment as soon as possibleReturn to ED if symptoms worsen [facility] Clinical Note 04-03-2023 Note Date & Type Note Facility 04-03-2023 Note Discharge Instructions Thank you for allowing [facility] to assist you with your healthcare needs. The following is important discharge information regarding your hospital visit. Diagnosis from Today's Visit Dentalgia Pain in tooth What to Do Next Instructions from Your Care Team Fill the antibiotic prescription that you were given from [facility]. Motrin and Tylenol [...] temperature. Use toothpaste made for sensitive teeth. Novelty gently up and down instead of sideways. Brushing sideways can wear away root surfaces if they are exposed. If your tooth is chipped or cracked, or if there is a large open cavity, put oil of cloves directly on the tooth to relieve pain. You can buy oil of cloves at drugstores. Some pharmacies carry an luut-usj-oyeiiot toothache kit. This contains a paste that you can put on the exposed tooth to make it less sensitive. Put a cold pack on your jaw over the sore area to help reduce pain. You may use [id number] medicine to ease pain, unless your doctor [...] healthcare provider Pus drains from the tooth [id number] [employer] [address] [place] [address]. All rights reserved. This information is not intended as a substitute for professional medical care. Always follow your healthcare professional's instructions. Additional Information VACCINATE! IT SAVES LIVES! Members of the community who have not yet received the COVID-19 vaccine and would like to receive it can visit one of [facility] vaccine clinics. There are many vaccine clinic locations within the [facility]. For locations and available times, please visit [email or web address].[email or web address]/. It is important to note that some COVID mobile vaccine clinics are held outdoors and may be canceled in rainy or stormy conditions. To learn more about pediatric vaccinations (ages 5-11), we invite you to visit the [facility] webpage. [email or web address]/pages/[email or web address] [email or web address]-Jkvtl-Xfegakuzbrv-Frequently-Asked -Questions.html To learn more about the COVID-19 vaccine, we invite you to visit the CDC website for a list of frequently asked questions. https://www.cdc.gov/coronavirus/2019-n cov/vaccines/faq.html [email or web address] Patient Portal Access Instructions: Stay connected with your healthcare team and access your personal medical information anytime with the [facility] Patient Portal. If you would like a full copy of your medical records please contact the [facility] Medical Records Department Thursday through Thursday between 8a.m. and 4:30p.m. Please follow the directions below to access the portal: 1.Access the email account you provided upon registration to the [facility].2.Look for an invitation email from [facility].3.Open the email and access the invitation link: Accept Invitation to [email or web address].Fill in the required anaya to create your account. Sign into [email or web address] with your username and password that you [...] you will allow to register on the [facility] Patient Portal for access to your information. You can also access the [facility] Patient Portal on the [employer] blanca. Simply click on Health Records under Health Data and then click on the [employer] logo. HOW TO SAFELY DISPOSE OF PRESCRIPTION [...] Call your local pharmacy or go to http://bit.ly/0R6Ii3b to find one close to you.3.Make use of household items: Use cat litter or old coffee grounds to dispose medications if other options are not available. Mix your drugs with these household products, seal them in an airtight container and throw it into the garbage. Call [facility]: [phone] to be sure your drugs can be [...] aware that I should contact my doctor. Patient/Rent Collector Signature: _ Date/Time: Relationship to Patient: Witness Name/Signature: Date/Time: [facility] Discharge summary note 12-11-2020 Note Date & Type Note Facility 12-11-2020 [facility] [place] Evaluation + Plan note Note Date & Type Note Facility Evaluation + Plan note No data available for this section [facility] Evaluation note Note Date & Type Note Facility Evaluation note No assessment information availa jayshree [facility] Work Phone: Reason for referral (narrative) Note Date & Type Note Facility Reason for referral (narrative) No reason for referral information available [facility] Work Phone: Summary Purpose Family History No Family History Records Found Relationship Condition Age at Onset Recorded Date/T sheyla mother Diabetes mellitus Unknown grandmother Diabetes mellitus Unknown Hypertension Unknown Malignant neoplasm Unknown Advance Directives No Advanced Directives Records Found Advance Directive Response Recorded Date/ Time Living Will No April 03 023 4:59am Power of Loss Prevention Associate No April 03, 2023 4:59am Advance Directive Response Recorded Date/ Time Living Will No July 04, 2024 8:41pm Do you have a Healthcare Power of Loss Prevention Associate? No July 04, 2024 8:41pm Advance Directive Response Recorded Date/ Time Do you have a Healthcare Power of Loss Prevention Associate? No October 03, 2024 10:42pm Living Will No July 04, 2024 8:41pm Do you have a Healthcare Power of Loss Prevention Associate? No July 04, 2024 8:41pm Advance Directive Response Recorded Date/ Time Do you have a Healthcare Power of Loss Prevention Associate? No October 03, 2024 10:42pm Do you have a Healthcare Power of Loss Prevention Associate? No October 24, 2024 10:11pm Living Will No July 04, 2024 8:41pm Do you have a Healthcare Power of Loss Prevention Associate? No July 04, 2024 8:41pm Chief Complaint and Reason for Visit Chief Complaint DENTAL Chief Complaint Admit Date foreign object July 04, 2024 7:1 4pm Chief Complaint Admit Date foreign object July 04, 2024 7:1 4pm rash October 03, 2024 10:4 2pm Chief Complaint Admit Date foreign object July 04, 2024 7:1 4pm rash October 03, 2024 10:4 2pm POISION OLGA October 24, 2024 6:09 pm Additional Source Comments (unrecognized sect ion and content) No Status Records FoundNo Status Records FoundNo Status Records FoundNo Status Records FoundNo Status Records Found INFORMATION SOURCE (unrecogn ized section and content) DATE CREATED AUTHOR 07/18/2018 [facility] DATE CREATED AUTHOR AUTHOR'S ORGANIZ ATION 12/04/2020 [facility] DATE CREATED AUTHOR AUTHOR'S ORGANIZ ATION 06/03/2021 [facility] [place] DATE CREATED AUTHOR AUTHOR'S ORGANIZ ATION 04/11/2023 [facility] ([place] DATE CREATED AUTHOR AUTHOR'S ORGANIZ ATION 11/01/2024 [facility] Care Teams (unrecognized sec tion and [...] July 04, 2024 End: July 04, 2024 Team Status: Inactive Member Role Status Dates Dr. Gayle Camacho MD Primary Care Provider Active Start: July 04, 2024 End: July 04, 2024 Ed Physician Provider Attending Provider Active Start: July 04, 2024 End: July 04, 2024 Ed Physician Provider Emergency Provider Active Start: July 04, 2024 End: July 04, 2024 Team Status: Inactive Member Role Status Dates Dr. Gayle Camacho MD Primary Care Provider Active Start: October 03, 2024 End: October 04, 2024 Dr. Javi Bridges DO Emergency Provider Active Start: October 03, 2024 End: October 04, 2024 Team Status: Active Member Role/Relationship Status Dates Dr. Gayle Camacho MD Primary Care Provider Active Team Status: Inactive Member Role/Relationship Status Dates Dr. Gayle Camacho MD Primary Care Provider Active Start: July 04, 2024 End: July 04, 2024 Ed Physician Provider Attending Provider Active Start: July 04, 2024 End: July 04, 2024 Ed Physician Provider Emergency Provider Active Start: July 04, 2024 End: July 04, 2024 Team Status: Inactive Member Role/Relationship Status Dates Dr. Gayle Camacho MD Primary Care Provider Active Start: October 03, 2024 End: October 04, 2024 Dr. Javi Bridges DO Attending Provider Active Start: October 03, 2024 End: October 04, 2024 Dr. Javi Bridges DO Emergency Provider Active Start: October 03, 2024 End: October 04, 2024 Team Status: Inactive Member Role/Relationship Status Dates Dr. Gayle Camacho MD Primary Care Provider Active Start: October 24, 2024 End: October 24, 2024 Dr. Javi Bridges DO Emergency Provider Active Start: October 24, 2024 End: October 24, 2024 Goals (unrecognized section and content) Goals may be documented in a n alternate section No data available for this section No data available for this sectionGoals may be documented in an alternate sectionGoals may be documented in an alternate sectionGoals may be documented in an alternate [...] BE BASED ON THE PRIMARY CLINICAL RECORDS. [employer] [facility]. provides no warranty or guarantee of the accuracy or completeness of information in this document.
[2024-11-04 23:24] VITALS: O2SAT 98
--- NOTE | 2024-11-04 23:24 | ED.RN ---
While this RN was completing appropriate assessments, the patient began to express his frustrations with [facility]. When asked about the patient's medical history and medication list, the patient began to ramble stating, well I have many things wrong with me and I have to convince all my doctors to even listen to me and diagnose me with shit. The heart group here decided to play games with me, I am supposed to be on like 5 different medications, like a blood thinner and shit because of my heart attack and stroke but yet they won't prescribe me my meds so I haven't been taking them. I cut cold turkey, which you aren't supposed to do but all my vitals are good and I am good, so I don't even think that I need everything they told me I need, which is good because they won't even give me them. This RN listened to the patient and continued my assessment, in which the patient would respond with more examples of how the heart group and primary care doctor aren't listening to him and they aren't giving me his meds. This RN educated the patient on the importance of the medications and the importance of going to see his specialty doctors. However, the patient proceeded to brush off this RN's suggestions. The patient seemed very agitated during this interaction. D/t the patient's agitation and expressed feelings of MD JALEN notified and security made aware of the conversation.
[2024-11-04 23:26] VITALS: BP 162/88; PULSE 86; RESP 18; O2SAT 98
[2024-11-04] MEDS: Albuterol Sulfate 8 gm Inhaler (60 puffs) 2 PUFF INHALATION (23:53)
[2024-11-04 23:54] VITALS: BP 143/82; PULSE 78; RESP 18; TEMP 36.6; O2SAT 97
== END 2024-11-04 23:55 | disposition home or self-care (01) ==
PROVIDERS: Emergency Provider Emergency Medicine; PCP Internal Medicine; Visit Provider Emergency Medicine
DX: J06.9 Acute upper respiratory infection, unspecified (principal); I25.10 Atherosclerotic heart disease of native coronary artery without angina pectoris; R06.02 Shortness of breath; I10 Essential (primary) hypertension; I25.2 Old myocardial infarction; Z86.73 Personal history of transient ischemic attack (TIA), and cerebral infarction without residual deficits; Z86.74 Personal history of sudden cardiac arrest; Z95.5 Presence of coronary angioplasty implant and graft; F17.210 Nicotine dependence, cigarettes, uncomplicated
CPT/HCPCS: 71046; 99282